=== PATIENT | male | born 1960 | race Caucasian/White ===

== ENCOUNTER 2016-04-30 08:23 | Outpatient (CLI) ==
[2016-01-24 04:55] VITALS: BMI 59.6
== END 2016-04-30 08:24 | disposition home or self-care (01) ==
LOC: WOUND 08:23
PROVIDERS: ATTEND Nurse Practitioner Family
DX: I87.311 Chronic venous hypertension (idiopathic) with ulcer of right lower extremity (principal); L97.812 Non-pressure chronic ulcer of other part of right lower leg with fat layer exposed; I87.312 Chronic venous hypertension (idiopathic) with ulcer of left lower extremity; L97.322 Non-pressure chronic ulcer of left ankle with fat layer exposed; I48.91 Unspecified atrial fibrillation; E11.40 Type 2 diabetes mellitus with diabetic neuropathy, unspecified; I50.9 Heart failure, unspecified; I10 Essential (primary) hypertension
CPT/HCPCS: 11042

== ENCOUNTER 2016-05-07 08:25 | Outpatient (CLI) ==
[2016-01-24 04:55] VITALS: BMI 59.6
== END 2016-05-07 08:26 | disposition home or self-care (01) ==
LOC: WOUND 08:25
PROVIDERS: ATTEND Nurse Practitioner Family
DX: I87.311 Chronic venous hypertension (idiopathic) with ulcer of right lower extremity (principal); L97.812 Non-pressure chronic ulcer of other part of right lower leg with fat layer exposed; I87.312 Chronic venous hypertension (idiopathic) with ulcer of left lower extremity; L97.322 Non-pressure chronic ulcer of left ankle with fat layer exposed; I48.91 Unspecified atrial fibrillation; E11.40 Type 2 diabetes mellitus with diabetic neuropathy, unspecified; I50.9 Heart failure, unspecified; I10 Essential (primary) hypertension
CPT/HCPCS: 11042; 11045; 99214

== ENCOUNTER 2016-05-14 08:29 | Outpatient (CLI) | payer OTHER ==
[2016-01-24 04:55] VITALS: BMI 59.6
== END 2016-05-14 08:30 | disposition home or self-care (01) ==
LOC: WOUND 08:29
PROVIDERS: ATTEND Nurse Practitioner Family
DX: I87.311 Chronic venous hypertension (idiopathic) with ulcer of right lower extremity (principal); L97.812 Non-pressure chronic ulcer of other part of right lower leg with fat layer exposed; I87.312 Chronic venous hypertension (idiopathic) with ulcer of left lower extremity; L97.322 Non-pressure chronic ulcer of left ankle with fat layer exposed; I48.91 Unspecified atrial fibrillation; E11.40 Type 2 diabetes mellitus with diabetic neuropathy, unspecified; I50.9 Heart failure, unspecified; I10 Essential (primary) hypertension
CPT/HCPCS: 11042; 99213

== ENCOUNTER 2016-05-21 08:41 | Outpatient (CLI) | payer OTHER ==
[2016-01-24 04:55] VITALS: BMI 59.6
== END 2016-05-21 08:42 | disposition home or self-care (01) ==
LOC: WOUND 08:41
PROVIDERS: ATTEND Nurse Practitioner Family
DX: I87.311 Chronic venous hypertension (idiopathic) with ulcer of right lower extremity (principal); L97.812 Non-pressure chronic ulcer of other part of right lower leg with fat layer exposed; I87.312 Chronic venous hypertension (idiopathic) with ulcer of left lower extremity; L97.322 Non-pressure chronic ulcer of left ankle with fat layer exposed; I48.91 Unspecified atrial fibrillation; E11.40 Type 2 diabetes mellitus with diabetic neuropathy, unspecified; I50.9 Heart failure, unspecified; I10 Essential (primary) hypertension
CPT/HCPCS: 11042; 11045; 99213

== ENCOUNTER 2016-05-28 08:20 | Outpatient (CLI) ==
[2016-01-24 04:55] VITALS: BMI 59.6
== END 2016-05-28 08:21 | disposition home or self-care (01) ==
LOC: WOUND 08:20
PROVIDERS: ATTEND Nurse Practitioner Family
DX: I87.311 Chronic venous hypertension (idiopathic) with ulcer of right lower extremity (principal); L97.812 Non-pressure chronic ulcer of other part of right lower leg with fat layer exposed; I87.312 Chronic venous hypertension (idiopathic) with ulcer of left lower extremity; L97.322 Non-pressure chronic ulcer of left ankle with fat layer exposed; I48.91 Unspecified atrial fibrillation; E11.40 Type 2 diabetes mellitus with diabetic neuropathy, unspecified; I50.9 Heart failure, unspecified; I10 Essential (primary) hypertension
CPT/HCPCS: 11042; 11045; 99213

== ENCOUNTER 2016-06-04 08:34 | Outpatient (CLI) ==
[2016-01-24 04:55] VITALS: BMI 59.6
== END 2016-06-04 08:35 | disposition home or self-care (01) ==
LOC: WOUND 08:34
PROVIDERS: ATTEND Nurse Practitioner Family
DX: I87.311 Chronic venous hypertension (idiopathic) with ulcer of right lower extremity (principal); L97.812 Non-pressure chronic ulcer of other part of right lower leg with fat layer exposed; I87.312 Chronic venous hypertension (idiopathic) with ulcer of left lower extremity; L97.322 Non-pressure chronic ulcer of left ankle with fat layer exposed; I48.91 Unspecified atrial fibrillation; E11.40 Type 2 diabetes mellitus with diabetic neuropathy, unspecified; I50.9 Heart failure, unspecified; I10 Essential (primary) hypertension
CPT/HCPCS: 11042; 11045; 87070; 87186; 99213

== ENCOUNTER 2016-06-11 08:24 | Outpatient (CLI) ==
[2016-01-24 04:55] VITALS: BMI 59.6
== END 2016-06-11 08:25 | disposition home or self-care (01) ==
LOC: WOUND 08:24
PROVIDERS: ATTEND Nurse Practitioner Family
DX: I87.311 Chronic venous hypertension (idiopathic) with ulcer of right lower extremity (principal); L97.812 Non-pressure chronic ulcer of other part of right lower leg with fat layer exposed; I87.312 Chronic venous hypertension (idiopathic) with ulcer of left lower extremity; L97.322 Non-pressure chronic ulcer of left ankle with fat layer exposed; I48.91 Unspecified atrial fibrillation; E11.40 Type 2 diabetes mellitus with diabetic neuropathy, unspecified; I50.9 Heart failure, unspecified; I10 Essential (primary) hypertension
CPT/HCPCS: 11042; 11045; 99213

== ENCOUNTER 2016-06-18 08:27 | Outpatient (CLI) | payer OTHER ==
[2016-01-24 04:55] VITALS: BMI 59.6
== END 2016-06-18 08:28 | disposition home or self-care (01) ==
LOC: WOUND 08:27
PROVIDERS: ATTEND Nurse Practitioner Family
DX: I87.311 Chronic venous hypertension (idiopathic) with ulcer of right lower extremity (principal); L97.812 Non-pressure chronic ulcer of other part of right lower leg with fat layer exposed; I87.312 Chronic venous hypertension (idiopathic) with ulcer of left lower extremity; L97.322 Non-pressure chronic ulcer of left ankle with fat layer exposed; I48.91 Unspecified atrial fibrillation; E11.40 Type 2 diabetes mellitus with diabetic neuropathy, unspecified; I50.9 Heart failure, unspecified; I10 Essential (primary) hypertension
CPT/HCPCS: 11042; 11045; 99213

== ENCOUNTER 2016-07-02 08:56 | Outpatient (CLI) ==
[2016-01-24 04:55] VITALS: BMI 59.6
== END 2016-07-02 08:57 | disposition home or self-care (01) ==
LOC: WOUND 08:56
PROVIDERS: ATTEND Nurse Practitioner Family
DX: I87.311 Chronic venous hypertension (idiopathic) with ulcer of right lower extremity (principal); L97.812 Non-pressure chronic ulcer of other part of right lower leg with fat layer exposed; I87.312 Chronic venous hypertension (idiopathic) with ulcer of left lower extremity; L97.322 Non-pressure chronic ulcer of left ankle with fat layer exposed; I48.91 Unspecified atrial fibrillation; E11.40 Type 2 diabetes mellitus with diabetic neuropathy, unspecified; I50.9 Heart failure, unspecified; I10 Essential (primary) hypertension
CPT/HCPCS: 11042; 11045; 99213

== ENCOUNTER 2016-07-09 08:26 | Outpatient (CLI) | payer OTHER ==
[2016-01-24 04:55] VITALS: BMI 59.6
== END 2016-07-09 08:27 | disposition home or self-care (01) ==
LOC: WOUND 08:26
PROVIDERS: ATTEND Nurse Practitioner Family
DX: I87.311 Chronic venous hypertension (idiopathic) with ulcer of right lower extremity (principal); L97.812 Non-pressure chronic ulcer of other part of right lower leg with fat layer exposed; I87.312 Chronic venous hypertension (idiopathic) with ulcer of left lower extremity; L97.322 Non-pressure chronic ulcer of left ankle with fat layer exposed; I48.91 Unspecified atrial fibrillation; E11.40 Type 2 diabetes mellitus with diabetic neuropathy, unspecified; I50.9 Heart failure, unspecified; I10 Essential (primary) hypertension
CPT/HCPCS: 11042; 99213

== ENCOUNTER 2016-07-14 05:02 | Emergency (ER) ==
[2016-07-14 05:02] VITALS: BMI 59.6
[2016-07-14 05:30] VITALS: BP 159/90; TEMP 98.2
[2016-07-14 05:40] LABS: BASOPHILS % (AUTO) 0.3 % (0.0-3.0); EOSINOPHILS % (AUTO) 0.6 % (0.0-7.0); HEMATOCRIT 36.8 % (42.0-52.0); HEMOGLOBIN 12.2 g/dl (14.0-18.0); IMMATURE GRANULOCYTE % (AUTO) 0.4 % (0.0-5.0); LYMPHOCYTES # (AUTO) 0.9 K/uL (0.60-3.4); LYMPHOCYTES % (AUTO) 12.7 (10.0-50.0); MEAN CORPUSCULAR HEMOGLOBIN 30.3 pg (27.0-31.0); MEAN CORPUSCULAR HGB CONC 33.2 (31.8-35.4); MEAN CORPUSCULAR VOLUME 91.3 fl (80.0-94.0); MONOCYTES # (AUTO) 0.3 K/uL (0.4-2.0); MONOCYTES % (AUTO) 4.9 (0-10); NEUTROPHILS # (AUTO) 5.6 K/ul (2.0-6.9); NEUTROPHILS % (AUTO) 81.1; PLATELET COUNT 176 10^3/uL (140-440); RED BLOOD COUNT 4.03 10^6/ul (4.70-6.10); WHITE BLOOD COUNT 6.87 K/ul (4.2-10.2)
[2016-07-14 05:42] LABS: BILIRUBIN,URINE Negative (NEGATIVE); KETONES,URINE Trace (NEGATIVE); LEUKOCYTE ESTERASE ,URINE Negative (NEGATIVE); NITRITE,URINE Negative (NEGATIVE); PH,URINE 5.5 (5-9); PROTEIN,URINE 1+ (NEGATIVE); URINE, BLOOD 2+ (NEGATIVE)
[2016-07-14 05:48] LABS: ADD URINE MICROSCOPIC YES
[2016-07-14 05:49] LABS: BACTERIA,URINE TRACE (NOT PRESENT)
[2016-07-14 05:59] LABS: ALBUMIN 4.1 g/dL (3.4-5.0); ALBUMIN/GLOBULIN RATIO 1.05; ANION GAP 16.8; BILIRUBIN,TOTAL 1.15 mg/dL (0.00-1.20); CALCIUM 9.5 mg/dL (8.2-10.2); POTASSIUM 3.8 mmol/L (3.5-5.1)
--- NOTE | 2016-07-14 05:59 | ED.PDOC ---
General ED Provider: Dr. BIPIN MARTÍNEZ-ER Chief Complaint: Urinary Problem Stated Complaint: im having trouble urinating since last night Time Seen by Physician: 05:15 Mode of Arrival: Walk-In Information Source: Patient Exam Limitations: No limitations [facility] Nursing and Triage Documentation Reviewed and Agree: Yes Complaint Exam - Complaint/Exam Onset/Duration: 24hrs Symptoms Are: Resolved Timing: Intermittent Initial Severity: Mild Current Severity: None Location of Pain: Reports: None Character: Reports: Dull Aggravating: Reports: None Alleviating: Reports: None Associated Signs and Symptoms: Reports: Decreased urine output. Denies: Diaphoresis, Back pain, Fever, Hematuria, Dysuria, Constipation, Blood in stool , Rectal pain, Appetite change, Nausea, Vomiting, Penile swelling, Penile discharge, Increased urine frequency, Increased thirst, Decreased activity, Lethargy, Scrotal pain, Scrotal swelling, Abdominal Pain Testicular Torsion Risk Factors: Reports: None Abdominal Findings: Present: None Differential Diagnoses: UTI, Ureteral Calculi Review of Systems - Review Of Systems Constitutional: Reports: No symptoms Eyes: Reports: No symptoms Ears, Nose, Mouth, Throat: Reports: No symptoms Respiratory: Reports: No symptoms Cardiac: Reports: No symptoms GI: Reports: No symptoms : Reports: Other Musculoskeletal: Reports: No symptoms Skin: Reports: No symptoms Neurological: Reports: No symptoms Endocrine: Reports: No symptoms Hematologic/Lymphatic: Reports: No symptoms All Other Systems: Reviewed and Negative Past Medical History - Past Medical History Previously Healthy: No Endocrine: Reports: None Cardiovascular: Reports: CHF, A-Fib Respiratory: Reports: 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) Hematological: Reports: Anemia (hemolytic anemia) Gastrointestinal: Reports: None Genitourinary: Reports: None Neuro/Psych: Reports: None Musculoskeletal: Reports: None Cancer: Reports: None - Surgical History General Surgical History: Reports: None - Family History Family History: Reports: Unknown - Social History Smoking Status: Never smoker Hx Substance Use: No Alcohol Screening: None Lives: With family - Immunizations Tetanus Shot up to Date: Yes Physical Exam - Physical Exam Appearance: Well-appearing, No pain distress, Well-nourished Eyes: JD, EOMI, Conjunctiva clear ENT: Ears normal, Nose normal, Oropharynx normal Neck: Supple Respiratory: Airway patent, Breath sounds clear, Breath sounds equal, Respirations nonlabored Cardiovascular: RRR, Pulses normal, No rub, No murmur GI/: Soft, Nontender, No masses (noted pannus no erythema) Musculoskeletal: Normal strength, ROM intact, No edema, No calf tenderness Skin: Warm, Dry, Normal color Neurological: Sensation intact, Motor intact, Reflexes intact, Cranial nerves intact, Alert, Oriented Psychiatric: Affect appropriate, Mood appropriate Interpretation - Radiology Interpretation Radiology Interpretation By: Radiologist Radiology Results: Negative Exam Interpreted: CT Scan Critical Care Note - Critical Care Note Total Time (mins): 0 Course - Course Hematology/Chemistry: 07/14/16 05:35 07/14/16 05:35 Orders, Labs, Meds: Lab Review 07/14/16 07/14/16 05:30 05:35 WBC 6.87 RBC 4.03 L Hgb 12.2 L Hct 36.8 L MCV 91.3 MCH 30.3 MCHC 33.2 RDW Coeff of Yara 14.6 Plt Count 176 Immature Gran % (Auto) 0.4 Neut % (Auto) 81.1 Lymph % (Auto) 12.7 [place] % (Auto) 4.9 Eos % (Auto) 0.6 Baso % (Auto) 0.3 Immature Gran # (Auto) 0.0 Neut # 5.6 Lymph # 0.9 [place] # 0.3 L Eos # 0.0 Baso # 0.0 Sodium 143 Potassium 3.8 Chloride 107 Carbon Dioxide 23 Anion Gap 16.8 BUN 19 H Creatinine 1.00 Estimated GFR (MDRD) 78.00 BUN/Creatinine Ratio 19.00 Glucose 121 H Calcium 9.5 Total Bilirubin 1.15 AST 18 ALT 16 Alkaline Phosphatase 100 Total Protein 8.0 Albumin 4.1 Globulin 3.9 Albumin/Globulin Ratio 1.05 Urine Color Yellow Urine Clarity Clear Urine pH 5.5 Ur Specific [place] 1.025 Urine Protein 1+ Urine Glucose (UA) Negative Urine Ketones Trace Urine Blood 2+ Urine Nitrite Negative Urine Bilirubin Negative Urine Urobilinogen 0.2 Ur Leukocyte Esterase Negative Urine Microscopic RBC 20-30 Ur Squamous Epith Cells 0-2 Urine Bacteria Trace Orders Category Date Time Status Bladder Scan [ED BLADDER SCAN] .ONCE EMERGENCY 07/14/16 05:30 Inactive CBC W/ AUTO DIFF Stat LAB 07/14/16 05:35 Completed COMPREHENSIVE METABOLIC PANEL Stat LAB 07/14/16 05:35 Completed URINALYSIS C & S IF INDICATED Stat LAB 07/14/16 05:[address] ABDOMEN/PELVIS WO CONTRAST Stat RADS 07/14/16 05:50 Completed Vital Signs: Temp Pulse Resp BP Pulse Ox 07/14/16 05:10 98.2 F 71 20 159/90 H 97 Departure - Departure Time of Disposition: 06:43 Disposition: HOME SELF-CARE Discharge Problem: Incomplete emptying of bladder Instructions: Urinary Retention in Men (ED) Condition: Good Pt referred to PMD for follow-up: Yes Additional Instructions: flomax 0.4mg q daily #30--f/u with pcp Allergies/Adverse Reactions: Allergies No Known Allergies Allergy (Verified 01/24/16 05:10) Home Medications: Ambulatory Orders Folic Acid 1 mg PO DAILY 04/20/13 Furosemide [Lasix] 40 mg PO BID PRN 12/19/13 Metoprolol Succinate 100 mg PO BID 12/19/13 Potassium Chloride 40 meq PO BID 12/19/13 Diltiazem HCl [Cardizem Cd] 120 mg PO BID 03/21/14 Omeprazole [Prilosec] 20 mg PO DAILY 09/29/14 Apixaban [Eliquis] 5 mg PO BID 10/11/14 Aspirin 81 mg PO DAILY 05/07/16 Ibuprofen 800 mg PO BID 07/14/16 Disposition Discussed With: Patient
--- NOTE | 2016-07-14 06:36 | CT ---
Exam: CT of the abdomen and pelvis without contrast History: Urinary retention and lower extremity swelling. Clinical history of hemolytic anemia and chemotherapy Technique: [address] of the abdomen and pelvis without intravascular contrast FINDINGS: The lung bases are clear. There is a 1 cm benign liver cyst. The liver appears normal o therwise. Multiple cholelithiasis without pericholecystic inflammation or abnormal gallbladder dist ension. The pancreas and adrenal glands appear normal. Spleen diameter is 16 x 18 cm. The right ki dney and collecting system appear normal. The left kidney shows a 7 mm nonobstructing calculus. Th ere is no hydronephrosis or hydroureter on either side. The appendix is normal. Scattered alexander colo renato diverticulosis. Bowel loops demonstrate normal caliber. No inflamatory change seen in the mesent moriah or retroperitoneum. Atherosclerotic calcification of the aorta without aneurysm. Colonic diverticulosis of the sigmoid. No inflammation of the pelvic fat. Nondistended urinary michael dder. No acute findings of the skeleton. Impression: 1. No inflammatory process, bowel or urinary obstruction is seen. 2. Nonspecific splenomegaly stable from 11/13/2014. 3. Multiple cholelithiasis without CT evidence of cholecystitis 4. Alexander colonic diverticulosis without evidence of acute diverticulitis. 5. Nonobstructing nephrolithiasis of the left kidney
== END 2016-07-14 06:45 | disposition home or self-care (01) ==
LOC: ED 05:02
DX: R33.9 Retention of urine, unspecified (principal); Z79.899 Other long term (current) drug therapy
CPT/HCPCS: 36415; 80053; 81001; 85025; 99283

== ENCOUNTER 2016-07-23 09:19 | Outpatient (CLI) ==
[2016-07-19 13:17] VITALS: BMI 59.6
== END 2016-07-23 09:20 | disposition home or self-care (01) ==
LOC: WOUND 09:19
PROVIDERS: ATTEND Nurse Practitioner Family
DX: I87.311 Chronic venous hypertension (idiopathic) with ulcer of right lower extremity (principal); L97.812 Non-pressure chronic ulcer of other part of right lower leg with fat layer exposed; I87.312 Chronic venous hypertension (idiopathic) with ulcer of left lower extremity; L97.322 Non-pressure chronic ulcer of left ankle with fat layer exposed; I48.91 Unspecified atrial fibrillation; E11.40 Type 2 diabetes mellitus with diabetic neuropathy, unspecified; I50.9 Heart failure, unspecified; I10 Essential (primary) hypertension
CPT/HCPCS: 97597; 97598; 99214

== ENCOUNTER 2016-07-30 10:25 | Emergency (ER) ==
[2016-07-30 10:34] VITALS: BP 149/107; TEMP 97.4; BMI 58.3
[2016-07-30] MEDS ORDERED: URO-JET MUCOUSMEMB STA (10:35)
--- NOTE | 2016-07-30 10:39 | ED.PDOC ---
General ED Provider: Dr. RIGOBERTO COLBERT JR Chief Complaint: Urinary Problem Stated Complaint: Unable to void. States has been going on x 14 hours. Feels uncomfortable, feels need to void. Has large pendulous abd that pt thinks may be obstructive. Similar incident approx 2 weeks ago, but resolved itself without intervention. Is on flomax.[End] 97.4 92 24 95% 149/107 02/03 Time Seen by Physician: 10:38 Mode of Arrival: Walk-In Information Source: Patient Exam Limitations: No limitations Primary Care Provider: DARRYL DIAL Nursing and Triage Documentation Reviewed and Agree: No Complaint Exam - Complaint/Exam Patient Complains of: Reports: Dysuria Symptoms Are: Still present (intermittent inability to void, patient has large indurated pannus which hwe feels is obstructing his penile outflow"when I move I can occasionally get it to break loose") Review of Systems - Review Of Systems Constitutional: Reports: No symptoms, Malaise Eyes: Reports: No symptoms Ears, Nose, Mouth, Throat: Reports: No symptoms Respiratory: Reports: No symptoms Cardiac: Reports: No symptoms GI: Reports: Abdominal pain : Reports: Dysuria, Other (INABILITY TO VOID) Musculoskeletal: Reports: Muscle pain Skin: Reports: Lesions (THICK HARD PANNUS ACROSS UPPER GROIN AND SCROTUM) Neurological: Reports: No symptoms Endocrine: Reports: No symptoms Hematologic/Lymphatic: Reports: Other All Other Systems: Other Past Medical History - Past Medical History Previously Healthy: No Endocrine: Reports: DM 2 Cardiovascular: Reports: Hypertension, CHF, A-Fib, Other (PVD) Respiratory: Reports: 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) Hematological: Reports: Anemia (hemolytic anemia) Gastrointestinal: Reports: GERD Genitourinary: Reports: None Neuro/Psych: Reports: None Musculoskeletal: Reports: None Cancer: Reports: None Other Pertinent Past Medical History: Chemo pills-(stopped NOW) - Surgical History General Surgical History: Reports: None, Other (WOUND CARE FOR LOWER LEGS) - Family History Family History: Reports: Unknown - Social History Smoking Status: Never smoker Hx Substance Use: No Alcohol Screening: None Physical Exam - Physical Exam Appearance: Well-appearing, Obese Ill-appearing: Mild Pain Distress: Mild Neck: Supple Respiratory: Airway patent GI/: Nontender, Mass (PANNUS) Musculoskeletal: Normal strength, ROM intact, Edema, Calf tenderness (NONFOCAL NOT TENDER WHEN DISTRACTED) Skin: Warm Neurological: Sensation intact, Motor intact, Alert, Oriented Psychiatric: Affect appropriate, Anxious Re-Evaluation - Re-Evaluation Time of Re-Evaluation: 12:06 (CALLED DR Lainez [phone]) Status: Unchanged Physician Notification - Case Discussed Physician Notified: MARCO ANTONIO VELÁZQUEZ [employer] 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 FOR DR JUAREZ, WILL SEE IN [facility] Time of Notification: 12:03 (CALLED FRANNIE FUENTES AT 1200) Physician Notified: DR ELDER ACCEPTS TO [facility] FIFTH FLOOR Time of Notification: 12:30 Critical Care Note - Critical Care Note Total Time (mins): 10 Course - Course Orders, Labs, Meds: Orders Category Date Time Status Bladder Scan [ED BLADDER SCAN] .ONCE EMERGENCY 07/30/16 10:31 Active ED CATHETER INSERTION AND CARE .ONCE EMERGENCY 07/30/16 10:35 Active Lidocaine HCl [Uro-Jet] MEDS 07/30/16 10:35 Discontinued 10 ml MUCOUSMEMB ONCE STA Medications Discontinued Medications Generic Name Dose Route Start Last Admin Trade Name Freq PRN Reason Stop Dose Admin Lidocaine HCl 10 ml 07/30/16 10:35 Uro-Jet MUCOUSMEMB 07/30/16 10:36 ONCE STA Vital Signs: Temp Pulse Resp BP Pulse Ox 07/30/16 10:26 97.4 F L 92 H 24 149/107 H 95 Departure - Departure Time of Disposition: 12:15 Disposition: HOME SELF-CARE Discharge Problem: Urinary symptoms, Bladder outflow obstruction Instructions: Urinary Retention in Men (ED) Condition: Fair Pt referred to PMD for follow-up: No (UROLOGY) Additional Instructions: recommend you follow up at [facility] today as planned If you will not follow up may call your physician and arrange an appointment since you have voided the bladder is not completely obstructed, but you will need urologic care [facility] states your prescription is there Allergies/Adverse Reactions: Allergies No Known Allergies Allergy (Verified 01/24/16 05:10) Home Medications: Ambulatory Orders Folic Acid 1 mg PO DAILY 04/20/13 Furosemide [Lasix] 40 mg PO BID PRN 12/19/13 Metoprolol Succinate 100 mg PO BID 12/19/13 Potassium Chloride 40 meq PO BID 12/19/13 Diltiazem HCl [Cardizem Cd] 120 mg PO BID 03/21/14 Omeprazole [Prilosec] 20 mg PO DAILY 09/29/14 Apixaban [Eliquis] 5 mg PO BID 10/11/14 Aspirin 81 mg PO DAILY 05/07/16 Ibuprofen 800 mg PO BID PRN 07/14/16
== END 2016-07-30 13:23 | disposition home or self-care (01) ==
LOC: ED 10:25
DX: N32.0 Bladder-neck obstruction (principal); E65 Localized adiposity; Z79.899 Other long term (current) drug therapy
CPT/HCPCS: 99282

== ENCOUNTER 2016-08-06 08:19 | Outpatient (CLI) | payer OTHER | END 2016-08-06 08:20 | disposition home or self-care (01) | LOC: WOUND 08:19 | PROVIDERS: ATTEND Nurse Practitioner Family | DX: I87.311 Chronic venous hypertension (idiopathic) with ulcer of right lower extremity (principal); L97.812 Non-pressure chronic ulcer of other part of right lower leg with fat layer exposed; I87.312 Chronic venous hypertension (idiopathic) with ulcer of left lower extremity; L97.322 Non-pressure chronic ulcer of left ankle with fat layer exposed; I48.91 Unspecified atrial fibrillation; E11.40 Type 2 diabetes mellitus with diabetic neuropathy, unspecified; I50.9 Heart failure, unspecified; I10 Essential (primary) hypertension | CPT/HCPCS: 11042; 11045; 87070; 87186; 99213 ==

== ENCOUNTER 2016-08-13 08:19 | Outpatient (CLI) | payer OTHER | END 2016-08-13 08:20 | disposition home or self-care (01) | LOC: WOUND 08:19 | PROVIDERS: ATTEND Nurse Practitioner Family | DX: I87.311 Chronic venous hypertension (idiopathic) with ulcer of right lower extremity (principal); L97.812 Non-pressure chronic ulcer of other part of right lower leg with fat layer exposed; I87.312 Chronic venous hypertension (idiopathic) with ulcer of left lower extremity; L97.322 Non-pressure chronic ulcer of left ankle with fat layer exposed; I48.91 Unspecified atrial fibrillation; E11.40 Type 2 diabetes mellitus with diabetic neuropathy, unspecified; I50.9 Heart failure, unspecified; I10 Essential (primary) hypertension | CPT/HCPCS: 11042; 11045; 99213 ==

== ENCOUNTER 2016-08-20 08:26 | Outpatient (CLI) | END 2016-08-20 08:27 | disposition home or self-care (01) | LOC: WOUND 08:26 | PROVIDERS: ATTEND Nurse Practitioner Family | DX: I87.311 Chronic venous hypertension (idiopathic) with ulcer of right lower extremity (principal); L97.812 Non-pressure chronic ulcer of other part of right lower leg with fat layer exposed; I87.312 Chronic venous hypertension (idiopathic) with ulcer of left lower extremity; L97.322 Non-pressure chronic ulcer of left ankle with fat layer exposed; I48.91 Unspecified atrial fibrillation; E11.40 Type 2 diabetes mellitus with diabetic neuropathy, unspecified; I50.9 Heart failure, unspecified; I10 Essential (primary) hypertension | CPT/HCPCS: 11042; 11045; 99214 ==

== ENCOUNTER 2016-09-03 08:21 | Outpatient (CLI) | END 2016-09-03 08:22 | disposition home or self-care (01) | LOC: WOUND 08:21 | PROVIDERS: ATTEND Nurse Practitioner Family | DX: I87.311 Chronic venous hypertension (idiopathic) with ulcer of right lower extremity (principal); L97.812 Non-pressure chronic ulcer of other part of right lower leg with fat layer exposed; I87.312 Chronic venous hypertension (idiopathic) with ulcer of left lower extremity; L97.322 Non-pressure chronic ulcer of left ankle with fat layer exposed; I48.91 Unspecified atrial fibrillation; E11.40 Type 2 diabetes mellitus with diabetic neuropathy, unspecified; I50.9 Heart failure, unspecified; I10 Essential (primary) hypertension | CPT/HCPCS: 11042; 11045; 99213 ==

== ENCOUNTER 2016-09-10 08:19 | Outpatient (CLI) | payer OTHER | END 2016-09-10 08:20 | disposition home or self-care (01) | LOC: WOUND 08:19 | PROVIDERS: ATTEND Nurse Practitioner Family | DX: I87.311 Chronic venous hypertension (idiopathic) with ulcer of right lower extremity (principal); L97.812 Non-pressure chronic ulcer of other part of right lower leg with fat layer exposed; I87.312 Chronic venous hypertension (idiopathic) with ulcer of left lower extremity; L97.322 Non-pressure chronic ulcer of left ankle with fat layer exposed; I48.91 Unspecified atrial fibrillation; E11.40 Type 2 diabetes mellitus with diabetic neuropathy, unspecified; I50.9 Heart failure, unspecified; I10 Essential (primary) hypertension | CPT/HCPCS: 11042; 11045; 99213 ==

== ENCOUNTER 2016-09-24 08:21 | Outpatient (CLI) | payer OTHER | END 2016-09-24 08:22 | disposition home or self-care (01) | LOC: WOUND 08:21 | PROVIDERS: ATTEND Nurse Practitioner Family | DX: I87.311 Chronic venous hypertension (idiopathic) with ulcer of right lower extremity (principal); L97.812 Non-pressure chronic ulcer of other part of right lower leg with fat layer exposed; I87.312 Chronic venous hypertension (idiopathic) with ulcer of left lower extremity; L97.322 Non-pressure chronic ulcer of left ankle with fat layer exposed; I48.91 Unspecified atrial fibrillation; E11.40 Type 2 diabetes mellitus with diabetic neuropathy, unspecified; I50.9 Heart failure, unspecified; I10 Essential (primary) hypertension | CPT/HCPCS: 11042; 11045; 99213 ==

== ENCOUNTER 2016-10-01 08:35 | Outpatient (CLI) | payer OTHER | END 2016-10-01 08:36 | disposition home or self-care (01) | LOC: WOUND 08:35 | PROVIDERS: ATTEND Nurse Practitioner Family | DX: I87.311 Chronic venous hypertension (idiopathic) with ulcer of right lower extremity (principal); L97.812 Non-pressure chronic ulcer of other part of right lower leg with fat layer exposed; I87.312 Chronic venous hypertension (idiopathic) with ulcer of left lower extremity; L97.322 Non-pressure chronic ulcer of left ankle with fat layer exposed; I48.91 Unspecified atrial fibrillation; E11.40 Type 2 diabetes mellitus with diabetic neuropathy, unspecified; I50.9 Heart failure, unspecified; I10 Essential (primary) hypertension | CPT/HCPCS: 11042; 11045; 99214 ==

== ENCOUNTER 2016-10-08 08:20 | Outpatient (CLI) | payer OTHER | END 2016-10-08 08:21 | disposition home or self-care (01) | LOC: WOUND 08:20 | PROVIDERS: ATTEND Nurse Practitioner Family | DX: I87.311 Chronic venous hypertension (idiopathic) with ulcer of right lower extremity (principal); L97.812 Non-pressure chronic ulcer of other part of right lower leg with fat layer exposed; I87.312 Chronic venous hypertension (idiopathic) with ulcer of left lower extremity; L97.322 Non-pressure chronic ulcer of left ankle with fat layer exposed; I48.91 Unspecified atrial fibrillation; E11.40 Type 2 diabetes mellitus with diabetic neuropathy, unspecified; I50.9 Heart failure, unspecified; I10 Essential (primary) hypertension ==

== ENCOUNTER 2016-10-15 08:29 | Outpatient (CLI) | END 2016-10-15 08:30 | disposition home or self-care (01) | LOC: WOUND 08:29 | PROVIDERS: ATTEND Nurse Practitioner Family | DX: I87.311 Chronic venous hypertension (idiopathic) with ulcer of right lower extremity (principal); L97.812 Non-pressure chronic ulcer of other part of right lower leg with fat layer exposed; I87.312 Chronic venous hypertension (idiopathic) with ulcer of left lower extremity; L97.322 Non-pressure chronic ulcer of left ankle with fat layer exposed; I48.91 Unspecified atrial fibrillation; E11.40 Type 2 diabetes mellitus with diabetic neuropathy, unspecified; I50.9 Heart failure, unspecified; I10 Essential (primary) hypertension ==

== ENCOUNTER 2016-10-22 08:24 | Outpatient (CLI) | END 2016-10-22 08:25 | disposition home or self-care (01) | LOC: WOUND 08:24 | PROVIDERS: ATTEND Nurse Practitioner Family | DX: I87.311 Chronic venous hypertension (idiopathic) with ulcer of right lower extremity (principal); L97.812 Non-pressure chronic ulcer of other part of right lower leg with fat layer exposed; I87.312 Chronic venous hypertension (idiopathic) with ulcer of left lower extremity; L97.322 Non-pressure chronic ulcer of left ankle with fat layer exposed; I48.91 Unspecified atrial fibrillation; E11.40 Type 2 diabetes mellitus with diabetic neuropathy, unspecified; I50.9 Heart failure, unspecified; I10 Essential (primary) hypertension | CPT/HCPCS: 11042; 11045; 99213 ==

== ENCOUNTER 2016-11-05 08:24 | Outpatient (CLI) | payer OTHER | END 2016-11-05 08:25 | disposition home or self-care (01) | LOC: WOUND 08:24 | PROVIDERS: ATTEND Nurse Practitioner Family | DX: I87.311 Chronic venous hypertension (idiopathic) with ulcer of right lower extremity (principal); L97.812 Non-pressure chronic ulcer of other part of right lower leg with fat layer exposed; I87.312 Chronic venous hypertension (idiopathic) with ulcer of left lower extremity; L97.322 Non-pressure chronic ulcer of left ankle with fat layer exposed; I48.91 Unspecified atrial fibrillation; E11.40 Type 2 diabetes mellitus with diabetic neuropathy, unspecified; I50.9 Heart failure, unspecified; I10 Essential (primary) hypertension ==

== ENCOUNTER 2016-11-12 08:27 | Outpatient (CLI) | END 2016-11-12 08:28 | disposition home or self-care (01) | LOC: WOUND 08:27 | PROVIDERS: ATTEND Nurse Practitioner Family | DX: I87.311 Chronic venous hypertension (idiopathic) with ulcer of right lower extremity (principal); L97.812 Non-pressure chronic ulcer of other part of right lower leg with fat layer exposed; I87.312 Chronic venous hypertension (idiopathic) with ulcer of left lower extremity; L97.322 Non-pressure chronic ulcer of left ankle with fat layer exposed; I48.91 Unspecified atrial fibrillation; E11.40 Type 2 diabetes mellitus with diabetic neuropathy, unspecified; I50.9 Heart failure, unspecified; I10 Essential (primary) hypertension | CPT/HCPCS: 87070; 87186 ==

== ENCOUNTER 2016-11-14 17:58 | Outpatient (CLI) | payer OTHER ==
[2016-11-14] MEDS ORDERED: MAXIPIME 2 GM in SODIUM CHLORIDE 100 ML IV STA (18:30)
[2016-11-14 18:34] VITALS: BP 124/81; TEMP 98
== END 2016-11-14 19:45 | disposition home or self-care (01) ==
LOC: OPMED 17:58
PROVIDERS: ATTEND Nurse Practitioner Family
DX: I87.311 Chronic venous hypertension (idiopathic) with ulcer of right lower extremity (principal); L97.812 Non-pressure chronic ulcer of other part of right lower leg with fat layer exposed; I87.312 Chronic venous hypertension (idiopathic) with ulcer of left lower extremity
CPT/HCPCS: 96365; 96366

== ENCOUNTER 2016-11-19 08:21 | Outpatient (CLI) | payer OTHER ==
[2016-11-19 13:34] LABS: BASOPHILS % (AUTO) 0.4 % (0.0-3.0); EOSINOPHILS % (AUTO) 0.5 % (0.0-7.0); HEMATOCRIT 42.4 % (42.0-52.0); IMMATURE GRANULOCYTE % (AUTO) 0.6 % (0.0-5.0); LYMPHOCYTES # (AUTO) 1.1 K/uL (0.60-3.4); MEAN CORPUSCULAR HEMOGLOBIN 30.2 pg (27.0-31.0); MEAN CORPUSCULAR VOLUME 91.4 fl (80.0-94.0); MONOCYTES # (AUTO) 0.3 K/uL (0.4-2.0); NEUTROPHILS # (AUTO) 6.3 K/ul (2.0-6.9); NEUTROPHILS % (AUTO) 80.5; PLATELET COUNT 120 10^3/uL (140-440); RED BLOOD COUNT 4.64 10^6/ul (4.70-6.10); WHITE BLOOD COUNT 7.79 K/ul (4.2-10.2)
[2016-11-19 14:06] LABS: CHOL/HDL RATIO 3.6 (4.5-6.4)
== END 2016-11-19 08:22 | disposition home or self-care (01) ==
LOC: WOUND 08:21
PROVIDERS: ATTEND Nurse Practitioner Family
DX: I87.311 Chronic venous hypertension (idiopathic) with ulcer of right lower extremity (principal); L97.812 Non-pressure chronic ulcer of other part of right lower leg with fat layer exposed; I87.312 Chronic venous hypertension (idiopathic) with ulcer of left lower extremity; I48.91 Unspecified atrial fibrillation; E11.40 Type 2 diabetes mellitus with diabetic neuropathy, unspecified; I50.9 Heart failure, unspecified; I10 Essential (primary) hypertension
CPT/HCPCS: 11042; 36415; 80061; 83036; 84443; 85025; 99213

== ENCOUNTER 2016-11-26 09:23 | Outpatient (CLI) | payer OTHER | END 2016-11-26 09:24 | disposition home or self-care (01) | LOC: WOUND 09:23 | PROVIDERS: ATTEND Nurse Practitioner Family | DX: I87.311 Chronic venous hypertension (idiopathic) with ulcer of right lower extremity (principal); L97.812 Non-pressure chronic ulcer of other part of right lower leg with fat layer exposed; I48.91 Unspecified atrial fibrillation; E11.40 Type 2 diabetes mellitus with diabetic neuropathy, unspecified; I50.9 Heart failure, unspecified; I10 Essential (primary) hypertension ==

== ENCOUNTER 2016-12-03 08:14 | Outpatient (CLI) | END 2016-12-03 08:15 | disposition home or self-care (01) | LOC: WOUND 08:14 | PROVIDERS: ATTEND Nurse Practitioner Family | DX: I87.311 Chronic venous hypertension (idiopathic) with ulcer of right lower extremity (principal); L97.812 Non-pressure chronic ulcer of other part of right lower leg with fat layer exposed; I87.312 Chronic venous hypertension (idiopathic) with ulcer of left lower extremity; L97.322 Non-pressure chronic ulcer of left ankle with fat layer exposed; I48.91 Unspecified atrial fibrillation; E11.40 Type 2 diabetes mellitus with diabetic neuropathy, unspecified; I50.9 Heart failure, unspecified; I10 Essential (primary) hypertension | CPT/HCPCS: 11042; 99213 ==

== ENCOUNTER 2017-01-02 16:14 | Outpatient (CLI) | END 2017-01-02 16:15 | disposition home or self-care (01) | LOC: LAB 16:14 | PROVIDERS: ATTEND Nurse Practitioner Family | DX: L03.116 Cellulitis of left lower limb (principal); L89.899 Pressure ulcer of other site, unspecified stage | CPT/HCPCS: 87070; 87186 ==

== ENCOUNTER 2017-01-07 08:22 | Outpatient (CLI) | END 2017-01-07 08:23 | disposition home or self-care (01) | LOC: WOUND 08:22 | PROVIDERS: ATTEND Nurse Practitioner Family | DX: I87.332 Chronic venous hypertension (idiopathic) with ulcer and inflammation of left lower extremity (principal); L97.822 Non-pressure chronic ulcer of other part of left lower leg with fat layer exposed; L97.322 Non-pressure chronic ulcer of left ankle with fat layer exposed; L97.222 Non-pressure chronic ulcer of left calf with fat layer exposed; E11.9 Type 2 diabetes mellitus without complications; I10 Essential (primary) hypertension; R39.81 Functional urinary incontinence; I48.91 Unspecified atrial fibrillation; I50.9 Heart failure, unspecified ==

== ENCOUNTER 2017-01-14 08:17 | Outpatient (CLI) | END 2017-01-14 08:18 | disposition home or self-care (01) | LOC: WOUND 08:17 | PROVIDERS: ATTEND Nurse Practitioner Family | DX: I87.332 Chronic venous hypertension (idiopathic) with ulcer and inflammation of left lower extremity (principal); L97.822 Non-pressure chronic ulcer of other part of left lower leg with fat layer exposed; L97.322 Non-pressure chronic ulcer of left ankle with fat layer exposed; L97.222 Non-pressure chronic ulcer of left calf with fat layer exposed; E11.9 Type 2 diabetes mellitus without complications; I10 Essential (primary) hypertension; R39.81 Functional urinary incontinence; I48.91 Unspecified atrial fibrillation; I50.9 Heart failure, unspecified ==

== ENCOUNTER 2017-01-21 08:23 | Outpatient (CLI) ==
[2017-01-21 10:46] VITALS: BMI 65.0
== END 2017-01-21 08:24 | disposition home or self-care (01) ==
LOC: WOUND 08:23
PROVIDERS: ATTEND Nurse Practitioner Family
DX: I87.332 Chronic venous hypertension (idiopathic) with ulcer and inflammation of left lower extremity (principal); L97.822 Non-pressure chronic ulcer of other part of left lower leg with fat layer exposed; L97.322 Non-pressure chronic ulcer of left ankle with fat layer exposed; L97.222 Non-pressure chronic ulcer of left calf with fat layer exposed; E11.9 Type 2 diabetes mellitus without complications; I10 Essential (primary) hypertension; R39.81 Functional urinary incontinence; I48.91 Unspecified atrial fibrillation; I50.9 Heart failure, unspecified

== ENCOUNTER 2017-01-21 09:27 | Inpatient (IN) ==
[2017-01-21] MEDS ORDERED: VANCOMYCIN 1 GM in SODIUM CHLORIDE 250 ML IV SCH (10:30)
[2017-01-21 10:46] VITALS: BMI 65.0
[2017-01-21 10:53] LABS: BASOPHILS % (AUTO) 0.4 % (0.0-3.0); EOSINOPHILS # (AUTO) 0.1 K/ul (0.0-0.7); HEMATOCRIT 31.7 % (42.0-52.0); HEMOGLOBIN 10.9 g/dl (14.0-18.0); IMMATURE GRANULOCYTE % (AUTO) 0.8 % (0.0-5.0); LYMPHOCYTES # (AUTO) 0.8 K/uL (0.60-3.4); LYMPHOCYTES % (AUTO) 15.1 (10.0-50.0); MEAN CORPUSCULAR HEMOGLOBIN 31.6 pg (27.0-31.0); MEAN CORPUSCULAR HGB CONC 34.4 (31.8-35.4); MEAN CORPUSCULAR VOLUME 91.9 fl (80.0-94.0); MONOCYTES # (AUTO) 0.4 K/uL (0.4-2.0); MONOCYTES % (AUTO) 8.5 (0-10); NEUTROPHILS # (AUTO) 3.7 K/ul (2.0-6.9); NEUTROPHILS % (AUTO) 73.2; PLATELET COUNT 126 10^3/uL (140-440); RED BLOOD COUNT 3.45 10^6/ul (4.70-6.10); WHITE BLOOD COUNT 5.03 K/ul (4.2-10.2)
[2017-01-21] MEDS: SODIUM CHLORIDE 1,000 ML IV SCH (10:54)
[2017-01-21 11:08] LABS: ALBUMIN 3.2 g/dL (3.4-5.0); ALBUMIN/GLOBULIN RATIO 1.03; ANION GAP 13.4; BILIRUBIN,TOTAL 2.47 mg/dL (0.00-1.20); BUN/CREATININE RATIO 12.19; CALCIUM 8.8 mg/dL (8.2-10.2); CREATININE 0.82 mg/dL (0.60-1.10); POTASSIUM 3.4 mmol/L (3.5-5.1); TOTAL PROTEIN 6.3 g/dL (6.4-8.2)
[2017-01-21] MEDS: ROCEPHIN 1 GM in SODIUM CHLORIDE 50 ML IV SCH (11:44)
[2017-01-21] MEDS: VANCOMYCIN 2 GM in SODIUM CHLORIDE 500 ML IV SCH ×2 (12:52→21:34)
[2017-01-21 13:36] LABS: BILIRUBIN,URINE Negative (NEGATIVE); KETONES,URINE Negative (NEGATIVE); LEUKOCYTE ESTERASE ,URINE Negative (NEGATIVE); NITRITE,URINE Negative (NEGATIVE); PH,URINE 7.5 (5-9); PROTEIN,URINE 1+ (NEGATIVE); URINE, BLOOD 1+ (NEGATIVE)
[2017-01-21 13:49] LABS: ADD URINE MICROSCOPIC YES
[2017-01-21] MEDS: TOPROL XL PO SCH (16:37)
[2017-01-21 17:13] LABS: CREATINE KINASE 115 U/L
[2017-01-21 17:15] LABS: CREATINE KINASE MB 1.1 ng/ml (0.0-3.6)
[2017-01-21] MEDS ORDERED: NON-FORMULARY MEDICATION (Metformin Hcl [Metformin Hcl Er] 1,000 MG) PO SCH ×22 (21:00)
[2017-01-21] MEDS ORDERED: POTASSIUM CHLORIDE 40 MEQ PO SCH (21:00)
[2017-01-21] MEDS ORDERED: GLUCOPHAGE PO SCH (21:00)
[2017-01-21] MEDS ORDERED: DILTIAZEM HCL 120 MG PO SCH (21:00)
[2017-01-21] MEDS ORDERED: NON-FORMULARY MEDICATION (Metoprolol Succinate [Metoprolol Succinate] 100 MG) PO SCH (21:00)
[2017-01-21] MEDS: CARDIZEM CD PO SCH (21:35)
[2017-01-21] MEDS: ELIQUIS PO SCH (21:35)
[2017-01-21] MEDS: NEURONTIN PO SCH (21:36)
[2017-01-21] MEDS: K-DUR PO SCH (21:36)
[2017-01-22 01:22] LABS: ALBUMIN 2.8 g/dL (3.4-5.0); ALBUMIN/GLOBULIN RATIO 1.04; ANION GAP 12.4; BILIRUBIN,TOTAL 2.07 mg/dL (0.00-1.20); BUN/CREATININE RATIO 8.43; CALCIUM 8.2 mg/dL (8.2-10.2); CREATININE 0.83 mg/dL (0.60-1.10); POTASSIUM 3.4 mmol/L (3.5-5.1); TOTAL PROTEIN 5.5 g/dL (6.4-8.2)
[2017-01-22 01:26] LABS: EOSINOPHILS # (AUTO) 0.1 K/ul (0.0-0.7); EOSINOPHILS % (AUTO) 2.5 % (0.0-7.0); HEMATOCRIT 29.2 % (42.0-52.0); IMMATURE GRANULOCYTE % (AUTO) 1.5 % (0.0-5.0); LYMPHOCYTES # (AUTO) 1.2 K/uL (0.60-3.4); MEAN CORPUSCULAR HEMOGLOBIN 31.5 pg (27.0-31.0); MEAN CORPUSCULAR HGB CONC 34.2 (31.8-35.4); MEAN CORPUSCULAR VOLUME 92.1 fl (80.0-94.0); MONOCYTES # (AUTO) 0.5 K/uL (0.4-2.0); MONOCYTES % (AUTO) 11.3 (0-10); NEUTROPHILS # (AUTO) 2.2 K/ul (2.0-6.9); NEUTROPHILS % (AUTO) 54.7; PLATELET COUNT 122 10^3/uL (140-440); RED BLOOD COUNT 3.17 10^6/ul (4.70-6.10); WHITE BLOOD COUNT 3.97 K/ul (4.2-10.2)
[2017-01-22 01:38] LABS: TROPONIN I 0.017 ng/ml (0.0000-0.4000)
[2017-01-22 01:39] LABS: CREATINE KINASE MB 0.9 ng/ml (0.0-3.6)
[2017-01-22] MEDS: TYLENOL PO PRN ×2 (02:25→19:41)
[2017-01-22] MEDS: VANCOMYCIN 2 GM in SODIUM CHLORIDE 500 ML IV SCH ×3 (04:03→20:28)
[2017-01-22] MEDS: PRILOSEC PO SCH (05:31)
[2017-01-22] MEDS: LASIX TAB PO SCH (05:31)
[2017-01-22] MEDS ORDERED: MORPHINE 2 MG/ML SYRINGE IVP PRN (08:24)
[2017-01-22] MEDS: TOPROL XL PO SCH ×2 (10:02→16:54)
[2017-01-22] MEDS: ELIQUIS PO SCH ×2 (10:02→20:28)
[2017-01-22] MEDS: ASPIRIN EC PO SCH (10:02)
[2017-01-22] MEDS: K-DUR PO SCH ×2 (10:02→20:28)
[2017-01-22] MEDS: LIPITOR PO SCH (10:03)
[2017-01-22] MEDS: GLUCOPHAGE PO SCH ×2 (10:03→16:53)
[2017-01-22] MEDS: FLOMAX PO SCH (10:03)
[2017-01-22] MEDS: NEURONTIN PO SCH ×2 (10:03→20:28)
[2017-01-22] MEDS: FOLIC ACID PO SCH (10:03)
[2017-01-22] MEDS: CARDIZEM CD PO SCH ×2 (10:03→20:28)
[2017-01-22] MEDS: ROCEPHIN 1 GM in SODIUM CHLORIDE 50 ML IV SCH (10:48)
[2017-01-22] MEDS: SODIUM CHLORIDE 1,000 ML IV SCH (17:00)
[2017-01-23] MEDS: PRILOSEC PO SCH (05:39)
[2017-01-23] MEDS: LASIX TAB PO SCH (05:39)
[2017-01-23] MEDS: VANCOMYCIN 2 GM in SODIUM CHLORIDE 500 ML IV SCH (05:40)
[2017-01-23 06:34] LABS: BASOPHILS % (AUTO) 0.7 % (0.0-3.0); EOSINOPHILS # (AUTO) 0.2 K/ul (0.0-0.7); EOSINOPHILS % (AUTO) 3.7 % (0.0-7.0); HEMATOCRIT 29.5 % (42.0-52.0); HEMOGLOBIN 9.8 g/dl (14.0-18.0); IMMATURE GRANULOCYTE % (AUTO) 0.5 % (0.0-5.0); LYMPHOCYTES # (AUTO) 1.2 K/uL (0.60-3.4); LYMPHOCYTES % (AUTO) 29.6 (10.0-50.0); MEAN CORPUSCULAR HEMOGLOBIN 31.3 pg (27.0-31.0); MEAN CORPUSCULAR HGB CONC 33.2 (31.8-35.4); MEAN CORPUSCULAR VOLUME 94.2 fl (80.0-94.0); MONOCYTES # (AUTO) 0.4 K/uL (0.4-2.0); MONOCYTES % (AUTO) 9.1 (0-10); NEUTROPHILS # (AUTO) 2.3 K/ul (2.0-6.9); NEUTROPHILS % (AUTO) 56.4; PLATELET COUNT 128 10^3/uL (140-440); RED BLOOD COUNT 3.13 10^6/ul (4.70-6.10); WHITE BLOOD COUNT 4.05 K/ul (4.2-10.2)
[2017-01-23 06:45] LABS: ALBUMIN 2.8 g/dL (3.4-5.0); ALBUMIN/GLOBULIN RATIO 1.04; ANION GAP 12.6; BILIRUBIN,TOTAL 1.48 mg/dL (0.00-1.20); BUN/CREATININE RATIO 9.75; CALCIUM 7.9 mg/dL (8.2-10.2); CREATININE 0.82 mg/dL (0.60-1.10); POTASSIUM 3.6 mmol/L (3.5-5.1); TOTAL PROTEIN 5.5 g/dL (6.4-8.2)
[2017-01-23] MEDS: GLUCOPHAGE PO SCH ×2 (08:50→17:00)
[2017-01-23] MEDS: TOPROL XL PO SCH ×2 (08:50→17:00)
[2017-01-23] MEDS: FLOMAX PO SCH (09:44)
[2017-01-23] MEDS: ASPIRIN EC PO SCH (09:45)
[2017-01-23] MEDS: ROCEPHIN 1 GM in SODIUM CHLORIDE 50 ML IV SCH (09:45)
[2017-01-23] MEDS: LIPITOR PO SCH (09:45)
[2017-01-23] MEDS: NEURONTIN PO SCH ×2 (09:45→20:23)
[2017-01-23] MEDS: FOLIC ACID PO SCH (09:46)
[2017-01-23] MEDS: ELIQUIS PO SCH ×2 (09:46→20:23)
[2017-01-23] MEDS: K-DUR PO SCH ×2 (09:46→20:23)
[2017-01-23] MEDS: CARDIZEM CD PO SCH ×2 (09:46→20:23)
[2017-01-23] MEDS: VANCOMYCIN 1 GM in SODIUM CHLORIDE 250 ML IV SCH ×2 (12:42→20:24)
[2017-01-23] MEDS: SODIUM CHLORIDE 1,000 ML IV SCH (13:26)
--- NOTE | 2017-01-23 15:14 | US ---
EXAM: Limited abdominal ultrasound. History: Elevated bilirubin Comparison: CT abdomen pelvis 07/14/2016 Technique: Multiple sonographic images through the abdomen were obtained. Color duplex Doppler was used to interrogate vascular flow. Findings: The liver measures mildly enlarged. There is antegrade flow within the main portal vein. No focal liver lesions identified sonographically. The periportal echoes within the liver are maint ained. No abdominal ascites. Limited visualization of the right kidney demonstrates no evidence for hydronephrosis. Cholelithiasis and gallbladder sludge. No gallbladder wall thickening. Common sahra e duct measures 0.4 cm in caliber. Pancreas is not well visualized due to obscuration by bowel gas. Impression: Cholelithiasis and gallbladder sludge. No gallbladder wall thickening. Mild hepatomegaly
[2017-01-24] MEDS: TYLENOL PO PRN ×2 (03:34→16:47)
[2017-01-24] MEDS: VANCOMYCIN 1 GM in SODIUM CHLORIDE 250 ML IV SCH ×3 (05:37→20:06)
[2017-01-24] MEDS: LASIX TAB PO SCH (05:38)
[2017-01-24] MEDS: PRILOSEC PO SCH (05:38)
[2017-01-24 05:46] LABS: BASOPHILS % (AUTO) 0.7 % (0.0-3.0); EOSINOPHILS # (AUTO) 0.2 K/ul (0.0-0.7); EOSINOPHILS % (AUTO) 3.3 % (0.0-7.0); HEMATOCRIT 29.9 % (42.0-52.0); HEMOGLOBIN 9.9 g/dl (14.0-18.0); IMMATURE GRANULOCYTE % (AUTO) 0.2 % (0.0-5.0); LYMPHOCYTES # (AUTO) 1.2 K/uL (0.60-3.4); LYMPHOCYTES % (AUTO) 26.7 (10.0-50.0); MEAN CORPUSCULAR HEMOGLOBIN 30.9 pg (27.0-31.0); MEAN CORPUSCULAR HGB CONC 33.1 (31.8-35.4); MEAN CORPUSCULAR VOLUME 93.4 fl (80.0-94.0); MONOCYTES # (AUTO) 0.4 K/uL (0.4-2.0); NEUTROPHILS # (AUTO) 2.8 K/ul (2.0-6.9); NEUTROPHILS % (AUTO) 61.1; PLATELET COUNT 115 10^3/uL (140-440)
[2017-01-24 06:33] LABS: ALBUMIN 2.8 g/dL (3.4-5.0); ANION GAP 11.9; BILIRUBIN,TOTAL 1.25 mg/dL (0.00-1.20); BUN/CREATININE RATIO 10.84; CALCIUM 8.3 mg/dL (8.2-10.2); CREATININE 0.83 mg/dL (0.60-1.10); POTASSIUM 3.9 mmol/L (3.5-5.1); TOTAL PROTEIN 5.6 g/dL (6.4-8.2)
[2017-01-24] MEDS: SODIUM CHLORIDE 1,000 ML IV SCH (07:45)
[2017-01-24] MEDS: ROCEPHIN 1 GM in SODIUM CHLORIDE 50 ML IV SCH (08:49)
[2017-01-24] MEDS: CARDIZEM CD PO SCH ×2 (08:50→20:07)
[2017-01-24] MEDS: FOLIC ACID PO SCH (08:50)
[2017-01-24] MEDS: LIPITOR PO SCH (08:50)
[2017-01-24] MEDS: GLUCOPHAGE PO SCH ×2 (08:50→16:42)
[2017-01-24] MEDS: TOPROL XL PO SCH ×2 (08:50→16:42)
[2017-01-24] MEDS: ASPIRIN EC PO SCH (08:50)
[2017-01-24] MEDS: K-DUR PO SCH ×2 (08:50→20:06)
[2017-01-24] MEDS: ELIQUIS PO SCH ×2 (08:51→20:06)
[2017-01-24] MEDS: FLOMAX PO SCH (08:51)
[2017-01-24] MEDS: NEURONTIN PO SCH ×2 (08:51→20:07)
[2017-01-25 04:55] LABS: BASOPHILS % (AUTO) 0.8 % (0.0-3.0); EOSINOPHILS # (AUTO) 0.2 K/ul (0.0-0.7); EOSINOPHILS % (AUTO) 3.8 % (0.0-7.0); HEMATOCRIT 32.7 % (42.0-52.0); HEMOGLOBIN 10.9 g/dl (14.0-18.0); IMMATURE GRANULOCYTE % (AUTO) 0.8 % (0.0-5.0); LYMPHOCYTES # (AUTO) 1.1 K/uL (0.60-3.4); LYMPHOCYTES % (AUTO) 28.2 (10.0-50.0); MEAN CORPUSCULAR HEMOGLOBIN 30.6 pg (27.0-31.0); MEAN CORPUSCULAR HGB CONC 33.3 (31.8-35.4); MEAN CORPUSCULAR VOLUME 91.9 fl (80.0-94.0); MONOCYTES # (AUTO) 0.3 K/uL (0.4-2.0); MONOCYTES % (AUTO) 7.3 (0-10); NEUTROPHILS # (AUTO) 2.4 K/ul (2.0-6.9); NEUTROPHILS % (AUTO) 59.1; PLATELET COUNT 161 10^3/uL (140-440); RED BLOOD COUNT 3.56 10^6/ul (4.70-6.10); WHITE BLOOD COUNT 3.97 K/ul (4.2-10.2)
[2017-01-25] MEDS: VANCOMYCIN 1 GM in SODIUM CHLORIDE 250 ML IV SCH ×2 (04:56→20:18)
[2017-01-25 05:25] LABS: ALBUMIN/GLOBULIN RATIO 0.97; ANION GAP 15.8; BILIRUBIN,TOTAL 1.21 mg/dL (0.00-1.20); BUN/CREATININE RATIO 10.97; CALCIUM 8.7 mg/dL (8.2-10.2); CREATININE 0.82 mg/dL (0.60-1.10); POTASSIUM 3.8 mmol/L (3.5-5.1); TOTAL PROTEIN 6.1 g/dL (6.4-8.2)
[2017-01-25] MEDS: PRILOSEC PO SCH (05:37)
[2017-01-25] MEDS: LASIX TAB PO SCH (05:37)
[2017-01-25] MEDS: K-DUR PO SCH ×2 (09:03→20:19)
[2017-01-25] MEDS: ROCEPHIN 1 GM in SODIUM CHLORIDE 50 ML IV SCH (09:03)
[2017-01-25] MEDS: GLUCOPHAGE PO SCH ×2 (09:03→16:33)
[2017-01-25] MEDS: LIPITOR PO SCH (09:03)
[2017-01-25] MEDS: TOPROL XL PO SCH ×2 (09:03→16:33)
[2017-01-25] MEDS: FOLIC ACID PO SCH (09:04)
[2017-01-25] MEDS: ASPIRIN EC PO SCH (09:04)
[2017-01-25] MEDS: CARDIZEM CD PO SCH ×2 (09:04→20:19)
[2017-01-25] MEDS: FLOMAX PO SCH (09:04)
[2017-01-25] MEDS: NEURONTIN PO SCH ×2 (09:04→20:19)
[2017-01-25] MEDS: ELIQUIS PO SCH ×2 (09:04→20:19)
[2017-01-25] MEDS: SODIUM CHLORIDE 1,000 ML IV SCH ×2 (14:54→14:55)
[2017-01-25] MEDS: TYLENOL PO PRN (23:05)
[2017-01-26 04:49] LABS: BASOPHILS % (AUTO) 1.1 % (0.0-3.0); EOSINOPHILS # (AUTO) 0.2 K/ul (0.0-0.7); EOSINOPHILS % (AUTO) 4.8 % (0.0-7.0); HEMATOCRIT 29.7 % (42.0-52.0); IMMATURE GRANULOCYTE % (AUTO) 0.8 % (0.0-5.0); LYMPHOCYTES # (AUTO) 1.1 K/uL (0.60-3.4); LYMPHOCYTES % (AUTO) 28.4 (10.0-50.0); MEAN CORPUSCULAR HEMOGLOBIN 31.3 pg (27.0-31.0); MEAN CORPUSCULAR HGB CONC 33.7 (31.8-35.4); MEAN CORPUSCULAR VOLUME 92.8 fl (80.0-94.0); MONOCYTES # (AUTO) 0.3 K/uL (0.4-2.0); MONOCYTES % (AUTO) 7.4 (0-10); NEUTROPHILS # (AUTO) 2.2 K/ul (2.0-6.9); NEUTROPHILS % (AUTO) 57.5; PLATELET COUNT 134 10^3/uL (140-440); WHITE BLOOD COUNT 3.77 K/ul (4.2-10.2)
[2017-01-26 05:09] LABS: ALBUMIN 2.7 g/dL (3.4-5.0); ANION GAP 11.9; BILIRUBIN,TOTAL 0.91 mg/dL (0.00-1.20); BUN/CREATININE RATIO 11.25; CALCIUM 8.5 mg/dL (8.2-10.2); CREATININE 0.8 mg/dL (0.60-1.10); POTASSIUM 3.9 mmol/L (3.5-5.1); TOTAL PROTEIN 5.4 g/dL (6.4-8.2)
[2017-01-26] MEDS: LASIX TAB PO SCH (05:33)
[2017-01-26] MEDS: PRILOSEC PO SCH (05:33)
--- NOTE | 2017-01-26 08:34 | HP ---
DATE OF SERVICE: 01/21/17 CHIEF COMPLAINT: Left leg open wound and cellulitis HISTORY OF PRESENT ILLNESS: This is a 56 year old white with history of the lower extremity multiple wounds and history of diabetes. He had been having the left leg swelling, redness and open area which is being treated as outpatient with oral antibiotics but the day on the the patient was seen and evaluated in the Wound Care by the Charito Allred and the redness and swelling and oozing and the pain in the left lower extremity was worse so at the time the patient was admitted directly for the IV antibiotics and the treatment of the left lower extremity ulcer and the cellulitis of the lower extremity. REVIEW OF SYSTEMS: CONSTITUTIONAL: No fever, no chills. Weakness and tiredness. HEENT: Normal. ENDOCRINE: No weight gain; no weight loss. CVS: No chest pain. No PND, no orthopnea. Shortness of breath with exertion. No PND, no orthopnea. RESPIRATORY: No cough, no congestion. No hemoptysis. GI: No nausea, no vomiting. No abdominal pain. No melena. : No hematuria. No polyuria. EXTREMITY: Bilateral lower extremity swelling and redness. Left lower extremity has an open area lateral side which has been draining clear to yellow puss. MUSCULOSKELETAL: No joint swelling. Aches and pain are present. PSYCHIATRIC: Not anxious. No depression. No suicidal thoughts. No homicidal thoughts. SKIN: Intact, no open lesions. PAST MEDICAL HISTORY/PAST SURGICAL HISTORY: Coronary artery disease Congestive heart failure Atrial fibrillation on Eliquis History of hemolytic anemia Diabetes Mellitus which is secondary to the patient's use of steroids Morbid obesity Hypertension Dyslipidemia BPH Peripheral neuropathy Dependant edema Obstructive Sleep apnea History of hydronephrosis and seeing the Neurologist PERSONAL HISTORY: Family history is significant for the lung cancer MEDICATIONS: Folic Acid Lasix Metoprolol Diltazem Omeprazole Apixaban 5mg twice a daily Flomax Atorvastatin Metformin Potassium Gabapentin Ciprofloxacin Aspirin ALLERGIES: No known allergies. PHYSICAL EXAMINATION: V/S: Blood pressure 120/74, respiratory rate 22, heart rate 88, temperature 98.1 with saturation 94% on the room air. GENERAL: Morbidly obese person lying in a bad and not in any distress. HEENT: Atraumatic, normocephalic. No scleral icterus. Pallor positive. Mucosa dry. NECK: Supple. No JVD, no bruit. No lymphadenopathy. No thyromegaly. HEART: S1, S2 normal. No murmur. No cyanosis or clubbing. No ascites. LUNGS: Clear to auscultation. No rales or rhonchi. ABDOMEN: Soft, nontender. Bowel sounds are active. No CVA tenderness. No rigidity or guarding. EXTREMITIES: No cyanosis, clubbing or pedal edema. Bilateral lower extremity edema is present up to the knee. Left lower extremity just above the lateral malleolus open area 4x5cm red, tender and draining clear to yellow, tender to touch, circumferential redness and swelling below the knee. MUSCULOSKELETAL: Normal joints, no swelling. NEUROLOGIC: The patient is SKIN: Intact; no open lesions. LYMPHATIC: No lymph nodes palpable. LABS: WBC 5.03, hgb 10.9, hct 31.7, plt count 126, sodium 142, potassium 3.4, chloride 103, bicarb 29, BUN 10, creatinine 0.82, glucose 103, total bilirubin 2.47. ASSESSMENT: 1. Left lower extremity ulcer with the circumferential cellulitis of the left leg below knee. 2. History of outpatient failure for the treatment, on oral antibiotics 3. Diabetes 4. Peripheral neuropathy 5. Atrial fibrillation on anticoagulation 6. Morbid obesity 7. History of Hemolytic anemia 8. Congestive heart failure PLAN: 1. Admit patient to the regular floor 2. CBC and CMP today and daily 3. Cardiac enzymes and Troponin 4. Accu-checks with coverage 5. ADA diet 6. No anticoagulation as patient is already on the Eliquis 7. Rocephin and Vancomycin 8. Keep the legs elevated 9. Wet to dry dressing 10.Morphine for the pain TIME SPENT: MORE THAN 70 minutes MTDD
[2017-01-26] MEDS: LIPITOR PO SCH (08:40)
[2017-01-26] MEDS: CARDIZEM CD PO SCH ×2 (08:40→20:47)
[2017-01-26] MEDS: TOPROL XL PO SCH ×2 (08:40→16:45)
[2017-01-26] MEDS: GLUCOPHAGE PO SCH ×2 (08:40→16:44)
[2017-01-26] MEDS: K-DUR PO SCH ×2 (08:40→20:47)
[2017-01-26] MEDS: ELIQUIS PO SCH ×2 (08:41→20:46)
[2017-01-26] MEDS: FOLIC ACID PO SCH (08:41)
[2017-01-26] MEDS: NEURONTIN PO SCH ×2 (08:41→20:47)
[2017-01-26] MEDS: FLOMAX PO SCH (08:41)
[2017-01-26] MEDS: ASPIRIN EC PO SCH (08:41)
[2017-01-26] MEDS: ROCEPHIN 1 GM in SODIUM CHLORIDE 50 ML IV SCH (08:41)
--- NOTE | 2017-01-26 09:02 | PN ---
DATE OF SERVICE: 01/22/17 SUBJECTIVE: The patient was admitted with the Wound Care with the left lower extremity ulcer and circumferential cellulitis. Still swelling and oozing is present but no fever or chills since admission. The patient gets short of breath with minimal exertion which is not pretty normal for the patient. REVIEW OF SYSTEMS: CONSTITUTIONAL: No fever, no chills. HEENT: Normal. ENDOCRINE: No weight gain, no weight loss. CVS: No angina symptoms. No CHF symptoms. No palpitations. No atypical chest pain for CAD. No shortness of breath. No PND, no orthopnea. RESPIRATORY: No cough, no hemoptysis. GI: No nausea, no vomiting. No abdominal pain. : No hematuria. No polyuria. MUSCULOSKELETAL:. No joint swelling. PSYCHIATRIC: Not anxious. No depression. No suicidal thoughts. No homicidal thoughts. SKIN: Intact. No rash. PHYSICAL EXAMINATION: V/S: Blood pressure 127/70, respiratory rate 24, heart rate 84, temperature 97.0 with saturation 97%. HEENT: Normocephalic, atraumatic. Mucosa dry. pallor positive, No icterus. NECK: Supple. No JVD, no carotid bruit. No lymphadenopathy. LUNGS: Decreased and clear with basilar crackles. No rales or rhonchi. HEART: S1, S2 normal. No S3. No murmur, gallop or regurgitation. ABDOMEN: Soft, nontender. Bowel sounds active. No rigidity. No rebound or guarding. No CVA tenderness. EXTREMITIES: No clubbing, cyanosis or pedal edema. Bilateral lower extremity edema up to knees. Left lower leg circumferential redness, warmness, tender to touch and oozing the yellow to clear liquid. MUSCULOSKELETAL: No joint swelling. NEUROLOGIC: Awake, alert, oriented times three. No focal deficit. LYMPHATIC: No lymph nodes palpable. SKIN: Intact. LABS: Sodium 141, potassium 3.4, chloride 107, Bicarb 25, BUN 7, creatinine 0.83, total bilirubin 2.07, hgb 10.0, hct 29.2, plt count 122, WBC 3.97. ASSESSMENT: 1. Left lower extremity diffused cellulitis circumferential below knee 2. Left lower extremity open wound 3. Failure treatment as outpatient 4. History of Hemolytic anemia 5. Elevate Bilirubin will evaluate for the congestive heart failure 6. Atrial fibrillation 7. Morbid obesity 8. Sleep apnea 9. BPH PLAN: 1. Keep the legs elevated when resting. 2. Rocephin and Vancomycin 3. Tight fitting socks 4. Daily I&O's 5. Accu-checks with the coverage TIME SPENT: More than 35 minutes MTDD
--- NOTE | 2017-01-26 09:28 | PN ---
DATE OF SERVICE: 01/23/17 SUBJECTIVE: The patient was admitted with the left lower extremity cellulitis and ulcer and failure treatment as outpatient. The patient is being getting wet to dry dressing and tight fitting socks. The swelling is a little better. Culture did grow Staph aureus which is sensitive to the Vancomycin. REVIEW OF SYSTEMS: CONSTITUTIONAL: No fever, no chills. HEENT: Normal. ENDOCRINE: No weight gain, no weight loss. CVS: No angina symptoms. No CHF symptoms. No palpitations. No atypical chest pain for CAD. No shortness of breath. No PND, no orthopnea. RESPIRATORY: No cough, no hemoptysis. GI: No nausea, no vomiting. No abdominal pain. : No hematuria. No polyuria. MUSCULOSKELETAL:. No joint swelling. PSYCHIATRIC: Not anxious. No depression. No suicidal thoughts. No homicidal thoughts. SKIN: Intact. No rash. PHYSICAL EXAMINATION: V/S: Blood pressure 96/58, respiratory rate 20, heart rate 87 with saturation 93 on the room air with temperature 96.6. HEENT: Normocephalic, atraumatic. Mucosa dry. pallor positive. No icterus. NECK: Supple. No JVD, no carotid bruit. No lymphadenopathy. LUNGS: Bilateral entry is decreased and clear. No rales or rhonchi. HEART: S1, S2 normal. No S3. No murmur, gallop or regurgitation. ABDOMEN: Soft, nontender. Bowel sounds active. No rigidity. No rebound or guarding. No CVA tenderness. Morbid obesity EXTREMITIES: No clubbing, cyanosis or pedal edema. Left lower extremity swelling , redness is present. Still oozing yellow the clear liquid. MUSCULOSKELETAL: No joint swelling. NEUROLOGIC: Awake, alert, oriented times three. No focal deficit. LYMPHATIC: No lymph nodes palpable. SKIN: Intact. LABS: WBC 4.05, hgb 9.8, hct 29.5, plt count 128, sodium 143, potassium 3.6, chloride 108, bibcarb 26, BUN 8, creatinine 0.82 ASSESSMENT: 1. Left lower extremity defused circumferential cellulitis below knee. 2. Left lower extremity open wound 3. Hemolytic anemia 4. Hypertension 5. Coronary artery disease 6. Congestive heart failure 7. Atrial fibrillation 8. Morbid obesity 9. Sleep apnea 10.BPH PLAN: 1. Continue the Vancomycin and Rocephin 2. Keep the legs elevated 3. Continue the Eliquis TIME SPENT: More than 35 minutes MTDD
[2017-01-26] MEDS: VANCOMYCIN 1 GM in SODIUM CHLORIDE 250 ML IV SCH ×2 (09:58→20:47)
--- NOTE | 2017-01-26 13:26 | PN ---
DATE OF SERVICE: 01/24/17 SUBJECTIVE: The patient was admitted with the bilateral lower extremity cellulitis, left worse then the right. Been getting the antibiotics. The wound grew the Staph Aureus, MRSA and been getting the Vancomycin. Wound is getting dry. The patient is ambulatory a little but not much. REVIEW OF SYSTEMS: CONSTITUTIONAL: No fever, no chills. HEENT: Normal. ENDOCRINE: No weight gain, no weight loss. CVS: No angina symptoms. No CHF symptoms. No palpitations. No atypical chest pain for CAD. No shortness of breath. No PND, no orthopnea. RESPIRATORY: No cough, no hemoptysis. GI: No nausea, no vomiting. No abdominal pain. : No hematuria. No polyuria. MUSCULOSKELETAL:. No joint swelling. PSYCHIATRIC: Not anxious. No depression. No suicidal thoughts. No homicidal thoughts. SKIN: Intact. No rash. PHYSICAL EXAMINATION: V/S: blood pressure 98/56, respiratory rate 18, heart rate 78, temperature 97.0. HEENT: Normocephalic, atraumatic. Mucosa dry. Pallor positive. No icterus. NECK: Supple. No JVD, no carotid bruit. No lymphadenopathy. LUNGS: Decreased and clear to auscultation. No rales or rhonchi. HEART: S1, S2 normal. No S3. No murmur, gallop or regurgitation. ABDOMEN: Soft, nontender. Bowel sounds active. No rigidity. No rebound or guarding. No CVA tenderness. EXTREMITIES: No clubbing, cyanosis. 2+ pitting edema Bilaterally. Left leg has an open wound lateral side which is dry at this time but having a lot of clear to yellow serous looking drainage and warm to touch and tender to touch. MUSCULOSKELETAL: No joint swelling. NEUROLOGIC: Awake, alert, oriented times three. No focal deficit. LYMPHATIC: No lymph nodes palpable. SKIN: Intact. LABS: WBC 4.50, hgb 9.9, hct 29.9, plt count 115, sodium 142, potassium 3.9, chloride 108, bicarb 26, BUN 9, creatinine 0.83 ASSESSMENT: 1. Left lower extremity cellulitis, defused and circumferential below the knee 2. Left lower extremity open wound, MRSA positive 3. History of Hemolytic anemia 4. Diabetes secondary to the steroid use 5. Morbid obesity 6. Hypertension 7. Atrial fibrillation on Eliquis PLAN: 1. Continue the Vancomycin 2. Wound dressing 3. Accu-checks with coverage 4. Out of bed to chair without help 5. Morphine 2mg Q 6 or PRN TIME SPENT: More than 35 minutes MTDD
--- NOTE | 2017-01-26 13:33 | PN ---
DATE OF SERVICE: 01/25/17 SUBJECTIVE: The patient was admitted with left lower extremity cellulitis and open wound. MRSA is positive. he has been getting antibiotics. Nurse Danyelle has changed the wound dressing today. The wound was dry today, this was the first time ever since he was admitted that the wound was dry. Still has some pain. Ambulatory some. REVIEW OF SYSTEMS: CONSTITUTIONAL: No fever, no chills. HEENT: Normal. ENDOCRINE: No weight gain, no weight loss. CVS: No angina symptoms. No CHF symptoms. No palpitations. No atypical chest pain for CAD. No shortness of breath. No PND, no orthopnea. RESPIRATORY: No cough, no hemoptysis. GI: No nausea, no vomiting. No abdominal pain. : No hematuria. No polyuria. MUSCULOSKELETAL:. No joint swelling. PSYCHIATRIC: Not anxious. No depression. No suicidal thoughts. No homicidal thoughts. SKIN: Intact. No rash. PHYSICAL EXAMINATION: V/S: Blood pressure 121/78,respiratory rate 18, heart rate 83, temperature 98.1. HEENT: Normocephalic, atraumatic. NECK: Supple. No JVD, no carotid bruit. No lymphadenopathy. LUNGS: Clear to auscultation. No rales or rhonchi. HEART: S1, S2 normal. No S3. No murmur, gallop or regurgitation. ABDOMEN: Soft, nontender. Bowel sounds active. No rigidity. No rebound or guarding. No CVA tenderness. EXTREMITIES: No clubbing, cyanosis or pedal edema. Left lower extremity swelling and redness is present, warm to touch present. Open Wound 5x6cm oval shaped with red granulation tissue in the margin. MUSCULOSKELETAL: No joint swelling. NEUROLOGIC: Awake, alert, oriented times three. No focal deficit. LYMPHATIC: No lymph nodes palpable. SKIN: Intact. LABS: Sodium 141, potassium 3.8, chloride 107, bicarb 22, BUN 9, creatinine 0.82, WBC 3.97, hgb 10.9, hct 32.7, plt count 161. ASSESSMENT: 1. Left lower extremity cellulitis, defused and circumferential below the knee 2. Left lower extremity open wound, MRSA positive 3. History of Hemolytic anemia 4. Diabetes secondary to the steroid use 5. Morbid obesity 6. Hypertension 7. Atrial fibrillation on Eliquis PLAN: 1. Continue the Vancomycin 2. Keep the legs elevated when resting 3. Wet to dry dressing Will follow the patient in daily rounds. TIME SPENT: More than 35 minutes MTDD
[2017-01-26] MEDS: TYLENOL PO PRN (21:13)
[2017-01-27 05:27] LABS: EOSINOPHILS # (AUTO) 0.2 K/ul (0.0-0.7); EOSINOPHILS % (AUTO) 4.4 % (0.0-7.0); HEMATOCRIT 31.5 % (42.0-52.0); HEMOGLOBIN 10.4 g/dl (14.0-18.0); LYMPHOCYTES # (AUTO) 1.2 K/uL (0.60-3.4); LYMPHOCYTES % (AUTO) 28.9 (10.0-50.0); MEAN CORPUSCULAR HEMOGLOBIN 30.8 pg (27.0-31.0); MEAN CORPUSCULAR VOLUME 93.2 fl (80.0-94.0); MONOCYTES # (AUTO) 0.3 K/uL (0.4-2.0); MONOCYTES % (AUTO) 6.6 (0-10); NEUTROPHILS # (AUTO) 2.4 K/ul (2.0-6.9); NEUTROPHILS % (AUTO) 58.1; PLATELET COUNT 153 10^3/uL (140-440); RED BLOOD COUNT 3.38 10^6/ul (4.70-6.10); WHITE BLOOD COUNT 4.12 K/ul (4.2-10.2)
[2017-01-27 05:49] LABS: ALBUMIN 2.9 g/dL (3.4-5.0); ALBUMIN/GLOBULIN RATIO 1.07; ANION GAP 11.9; BILIRUBIN,TOTAL 0.95 mg/dL (0.00-1.20); BUN/CREATININE RATIO 10.97; CALCIUM 8.6 mg/dL (8.2-10.2); CREATININE 0.82 mg/dL (0.60-1.10); POTASSIUM 3.9 mmol/L (3.5-5.1); TOTAL PROTEIN 5.6 g/dL (6.4-8.2)
[2017-01-27] MEDS: LASIX TAB PO SCH (06:05)
[2017-01-27] MEDS: PRILOSEC PO SCH (06:05)
[2017-01-27] MEDS: GLUCOPHAGE PO SCH (08:38)
[2017-01-27] MEDS: CARDIZEM CD PO SCH (08:38)
[2017-01-27] MEDS: LIPITOR PO SCH (08:38)
[2017-01-27] MEDS: K-DUR PO SCH (08:38)
[2017-01-27] MEDS: FLOMAX PO SCH (08:38)
[2017-01-27] MEDS: ROCEPHIN 1 GM in SODIUM CHLORIDE 50 ML IV SCH (08:38)
[2017-01-27] MEDS: NEURONTIN PO SCH (08:38)
[2017-01-27] MEDS: TOPROL XL PO SCH (08:38)
[2017-01-27] MEDS: ELIQUIS PO SCH (08:39)
[2017-01-27] MEDS: FOLIC ACID PO SCH (08:39)
[2017-01-27] MEDS: ASPIRIN EC PO SCH (08:39)
[2017-01-27] MEDS ORDERED: ZYVOX PO ONE (09:58)
[2017-01-27] MEDS: VANCOMYCIN 1 GM in SODIUM CHLORIDE 250 ML IV SCH (09:58)
[2017-01-27 11:58] VITALS: BP 102/58; TEMP 97
--- NOTE | 2017-01-27 15:02 | PN ---
DATE OF SERVICE: 01/26/17 SUBJECTIVE: The patient was admitted with the left lower extremity cellulitis and open ulcer. The patient is getting IV antibiotics. The wound has grown MRSA and sensitive to the Vancomycin. No fever or chills. Still has drainage clear to yellow and some pain in the left lower extremity. REVIEW OF SYSTEMS: CONSTITUTIONAL: No fever, no chills. HEENT: Normal. ENDOCRINE: No weight gain, no weight loss. CVS: No angina symptoms. No CHF symptoms. No palpitations. No atypical chest pain for CAD. No shortness of breath. No PND, no orthopnea. RESPIRATORY: No cough, no hemoptysis. GI: No nausea, no vomiting. No abdominal pain. : No hematuria. No polyuria. MUSCULOSKELETAL:. No joint swelling. PSYCHIATRIC: Not anxious. No depression. No suicidal thoughts. No homicidal thoughts. SKIN: Intact. No rash. PHYSICAL EXAMINATION: V/S: Blood pressure 102/67, respiratory rate 20, heart rate 76, temperature 97.0 with saturation 98%. HEENT: Normocephalic, atraumatic. Mucosa dry. Pallor positive. No icterus. NECK: Supple. No JVD, no carotid bruit. No lymphadenopathy. LUNGS: Decreased and clear to auscultation. No rales or rhonchi. HEART: S1, S2 normal. No S3. No murmur, gallop or regurgitation. ABDOMEN: Soft, nontender. Bowel sounds active. No rigidity. No rebound or guarding. No CVA tenderness. EXTREMITIES: No clubbing, cyanosis or pedal edema. Left lower extremity warmness and tenderness in the calf is present. ulcer is red with the healthy granulation tissue. Oozing clear to yellow stuff. MUSCULOSKELETAL: No joint swelling. NEUROLOGIC: Awake, alert, oriented times three. No focal deficit. LYMPHATIC: No lymph nodes palpable. SKIN: Intact. LABS: WBC 3.77, hgb 10.0, hct 29.7, plt count 134, sodium 140, potassium 3.9, chloride 107, bicarb 27, BUN 9, creatinine 0.80, glucose 94 ASSESSMENT: 1. Left lower extremity diffused cellulitis from below knee to ankle 2. Open wound MRSA positive 3. Diabetes 4. Hemolithic anemia 5. Morbid obesity 6. Sleep apnea 7. Atrial fibrillation on Eliquis PLAN: 1. Continue the Vancomycin 2. Morphine 3. Lasix 4. Wet to dry dressing 5. Apixaban 6. Activity as tolerated Will follow the patient in daily rounds TIME SPENT: More than 35 minutes MTDD
--- NOTE | 2017-02-23 09:41 | DS ---
DATE OF SERVICE: 01/27/17 FINAL DIAGNOSIS: 1. Left lower extremity defused cellulitis with open wound, left lateral side 2. Diabetes type 2 3. Hypertension 4. Dyslipidemia 5. Congestive heart failure 6. Atrial fibrillation on Eliquis 7. Sleep apnea on CPAP 8. GERD 9. Hemolytic anemia 10.manager long term care steroid use 11.BPH DISCHARGE INSTRUCTIONS: Discharge the patient home. Followup with Wound Care as scheduled. Continue the medication as listed in the nursing discharge. Keep appointment with [facility]. Appointment with Dr. Romero on January 30. Home health care to resume activity. MEDICATIONS AT DISCHARGE: Eliquis 5mg twice a day Aspirin 81mg PO daily Lipitor 20mg PO daily Cardizem 120mg PO twice a day Folic acid Lasix Neurontin Metformin Metoprolol Prilosec Potassium Prednisone 10mg PO twice a day Flomax NEW PRESCRIPTIONS: Linezolid 600mg PO twice a day for seven days. DIET INSTRUCTIONS: Consistent Carbohydrates ACTIVITY: Resume as tolerated. Keep the legs elevated. SMOKING: Never smoker DISEASE SPECIFIC EDUCATION: Lower extremity cellulitis and open wound and risk of osteomyelitis Risk of amputation been discussed and verbalized understanding HOSPITAL COURSE: Gustavo Cabrales who is a 56 year old with a history of diabetes and chronic lower extremity wounds was seen and evaluated in the wound care by Charito Allred and there was a new opening area on the left lateral side of the leg which was almost 5cm semicircular area, red, weeping, hot to touch, circumferential swelling at that time. She called me for the possible admission and went and saw the patient. Definitely agreed with the Charito Allred that patient was needing IV antibiotics and the admission. The patient was admitted to the hospital and started on the IV antibiotics, Vancomycin. Wet to dry dressing was done to the wounds, legs were elevated. Accu-checks were done with coverage given with regular insulin. Rocephin was also given. Gradually the wound was getting dry. The circumferential redness and the hot warmness was decreasing and then the patient started gradually started on small on the right lower extremity. Meanwhile the wound culture came positive for the Staph aureus, MRSA sensitive to the Vancomycin. As patient was getting better oral antibiotics, Zyvox was started and the patient being evaluated for the outpatient therapy. The wound size was gradually decreasing. I wanted to put the patient with the Wound Care in the [facility] but the patient preferred to keep going to the [facility]. As the patient was up and about the redness and swelling and wound size was decreasing in the left lower extremity the patient is being discharged home. TIME SPENT: MORE THAN 55-60 MINUTES ARABELLA
== END 2017-01-27 14:55 | disposition home or self-care (01) | DRG 603 ==
LOC: MEDSURG A 09:27
PROVIDERS: ADMIT Emergency Medicine; ATTEND Emergency Medicine
DX: L03.116 Cellulitis of left lower limb (principal); L97.822 Non-pressure chronic ulcer of other part of left lower leg with fat layer exposed; L97.322 Non-pressure chronic ulcer of left ankle with fat layer exposed; L97.222 Non-pressure chronic ulcer of left calf with fat layer exposed; D58.9 Hereditary hemolytic anemia, unspecified; B95.62 Methicillin resistant Staphylococcus aureus infection as the cause of diseases classified elsewhere; I10 Essential (primary) hypertension; I48.91 Unspecified atrial fibrillation; E09.9 Drug or chemical induced diabetes mellitus without complications; I50.9 Heart failure, unspecified; E80.7 Disorder of bilirubin metabolism, unspecified; N40.0 Benign prostatic hyperplasia without lower urinary tract symptoms; E78.5 Hyperlipidemia, unspecified; G47.30 Sleep apnea, unspecified; K21.9 Gastro-esophageal reflux disease without esophagitis; T38.0X5A Adverse effect of glucocorticoids and synthetic analogues, initial encounter; E66.01 Morbid (severe) obesity due to excess calories; Z79.01 Long term (current) use of anticoagulants; Z79.84 Long term (current) use of oral hypoglycemic drugs; Z79.2 Long term (current) use of antibiotics; Z16.11 Resistance to penicillins; Z99.89 Dependence on other enabling machines and devices; R39.81 Functional urinary incontinence
CPT/HCPCS: 11042; 11045; 36415; 80053; 80202; 81001; 82550; 82553; 82962; 84484; 85025; 87070; 87186; 93005; 93010; 99212

== ENCOUNTER 2017-01-28 09:47 | Outpatient (CLI) | END 2017-01-28 09:48 | disposition home or self-care (01) | LOC: WOUND 09:47 | PROVIDERS: ATTEND Nurse Practitioner Family | DX: I87.332 Chronic venous hypertension (idiopathic) with ulcer and inflammation of left lower extremity (principal); L97.822 Non-pressure chronic ulcer of other part of left lower leg with fat layer exposed; L97.322 Non-pressure chronic ulcer of left ankle with fat layer exposed; L97.222 Non-pressure chronic ulcer of left calf with fat layer exposed; E11.9 Type 2 diabetes mellitus without complications; I10 Essential (primary) hypertension; R39.81 Functional urinary incontinence; I48.91 Unspecified atrial fibrillation; I50.9 Heart failure, unspecified | CPT/HCPCS: 11042; 11045; 99213 ==

== ENCOUNTER 2017-02-04 08:10 | Outpatient (CLI) | payer OTHER | END 2017-02-04 08:11 | disposition home or self-care (01) | LOC: WOUND 08:10 | PROVIDERS: ATTEND Nurse Practitioner Family | DX: I87.332 Chronic venous hypertension (idiopathic) with ulcer and inflammation of left lower extremity (principal); L97.822 Non-pressure chronic ulcer of other part of left lower leg with fat layer exposed; E11.9 Type 2 diabetes mellitus without complications; I10 Essential (primary) hypertension; R39.81 Functional urinary incontinence; I48.91 Unspecified atrial fibrillation; I50.9 Heart failure, unspecified | CPT/HCPCS: 87070 ==

== ENCOUNTER 2017-02-18 08:21 | Outpatient (CLI) | payer OTHER | END 2017-02-18 08:22 | disposition home or self-care (01) | LOC: WOUND 08:21 | PROVIDERS: ATTEND Nurse Practitioner Family | DX: I87.332 Chronic venous hypertension (idiopathic) with ulcer and inflammation of left lower extremity (principal); L97.822 Non-pressure chronic ulcer of other part of left lower leg with fat layer exposed; E11.9 Type 2 diabetes mellitus without complications; I10 Essential (primary) hypertension; R39.81 Functional urinary incontinence; I48.91 Unspecified atrial fibrillation; I50.9 Heart failure, unspecified ==

== ENCOUNTER 2017-03-04 08:44 | Outpatient (CLI) | END 2017-03-04 08:45 | disposition home or self-care (01) | LOC: WOUND 08:44 | PROVIDERS: ATTEND Nurse Practitioner Family | DX: I87.332 Chronic venous hypertension (idiopathic) with ulcer and inflammation of left lower extremity (principal); L97.822 Non-pressure chronic ulcer of other part of left lower leg with fat layer exposed; E11.9 Type 2 diabetes mellitus without complications; I10 Essential (primary) hypertension; R39.81 Functional urinary incontinence; I48.91 Unspecified atrial fibrillation; I50.9 Heart failure, unspecified; I87.311 Chronic venous hypertension (idiopathic) with ulcer of right lower extremity; L97.812 Non-pressure chronic ulcer of other part of right lower leg with fat layer exposed | CPT/HCPCS: 11042; 11045; 87070; 87186; 99212 ==

== ENCOUNTER 2017-03-11 08:53 | Outpatient (CLI) | END 2017-03-11 08:54 | disposition home or self-care (01) | LOC: WOUND 08:53 | PROVIDERS: ATTEND Nurse Practitioner Family | DX: I87.332 Chronic venous hypertension (idiopathic) with ulcer and inflammation of left lower extremity (principal); L97.822 Non-pressure chronic ulcer of other part of left lower leg with fat layer exposed; E11.9 Type 2 diabetes mellitus without complications; I10 Essential (primary) hypertension; R39.81 Functional urinary incontinence; I48.91 Unspecified atrial fibrillation; I50.9 Heart failure, unspecified; I87.311 Chronic venous hypertension (idiopathic) with ulcer of right lower extremity; L97.812 Non-pressure chronic ulcer of other part of right lower leg with fat layer exposed | CPT/HCPCS: 11042; 11045; 99213 ==

== ENCOUNTER 2017-03-18 08:31 | Outpatient (CLI) | END 2017-03-18 08:32 | disposition home or self-care (01) | LOC: WOUND 08:31 | PROVIDERS: ATTEND Nurse Practitioner Family | DX: I87.332 Chronic venous hypertension (idiopathic) with ulcer and inflammation of left lower extremity (principal); L97.822 Non-pressure chronic ulcer of other part of left lower leg with fat layer exposed; E11.9 Type 2 diabetes mellitus without complications; I10 Essential (primary) hypertension; R39.81 Functional urinary incontinence; I48.91 Unspecified atrial fibrillation; I50.9 Heart failure, unspecified; I87.311 Chronic venous hypertension (idiopathic) with ulcer of right lower extremity; L97.812 Non-pressure chronic ulcer of other part of right lower leg with fat layer exposed | CPT/HCPCS: 11042; 11045 ==

== ENCOUNTER 2017-03-25 08:19 | Outpatient (CLI) | END 2017-03-25 08:20 | disposition home or self-care (01) | LOC: WOUND 08:19 | PROVIDERS: ATTEND Nurse Practitioner Family | DX: I87.332 Chronic venous hypertension (idiopathic) with ulcer and inflammation of left lower extremity (principal); L97.822 Non-pressure chronic ulcer of other part of left lower leg with fat layer exposed; I87.311 Chronic venous hypertension (idiopathic) with ulcer of right lower extremity; L97.812 Non-pressure chronic ulcer of other part of right lower leg with fat layer exposed; E11.9 Type 2 diabetes mellitus without complications; I10 Essential (primary) hypertension; R39.81 Functional urinary incontinence; I48.91 Unspecified atrial fibrillation; I50.9 Heart failure, unspecified | CPT/HCPCS: 87070; 87186 ==

== ENCOUNTER 2017-04-01 08:12 | Outpatient (CLI) | END 2017-04-01 08:13 | disposition home or self-care (01) | LOC: WOUND 08:12 | PROVIDERS: ATTEND Nurse Practitioner Family | DX: I87.332 Chronic venous hypertension (idiopathic) with ulcer and inflammation of left lower extremity (principal); L97.822 Non-pressure chronic ulcer of other part of left lower leg with fat layer exposed; I87.311 Chronic venous hypertension (idiopathic) with ulcer of right lower extremity; L97.812 Non-pressure chronic ulcer of other part of right lower leg with fat layer exposed; E11.9 Type 2 diabetes mellitus without complications; I10 Essential (primary) hypertension; R39.81 Functional urinary incontinence; I48.91 Unspecified atrial fibrillation; I50.9 Heart failure, unspecified | CPT/HCPCS: 11042; 11045 ==

== ENCOUNTER 2017-04-08 08:16 | Outpatient (CLI) | END 2017-04-08 08:17 | disposition home or self-care (01) | LOC: WOUND 08:16 | PROVIDERS: ATTEND Nurse Practitioner Family | DX: I87.332 Chronic venous hypertension (idiopathic) with ulcer and inflammation of left lower extremity (principal); L97.822 Non-pressure chronic ulcer of other part of left lower leg with fat layer exposed; I87.311 Chronic venous hypertension (idiopathic) with ulcer of right lower extremity; L97.812 Non-pressure chronic ulcer of other part of right lower leg with fat layer exposed; E11.9 Type 2 diabetes mellitus without complications; I10 Essential (primary) hypertension; R39.81 Functional urinary incontinence; I48.91 Unspecified atrial fibrillation; I50.9 Heart failure, unspecified | CPT/HCPCS: 11042; 11045; 99213 ==

== ENCOUNTER 2017-04-15 08:17 | Outpatient (CLI) | payer OTHER | END 2017-04-15 08:18 | disposition home or self-care (01) | LOC: WOUND 08:17 | PROVIDERS: ATTEND Nurse Practitioner Family | DX: I87.332 Chronic venous hypertension (idiopathic) with ulcer and inflammation of left lower extremity (principal); L97.822 Non-pressure chronic ulcer of other part of left lower leg with fat layer exposed; I87.311 Chronic venous hypertension (idiopathic) with ulcer of right lower extremity; L97.812 Non-pressure chronic ulcer of other part of right lower leg with fat layer exposed; E11.9 Type 2 diabetes mellitus without complications; I10 Essential (primary) hypertension; R39.81 Functional urinary incontinence; I48.91 Unspecified atrial fibrillation; I50.9 Heart failure, unspecified ==

== ENCOUNTER 2017-04-22 08:14 | Outpatient (CLI) | END 2017-04-22 08:15 | disposition home or self-care (01) | LOC: WOUND 08:14 | PROVIDERS: ATTEND Nurse Practitioner Family | DX: I87.332 Chronic venous hypertension (idiopathic) with ulcer and inflammation of left lower extremity (principal); L97.822 Non-pressure chronic ulcer of other part of left lower leg with fat layer exposed; I87.311 Chronic venous hypertension (idiopathic) with ulcer of right lower extremity; L97.812 Non-pressure chronic ulcer of other part of right lower leg with fat layer exposed; E11.9 Type 2 diabetes mellitus without complications; I10 Essential (primary) hypertension; R39.81 Functional urinary incontinence; I48.91 Unspecified atrial fibrillation; I50.9 Heart failure, unspecified ==

== ENCOUNTER 2017-04-29 08:20 | Outpatient (CLI) | END 2017-04-29 08:21 | disposition home or self-care (01) | LOC: WOUND 08:20 | PROVIDERS: ATTEND Nurse Practitioner Family | DX: I87.332 Chronic venous hypertension (idiopathic) with ulcer and inflammation of left lower extremity (principal); L97.822 Non-pressure chronic ulcer of other part of left lower leg with fat layer exposed; I87.311 Chronic venous hypertension (idiopathic) with ulcer of right lower extremity; L97.812 Non-pressure chronic ulcer of other part of right lower leg with fat layer exposed; E11.9 Type 2 diabetes mellitus without complications; I10 Essential (primary) hypertension; R39.81 Functional urinary incontinence; I48.91 Unspecified atrial fibrillation; I50.9 Heart failure, unspecified | CPT/HCPCS: 11042 ==

== ENCOUNTER 2017-05-02 09:45 | Emergency (ER) ==
[2017-05-02 09:54] VITALS: BP 158/76; TEMP 97.6; BMI 67.0
--- NOTE | 2017-05-02 10:15 | ED.PDOC ---
General ED Provider: Dr. JULIUS KEY Chief Complaint: Urinary Problem Stated Complaint: patient is a 56 year old male who states that for 4-5 days he has been having problems urinating states that he just dribbles. He denies burning when he urinates. Time Seen by Physician: 10:05 Mode of Arrival: Walk-In Information Source: Patient Exam Limitations: No limitations [facility] Nursing and Triage Documentation Reviewed and Agree: Yes Reviewed sepsis parameters & appropriate labs ordered?: Yes System Inflammatory Response Syndrome: Not Applicable Sepsis Protocol: For patient's 13 years and over: Temp is 96.8 and below OR 101 and greater Pulse >90 BPM Resp >20/minute Acutely Altered Mental Status Are patient's symptoms suggestive of a new infection, such as: -Pneumonia -Skin, Soft Tissue -Endocarditis -UTI -Bone, Joint Infection -Implantable Device -Acute Abdominal Infection -Wound Infection -Meningitis -Blood Stream Catheter Infection -Unknown System Inflammatory Response Syndrome: Not Applicable Review of Systems - Review Of Systems Constitutional: Reports: No symptoms Eyes: Reports: No symptoms Ears, Nose, Mouth, Throat: Reports: No symptoms Respiratory: Reports: No symptoms Cardiac: Reports: No symptoms GI: Reports: No symptoms : Reports: Incontinence, Urgency Musculoskeletal: Reports: No symptoms Skin: Reports: No symptoms Neurological: Reports: Anxiety Endocrine: Reports: No symptoms Hematologic/Lymphatic: Reports: No symptoms All Other Systems: Reviewed and Negative Past Medical History - Past Medical History Previously Healthy: No Endocrine: Reports: DM 2 Cardiovascular: Reports: Hypertension, CHF, A-Fib, Other (PVD) Respiratory: Reports: 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) Hematological: Reports: Anemia (hemolytic anemia) Gastrointestinal: Reports: GERD Genitourinary: Reports: None Neuro/Psych: Reports: None Musculoskeletal: Reports: None Cancer: Reports: None Other Pertinent Past Medical History: Chemo pills-(stopped NOW) - Surgical History General Surgical History: Reports: None, Other (WOUND CARE FOR LOWER LEGS) - Family History Family History: Reports: Unknown - Social History Smoking Status: Never smoker Hx Substance Use: No Alcohol Screening: None Physical Exam - Physical Exam Appearance: Well-appearing, Obese Ill-appearing: None Pain Distress: None Neck: Supple Respiratory: Airway patent, Breath sounds clear, Breath sounds equal, Respirations nonlabored Cardiovascular: RRR, Pulses normal, No rub, No murmur Musculoskeletal: Normal strength, ROM intact Skin: Warm Neurological: Alert, Oriented Psychiatric: Anxious Critical Care Note - Critical Care Note Total Time (mins): 0 Comments: unable to Do a bladder scan due to large pannus. Patient decline to have Martines catheter placed due to previous difficult only wants medications Course - Course Vital Signs: Temp Pulse Resp BP Pulse Ox 05/02/17 09:46 97.6 F 96 H 16 158/76 H 95 Departure - Departure Time of Disposition: 10:14 Disposition: HOME SELF-CARE Discharge Problem: Prostatitis, chronic Instructions: Prostatitis (ED) Condition: Stable Pt referred to PMD for follow-up: Yes Additional Instructions: Your Flomax will be increased to 0.8mg daily from 0.4mg Follow up with your urologist next week. Prescriptions: Tamsulosin HCl [Flomax] 0.8 mg PO DAILY #30 cap.er.24h Allergies/Adverse Reactions: Allergies No Known Allergies Allergy (Verified 05/02/17 09:49) Home Medications: Ambulatory Orders Folic Acid 1 mg PO DAILY 04/20/13 Furosemide [Lasix] 40 mg PO DAILY 12/19/13 Metoprolol Succinate 100 mg PO BID 12/19/13 Diltiazem HCl [Cardizem Cd] 120 mg PO BID 03/21/14 Omeprazole [Prilosec] 20 mg PO DAILY 09/29/14 Apixaban [Eliquis] 5 mg PO BID 10/11/14 Tamsulosin HCl [Flomax] 0.4 mg PO DAILY 09/24/16 Aspirin [Aspir-Low] 81 mg PO DAILY 01/21/17 Tamsulosin HCl [Flomax] 0.8 mg PO DAILY #30 cap.er.24h 05/02/17 Disposition Discussed With: Patient
== END 2017-05-02 11:02 | disposition home or self-care (01) ==
LOC: ED 09:45
DX: N41.1 Chronic prostatitis (principal)
CPT/HCPCS: 99282

== ENCOUNTER 2017-05-20 08:13 | Outpatient (CLI) | END 2017-05-20 08:14 | disposition home or self-care (01) | LOC: WOUND 08:13 | PROVIDERS: ATTEND Nurse Practitioner Family | DX: I87.332 Chronic venous hypertension (idiopathic) with ulcer and inflammation of left lower extremity (principal); L97.822 Non-pressure chronic ulcer of other part of left lower leg with fat layer exposed; E11.9 Type 2 diabetes mellitus without complications; I10 Essential (primary) hypertension; R39.81 Functional urinary incontinence; I48.91 Unspecified atrial fibrillation; I50.9 Heart failure, unspecified ==

== ENCOUNTER 2017-05-27 08:21 | Outpatient (CLI) | END 2017-05-27 08:22 | disposition home or self-care (01) | LOC: WOUND 08:21 | PROVIDERS: ATTEND Nurse Practitioner Family | DX: I87.332 Chronic venous hypertension (idiopathic) with ulcer and inflammation of left lower extremity (principal); L97.822 Non-pressure chronic ulcer of other part of left lower leg with fat layer exposed; E11.9 Type 2 diabetes mellitus without complications; I10 Essential (primary) hypertension; R39.81 Functional urinary incontinence; I48.91 Unspecified atrial fibrillation; I50.9 Heart failure, unspecified | CPT/HCPCS: 87070; 87186 ==

== ENCOUNTER 2017-06-03 08:17 | Outpatient (CLI) | END 2017-06-03 08:18 | disposition home or self-care (01) | LOC: AMBL 08:17 | PROVIDERS: ATTEND Nurse Practitioner Family | DX: I87.332 Chronic venous hypertension (idiopathic) with ulcer and inflammation of left lower extremity (principal); L97.822 Non-pressure chronic ulcer of other part of left lower leg with fat layer exposed; E11.9 Type 2 diabetes mellitus without complications; I10 Essential (primary) hypertension; R39.81 Functional urinary incontinence; I48.91 Unspecified atrial fibrillation; I50.9 Heart failure, unspecified ==

== ENCOUNTER 2017-06-10 07:49 | Day surgery (SDC) ==
[2017-06-10 08:27] VITALS: TEMP 97.6
[2017-06-10] MEDS ORDERED: VERSED ONE (09:25)
[2017-06-10] MEDS ORDERED: LIDOCAINE 1% 20 ML MDV ID STA (09:30)
[2017-06-10] MEDS ORDERED: NEOSPORIN OINT 0.9 GM PACKET TP STA (09:50)
[2017-06-10 11:25] VITALS: BP 110/68
--- NOTE | 2017-06-12 14:51 | OP ---
PREOPERATIVE DIAGNOSIS: CANCER OF NOSE, LESION OF STERNUM POSTOPERATIVE DIAGNOSIS: CANCER OF NOSE, LESION OF STERNUM OPERATION: 1. EXCISION BASAL CELL NOSE 2. EXCISION LESION OF STERNUM PROCEDURE: The patient was taken to surgery, placed on the table and general anesthesia was administered. 1% Xylocaine to 100,000 Epinephrine was injected to the tip of the nose then using cold knife, the incision was cut out. Bleeding was then controlled with cauterization. A lesion on his sternum, which was approximately 3 cm x 4 cm was injected with 1% Xylocaine with Epinephrine then using a cutting Bovie as well as a cold knife the lesion was removed. Bleeding was controlled with cauterization. Edges of the lesion were brought together using 5-0 Vicryl. Antibiotic ointment was placed on the area and the patient was taken back to the recovery room in satisfactory condition. ARABELLA
== END 2017-06-10 09:51 | disposition home or self-care (01) ==
LOC: SURG 07:49
PROVIDERS: ATTEND Otolaryngology
DX: C44.311 Basal cell carcinoma of skin of nose (principal); C44.519 Basal cell carcinoma of skin of other part of trunk; L57.8 Other skin changes due to chronic exposure to nonionizing radiation; I48.91 Unspecified atrial fibrillation; I50.9 Heart failure, unspecified; E11.9 Type 2 diabetes mellitus without complications; I87.332 Chronic venous hypertension (idiopathic) with ulcer and inflammation of left lower extremity; L97.822 Non-pressure chronic ulcer of other part of left lower leg with fat layer exposed; I10 Essential (primary) hypertension; R39.81 Functional urinary incontinence
CPT/HCPCS: 11042; 11604; 11641; 36415; 80053; 80061; 83036; 84443; 85025; 99212

== ENCOUNTER 2017-06-10 10:40 | Outpatient (CLI) | payer OTHER | END 2017-06-10 10:41 | disposition home or self-care (01) | LOC: WOUND 10:40 | PROVIDERS: ATTEND Nurse Practitioner Family | DX: I87.332 Chronic venous hypertension (idiopathic) with ulcer and inflammation of left lower extremity (principal); L97.822 Non-pressure chronic ulcer of other part of left lower leg with fat layer exposed; E11.9 Type 2 diabetes mellitus without complications; I10 Essential (primary) hypertension; R39.81 Functional urinary incontinence; I48.91 Unspecified atrial fibrillation; I50.9 Heart failure, unspecified | CPT/HCPCS: 11042; 99212 ==

== ENCOUNTER 2017-06-17 08:17 | Outpatient (CLI) | END 2017-06-17 08:18 | disposition home or self-care (01) | LOC: WOUND 08:17 | PROVIDERS: ATTEND Nurse Practitioner Family | DX: I87.332 Chronic venous hypertension (idiopathic) with ulcer and inflammation of left lower extremity (principal); L97.822 Non-pressure chronic ulcer of other part of left lower leg with fat layer exposed; E11.9 Type 2 diabetes mellitus without complications; I10 Essential (primary) hypertension; R39.81 Functional urinary incontinence; I48.91 Unspecified atrial fibrillation; I50.9 Heart failure, unspecified | CPT/HCPCS: 11042; 99213 ==

== ENCOUNTER 2017-06-24 08:19 | Outpatient (CLI) | END 2017-06-24 08:20 | disposition home or self-care (01) | LOC: WOUND 08:19 | PROVIDERS: ATTEND Nurse Practitioner Family | DX: I87.332 Chronic venous hypertension (idiopathic) with ulcer and inflammation of left lower extremity (principal); L97.822 Non-pressure chronic ulcer of other part of left lower leg with fat layer exposed; E11.9 Type 2 diabetes mellitus without complications; I10 Essential (primary) hypertension; R39.81 Functional urinary incontinence; I48.91 Unspecified atrial fibrillation; I50.9 Heart failure, unspecified | CPT/HCPCS: 11042; 99212 ==

== ENCOUNTER 2017-07-01 08:14 | Outpatient (CLI) | END 2017-07-01 08:15 | disposition home or self-care (01) | LOC: WOUND 08:14 | PROVIDERS: ATTEND Nurse Practitioner Family | DX: E11.621 Type 2 diabetes mellitus with foot ulcer (principal); L97.512 Non-pressure chronic ulcer of other part of right foot with fat layer exposed; I10 Essential (primary) hypertension; E03.9 Hypothyroidism, unspecified ==

== ENCOUNTER 2017-07-08 08:20 | Outpatient (CLI) | END 2017-07-08 08:21 | disposition home or self-care (01) | LOC: WOUND 08:20 | PROVIDERS: ATTEND Nurse Practitioner Family | DX: I87.332 Chronic venous hypertension (idiopathic) with ulcer and inflammation of left lower extremity (principal); L97.822 Non-pressure chronic ulcer of other part of left lower leg with fat layer exposed; E11.9 Type 2 diabetes mellitus without complications; I10 Essential (primary) hypertension; R39.81 Functional urinary incontinence; I48.91 Unspecified atrial fibrillation; I50.9 Heart failure, unspecified; T81.31XA Disruption of external operation (surgical) wound, not elsewhere classified, initial encounter ==

== ENCOUNTER 2017-07-15 08:18 | Outpatient (CLI) ==
[2017-07-15 15:54] VITALS: BMI 69.1
== END 2017-07-15 08:19 | disposition home or self-care (01) ==
LOC: WOUND 08:18
PROVIDERS: ATTEND Nurse Practitioner Family
DX: I87.332 Chronic venous hypertension (idiopathic) with ulcer and inflammation of left lower extremity (principal); L97.822 Non-pressure chronic ulcer of other part of left lower leg with fat layer exposed; E11.9 Type 2 diabetes mellitus without complications; I10 Essential (primary) hypertension; R39.81 Functional urinary incontinence; I48.91 Unspecified atrial fibrillation; I50.9 Heart failure, unspecified; T81.31XA Disruption of external operation (surgical) wound, not elsewhere classified, initial encounter
CPT/HCPCS: 11042; 99213; 99214

== ENCOUNTER 2017-07-15 10:12 | Inpatient (IN) | payer OTHER ==
--- NOTE | 2017-07-15 12:31 | DI ---
EXAM: Chest one view, frontal view only. HISTORY: Shortness of breath. COMPARISON: 03/16/2015. FINDINGS: The cardiomediastinal silhouette is enlarged but stable. There is no pulmonary vascular c ongestion. The lungs are clear although evaluation of the left bases is limited by portable techniqu e. No pleural effusion or pneumothorax is seen. No acute osseous abnormality is identified. Since the prior study, there has been no significant interval change. IMPRESSION: No acute cardiopulmonary process.
--- NOTE | 2017-07-15 13:08 | ED.PDOC ---
General ED Provider: Dr. BIPIN GIRALDO MD Chief Complaint: Respiratory Complaint Stated Complaint: mild SOB, i have Hemolytic anemia and i am bein gadmitted Time Seen by Physician: 10:35 Mode of Arrival: Walk-In Information Source: Patient Exam Limitations: Clinical condition (morbid obesity), Other (morbid obesity) [facility] Referred to ED by: PCP Nursing and Triage Documentation Reviewed and Agree: Yes Reviewed sepsis parameters & appropriate labs ordered?: Yes System Inflammatory Response Syndrome: Not Applicable Sepsis Protocol: For patient's 13 years and over: Temp is 96.8 and below OR 101 and greater Pulse >90 BPM Resp >20/minute Acutely Altered Mental Status Are patient's symptoms suggestive of a new infection, such as: -Pneumonia -Skin, Soft Tissue -Endocarditis -UTI -Bone, Joint Infection -Implantable Device -Acute Abdominal Infection -Wound Infection -Meningitis -Blood Stream Catheter Infection -Unknown Hematological Complaint Exam - Sickle Cell Crisis Complaint/Exam Patient Complains of: Reports: Unknown (Known Hemolytic anemia) Symptoms Are: Still present Timing: Constant Initial Severity: Mild Current Severity: Mild Aggravating: Reports: None Alleviating: Reports: None Associated Signs and Symptoms: Reports: Short of air Review of Systems - Review Of Systems Constitutional: Reports: Other (mild SOB) Eyes: Reports: No symptoms Ears, Nose, Mouth, Throat: Reports: No symptoms Respiratory: Reports: Short of air Cardiac: Reports: No symptoms GI: Reports: No symptoms : Reports: No symptoms, Other (+ suprapubid ye) Musculoskeletal: Reports: No symptoms Skin: Reports: No symptoms, Lesions (B/L venous stasi sulcers bilaterally, just seen at the wound clinic) Neurological: Reports: No symptoms Endocrine: Reports: No symptoms Hematologic/Lymphatic: Reports: No symptoms All Other Systems: Reviewed and Negative Past Medical History - Past Medical History Previously Healthy: No Endocrine: Reports: DM 2 Cardiovascular: Reports: Hypertension, CHF, A-Fib, Other (PVD) Respiratory: Reports: 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) Hematological: Reports: Anemia (hemolytic anemia) Gastrointestinal: Reports: GERD Genitourinary: Reports: None Neuro/Psych: Reports: None Musculoskeletal: Reports: None Cancer: Reports: None Other Pertinent Past Medical History: Chemo pills-(stopped NOW) - Surgical History General Surgical History: Reports: None, Other (WOUND CARE FOR LOWER LEGS) - Family History Family History: Reports: Unknown - Social History Smoking Status: Never smoker Hx Substance Use: No Alcohol Screening: None Physical Exam - Physical Exam Appearance: Ill-appearing, Obese Ill-appearing: Mild Pain Distress: None Eyes: JD, EOMI, Conjunctiva clear ENT: Ears normal, Nose normal, Oropharynx normal Neck: Supple Respiratory: Airway patent, Breath sounds clear, Breath sounds equal, Respirations nonlabored Cardiovascular: RRR, Pulses normal, No rub, No murmur GI/: Soft, Nontender, No masses, Bowel sounds normal, No Organomegaly Musculoskeletal: Normal strength, ROM intact, No edema, No calf tenderness Skin: Warm, Dry, Normal color Neurological: Sensation intact, Motor intact, Reflexes intact, Cranial nerves intact, Alert, Oriented Psychiatric: Affect appropriate, Mood appropriate Critical Care Note - Critical Care Note Total Time (mins): 0 Course - Course Hematology/Chemistry: 07/20/17 04:30 07/20/17 04:30 Orders, Labs, Meds: Lab Review 07/15/17 07/15/17 07/15/17 11:00 11:00 11:00 WBC 4.91 RBC 3.55 L Hgb 11.7 L Hct 33.4 L MCV 94.1 H MCH 33.0 H MCHC 35.0 RDW Coeff of Yara 15.1 H Plt Count 118 L Immature Gran % (Auto) 1.0 Neut % (Auto) 70.0 Lymph % (Auto) 19.1 [place] % (Auto) 6.9 Eos % (Auto) 2.6 Baso % (Auto) 0.4 Immature Gran # (Auto) 0.1 Neut # (Auto) 3.4 Lymph # (Auto) 0.9 [place] # (Auto) 0.3 L Eos # (Auto) 0.1 Baso # (Auto) 0.0 PT 10.3 INR 1.03 Sodium 142 Potassium 3.0 L Chloride 100 Carbon Dioxide 31 Anion Gap 14.0 BUN 6 L Creatinine 0.82 Estimated GFR (MDRD) 98.00 BUN/Creatinine Ratio 7.31 Glucose 100 Calcium 8.5 Total Bilirubin 2.3 H AST 12 L ALT 23 Alkaline Phosphatase 71 B-Natriuretic Peptide Total Protein 5.9 L Albumin 3.3 L Globulin 2.6 Albumin/Globulin Ratio 1.27 07/15/17 11:00 WBC RBC Hgb Hct MCV MCH MCHC RDW Coeff of Yara Plt Count Immature Gran % (Auto) Neut % (Auto) Lymph % (Auto) [place] % (Auto) Eos % (Auto) Baso % (Auto) Immature Gran # (Auto) Neut # (Auto) Lymph # (Auto) [place] # (Auto) Eos # (Auto) Baso # (Auto) PT INR Sodium Potassium Chloride Carbon Dioxide Anion Gap BUN Creatinine Estimated GFR (MDRD) BUN/Creatinine Ratio Glucose Calcium Total Bilirubin AST ALT Alkaline Phosphatase B-Natriuretic Peptide 25 Total Protein Albumin Globulin Albumin/Globulin Ratio Orders Category Date Time Status CBC W/ AUTO DIFF Routine LAB 07/15/17 11:00 Completed COMPREHENSIVE METABOLIC PANEL Routine LAB 07/15/17 11:00 Completed PT WITH INR Routine LAB 07/15/17 11:00 Completed CHEST, 1V AP ONLY Stat RADS 07/15/17 12:08 Completed Medications Discontinued Medications Generic Name Dose Route Start Last Admin Trade Name Freq PRN Reason Stop Dose Admin Apixaban 5 mg 07/15/17 21:00 07/20/17 08:45 Eliquis PO 5 mg BID FLORA Administration Ascorbic Acid 1,000 mg 07/16/17 09:00 07/20/17 08:44 Vitamin C PO 1,000 mg DAILY FLORA Administration Aspirin 81 mg 07/16/17 08:00 07/20/17 08:44 Aspirin Ec PO 81 mg DAILYWM FLORA Administration Atorvastatin Calcium 40 mg 07/16/17 09:00 07/20/17 08:45 Lipitor PO 40 mg DAILY FLORA Administration Diltiazem HCl 120 mg 07/15/17 21:00 07/20/17 08:45 Cardizem Cd PO 120 mg BID FLORA Administration Folic Acid 1 mg 07/16/17 09:00 07/20/17 08:45 Folic Acid PO 1 mg DAILY FLORA Administration Gabapentin 300 mg 07/15/17 21:00 07/20/17 08:45 Neurontin PO 300 mg BID FLORA Administration Ceftriaxone Sodium 1 gm/ 50 mls @ 75 mls/hr 07/15/17 13:30 07/20/17 08:44 Sodium Chloride IV 75 mls/hr DAILY FLORA Administration Sodium Chloride 1,000 mls @ 50 mls/hr 07/15/17 13:30 07/20/17 15:30 Sodium Chloride IV Not Given .Q20H FLORA Potassium Chloride 20 meq/ 200 mls @ 100 mls/hr 07/16/17 08:38 07/16/17 09:40 Sterile Water IV 07/16/17 10:37 100 mls/hr ONCE STA Administration Vancomycin HCl 1 gm/ Sodium 250 mls @ 125 mls/hr 07/18/17 21:00 07/18/17 21: 25 Chloride IV 125 mls/hr Q12HR FLORA Administration Vancomycin HCl 1.5 gm/ Sodium 500 mls @ 200 mls/hr 07/19/17 07:30 07/20/17 12 :12 Chloride IV 200 mls/hr Q8HR FLORA Administration Metformin HCl 500 mg 07/15/17 17:30 07/20/17 08:45 Glucophage PO 500 mg BIDWM FLORA Administration Metoprolol Succinate 100 mg 07/15/17 17:30 07/20/17 08:44 Toprol Xl PO 100 mg BIDWM FLORA Administration Omeprazole 20 mg 07/16/17 06:30 07/20/17 05:56 Prilosec PO 20 mg QDAC FLORA Administration Potassium Chloride 40 meq 07/15/17 17:30 07/20/17 08:44 K-Dur PO 40 meq BIDWM FLORA Administration Potassium Chloride 40 meq 07/17/17 08:15 07/17/17 09:00 K-Dur PO 07/17/17 08:16 40 meq ONCE STA Administration Tamsulosin HCl 0.4 mg 07/16/17 09:00 07/20/17 08:45 Flomax PO 0.4 mg DAILY FLORA Administration Vital Signs: Temp Pulse Resp BP Pulse Ox 07/15/17 10:21 97.4 F L 90 24 140/97 H 97 Departure - Departure Time of Disposition: 13:00 Disposition: ADMITTED INPATIENT Discharge Problem: Shortness of breath Condition: Stable Pt referred to PMD for follow-up: Yes IPMP verified?: No Allergies/Adverse Reactions: Allergies No Known Allergies Allergy (Verified 07/15/17 10:29) Home Medications: Ambulatory Orders Folic Acid 1 mg PO DAILY 04/20/13 Furosemide [Lasix] 40 mg PO BID PRN 12/19/13 Metoprolol Succinate 100 mg PO BID 12/19/13 Diltiazem HCl [Cardizem Cd] 120 mg PO BID 03/21/14 Omeprazole [Prilosec] 20 mg PO DAILY 06/05/15 Apixaban [Eliquis] 5 mg PO BID 10/11/14 Tamsulosin HCl [Flomax] 0.4 mg PO DAILY 09/24/16 Aspirin [Aspir-Low] 81 mg PO DAILY 01/21/17 Ascorbic Acid [Vitamin C] 1,000 mg PO DAILY 06/10/17 Sulfamethoxazole/Trimethoprim [Bactrim Ds 800/160 mg] 1 tab PO Q12HR #10 tablet 07/20/17
[2017-07-15] MEDS: SODIUM CHLORIDE 1,000 ML IV SCH (15:27)
[2017-07-15] MEDS: ROCEPHIN 1 GM in SODIUM CHLORIDE 50 ML IV SCH (15:27)
[2017-07-15 15:54] VITALS: BMI 69.1
[2017-07-15] MEDS: TOPROL XL PO SCH (17:04)
[2017-07-15] MEDS: K-DUR PO SCH (17:05)
[2017-07-15] MEDS: GLUCOPHAGE PO SCH (17:05)
[2017-07-15] MEDS: NEURONTIN PO SCH (20:06)
[2017-07-15] MEDS: CARDIZEM CD PO SCH (20:06)
[2017-07-15] MEDS: ELIQUIS PO SCH (20:06)
[2017-07-15] MEDS ORDERED: POTASSIUM CHLORIDE 40 MEQ PO SCH (21:00)
[2017-07-15] MEDS ORDERED: DILTIAZEM HCL 120 MG PO SCH (21:00)
[2017-07-15] MEDS ORDERED: NON-FORMULARY MEDICATION (Metoprolol Succinate [Metoprolol Succinate] 100 MG) PO SCH (21:00)
[2017-07-16] MEDS: PRILOSEC PO SCH (05:53)
[2017-07-16] MEDS ORDERED: POTASSIUM CHLORIDE PREMIX RUN 20 MEQ in PREMIX 100 ML WATER 2 BAG IV STA (08:38)
[2017-07-16] MEDS: ROCEPHIN 1 GM in SODIUM CHLORIDE 50 ML IV SCH (08:51)
[2017-07-16] MEDS: VITAMIN C PO SCH (08:53)
[2017-07-16] MEDS: NEURONTIN PO SCH ×2 (08:53→20:49)
[2017-07-16] MEDS: LIPITOR PO SCH (08:53)
[2017-07-16] MEDS: CARDIZEM CD PO SCH ×2 (08:53→20:49)
[2017-07-16] MEDS: FLOMAX PO SCH (08:53)
[2017-07-16] MEDS: K-DUR PO SCH ×2 (08:54→19:44)
[2017-07-16] MEDS: ASPIRIN EC PO SCH (08:54)
[2017-07-16] MEDS: TOPROL XL PO SCH ×2 (08:54→19:43)
[2017-07-16] MEDS: FOLIC ACID PO SCH (08:54)
[2017-07-16] MEDS: GLUCOPHAGE PO SCH ×2 (08:54→19:44)
[2017-07-16] MEDS: ELIQUIS PO SCH ×2 (08:57→20:49)
[2017-07-16] MEDS ORDERED: NON-FORMULARY MEDICATION (Ascorbic Acid [Vitamin C] 1,000 MG) PO SCH (09:00)
[2017-07-16] MEDS ORDERED: NON-FORMULARY MEDICATION (Atorvastatin Calcium [Atorvastatin Calcium] 40 MG) PO SCH (09:00)
[2017-07-16] MEDS: SODIUM CHLORIDE 1,000 ML IV SCH (22:27)
[2017-07-17] MEDS: PRILOSEC PO SCH (05:45)
[2017-07-17] MEDS ORDERED: K-DUR PO STA (08:15)
[2017-07-17] MEDS: ROCEPHIN 1 GM in SODIUM CHLORIDE 50 ML IV SCH (08:57)
[2017-07-17] MEDS: ASPIRIN EC PO SCH (08:59)
[2017-07-17] MEDS: K-DUR PO SCH ×2 (09:00→17:16)
[2017-07-17] MEDS: CARDIZEM CD PO SCH ×2 (09:00→21:22)
[2017-07-17] MEDS: FLOMAX PO SCH (09:00)
[2017-07-17] MEDS: VITAMIN C PO SCH (09:01)
[2017-07-17] MEDS: TOPROL XL PO SCH ×2 (09:01→17:15)
[2017-07-17] MEDS: NEURONTIN PO SCH ×2 (09:01→21:22)
[2017-07-17] MEDS: GLUCOPHAGE PO SCH ×2 (09:01→17:16)
[2017-07-17] MEDS: LIPITOR PO SCH (09:01)
[2017-07-17] MEDS: FOLIC ACID PO SCH (09:02)
[2017-07-17] MEDS: ELIQUIS PO SCH ×2 (09:02→21:22)
[2017-07-17] MEDS: SODIUM CHLORIDE 1,000 ML IV SCH (21:21)
[2017-07-18] MEDS: PRILOSEC PO SCH (05:46)
[2017-07-18] MEDS: ROCEPHIN 1 GM in SODIUM CHLORIDE 50 ML IV SCH (10:34)
[2017-07-18] MEDS: ASPIRIN EC PO SCH (10:35)
[2017-07-18] MEDS: K-DUR PO SCH ×2 (10:36→17:34)
[2017-07-18] MEDS: LIPITOR PO SCH (10:36)
[2017-07-18] MEDS: NEURONTIN PO SCH ×2 (10:36→21:32)
[2017-07-18] MEDS: FOLIC ACID PO SCH (10:37)
[2017-07-18] MEDS: TOPROL XL PO SCH ×2 (10:37→17:33)
[2017-07-18] MEDS: VITAMIN C PO SCH (10:37)
[2017-07-18] MEDS: GLUCOPHAGE PO SCH ×2 (10:38→17:34)
[2017-07-18] MEDS: CARDIZEM CD PO SCH ×2 (10:38→21:31)
[2017-07-18] MEDS: ELIQUIS PO SCH ×2 (10:39→21:27)
[2017-07-18] MEDS: FLOMAX PO SCH (10:39)
[2017-07-18] MEDS: SODIUM CHLORIDE 1,000 ML IV SCH (17:35)
[2017-07-18] MEDS ORDERED: VANCOMYCIN ONE (20:56)
[2017-07-18] MEDS ORDERED: VANCOMYCIN 1 GM in SODIUM CHLORIDE 250 ML IV SCH (21:00)
[2017-07-19] MEDS: PRILOSEC PO SCH (05:54)
[2017-07-19] MEDS ORDERED: K-DUR PO STA (07:48)
[2017-07-19] MEDS: ASPIRIN EC PO SCH (09:28)
[2017-07-19] MEDS: CARDIZEM CD PO SCH ×2 (09:29→20:54)
[2017-07-19] MEDS: FOLIC ACID PO SCH (09:29)
[2017-07-19] MEDS: FLOMAX PO SCH (09:29)
[2017-07-19] MEDS: LIPITOR PO SCH (09:30)
[2017-07-19] MEDS: GLUCOPHAGE PO SCH ×2 (09:30→17:35)
[2017-07-19] MEDS: K-DUR PO SCH ×2 (09:30→17:35)
[2017-07-19] MEDS: TOPROL XL PO SCH ×2 (09:31→17:36)
[2017-07-19] MEDS: VITAMIN C PO SCH (09:31)
[2017-07-19] MEDS: NEURONTIN PO SCH ×2 (09:31→20:54)
[2017-07-19] MEDS: VANCOMYCIN 1.5 GM in SODIUM CHLORIDE 500 ML IV SCH ×3 (09:32→20:52)
[2017-07-19] MEDS: ELIQUIS PO SCH ×2 (09:34→20:52)
[2017-07-19] MEDS: SODIUM CHLORIDE 1,000 ML IV SCH (09:49)
[2017-07-19] MEDS: ROCEPHIN 1 GM in SODIUM CHLORIDE 50 ML IV SCH (12:40)
[2017-07-20] MEDS: VANCOMYCIN 1.5 GM in SODIUM CHLORIDE 500 ML IV SCH ×2 (04:20→12:12)
[2017-07-20] MEDS: PRILOSEC PO SCH (05:56)
[2017-07-20 06:09] VITALS: TEMP 97.8
[2017-07-20] MEDS: VITAMIN C PO SCH (08:44)
[2017-07-20] MEDS: K-DUR PO SCH (08:44)
[2017-07-20] MEDS: ROCEPHIN 1 GM in SODIUM CHLORIDE 50 ML IV SCH (08:44)
[2017-07-20] MEDS: TOPROL XL PO SCH (08:44)
[2017-07-20] MEDS: ASPIRIN EC PO SCH (08:44)
[2017-07-20] MEDS: NEURONTIN PO SCH (08:45)
[2017-07-20] MEDS: ELIQUIS PO SCH (08:45)
[2017-07-20] MEDS: FOLIC ACID PO SCH (08:45)
[2017-07-20] MEDS: LIPITOR PO SCH (08:45)
[2017-07-20] MEDS: GLUCOPHAGE PO SCH (08:45)
[2017-07-20] MEDS: CARDIZEM CD PO SCH (08:45)
[2017-07-20] MEDS: FLOMAX PO SCH (08:45)
[2017-07-20 09:58] VITALS: BP 142/94
[2017-07-20] MEDS: SODIUM CHLORIDE 1,000 ML IV SCH (15:30)
--- NOTE | 2017-07-21 15:01 | PN ---
DATE OF SERVICE: 07/17/17 SUBJECTIVE: The patient was admitted with urinary tract infection and lower extremity wound infection. The patient has to go to [facility] Emergency Room yesterday as his suprapubic catheter is dislodged but Dr. Simpson the urologist say the patient and he thought it was not necessary as the patient started urinating and he told us to observe and make sure he is having constant amount of urine being passed. Otherwise shortness of breath is better and urinating good. REVIEW OF SYSTEMS: CONSTITUTIONAL: No fever, no chills. HEENT: Normal. ENDOCRINE: No weight gain, no weight loss. CVS: No angina symptoms. No CHF symptoms. No palpitations. No atypical chest pain for CAD. No shortness of breath. No PND, no orthopnea. RESPIRATORY: No cough, no hemoptysis. GI: No nausea, no vomiting. No abdominal pain. : No hematuria. No polyuria. MUSCULOSKELETAL: No joint swelling. PSYCHIATRIC: Not anxious. No depression. No suicidal thoughts. No homicidal thoughts. SKIN: Intact. No rash. PHYSICAL EXAMINATION: V/S: Blood pressure 99/54, respiratory rate 20, heart rate 82, temperature 97.7 with saturation 93 on room air. GENERAL: Morbidly obese patient laying in the bed and not in any distress. HEENT: Normocephalic, atraumatic. Mucosa dry. Pallor positive. No icterus. NECK: Supple. No JVD, no carotid bruit. No lymphadenopathy. LUNGS: Clear to auscultation. No rales or rhonchi. HEART: S1, S2 normal. No S3. No murmur, gallop or regurgitation. ABDOMEN: Soft, nontender. Bowel sounds active. No rigidity. No rebound or guarding. No CVA tenderness. Obese. Suprapubic catheter site looks healthy, granulation tissue. EXTREMITIES: 1-2+ edema. No clubbing or cyanosis. Bilateral lower extremity swelling. Red superficial skin, warm to touch. The wounds are being covered with the dressing. MUSCULOSKELETAL: No joint swelling. NEUROLOGIC: Awake, alert, oriented times three. No focal deficit. LYMPHATIC: No lymph nodes palpable. SKIN: Intact. LABS: WBC 4.61, hgb 10.9, hct 32.3, plt count 145, sodium 142, potassium 3.2, chloride 105, bicarb 24, BUN 7, creatinine 0.78, glucose 102. ASSESSMENT: 1. Bilateral lower extremity cellulitis 2. Recurrent UTI 3 UTI 4. Anemia 5. Hypokalemia 6. Coronary artery disease 7. Congestive heart failure 8. Atrial fibrillation 9. Hemolytic anemia PLAN: 1. Continue Rocephin 1 gram daily 2. IV fluids 3. Breathing treatments 4. Daily I&O's TIME SPENT: More than 25 minutes MTDD
--- NOTE | 2017-07-24 08:19 | DS ---
DATE OF SERVICE: 07/20/17 FINAL DIAGNOSIS: 1. Bilateral lower extremity defused multiple wounds with MRSA positive, Bactrim sensitive 2. Urinary retention with the suprapubic catheter but it was dislodged and the patient seen Dr. Simpson, does not need anymore 3. UTI, recurrent and chronic 4. Upper respiratory infection, which is improved 5. Congestive heart failure 6. Coronary artery disease 7. Diabetes 8. Morbid obesity 9. Atrial fibrillation, on Xarelto 10.History of Hemolytic anemia. 11. Sleep apnea on CPAP DISCHARGE INSTRUCTIONS: Discharge the patient home. Bactrim twice a day for 7 days. Increase hydration. Continue home medications. MEDICATIONS AT DISCHARGE: Eliquis Vitamin C Aspirin Atorvastatin Cardizem Folic acid Lasix Neurontin Metformin Metoprolol Omeprazole Potassium Flomax DIET INSTRUCTIONS: 2,000 ADA diet ACTIVITY: As much as tolerated DISEASE SPECIFIC EDUCATION: Bilateral chronic lower extremity wounds Antibiotic use and diarrhea been discussed and verbalized understanding. HOSPITAL COURSE: Gustavo Cabrales who was a 56 year old male went to the Wound Care where he was seen by Charito Allred, Nurse Practitioner, after seeing the wounds both lower extremity wounds were swollen, red, tender with almost 1-2-+ pitting edema. At that time she expected the patient was needing IV antibiotics meanwhile the patient was just seen by Dr. Simpson for the urinary tract infection and he did not take any oral antibiotics, shortness of breath and upper respiratory infection. The patient was admitted for all these reason. Started on the IV antibiotics Rocephin and Vancomycin and breathing treatments. With the given treatment the patient started feeling some better but the patient had problem with his suprapubic catheter got dislodged so we had to transfer the patient to the [facility] Emergency Room where he was evaluated by Dr. Simpson he decided as the patient started urinating regularly he does not need any. He suggested us to clearly monitor how much he was urinating and any signs of urinary obstruction. Continued hospital admission and meanwhile we did do the wet to dry dressing and PolyMem was put on the lower extremity wounds. Potassium was 2.9 and was replaced to 3.4 and 3.2 and 3.5. Did not have any problem. Hgb was steady 10.9. As patient was doing good up and about walking at the time the patient being discharged home. TIME SPENT: MORE THAN 65 MINUTES MTDD
--- NOTE | 2017-07-31 13:13 | PN ---
DATE OF SERVICE: 07/18/17 SUBJECTIVE: The patient was admitted with lower extremity cellulitis. The wound culture has shown the MRSA. We will be starting the Vancomycin today. He has been getting Rocephin for the Urinary tract infection. He is urinating fine without any suprapubic catheter. Up and about walking less short of breath. REVIEW OF SYSTEMS: CONSTITUTIONAL: No fever, no chills. HEENT: Normal. ENDOCRINE: No weight gain, no weight loss. CVS: No angina symptoms. No CHF symptoms. No palpitations. No atypical chest pain for CAD. No shortness of breath. No PND, no orthopnea. RESPIRATORY: No cough, no hemoptysis. GI: No nausea, no vomiting. No abdominal pain. : No hematuria. No polyuria. MUSCULOSKELETAL: No joint swelling. PSYCHIATRIC: Not anxious. No depression. No suicidal thoughts. No homicidal thoughts. SKIN: Intact. No rash. PHYSICAL EXAMINATION: V/S: Blood pressure 115/59, respiratory rate 20, heart rate 78, temperature 97.4 , saturation 92. HEENT: Normocephalic, atraumatic. Mucosa dry. Pallor positive. No icterus. NECK: Supple. No JVD, no carotid bruit. No lymphadenopathy. LUNGS: Decreased and clear to auscultation. No rales or rhonchi. HEART: S1, S2 normal. No S3. No murmur, gallop or regurgitation. ABDOMEN: Soft, nontender. Bowel sounds active. No rigidity. No rebound or guarding. No CVA tenderness. Suprapubic catheter site is normal. EXTREMITIES: No pedal edema. No clubbing or cyanosis MUSCULOSKELETAL: No joint swelling. NEUROLOGIC: Awake, alert, oriented times three. No focal deficit. LYMPHATIC: No lymph nodes palpable. SKIN: Intact and dry except in the lower extremities where the open wounds are present. Redness and warm to touch. Rest of the wounds are covered the band-aid LABS: WBC 4.61, hgb 10.9, hct 32.2, plt count 145, sodium 142, potassium 4.2, chloride 105, bicarb 24, BUN 7, creatinine 0.78, glucose 102. ASSESSMENT: 1. Bilateral lower extremity chronic wounds with acute infection from the MRSA , Vancomycin was started today 2. Recurrent and chronic UTI, Rocephin 3. Displaced suprapubic catheter, seen by Dr. Simpson. Does not need any more suprapubic catheter 4. History of congestive heart failure 5. Atrial fibrillation on Eliquis 6. Hemolytic anemia 7. Morbid obesity PLAN: 1. Continue the Rocephin, Vancomycin, DUO NEBS 2. Daily I&O's 3. IV fluids TIME SPENT: More than 35 minutes MTDD
--- NOTE | 2017-07-31 13:26 | PN ---
DATE OF SERVICE: 07/19/17 SUBJECTIVE: The patient was admitted with the bilateral lower extremity cellulitis and multiple open wounds. They did grow the MRSA. Vancomycin was started yesterday. The patient is able to urinate without the suprapubic catheter. No urinary obstruction at this time. REVIEW OF SYSTEMS: CONSTITUTIONAL: No fever, no chills. HEENT: Normal. ENDOCRINE: No weight gain, no weight loss. CVS: No angina symptoms. No CHF symptoms. No palpitations. No atypical chest pain for CAD. Shortness of breath on exertion. No PND, no orthopnea. RESPIRATORY: No cough, no hemoptysis. GI: No nausea, no vomiting. No abdominal pain. : No hematuria. No polyuria. MUSCULOSKELETAL: No joint swelling. PSYCHIATRIC: Not anxious. No depression. No suicidal thoughts. No homicidal thoughts. SKIN: Intact. No rash. PHYSICAL EXAMINATION: V/S: Blood pressure 106/61, respiratory rate 20, heart rate 56, temperature 98.0 and saturation 96 on the CPAP. HEENT: Normocephalic, atraumatic. Mucosa dry. Pallor positive. no icterus. NECK: Supple. No JVD, no carotid bruit. No lymphadenopathy. LUNGS: Decreased and clear to auscultation. No rales or rhonchi. HEART: S1, S2 normal. No S3. No murmur, gallop or regurgitation. ABDOMEN: Soft, nontender. Morbidly obese. Bowel sounds active. No rigidity. No rebound or guarding. No CVA tenderness. EXTREMITIES: 1+ edema up to the knees. Redness and very warm to touch. No clubbing or cyanosis. Bilateral lower extremity swelling and pain is present. Multiple open wounds, right extremity has more wounds then the left extremity. MUSCULOSKELETAL: No joint swelling. NEUROLOGIC: Awake, alert, oriented times three. No focal deficit. LYMPHATIC: No lymph nodes palpable. SKIN: Intact. LABS: WBC 4.61, hgb 10.9, hct 32.2, plt count 145, sodium 142, potassium 3.2, chloride 105, bicarb 24, BUN 7, creatinine 0.78, glucose 102. ASSESSMENT: 1. Bilateral lower extremity multiple open wounds with positive MRSA 2. Suprapubic catheter which was dislodged and does not need it anymore, seen by Dr. Simpson at the [facility] Emergency Room 3. Upper respiratory infection 4. Coronary artery disease 5. Congestive heart failure 6. Atrial fibrillation 7. Hemolytic anemia 8. Morbid obesity 9. Sleep apnea. PLAN: 1. Continue the Rocephin and Vancomycin 2. Accu-checks with the coverage TIME SPENT: More than 35 minutes MTDD
--- NOTE | 2017-08-05 11:58 | HP ---
DATE OF SERVICE: 07/15/17 CHIEF COMPLAINT: Shortness of breath and UTI. HISTORY OF PRESENT ILLNESS: This is a 56-year-old male who recently had bilateral ureteric stent placed. He had been diagnosed with a UTI but still having some feverish feeling. He started having shortness of breath, cough and congestion. The patient does have chronic leg wounds for which he went to Wound Care. Right lower extremity wound did look more red and tender to touch. At that time, the patient was sent to the emergency room for evaluation for admission. Initial blood work showed white count normal. Hemoglobin 11.7, potassium 3.0. Total bilirubin 2.3, albumin 3.3. At that time, he was admitted to the hospital for IV antibiotics for the recurrent UTI, upper respiratory infection and right lower extremity wound infection. REVIEW OF SYSTEMS: CONSTITUTIONAL: Weakness, tiredness. No fever, no chills. HEENT: Normal. ENDOCRINE: Weight gain. CVS: Positive for shortness of breath. No chest pain. No PND, no orthopnea. No PND, no orthopnea. RESPIRATORY: Cough and congestion. Shortness of breath. No hemoptysis. GI: No nausea, no vomiting. No abdominal pain. No melena. : Burning and frequency of urination recently seen at [facility] with diagnosis of UTI. MUSCULOSKELETAL: Right leg pain and swelling, redness. PSYCHIATRIC: Not anxious. No depression. No suicidal thoughts. No homicidal thoughts. SKIN: Intact, no open lesions. PAST MEDICAL HISTORY: CAD CHF Atrial fibrillation Hemolytic anemia Morbid obesity Diabetes COPD Bilateral hydronephrosis Sleep apnea on CPAP PAST SURGICAL HISTORY: Suprapubic catheter PERSONAL HISTORY: Former smoker, quit 15 years ago. No alcohol use. No drug use. FAMILY HISTORY: Lung cancer positive. MEDICATIONS: (HOME) Folic Acid Lasix Metoprolol Cardizem Prilosec Apixaban Flomax Potassium Aspirin Neurontin Ascorbic Acid Metformin Atorvastatin ALLERGIES: NKDA PHYSICAL EXAMINATION: V/S: BP 140/97, respiratory rate 24, heart rate 90, temperature 97.4, saturation 97. GENERAL: Morbidly obese male sitting in bed not in any distress. HEENT: Atraumatic, normocephalic. No scleral icterus. Pallor positive. Mucosa dry. NECK: Supple. No JVD, no bruit. No lymphadenopathy. No thyromegaly. HEART: S1, S2 normal. No murmur. No cyanosis or clubbing. No ascites. LUNGS: Decreased basilar crackles. Clear to auscultation. No rales or rhonchi. ABDOMEN: Suprapubic catheter area is healthy with healthy granulation tissue. Soft, nontender. Bowel sounds are active. No CVA tenderness. No rigidity or guarding. EXTREMITIES: No pedal edema. No cyanosis or clubbing. Multiple open wounds in the right lower extremity, redness and warm to touch. MUSCULOSKELETAL: Normal joints, no swelling. NEUROLOGIC: The patient is SKIN: Intact; no open lesions. LYMPHATIC: No lymph nodes palpable. LABS: Sodium 142, potassium 3.0, chloride 100, bicarb 31, BUN 6, creatinine 0.82. White count 4.91, hemoglobin 11.7, hematocrit 33.4, platelet count 118. ASSESSMENT: 1. NATION CATHETER INDUCED UTI, RECURRENT 2. UPPER RESPIRATORY INFECTION 3. SHORTNESS OF BREATH SECONDARY TO UPPER RESPIRATORY INFECTION 4. RIGHT LOWER EXTREMITY CELLULITIS WITH MULTIPLE WOUNDS 5. DIABETES 6. HEMOLYTIC ANEMIA 7. MORBID OBESITY 8. CAD 9. CHF 10. ATRIAL FIBRILLATION ON ELIQUIS PLAN: 1. Admit patient to regular floor 2. CBC, CMP today and daily 3. Cardiac enzymes and troponin 4. UA with culture and sensitivity 5. Will start the patient on Rocephin 1 gm daily 6. IV fluids 50 mL/hr 7. Metformin 8. Accu-cheks with coverage TIME SPENT: MORE THAN 65 MINUTES MTDD
--- NOTE | 2017-08-06 13:10 | PN ---
DATE OF SERVICE: 07/16/17 SUBJECTIVE: The patient was admitted with lower extremity cellulitis, shortness of breath and urinary tract infection. The patient has a suprapubic catheter for urinary obstruction. PHYSICAL EXAMINATION: V/S: BP 126/65, respiratory rate 20, heart rate 80, temperature 97.9, saturation 96. HEENT: Normocephalic, atraumatic. Mucosa dry. NECK: Supple. No JVD, no carotid bruit. No lymphadenopathy. LUNGS: Decreased entry. Clear to auscultation. No rales or rhonchi. HEART: S1, S2 normal. No S3. No murmur, gallop or regurgitation. ABDOMEN: Obese. Suprapubic catheter site looks healthy with the granulation tissue. Soft, nontender. Bowel sounds active. No rigidity. No rebound or guarding. No CVA tenderness. EXTREMITIES: Right lower extremity swollen, redness and warm to touch. Wounds are covered with dressing. Left lower extremity wounds are covered with dressing. Swollen leg, warm to touch and redness. No pedal edema. No clubbing or cyanosis MUSCULOSKELETAL: No joint swelling. NEUROLOGIC: Awake, alert, oriented times three. No focal deficit. LYMPHATIC: No lymph nodes palpable. SKIN: Intact. LABS: Sodium 141, potassium 2.9, chloride 102, bicarb 27, BUN 7, creatinine 0.79. White count 4.42, hemoglobin 10.6, hematocrit 30.8, platelet count 142. ASSESSMENT: 1. RECURRENT UTI WITH SUPRAPUBIC CATHETER 2. URINARY OBSTRUCTION 3. LOWER EXTREMITY - MULTIPLE OPEN WOUNDS WITH CELLULITIS 4. DIABETES 5. ATRIAL FIBRILLATION 6. HEMOLYTIC ANEMIA 7. CAD 8. CHF 9. MORBID OBESITY 10. SLEEP APNEA ON CPAP PLAN: 1. Continue Rocephin 1 gm daily 2. Will add Vancomycin 1 gm daily 3. Martines catheter care 4. Daily I & O 5. Duonebs TIME SPENT: More than 35 minutes MTDD
== END 2017-07-20 16:30 | disposition home or self-care (01) | DRG 603 ==
LOC: ED 10:12 → MEDSURG A 12:31
PROVIDERS: ADMIT Emergency Medicine; ATTEND Emergency Medicine
DX: L03.116 Cellulitis of left lower limb (principal); L03.115 Cellulitis of right lower limb; I87.332 Chronic venous hypertension (idiopathic) with ulcer and inflammation of left lower extremity; L97.822 Non-pressure chronic ulcer of other part of left lower leg with fat layer exposed; N39.0 Urinary tract infection, site not specified; D58.9 Hereditary hemolytic anemia, unspecified; T81.31XA Disruption of external operation (surgical) wound, not elsewhere classified, initial encounter; B95.62 Methicillin resistant Staphylococcus aureus infection as the cause of diseases classified elsewhere; N13.9 Obstructive and reflux uropathy, unspecified; R06.02 Shortness of breath; I48.91 Unspecified atrial fibrillation; R39.81 Functional urinary incontinence; E11.9 Type 2 diabetes mellitus without complications; I10 Essential (primary) hypertension; I50.9 Heart failure, unspecified; E87.6 Hypokalemia; E66.01 Morbid (severe) obesity due to excess calories; I25.10 Atherosclerotic heart disease of native coronary artery without angina pectoris; J06.9 Acute upper respiratory infection, unspecified; G47.30 Sleep apnea, unspecified; Z79.01 Long term (current) use of anticoagulants; Z79.84 Long term (current) use of oral hypoglycemic drugs; Z79.899 Other long term (current) drug therapy; Z96.0 Presence of urogenital implants; Z16.11 Resistance to penicillins
CPT/HCPCS: 11042; 36415; 80053; 81001; 82550; 82803; 82962; 83880; 84132; 84484; 85025; 85610; 87070; 87081; 87086; 87186; 93005; 93010; 99213; 99214; 99284

== ENCOUNTER 2017-07-16 15:20 | Outpatient (CLI) ==
[2017-07-15 15:54] VITALS: BMI 69.1
== END 2017-07-16 15:21 | disposition critical access hospital (66) ==
LOC: AMBL 15:20
PROVIDERS: ATTEND Emergency Medicine
DX: T83.028A Displacement of other urinary catheter, initial encounter (principal); N39.0 Urinary tract infection, site not specified; L03.90 Cellulitis, unspecified

== ENCOUNTER 2017-08-09 23:51 | Outpatient (CLI) | END 2017-08-09 23:52 | disposition short-term general hospital (02) | LOC: AMBL 23:51 | PROVIDERS: ATTEND Family Medicine | DX: R33.9 Retention of urine, unspecified (principal); R10.30 Lower abdominal pain, unspecified ==

== ENCOUNTER 2017-08-10 14:12 | Outpatient (CLI) | END 2017-08-10 14:13 | disposition short-term general hospital (02) | LOC: AMBL 14:12 | PROVIDERS: ATTEND Internal Medicine | DX: R33.9 Retention of urine, unspecified (principal); R32 Unspecified urinary incontinence ==

== ENCOUNTER 2017-08-18 13:42 | Inpatient (IN) | payer OTHER ==
[2017-08-18 13:50] VITALS: BMI 67.1
--- NOTE | 2017-08-18 14:49 | ED.PDOC ---
General ED Provider: Dr. BIPIN PARISH Chief Complaint: Fever Stated Complaint: Complains of pain at site of a suprapubic catheter insertion site. Had cath inserted by a urologist in [facility] recently and now site is reddened and painful. Called urologist who advised him to go to the ER. Also has experiened coughing. Time Seen by Physician: 14:20 Mode of Arrival: Walk-In Information Source: Patient Exam Limitations: No limitations [facility] and Triage Documentation Reviewed and Agree: Yes Reviewed sepsis parameters & appropriate labs ordered?: Yes System Inflammatory Response Syndrome: Not Applicable Sepsis Protocol: For patient's 13 years and over: Temp is 96.8 and below OR 101 and greater Pulse >90 BPM Resp >20/minute Acutely Altered Mental Status Are patient's symptoms suggestive of a new infection, such as: -Pneumonia -Skin, Soft Tissue -Endocarditis -UTI -Bone, Joint Infection -Implantable Device -Acute Abdominal Infection -Wound Infection -Meningitis -Blood Stream Catheter Infection -Unknown System Inflammatory Response Syndrome: Not Applicable Review of Systems - Review Of Systems Constitutional: Reports: Chills, Malaise, Weakness Eyes: Reports: No symptoms Ears, Nose, Mouth, Throat: Reports: No symptoms Respiratory: Reports: Cough, Short of air, Wheezing Cardiac: Reports: No symptoms GI: Reports: No symptoms : Reports: No symptoms, Other (Reddness and swelling at umbilicus) Musculoskeletal: Reports: Back pain Skin: Reports: No symptoms Neurological: Reports: No symptoms Endocrine: Reports: No symptoms Hematologic/Lymphatic: Reports: No symptoms All Other Systems: Reviewed and Negative Past Medical History - Past Medical History Previously Healthy: No Endocrine: Reports: DM 2 Cardiovascular: Reports: Hypertension, CHF, A-Fib, Other (PVD) Respiratory: Reports: 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) Hematological: Reports: Anemia (hemolytic anemia) Gastrointestinal: Reports: GERD Genitourinary: Reports: None Neuro/Psych: Reports: None Musculoskeletal: Reports: None Cancer: Reports: None Other Pertinent Past Medical History: Chemo pills-(stopped NOW) - Surgical History General Surgical History: Reports: None, Other (WOUND CARE FOR LOWER LEGS) - Family History Family History: Reports: Unknown - Social History Smoking Status: Never smoker Hx Substance Use: No Alcohol Screening: None Physical Exam - Physical Exam Appearance: Ill-appearing, Obese Ill-appearing: Moderate Pain Distress: Moderate Eyes: JD, EOMI, Conjunctiva clear, Right pupil size, Left pupil size (equal and reactive) Neck: Supple Respiratory: Airway patent, Breath sounds clear, Breath sounds diminished, Wheezes Cardiovascular: RRR, Pulses normal, No rub, No murmur GI/: Soft, Bowel sounds normal (fluctuance periumbilial region Superior aspect with induration /tender), Tender Musculoskeletal: Normal strength Skin: Warm Neurological: Sensation intact, Motor intact Interpretation - Radiology Interpretation Radiology Interpretation By: Radiologist Exam Interpreted: CXR, CT Scan Xray Comments: LLL Pneumonia Critical Care Note - Critical Care Note Total Time (mins): 90 Course - Course Hematology/Chemistry: 08/20/17 04:30 08/20/17 04:30 Orders, Labs, Meds: Lab Review 08/18/17 08/18/17 08/18/17 14:49 15:09 15:09 WBC 4.29 RBC 3.49 L Hgb 10.7 L Hct 33.5 L MCV 96.0 H MCH 30.7 MCHC 31.9 RDW Coeff of Yara 14.1 Plt Count 92 L Immature Gran % (Auto) 0.2 Neut % (Auto) 82.3 Lymph % (Auto) 7.9 L Coleman % (Auto) 7.7 Eos % (Auto) 1.4 Baso % (Auto) 0.5 Immature Gran # (Auto) 0.0 Neut # (Auto) 3.5 Lymph # (Auto) 0.3 L Coleman # (Auto) 0.3 L Eos # (Auto) 0.1 Baso # (Auto) 0.0 Puncture Site Rrad O2 Saturation 95.0 ABG pH 7.499 H ABG pCO2 36.8 ABG pO2 70.0 L ABG HCO3 28.7 H ABG Total CO2 30 H ABG Base Excess 5 H Tariq Test + FiO2 % 21.0 Sodium Potassium Chloride Carbon Dioxide Anion Gap BUN Creatinine Estimated GFR (MDRD) BUN/Creatinine Ratio Glucose Lactic Acid Calcium Total Bilirubin AST ALT Alkaline Phosphatase Total Protein Albumin Globulin Albumin/Globulin Ratio Procalcitonin 0.12 Urine Color Urine Clarity Urine pH Ur Specific Axis Urine Protein Urine Glucose (UA) Urine Ketones Urine Blood Urine Nitrite Urine Bilirubin Urine Urobilinogen Ur Leukocyte Esterase Urine Microscopic RBC Urine Microscopic WBC Ur Squamous Epith Cells Urine Bacteria 0408/18/17 08/18/17 15:09 15:09 15:10 WBC RBC Hgb Hct MCV MCH MCHC RDW Coeff of Yara Plt Count Immature Gran % (Auto) Neut % (Auto) Lymph % (Auto) Coleman % (Auto) Eos % (Auto) Baso % (Auto) Immature Gran # (Auto) Neut # (Auto) Lymph # (Auto) Coleman # (Auto) Eos # (Auto) Baso # (Auto) Puncture Site O2 Saturation ABG pH ABG pCO2 ABG pO2 ABG HCO3 ABG Total CO2 ABG Base Excess Tariq Test FiO2 % Sodium 139 Potassium 3.8 Chloride 101 Carbon Dioxide 26 Anion Gap 15.8 BUN 10 Creatinine 0.86 Estimated GFR (MDRD) 93.00 BUN/Creatinine Ratio 11.62 Glucose 108 H Lactic Acid 13.2 Calcium 8.6 Total Bilirubin 1.5 H AST 12 L ALT 10 L Alkaline Phosphatase 56 Total Protein 6.3 L Albumin 3.2 L Globulin 3.1 Albumin/Globulin Ratio 1.03 Procalcitonin Urine Color Yellow Urine Clarity Clear Urine pH 7.0 Ur Specific Axis 1.015 Urine Protein Negative Urine Glucose (UA) Negative Urine Ketones Negative Urine Blood 2+ Urine Nitrite Negative Urine Bilirubin Negative Urine Urobilinogen 0.2 Ur Leukocyte Esterase Trace Urine Microscopic RBC 0-2 Urine Microscopic WBC 10-20 Ur Squamous Epith Cells Not present Urine Bacteria Trace Orders Category Date Time Status ABG DRAW REQUEST Stat CARDIO 08/18/17 14:55 Completed NEBULIZER TREATMENT Routine CARDIO 08/18/17 16:49 Active OXYGEN Routine CARDIO 08/18/17 16:51 Active ACTIVITY .Early Mobilization for VTE Prevention CARE 08/18/17 16:50 Completed BLOOD GLUCOSE MONITORING 0630,1100,1700,2100 CARE 08/18/17 16:51 Active INTAKE & OUTPUT Q8HR CARE 08/18/17 16:50 Completed VITAL SIGNS Q4HR CARE 08/18/17 16:50 Completed CARDIAC DIET DIETARY 08/18/17 Dinner Ordered IV [ED IV/MEDIPORT/POWERPORT] .ONCE EMERGENCY 08/18/17 14:53 Active ABG Stat LAB 08/18/17 14:49 Completed BLOOD CULTURE (ED ONLY) Stat LAB 08/18/17 15:09 Results CBC W/ AUTO DIFF DAILY@0600 LAB 08/19/17 07:00 Completed CBC W/ AUTO DIFF DAILY@0600 LAB 08/20/17 04:30 Completed CBC W/ AUTO DIFF Stat LAB 08/18/17 15:09 Completed CMP [COMPREHENSIVE METABOLIC PANEL] Stat LAB 08/18/17 15:09 Completed COMPREHENSIVE METABOLIC PANEL DAILY@0600 LAB 08/19/17 07:00 Completed COMPREHENSIVE METABOLIC PANEL DAILY@0600 LAB 08/20/17 04:30 Completed CREATINE KINASE Q8H LAB 08/18/17 22:36 Completed LACTIC ACID Stat LAB 08/18/17 15:09 Completed PROCALCITONIN Stat LAB 08/18/17 15:09 Completed SPUTUM CULTURE Stat LAB 08/18/17 15:35 Completed TROPONIN I Q8H LAB 08/18/17 22:36 Completed UA [URINALYSIS C & S IF INDICATED] Stat LAB 08/18/17 15:10 Completed URINE CULTURE Stat LAB 08/18/17 15:25 Completed WOUND CULTURE Stat LAB 08/18/17 15:10 Completed 0.9 % Sodium Chloride [Saline Flush] MEDS 08/18/17 14:54 Active 1 syr IVF PRN PRN Apixaban [Eliquis] MEDS 08/18/17 21:00 Active 5 mg PO BID Aspirin [Aspirin EC] MEDS 08/19/17 08:00 Active 81 mg PO DAILYWM Ceftriaxone Sodium [Rocephin] 1 gm MEDS 08/18/17 16:48 Discontinued 0.9 % Sodium Chloride [Sodium Chloride] 50 ml IV ONCE Diltiazem HCl [Cardizem Cd] MEDS 08/18/17 21:00 Discontinued 120 mg PO BID Folic Acid MEDS 08/19/17 09:00 Active 1 mg PO DAILY Gabapentin [Neurontin] MEDS 08/18/17 21:00 Active 300 mg PO BID Ipratropium/Albuterol Neb [Duoneb] MEDS 08/18/17 18:00 Discontinued 1 vial NEB RTQ6H Levofloxacin/D5w [Levaquin] 150 ml MEDS 08/18/17 16:41 Discontinued IV .STK-MED Levofloxacin/D5w [Levaquin] 750 mg MEDS 08/18/17 16:37 Discontinued Premix 150 ml D5w 1 bag IV ONCE Metformin HCl [Glucophage] MEDS 08/18/17 17:30 Active 500 mg PO BIDWM Metoprolol Succinate [Metoprolol Succinate] MEDS 08/18/17 21:00 Discontinued 100 mg PO BID Omeprazole [Prilosec] MEDS 08/19/17 06:30 Active 20 mg PO QDAC Sodium Chloride 0.9% [Sodium Chloride] 1,000 ml MEDS 08/18/17 17:00 Active IV 50 mls/hr Tamsulosin HCl [Flomax] MEDS 08/19/17 09:00 Active 0.4 mg PO DAILY Vancomycin HCl [Vancomycin] 1 gm MEDS 08/18/17 16:40 Discontinued 0.9 % Sodium Chloride [Sodium Chloride] 250 ml IV ONCE Vancomycin HCl [Vancomycin] 1.5 gm MEDS 08/19/17 09:00 Active Sodium Chloride 0.9% [Sodium Chloride] 500 ml IV Q8HR RESUSCITATION STATUS Routine OTHERS 08/18/17 16:50 Ordered CHEST, 2 VIEWS PA & LAT Stat RADS 08/18/17 14:50 Completed Medications Generic Name Dose Route Start Last Admin Trade Name Freq PRN Reason Stop Dose Admin Albuterol/Ipratropium 1 vial 08/18/17 20:00 08/20/17 14:11 Duoneb NEB 1 vial RTQID FLORA Administration Apixaban 5 mg 08/18/17 21:00 08/20/17 08:14 Eliquis PO 5 mg BID FLORA Administration Ascorbic Acid 1,000 mg 08/19/17 09:00 08/20/17 08:13 Vitamin C PO 1,000 mg DAILY FLORA Administration Aspirin 81 mg 08/19/17 08:00 08/20/17 08:13 Aspirin Ec PO 81 mg DAILYWM FLORA Administration Atorvastatin Calcium 40 mg 08/19/17 09:00 08/20/17 08:12 Lipitor PO 40 mg DAILY FLORA Administration Diltiazem HCl 120 mg 08/19/17 11:00 08/20/17 08:13 Cardizem PO 120 mg BID FLORA Administration Folic Acid 1 mg 08/19/17 09:00 08/20/17 08:13 Folic Acid PO 1 mg DAILY FLORA Administration Gabapentin 300 mg 08/18/17 21:00 08/20/17 08:13 Neurontin PO 300 mg BID FLORA Administration Guaifenesin/Dextromethorphan 5 ml 08/19/17 01:17 08/19/17 21:12 Robitussin Dm Syrup PO 5 ml Q4H PRN Administration Cough Vancomycin HCl 1.5 gm/ Sodium 500 mls @ 200 mls/hr 08/19/17 09:00 08/20/17 12 :20 Chloride IV 200 mls/hr Q8HR FLORA Administration Sodium Chloride 1,000 mls @ 50 mls/hr 08/18/17 17:00 08/19/17 18:12 Sodium Chloride IV 50 mls/hr .Q20H FLORA Administration Metformin HCl 500 mg 08/18/17 17:30 08/20/17 08:13 Glucophage PO 500 mg BIDWM FLORA Administration Metoprolol Tartrate 100 mg 08/19/17 11:00 08/20/17 08:12 Lopressor PO 100 mg BID FLORA Administration Omeprazole 20 mg 08/19/17 06:30 08/20/17 05:42 Prilosec PO 20 mg QDAC FLORA Administration Potassium Chloride 40 meq 08/18/17 21:00 08/20/17 08:12 K-Dur PO 40 meq BID FLORA Administration Sodium Chloride 1 syr 08/18/17 14:54 Saline Flush IVF PRN PRN To flush IV Tamsulosin HCl 0.4 mg 08/19/17 09:00 08/20/17 08:13 Flomax PO 0.4 mg DAILY FLORA Administration Discontinued Medications Generic Name Dose Route Start Last Admin Trade Name Freq PRN Reason Stop Dose Admin Albuterol/Ipratropium 1 vial 08/18/17 18:00 08/18/17 18:30 Duoneb NEB Not Given RTQ6H FLORA Levofloxacin/Dextrose 750 mg/ 150 mls @ 100 mls/hr 08/18/17 16:37 08/18/17 16 :46 Dextrose IV 08/18/17 18:06 100 mls/hr ONCE STA Administration Vancomycin HCl 1 gm/ Sodium 250 mls @ 250 mls/hr 08/18/17 16:40 08/18/17 18: 49 Chloride IV 08/18/17 17:39 Not Given ONCE STA Ceftriaxone Sodium 1 gm/ 50 mls @ 75 mls/hr 08/18/17 16:48 08/18/17 18:57 Sodium Chloride IV 08/18/17 17:27 75 mls/hr ONCE STA Administration Non-Formulary Medication 100 mg 08/18/17 21:00 08/19/17 14:02 Metoprolol Succinate [Metoprolol Succinate] PO Not Given BID FLORA Non-Formulary Medication 120 mg 08/18/17 21:00 08/19/17 14:01 Diltiazem Hcl [Cardizem Cd] PO Not Given BID [facility] Vital Signs: Temp Pulse Resp BP Pulse Ox 08/18/17 13:43 98.9 F 96 H 24 148/115 H 92 L Departure - Departure Time of Disposition: 17:36 Disposition: ADMITTED INPATIENT Discharge Problem: Pneumonia, Suprapubic pain, Cellulitis, abdominal wall Condition: Fair Pt referred to PMD for follow-up: Yes (Dr Romero) IPMP verified?: No Allergies/Adverse Reactions: Allergies No Known Allergies Allergy (Verified 08/18/17 13:52) Home Medications: Ambulatory Orders Folic Acid 1 mg PO DAILY 04/20/13 Furosemide [Lasix] 40 mg PO BID PRN 12/19/13 Omeprazole [Prilosec] 20 mg PO DAILY 09/29/14 Apixaban [Eliquis] 5 mg PO BID 10/11/14 Tamsulosin HCl [Flomax] 0.4 mg PO DAILY 09/24/16 Aspirin [Aspir-Low] 81 mg PO DAILY 01/21/17 Ascorbic Acid [Vitamin C] 1,000 mg PO DAILY 06/10/17 Diltiazem HCl [Cardizem] 120 mg PO BID 08/19/17 Metoprolol Tartrate [Lopressor] 100 mg PO BID 08/19/17 Disposition Discussed With: Patient, Family (Discussed with Dr Romero who agreed to admission for additional evaluation and treatment) Skin Complaint Exam - Skin/Soft Tissue Complaint/Exam Onset/Duration: 2 days Symptoms Are: Still present Timing: Constant Initial Severity: Severe Current Severity: Moderate Location: supra and periumbilial Character: Reports: Redness, Swelling Aggravating: Reports: Touch Alleviating: Reports: Unknown Associated Signs and Symptoms: Reports: Drainage, Tenderness Related History: Denies: Similar episode Related Surgical History: Reports: In-Dwelling Med. Device Recent Exposure to Others w/Similar Symptoms: No Skin Findings: Present: Erythema, Induration (regions superior and surrounding umbilicus) Differential Diagnoses: Cellulitis, Infection
--- NOTE | 2017-08-18 15:32 | DI ---
EXAM: Chest two view, frontal and lateral views. HISTORY: Cough, dyspnea. COMPARISON: 07/15/2017. FINDINGS: Heart size is at the upper limits of normal. There is no vascular congestion. There is c onsolidation in the left lower lobe. There is stable chronic blunting of the right costophrenic angl e. Right lung is otherwise clear. No pneumothorax identified. No acute osseous abnormality is seen . IMPRESSION: Left lower lobe consolidation likely representing pneumonia.
[2017-08-18] MEDS ORDERED: LEVAQUIN 750 MG in PREMIX 150 ML D5W 1 BAG IV STA (16:37)
[2017-08-18] MEDS ORDERED: VANCOMYCIN 1 GM in SODIUM CHLORIDE 250 ML IV STA (16:40)
[2017-08-18] MEDS ORDERED: LEVAQUIN 150 ML IV ONE (16:41)
[2017-08-18] MEDS ORDERED: ROCEPHIN 1 GM in SODIUM CHLORIDE 50 ML IV STA (16:48)
[2017-08-18] MEDS ORDERED: DUONEB NEB SCH (18:00)
[2017-08-18] MEDS: SODIUM CHLORIDE 1,000 ML IV SCH (18:51)
[2017-08-18] MEDS: GLUCOPHAGE PO SCH (19:10)
[2017-08-18] MEDS: DUONEB NEB SCH (20:22)
[2017-08-18] MEDS ORDERED: LOPRESSOR ONE (20:39)
[2017-08-18] MEDS ORDERED: CARDIZEM CD ONE (20:40)
[2017-08-18] MEDS: DILTIAZEM HCL 120 MG PO SCH (20:44)
[2017-08-18] MEDS: NEURONTIN PO SCH (20:45)
[2017-08-18] MEDS: K-DUR PO SCH (20:45)
[2017-08-18] MEDS: ELIQUIS PO SCH (20:45)
[2017-08-18] MEDS: NON-FORMULARY MEDICATION (Metoprolol Succinate [Metoprolol Succinate] 100 MG) PO SCH (20:45)
[2017-08-18] MEDS ORDERED: POTASSIUM CHLORIDE 40 MEQ PO SCH (21:00)
[2017-08-19] MEDS: ROBITUSSIN DM SYRUP PO PRN ×2 (01:26→21:12)
[2017-08-19] MEDS: DUONEB NEB SCH ×4 (04:54→20:35)
[2017-08-19] MEDS: PRILOSEC PO SCH (05:47)
[2017-08-19] MEDS ORDERED: NON-FORMULARY MEDICATION (Ascorbic Acid [Vitamin C] 1,000 MG) PO SCH (09:00)
[2017-08-19] MEDS ORDERED: NON-FORMULARY MEDICATION (Atorvastatin Calcium [Atorvastatin Calcium] 40 MG) PO SCH (09:00)
--- NOTE | 2017-08-19 10:28 | HP ---
DATE OF SERVICE: 08/18/17 CHIEF COMPLAINT: Fever HISTORY OF PRESENT ILLNESS: This is a 56 year old male came to the emergency room with cough and congestion getting yellow/green phlegm and the patient has insertion of suprapubic catheter, it became infected, red, raw with the drainage. Called Dr. Lopez and Dr. Lopez wanted him to go to the emergency room and start the antibiotics. Came the emergency room and was seen by Dr. Gamble in the emergency room. Temperature 98.9, saturation 92 on the nasal cannula. Hgb 10.7. ABG showed the pH 7.499, pCo2 36.8 and pO2 70. Chest x-ray showed the bibasilar pneumonia. At that time the patient is admitted to the hospital for IV antibiotics and breathing treatments. REVIEW OF SYSTEMS: CONSTITUTIONAL: No fever, no chills. Weakness and tiredness. HEENT: Normal. ENDOCRINE: No weight gain; no weight loss. CVS: No chest pain. No PND, no orthopnea. No shortness of breath. No PND, no orthopnea. RESPIRATORY: Cough, Congestion. No hemoptysis. GI: No nausea, no vomiting. No abdominal pain. No melena. : No hematuria. No polyuria. MUSCULOSKELETAL: No joint swelling. Suprapubic tenderness from the catheter site. Lower leg edema and lower extremity chronic wounds. PSYCHIATRIC: Not anxious. No depression. No suicidal thoughts. No homicidal thoughts. SKIN: Intact, no open lesions. PAST MEDICAL HISTORY: CAD CHF Atrial fibrillation Hypertension Peripheral neuropathy Sleep apnea on CPAP Morbid obesity Diabetes Dyslipidemia Auto immune hemolytic anemia History of blood transfusion PAST SURGICAL HISTORY: Enlarged prostate Suprapubic catheter insertion PERSONAL HISTORY: The patient does not smoke or drink. Independent of ADL's. Family history is significant for the lung cancer. MEDICATIONS: Folic acid Lasix Metoprolol Cardizem Prilosec Eliquis Flomax Potassium Chloride Aspirin Ascorbic acid Metformin Atorvastatin Neurontin ALLERGIES: No known allergies PHYSICAL EXAMINATION: V/S:Blood pressure 148/115, respiratory rate 24, heart rate 96, temperature 98.9 with saturation 92% on 2 liters. GENERAL: Morbidly obese man laying in the bed not in any distress. HEENT: Atraumatic, normocephalic. No scleral icterus. Mucosa dry. NECK: Supple. No JVD, no bruit. No lymphadenopathy. No thyromegaly. HEART: S1, S2 normal. No murmur. No cyanosis or clubbing. No ascites. LUNGS: Decreased and basilar crackles. Clear to auscultation. No rales or rhonchi. ABDOMEN: Soft, Suprapubic catheter site tender to touch. No drainage. Bowel sounds are active. No CVA tenderness. No rigidity or guarding. EXTREMITIES: No pedal edema. No cyanosis or clubbing MUSCULOSKELETAL: Normal joints, no swelling. NEUROLOGIC: The patient is SKIN: Intact; no open lesions. LYMPHATIC: No lymph nodes palpable. LABS: Sodium 139, potassium 3.8, chloride 101, bicarb 26, BUN 10, creatinine 0.86 and glucose 108. WBC 4.29, hgb 10.7. hct 33.5, plt count 92. ASSESSMENT: 1. Suprapubic catheter site infection 2. Bibasilar community acquired pneumonia 3. COPD exacerbation secondary to pneumonia 4. CAD 5. Hypertension 6. CHF 7. Atrial fibrillation 8. Diabetes Mellitus 9. Hemolytic anemia 10.Chronic lower extremity wounds. PLAN: 1. Admit patient to the regular floor 2. CBC and CMP today and daily 3. Cardiac enzymes and troponin 4. Accu-checks with coverage 5. Rocephin 1 gram daily 6. DUO NEBS 7. Vancomycin 8. Daily I&O's TIME SPENT: MORE THAN 70 minutes MTDD
[2017-08-19] MEDS ORDERED: NON-FORMULARY MEDICATION (Metoprolol Tartrate [Lopressor] 100 MG) PO SCH (11:00)
[2017-08-19] MEDS ORDERED: NON-FORMULARY MEDICATION (Diltiazem Hcl [Cardizem] 120 MG) PO SCH (11:00)
[2017-08-19] MEDS: ASPIRIN EC PO SCH (11:05)
[2017-08-19] MEDS: CARDIZEM PO SCH ×2 (11:06→21:04)
[2017-08-19] MEDS: FLOMAX PO SCH (11:06)
[2017-08-19] MEDS: FOLIC ACID PO SCH (11:07)
[2017-08-19] MEDS: GLUCOPHAGE PO SCH ×2 (11:07→17:10)
[2017-08-19] MEDS: K-DUR PO SCH ×2 (11:07→21:05)
[2017-08-19] MEDS: LOPRESSOR PO SCH ×2 (11:08→21:04)
[2017-08-19] MEDS: LIPITOR PO SCH (11:08)
[2017-08-19] MEDS: NEURONTIN PO SCH ×2 (11:08→21:04)
[2017-08-19] MEDS: VITAMIN C PO SCH (11:09)
[2017-08-19] MEDS: ELIQUIS PO SCH ×2 (11:09→21:04)
[2017-08-19] MEDS: VANCOMYCIN 1.5 GM in SODIUM CHLORIDE 500 ML IV SCH ×3 (11:09→21:04)
[2017-08-19] MEDS: DILTIAZEM HCL 120 MG PO SCH (14:01)
[2017-08-19] MEDS: NON-FORMULARY MEDICATION (Metoprolol Succinate [Metoprolol Succinate] 100 MG) PO SCH (14:02)
--- NOTE | 2017-08-19 15:07 | US ---
EXAM: Limited abdominal ultrasound. History: Pain at the catheter insertion site. Technique: Multiple sonographic images through the abdomen were obtained. Color duplex Doppler was used to interrogate vascular flow. Findings: No masses or discrete fluid collections identified. There is subcutaneous edema with hype remia in the soft tissues surrounding the catheter site. Impression: Cellulitis or phlegmonous change surrounding the catheter site. No discrete drainable f luid collections identified.
[2017-08-19] MEDS: SODIUM CHLORIDE 1,000 ML IV SCH (18:12)
[2017-08-20] MEDS: VANCOMYCIN 1.5 GM in SODIUM CHLORIDE 500 ML IV SCH ×4 (04:02→21:49)
[2017-08-20] MEDS: DUONEB NEB SCH ×4 (05:06→21:38)
[2017-08-20] MEDS: PRILOSEC PO SCH (05:42)
[2017-08-20] MEDS: LOPRESSOR PO SCH ×2 (08:12→21:49)
[2017-08-20] MEDS: K-DUR PO SCH ×2 (08:12→21:49)
[2017-08-20] MEDS: LIPITOR PO SCH (08:12)
[2017-08-20] MEDS: VITAMIN C PO SCH (08:13)
[2017-08-20] MEDS: NEURONTIN PO SCH ×2 (08:13→21:49)
[2017-08-20] MEDS: FOLIC ACID PO SCH (08:13)
[2017-08-20] MEDS: FLOMAX PO SCH (08:13)
[2017-08-20] MEDS: ASPIRIN EC PO SCH (08:13)
[2017-08-20] MEDS: GLUCOPHAGE PO SCH ×2 (08:13→17:40)
[2017-08-20] MEDS: CARDIZEM PO SCH ×2 (08:13→21:49)
[2017-08-20] MEDS: ELIQUIS PO SCH ×2 (08:14→21:50)
[2017-08-20] MEDS ORDERED: SOLU-MEDROL 125 MG IVP SCH (21:00)
[2017-08-20] MEDS ORDERED: ROCEPHIN 1 GM in SODIUM CHLORIDE 50 ML IV SCH (21:00)
[2017-08-20] MEDS ORDERED: ROCEPHIN ONE (22:23)
[2017-08-21] MEDS: DUONEB NEB SCH ×4 (05:14→20:28)
[2017-08-21] MEDS: VANCOMYCIN 1.5 GM in SODIUM CHLORIDE 500 ML IV SCH (05:20)
[2017-08-21] MEDS: SODIUM CHLORIDE 1,000 ML IV SCH ×2 (05:21)
[2017-08-21] MEDS: PRILOSEC PO SCH (05:30)
[2017-08-21] MEDS: K-DUR PO SCH ×2 (08:50→20:39)
[2017-08-21] MEDS: ELIQUIS PO SCH ×2 (08:50→20:37)
[2017-08-21] MEDS: FLOMAX PO SCH (08:50)
[2017-08-21] MEDS: VITAMIN C PO SCH (08:50)
[2017-08-21] MEDS: LIPITOR PO SCH (08:51)
[2017-08-21] MEDS: GLUCOPHAGE PO SCH ×2 (08:51→16:37)
[2017-08-21] MEDS: FOLIC ACID PO SCH (08:51)
[2017-08-21] MEDS: ASPIRIN EC PO SCH (08:51)
[2017-08-21] MEDS: NEURONTIN PO SCH ×2 (08:51→20:40)
[2017-08-21] MEDS: CARDIZEM PO SCH ×2 (08:51→20:40)
[2017-08-21] MEDS: LOPRESSOR PO SCH ×2 (08:51→20:40)
[2017-08-21] MEDS: PREDNISONE PO SCH ×2 (09:22→16:37)
[2017-08-21] MEDS: VANCOMYCIN 1 GM in SODIUM CHLORIDE 250 ML IV SCH ×2 (13:10→22:13)
--- NOTE | 2017-08-21 13:31 | PN ---
DATE OF SERVICE: 08/19/17 SUBJECTIVE: The patient was admitted with left sided pneumonia and anterior abdominal wall abscess at the site of the suprapubic catheter. Still coughing and congested with some shortness of breath. The wound on the anterior abdominal wall is still draining some puss and the blood. No fever or chills. REVIEW OF SYSTEMS: CONSTITUTIONAL: No fever, no chills. HEENT: Normal. ENDOCRINE: No weight gain, no weight loss. CVS: No angina symptoms. No CHF symptoms. No palpitations. No atypical chest pain for CAD. Shortness of breath. No PND, no orthopnea. RESPIRATORY: Cough, no hemoptysis. GI: No nausea, no vomiting. No abdominal pain. : No hematuria. No polyuria. MUSCULOSKELETAL: No joint swelling. PSYCHIATRIC: Not anxious. No depression. No suicidal thoughts. No homicidal thoughts. SKIN: Intact. No rash. PHYSICAL EXAMINATION: V/S: Blood pressure 118/65, respiratory rate 20, heart rate 100 and temperature 98.1 with saturation 92 on room air. HEENT: Normocephalic, atraumatic. Mucosa dry. Pallor positive. No icterus. NECK: Supple. No JVD, no carotid bruit. No lymphadenopathy. LUNGS: Decreased and basilar crackles. Clear to auscultation. No rales or rhonchi. HEART: S1, S2 normal. No S3. No murmur, gallop or regurgitation. ABDOMEN: Soft, nontender. Bowel sounds active. No rigidity. No rebound or guarding. No CVA tenderness. Suprapubic catheter can be seen abscess with blood and puss is coming out from the wound. Soft, tender mass is palpable. No puss is coming out. EXTREMITIES: 1+ edema. No clubbing or cyanosis. Multiple lower extremity wounds are present. MUSCULOSKELETAL: No joint swelling. NEUROLOGIC: Awake, alert, oriented times three. No focal deficit. LYMPHATIC: No lymph nodes palpable. SKIN: Intact. LABS: WBC 3.30, hgb 10.2, hct 31.3, plt count 97, Sodium 140, potassium 3.6, chloride 104, bicarb 27, BUN 9, creatinine 0.81 and glucose 100. ASSESSMENT: 1. Bibasilar pneumonia 2. Anterior abdominal wall abscess at the suprapubic catheter site. 3. Urinary output obstruction with the suprapubic catheter 4. Hemolytic anemia 5. Thrombocytopenia 6. Diabetes Mellitus 7. Morbid obesity 8. Congestive heart failure 9. Atrial fibrillation, boot maker anticoagulation 10.Sleep apnea on CPAP 11.Lower extremity multi open wounds PLAN: 1. Continue Eliquis 2. DUO NEBS 3. Accu-checks with coverage 4. Vancomycin TIME SPENT: More than 35 minutes MTDD
--- NOTE | 2017-08-21 13:38 | PN ---
DATE OF SERVICE: 08/20/17 SUBJECTIVE: Ultrasound of the anterior abdominal wall showed the phlegmonous mass, no abscess still draining red to yellow color drainage from the wound. Nurse Sangeetha is going to change the dress now. REVIEW OF SYSTEMS: CONSTITUTIONAL: No fever, no chills. HEENT: Normal. ENDOCRINE: No weight gain, no weight loss. CVS: No angina symptoms. No CHF symptoms. No palpitations. No atypical chest pain for CAD. No shortness of breath. No PND, no orthopnea. RESPIRATORY: Cough, no hemoptysis. GI: No nausea, no vomiting. No abdominal pain. : No hematuria. No polyuria. MUSCULOSKELETAL: No joint swelling. PSYCHIATRIC: Not anxious. No depression. No suicidal thoughts. No homicidal thoughts. SKIN: Intact. No rash. PHYSICAL EXAMINATION: V/S: Blood pressure 113/65, respiratory rate 20, heart rate 74, temperature 98.4 with saturation 92%. GENERAL: Morbidly obese patient laying in the bed. HEENT: Normocephalic, atraumatic. Mucosa dry. Pallor positive. no icterus. NECK: Supple. No JVD, no carotid bruit. No lymphadenopathy. LUNGS: Decreased and basilar crackles. Clear to auscultation. No rales or rhonchi. HEART: S1, S2 normal. No S3. No murmur, gallop or regurgitation. ABDOMEN: Soft, nontender. Bowel sounds active. No rigidity. No rebound or guarding. No CVA tenderness. Suprapubic wound draining puss to yellow stuff both blood and puss. EXTREMITIES: 1+ edema. No clubbing or cyanosis MUSCULOSKELETAL: No joint swelling. NEUROLOGIC: Awake, alert, oriented times three. No focal deficit. LYMPHATIC: No lymph nodes palpable. SKIN: Intact. LABS: Sodium 139, potassium 4.1, chloride 111, bicarb 23, BUN 9, creatinine 0.78 and glucose 86.WBC 3.10, hgb 10.3, hct 33.6, plt count 199 ASSESSMENT: 1. Left lower lobe pneumonia with pleural effusion 2. Anterior abdominal wall abscess where the suprapubic catheter is 3. Multiple lower extremity wounds 4. Atrial fibrillation 5. CHF 6. Sleep apnea on CPAP 7. Morbid obesity 8. Diabetes PLAN: 1. Continue the Vancomycin 2. Will add Rocephin 1 gram daily 3. DUO NEBS 4. Daily I&O's 5. Will add Solu-Medrol 80mg today TIME SPENT: More than 35 minutes MTDD
[2017-08-21] MEDS: ROCEPHIN 1 GM in SODIUM CHLORIDE 50 ML IV SCH (20:37)
[2017-08-22] MEDS: VANCOMYCIN 1 GM in SODIUM CHLORIDE 250 ML IV SCH ×3 (04:29→21:47)
[2017-08-22] MEDS: PRILOSEC PO SCH (05:44)
[2017-08-22] MEDS: DUONEB NEB SCH ×4 (05:44→20:00)
[2017-08-22] MEDS: K-DUR PO SCH ×2 (08:37→20:18)
[2017-08-22] MEDS: FOLIC ACID PO SCH (08:37)
[2017-08-22] MEDS: LIPITOR PO SCH (08:38)
[2017-08-22] MEDS: ASPIRIN EC PO SCH (08:38)
[2017-08-22] MEDS: NEURONTIN PO SCH ×2 (08:39→20:18)
[2017-08-22] MEDS: FLOMAX PO SCH (08:39)
[2017-08-22] MEDS: LOPRESSOR PO SCH ×2 (08:39→20:18)
[2017-08-22] MEDS: VITAMIN C PO SCH (08:40)
[2017-08-22] MEDS: GLUCOPHAGE PO SCH ×2 (08:40→17:04)
[2017-08-22] MEDS: PREDNISONE PO SCH ×2 (08:41→17:04)
[2017-08-22] MEDS: CARDIZEM PO SCH ×2 (08:41→20:19)
[2017-08-22] MEDS: ELIQUIS PO SCH ×2 (08:42→20:18)
[2017-08-22] MEDS: SODIUM CHLORIDE 1,000 ML IV SCH ×2 (13:39)
[2017-08-22] MEDS: ROCEPHIN 1 GM in SODIUM CHLORIDE 50 ML IV SCH (20:17)
[2017-08-23] MEDS: VANCOMYCIN 1 GM in SODIUM CHLORIDE 250 ML IV SCH ×3 (04:27→21:31)
[2017-08-23] MEDS: DUONEB NEB SCH ×4 (04:34→19:30)
[2017-08-23] MEDS: PRILOSEC PO SCH (05:40)
[2017-08-23] MEDS: FLOMAX PO SCH (09:15)
[2017-08-23] MEDS: FOLIC ACID PO SCH (09:15)
[2017-08-23] MEDS: NEURONTIN PO SCH ×2 (09:15→20:15)
[2017-08-23] MEDS: ASPIRIN EC PO SCH (09:15)
[2017-08-23] MEDS: CARDIZEM PO SCH ×2 (09:15→20:16)
[2017-08-23] MEDS: LOPRESSOR PO SCH ×2 (09:16→20:15)
[2017-08-23] MEDS: PREDNISONE PO SCH ×2 (09:16→17:12)
[2017-08-23] MEDS: GLUCOPHAGE PO SCH ×2 (09:16→17:12)
[2017-08-23] MEDS: LIPITOR PO SCH (09:16)
[2017-08-23] MEDS: VITAMIN C PO SCH (09:16)
[2017-08-23] MEDS: K-DUR PO SCH ×2 (09:16→20:16)
[2017-08-23] MEDS: ELIQUIS PO SCH ×2 (09:17→20:16)
[2017-08-23] MEDS: SODIUM CHLORIDE 1,000 ML IV SCH (11:50)
[2017-08-23] MEDS: ROCEPHIN 1 GM in SODIUM CHLORIDE 50 ML IV SCH (20:17)
[2017-08-24] MEDS: VANCOMYCIN 1 GM in SODIUM CHLORIDE 250 ML IV SCH ×3 (04:15→20:00)
[2017-08-24] MEDS: DUONEB NEB SCH ×4 (04:45→19:40)
[2017-08-24] MEDS: PRILOSEC PO SCH (05:45)
[2017-08-24] MEDS: FLOMAX PO SCH (09:47)
[2017-08-24] MEDS: VITAMIN C PO SCH (09:48)
[2017-08-24] MEDS: NEURONTIN PO SCH ×2 (09:48→20:00)
[2017-08-24] MEDS: GLUCOPHAGE PO SCH ×2 (09:48→17:28)
[2017-08-24] MEDS: LOPRESSOR PO SCH ×2 (09:49→20:02)
[2017-08-24] MEDS: PREDNISONE PO SCH ×2 (09:49→17:29)
[2017-08-24] MEDS: LIPITOR PO SCH (09:50)
[2017-08-24] MEDS: K-DUR PO SCH ×2 (09:50→20:00)
[2017-08-24] MEDS: ASPIRIN EC PO SCH (09:51)
[2017-08-24] MEDS: CARDIZEM PO SCH ×2 (09:51→20:01)
[2017-08-24] MEDS: FOLIC ACID PO SCH (09:51)
[2017-08-24] MEDS: ELIQUIS PO SCH ×2 (09:52→20:01)
--- NOTE | 2017-08-24 11:24 | DI ---
EXAM: Chest two view, frontal and lateral views. HISTORY: Pneumonia follow-up. COMPARISON: 08/18/2017, 07/15/2017, 03/16/2015. FINDINGS: Heart is enlarged. Right diaphragm is elevated with chronic blunting of the right costoph renic angle. Left lower lobe consolidation may be improve. Small left pleural effusion not excluded . No pneumothorax identified. Osseous structures are intact. IMPRESSION: Possible mild improvement in left lower lobe consolidation. Continued follow-up is recommended.
[2017-08-24] MEDS: ROCEPHIN 1 GM in SODIUM CHLORIDE 50 ML IV SCH (22:37)
[2017-08-25] MEDS: DUONEB NEB SCH ×2 (05:12→10:17)
[2017-08-25] MEDS: VANCOMYCIN 1 GM in SODIUM CHLORIDE 250 ML IV SCH ×2 (05:22→14:02)
[2017-08-25] MEDS: PRILOSEC PO SCH (05:30)
[2017-08-25] MEDS: CARDIZEM PO SCH (08:53)
[2017-08-25] MEDS: FLOMAX PO SCH (08:53)
[2017-08-25] MEDS: ASPIRIN EC PO SCH (08:53)
[2017-08-25] MEDS: GLUCOPHAGE PO SCH (08:54)
[2017-08-25] MEDS: K-DUR PO SCH (08:54)
[2017-08-25] MEDS: FOLIC ACID PO SCH (08:54)
[2017-08-25] MEDS: LOPRESSOR PO SCH (08:55)
[2017-08-25] MEDS: PREDNISONE PO SCH (08:55)
[2017-08-25] MEDS: LIPITOR PO SCH (08:55)
[2017-08-25] MEDS: VITAMIN C PO SCH (08:56)
[2017-08-25] MEDS: NEURONTIN PO SCH (08:57)
[2017-08-25] MEDS: ELIQUIS PO SCH (08:57)
--- NOTE | 2017-08-25 11:36 | PN ---
DATE OF SERVICE: 08/21/17 SUBJECTIVE: The patient was admitted with the anterior abdominal wall abscess and pneumonia , left lower lobe. Abdominal wall suprapubic catheter site still draining clear to yellow puss. REVIEW OF SYSTEMS: CONSTITUTIONAL: No fever, no chills. HEENT: Normal. ENDOCRINE: No weight gain, no weight loss. CVS: No angina symptoms. No CHF symptoms. No palpitations. No atypical chest pain for CAD. Shortness of breath with minimal exertion. No PND, no orthopnea. RESPIRATORY: Cough and congestion, no hemoptysis. GI: No nausea, no vomiting. No abdominal pain. : No hematuria. No polyuria. MUSCULOSKELETAL: No joint swelling. PSYCHIATRIC: Not anxious. No depression. No suicidal thoughts. No homicidal thoughts. SKIN: Intact. No rash. PHYSICAL EXAMINATION: V/S: Blood pressure 122/76, respiratory rate 12, heart rate 84, temperature 99.6 and saturation is 92 on monika CPAP. HEENT: Normocephalic, atraumatic. Mucosa dry. Pallor positive. no icterus. NECK: Supple. No JVD, no carotid bruit. No lymphadenopathy. LUNGS: Decreased and basilar crackles. Clear to auscultation. No rales or rhonchi. HEART: S1, S2 normal. No S3. No murmur, gallop or regurgitation. ABDOMEN: Suprapubic catheter site redness and tenderness is present. Wound is draining blood. Bowel sounds active. No rigidity. No rebound or guarding. No CVA tenderness. EXTREMITIES:1+ edema. No clubbing or cyanosis. Wounds in the right lower extremity. MUSCULOSKELETAL: No joint swelling. NEUROLOGIC: Awake, alert, oriented times three. No focal deficit. LYMPHATIC: No lymph nodes palpable. SKIN: Intact. LABS: WBC 3.10, hgb 10.3, hct 33.6, plt count 99, sodium 139, potassium 4.1, chloride 107, bicarb 23, BUN 9, creatinine 0.78, glucose 86. ASSESSMENT: 1. Bibasilar pneumonia 2. Anterior abdominal wall wound which is positive for the MRSA 3. CAD 4. CHF 5. COPD on CPAP 6. Dyslipidemia 7. Atrial fibrillation 8. Hemolytic anemia 9. Pancytopenia possibly from the medications. PLAN: 1. Continue the Vancomycin 2. Rocephin 3. DUO NEBS 4. Daily I&O's 5. Out of bed to chair activity as tolerated. TIME SPENT: More than 35 minutes MTDD
[2017-08-25 12:15] VITALS: BP 136/82; TEMP 97.5
--- NOTE | 2017-08-25 12:48 | PN ---
DATE OF SERVICE: 08/24/17 SUBJECTIVE: The patient is laying in a bed. The patient's attendant is in the room, feeling somewhat better but exertional shortness of breath is present. Wound is closing up good. Urine has been draining and no complications from the suprapubic Martines catheter at this time. REVIEW OF SYSTEMS: CONSTITUTIONAL: No fever, no chills. HEENT: Normal. ENDOCRINE: No weight gain, no weight loss. CVS: No angina symptoms. No CHF symptoms. No palpitations. No atypical chest pain for CAD. No shortness of breath. No PND, no orthopnea. RESPIRATORY: No cough, no hemoptysis. GI: No nausea, no vomiting. No abdominal pain. : No hematuria. No polyuria. MUSCULOSKELETAL: No joint swelling. PSYCHIATRIC: Not anxious. No depression. No suicidal thoughts. No homicidal thoughts. SKIN: Intact. No rash. PHYSICAL EXAMINATION: V/S: Blood pressure 114/69, respiratory rate 20, heart rate 54, temperature 97.5 with saturation is 95%. HEENT: Normocephalic, atraumatic. Mucosa dry. Pallor positive. No icterus. NECK: Supple. No JVD, no carotid bruit. No lymphadenopathy. LUNGS: Decreased and clear to auscultation. No rales or rhonchi. HEART: S1, S2 normal. No S3. No murmur, gallop or regurgitation. ABDOMEN: Suprapubic catheter site wound is health wound. Some tenderness on palpation. Bowel sounds active. No rigidity. No rebound or guarding. No CVA tenderness. EXTREMITIES: Lower extremity 1+ edema. No clubbing or cyanosis MUSCULOSKELETAL: No joint swelling. NEUROLOGIC: Awake, alert, oriented times three. No focal deficit. LYMPHATIC: No lymph nodes palpable. SKIN: Intact. Dry except for the anterior abdominal wall and the right lower extremity. LABS: Sodium 140, potassium 3.7, chloride 108, bicarb 21, BUN 13, creatinine 0.77, glucose 140, WBC 4.0, hgb 10.8, hct 34.4, plt count 141. ASSESSMENT: 1. Left lower lobe pneumonia 2. Anterior abdominal wall abscess, MRSA positive 3. COPD 4. CHF 5. Atrial fibrillation 6. Morbid obesity 7. Sleep apnea on CPAP 8. Suprapubic catheter for the urinary outflow obstruction from the BPH, Dr. Simpson is her physician 9. Hemolytic anemia PLAN: 1. Rocephin 2. Vancomycin 3. Out of bed to chair 4. Will get repeat chest x-ray 5. Daily I&O's Will follow the patient in daily rounds. TIME SPENT: More than 30 minutes MTDD
--- NOTE | 2017-09-01 11:42 | PN ---
DATE OF SERVICE: 08/22/17 SUBJECTIVE: The patient was admitted with suprapubic catheter area abscess and cellulitis and bilateral pneumonia. He was up and about walking. The wound drainage is better. No fever or chills. REVIEW OF SYSTEMS: CONSTITUTIONAL: No fever, no chills. HEENT: Normal. ENDOCRINE: No weight gain, no weight loss. CVS: No angina symptoms. No CHF symptoms. No palpitations. No atypical chest pain for CAD. No shortness of breath. No PND, no orthopnea. RESPIRATORY: No cough, no hemoptysis. GI: No nausea, no vomiting. No abdominal pain. : No hematuria. No polyuria. MUSCULOSKELETAL: No joint swelling. PSYCHIATRIC: Not anxious. No depression. No suicidal thoughts. No homicidal thoughts. SKIN: Intact. No rash. PHYSICAL EXAMINATION: V/S: Blood pressure 129/66, respiratory rate 20, heart rate 72, temperature 97.89, saturation 95 on 2 liters. HEENT: Normocephalic, atraumatic. Mucosa dry. Pallor positive. No icterus. NECK: Supple. No JVD, no carotid bruit. No lymphadenopathy. LUNGS: Decreased and basilar crackles. No rales or rhonchi. HEART: S1, S2 normal. No S3. No murmur, gallop or regurgitation. ABDOMEN: Soft, nontender. Suprapubic catheter, the wound looks clean and healthy. Some tenderness present. Bowel sounds active. No rigidity. No rebound or guarding. No CVA tenderness. EXTREMITIES: Multiple open wounds. 1+ edema. No clubbing or cyanosis MUSCULOSKELETAL: No joint swelling. NEUROLOGIC: Awake, alert, oriented times three. No focal deficit. LYMPHATIC: No lymph nodes palpable. SKIN: Intact. Morbidly obese patient. LABS: White count 2.72, hemoglobin 10.6, hematocrit 32.6, platelet count 112, sodium 138, potassium 4.6, chloride 108, bicarb 21, BUN 11, creatinine 0.73, glucose 184. ASSESSMENT: 1. BIBASILAR PNEUMONIA WITH PLEURAL EFFUSION 2. ANTERIOR ABDOMINAL WALL ABSCESS WITH PHLEGMONOUS CHANGES AT THE SUPRAPUBIC CATHETER SITE 3. PANCYTOPENIA MOST LIKELY FROM THE ANTIBIOTIC VANCOMYCIN 4. HEMOLYTIC ANEMIA 5. CORONARY ARTERY DISEASE 6. CONGESTIVE HEART FAILURE 7. ATRIAL FIBRILLATION 8. OBSTRUCTIVE SLEEP APNEA ON C-PAP 9. MORBIDLY OBESE PATIENT 10. MULTIPLE WOUNDS ON THE LOWER EXTREMITIES WITH 1 TO 2+ LEG EDEMA PLAN: 1. Continue Vancomycin and Rocephin. 2. DuoNebs. 3. Will stop the IV fluids. 4. Up and about walking. 5. The patient is on Eliquis. No anticoagulation at this time. TIME SPENT: More than 35 minutes MTDD
--- NOTE | 2017-09-01 11:54 | PN ---
DATE OF SERVICE: 08/23/17 SUBJECTIVE: The patient was admitted with pneumonia and abdominal wall abscess, which did grow positive MRSA. The wound drainage is better. He is up and about walking. He has some shortness of breath. REVIEW OF SYSTEMS: CONSTITUTIONAL: No fever, no chills. HEENT: Normal. ENDOCRINE: No weight gain, no weight loss. CVS: No angina symptoms. No CHF symptoms. No palpitations. No atypical chest pain for CAD. Shortness of breath. No PND, no orthopnea. RESPIRATORY: No cough, no hemoptysis. GI: No nausea, no vomiting. No abdominal pain. : No hematuria. No polyuria. MUSCULOSKELETAL: No joint swelling. PSYCHIATRIC: Not anxious. No depression. No suicidal thoughts. No homicidal thoughts. SKIN: Intact. No rash. PHYSICAL EXAMINATION: V/S: Blood pressure is 114/69, respiratory rate 20, heart rate 54, temperature 97.8, saturation 92 on room air. HEENT: Normocephalic, atraumatic. Mucosa dry. NECK: Supple. No JVD, no carotid bruit. No lymphadenopathy. LUNGS: Decreased and basilar crackles. No rales or rhonchi. HEART: S1, S2 normal. No S3. No murmur, gallop or regurgitation. ABDOMEN: Abdominal wall wound at the suprapubic catheter site looks healthy. Tender to touch. No draining fluid seen or abscess seen at this time. Soft, nontender. Bowel sounds active. No rigidity. No rebound or guarding. No CVA tenderness. EXTREMITIES: 1+ edema with open sores, which are all wrapped. No clubbing or cyanosis MUSCULOSKELETAL: No joint swelling. NEUROLOGIC: Awake, alert, oriented times three. No focal deficit. LYMPHATIC: No lymph nodes palpable. SKIN: Intact. LABS: Sodium 138, potassium 5.0, chloride 110, bicarb 18, BUN 12, creatinine 0.77, glucose 150, white count 2.49, hemoglobin 10.7, hematocrit 36.2, platelet count 109. ASSESSMENT: 1. BIBASILAR PNEUMONIA 2. ANTERIOR ABDOMINAL WALL WOUND WITH MRSA POSITIVE 3. PANCYTOPENIA MOST LIKELY FROM THE ANTIBIOTICS 4. HISTORY OF HEMOLYTIC ANEMIA 5. MORBID OBESITY 6. CORONARY ARTERY DISEASE 7. CONGESTIVE HEART FAILURE 8. ATRIAL FIBRILLATION 9. LEG EDEMA PLAN: 1. Continue the Rocephin and Vancomycin. 2. DuoNebs. 3. Continue the C-PAP. 4. Daily I & O's. 5. Accuchecks with the coverage. TIME SPENT: More than 35 minutes MTDD
--- NOTE | 2017-10-15 13:40 | DS ---
DATE OF SERVICE: 08/25/17 FINAL DIAGNOSIS: 1. LEFT LOWER LOBE PNEUMONIA, COMMUNITY ACQUIRED 2. SUPRAPUBIC CATHETER ABSCESS 3. ANTERIOR ABDOMINAL WALL ABSCESS, MRSA POSITIVE 4. COPD 5. CHF 6. ATRIAL FIBRILLATION 7. MORBID OBESITY 8. HEMOLYTIC ANEMIA 9. SLEEP APNEA ON CPAP 10. SUPRAPUBIC CATHETER FOR URINARY RETENTION 11. BILATERAL LOWER EXTREMITY MULTIPLE WOUNDS 12. DIABETES 13. ATRIAL FIBRILLATION ON ELIQUIS DISCHARGE INSTRUCTIONS: Followup appointment at the [facility] in 5 to 7 days. Continue Wound Care. Continue with [facility] for [facility]. MEDICATIONS AT DISCHARGE: Atorvastatin Neurontin Lisinopril Metformin Potassium Apixaban Aspirin Cardizem Folic Acid Lasix Lopressor Vitamin D3 Prilosec Flomax NEW PRESCRIPTIONS: Zyvox 600 mg twice a day for 7 days, prescription has been sent to [facility]. DIET INSTRUCTIONS: Cardiac and Healthy ACTIVITY: As much as tolerated SMOKING: N/A DISEASE SPECIFIC EDUCATION: Community acquired pneumonia Pneumonia vaccination Suprapubic catheter and abscess Antibiotic use and diarrhea discussed HOSPITAL COURSE: 56-year-old gentleman with multiple medical problems, morbid obesity who recently had a suprapubic catheter placed for urinary obstruction. The patient was initially seen at [facility] for complications. They thought the patient did not have an infection and sent him home. However, the patient was not feeling well, cough, congestion, shortness of breath and drainage from the wound. He came to the emergency room at [facility] [place] and was seen by Dr. Gamble. Suprapubic wound was draining pus. Cultures were obtained. Chest x-ray showed left lower lobe pneumonia. At that time, the patient was admitted to the hospital, started on antibiotics Vancomycin, Solu-Medrol 80 q.8hr, Duonebs, Accu -Checks with coverage, Rocephin 1 gm daily. Culture of the wound was obtained and was growing Staph, MRSA. Gradually the wound drainage and wound abscess site was looking better. Ultrasound was done for any free fluid collection. Cellulitis and phlegmonous changes are seen at the catheter. Gradually drainage is slowly drying up. The patient was up and about walking. He was using his CPAP that he uses at home. Hospital course was uneventful, was doing fine, did not have any problems. The patient was discharged home. TIME SPENT: MORE THAN 65 MINUTES MTDD
== END 2017-08-25 13:40 | disposition home or self-care (01) | DRG 194 ==
LOC: ED 13:42 → MEDSURG A 17:00
PROVIDERS: ADMIT Emergency Medicine; ATTEND Emergency Medicine
DX: J18.9 Pneumonia, unspecified organism (principal); L03.311 Cellulitis of abdominal wall; L02.211 Cutaneous abscess of abdominal wall; R10.9 Unspecified abdominal pain; R50.9 Fever, unspecified; R05 Cough; R53.81 Other malaise; R06.02 Shortness of breath; R06.2 Wheezing; M54.9 Dorsalgia, unspecified; E11.9 Type 2 diabetes mellitus without complications; Z79.84 Long term (current) use of oral hypoglycemic drugs; I10 Essential (primary) hypertension; I50.9 Heart failure, unspecified; I48.91 Unspecified atrial fibrillation; Z79.01 Long term (current) use of anticoagulants; J44.9 Chronic obstructive pulmonary disease, unspecified; D64.89 Other specified anemias; K21.9 Gastro-esophageal reflux disease without esophagitis; B95.62 Methicillin resistant Staphylococcus aureus infection as the cause of diseases classified elsewhere; Z16.24 Resistance to multiple antibiotics; E66.01 Morbid (severe) obesity due to excess calories; G47.30 Sleep apnea, unspecified; R33.9 Retention of urine, unspecified; S80.922A Unspecified superficial injury of left lower leg, initial encounter; S80.921A Unspecified superficial injury of right lower leg, initial encounter
CPT/HCPCS: 36415; 80053; 80202; 81001; 82550; 82803; 82962; 83605; 84145; 84484; 85025; 87040; 87070; 87086; 87186; 94640; 96365; 99223; 99232; 99233; 99239; 99284

== ENCOUNTER 2017-08-26 08:16 | Outpatient (CLI) | payer OTHER | END 2017-08-26 08:17 | disposition home or self-care (01) | LOC: WOUND 08:16 | PROVIDERS: ATTEND Nurse Practitioner Family | DX: I87.311 Chronic venous hypertension (idiopathic) with ulcer of right lower extremity (principal); L97.812 Non-pressure chronic ulcer of other part of right lower leg with fat layer exposed; I87.332 Chronic venous hypertension (idiopathic) with ulcer and inflammation of left lower extremity; L97.822 Non-pressure chronic ulcer of other part of left lower leg with fat layer exposed; E11.9 Type 2 diabetes mellitus without complications; I10 Essential (primary) hypertension; R39.81 Functional urinary incontinence; I48.91 Unspecified atrial fibrillation; I50.9 Heart failure, unspecified; T81.31XA Disruption of external operation (surgical) wound, not elsewhere classified, initial encounter ==

== ENCOUNTER 2017-09-02 08:10 | Outpatient (CLI) | END 2017-09-02 08:11 | disposition home or self-care (01) | LOC: WOUND 08:10 | PROVIDERS: ATTEND Nurse Practitioner Family | DX: I87.311 Chronic venous hypertension (idiopathic) with ulcer of right lower extremity (principal); L97.812 Non-pressure chronic ulcer of other part of right lower leg with fat layer exposed; E11.9 Type 2 diabetes mellitus without complications; I10 Essential (primary) hypertension; R39.81 Functional urinary incontinence; I48.91 Unspecified atrial fibrillation; I50.9 Heart failure, unspecified ==

== ENCOUNTER 2017-09-09 08:16 | Outpatient (CLI) | END 2017-09-09 08:17 | disposition home or self-care (01) | LOC: WOUND 08:16 | PROVIDERS: ATTEND Nurse Practitioner Family | DX: I87.311 Chronic venous hypertension (idiopathic) with ulcer of right lower extremity (principal); L97.812 Non-pressure chronic ulcer of other part of right lower leg with fat layer exposed; E11.9 Type 2 diabetes mellitus without complications; I10 Essential (primary) hypertension; R39.81 Functional urinary incontinence; I48.91 Unspecified atrial fibrillation; I50.9 Heart failure, unspecified ==

== ENCOUNTER 2017-09-16 08:12 | Outpatient (CLI) | payer OTHER | END 2017-09-16 08:13 | disposition home or self-care (01) | LOC: WOUND 08:12 | PROVIDERS: ATTEND Nurse Practitioner Family | DX: I87.311 Chronic venous hypertension (idiopathic) with ulcer of right lower extremity (principal); L97.812 Non-pressure chronic ulcer of other part of right lower leg with fat layer exposed; E11.9 Type 2 diabetes mellitus without complications; I10 Essential (primary) hypertension; R39.81 Functional urinary incontinence; I48.91 Unspecified atrial fibrillation; I50.9 Heart failure, unspecified | CPT/HCPCS: 11042 ==

== ENCOUNTER 2017-09-16 10:05 | Inpatient (IN) | payer OTHER ==
[2017-09-16 10:54] VITALS: BMI 65.9
[2017-09-16] MEDS ORDERED: TYLENOL PO PRN (11:04)
[2017-09-16] MEDS: SODIUM CHLORIDE 1,000 ML IV SCH (11:53)
[2017-09-16] MEDS: MAXIPIME 1 GM in SODIUM CHLORIDE 50 ML IV SCH ×2 (11:53→20:20)
[2017-09-16] MEDS: GLUCOPHAGE PO SCH (17:03)
[2017-09-16] MEDS: K-DUR PO SCH (17:04)
[2017-09-16] MEDS: ELIQUIS PO SCH (20:20)
[2017-09-16] MEDS: NEURONTIN PO SCH (20:20)
[2017-09-16] MEDS ORDERED: LOPRESSOR PO SCH (21:00)
[2017-09-16] MEDS ORDERED: POTASSIUM CHLORIDE 40 MEQ PO SCH (21:00)
[2017-09-16] MEDS ORDERED: NON-FORMULARY MEDICATION (Metoprolol Tartrate [Lopressor] 100 MG) PO SCH (21:00)
[2017-09-16] MEDS ORDERED: CARDIZEM PO SCH (21:00)
[2017-09-16] MEDS ORDERED: NON-FORMULARY MEDICATION (Diltiazem Hcl [Cardizem] 120 MG) PO SCH (21:00)
[2017-09-17] MEDS: PRILOSEC PO SCH (05:29)
--- NOTE | 2017-09-17 08:51 | HP ---
DATE OF SERVICE: 09/16/17 CHIEF COMPLAINT: Hypertension and urinary tract infection HISTORY OF PRESENT ILLNESS: This is a 56 year old gentleman who went to the wound care center today by Charito Allred where did check the blood pressure. Blood pressure was 86 systolic. The patient been having the more frequency of urination. The patient has suprapubic tenderness and complains about the tenderness in the belly. At that time the patient was directly admitted to the hospital because of his chronic recurrent urinary tract infection with the suprapubic catheter. REVIEW OF SYSTEMS: CONSTITUTIONAL: No fever, no chills. Weakness and tiredness. HEENT: Normal. ENDOCRINE: No weight gain; no weight loss. CVS: No chest pain. No PND, no orthopnea. Shortness of breath. No PND, no orthopnea.Light headedness. RESPIRATORY: No cough, no congestion. No hemoptysis. GI: No nausea, no vomiting. No abdominal pain. No melena. : No hematuria. No polyuria. MUSCULOSKELETAL: No joint swelling. Suprapubic pain. PSYCHIATRIC: Not anxious. No depression. No suicidal thoughts. No homicidal thoughts. SKIN: Intact, no open lesions. 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 FAMILY HISTORY: Lung cancer MEDICATIONS: Folic acid Lasix Prilosec Eliquis Flomax Aspirin Metformin Atorvastatin Neurontin Lopressor Cardizem Potassium Lisinopril Multivitamin tablets. ALLERGIES: No known drug allergies PHYSICAL EXAMINATION: V/S: Blood pressure 98/40, respiratory rate 18, heart rate 74, temperature 98.0 , saturation 97%. HEENT: Atraumatic, normocephalic. No scleral icterus. Pallor positive. Mucosa dry. NECK: Supple. No JVD, no bruit. No lymphadenopathy. No thyromegaly. HEART: S1, S2 normal. Irregular heart rate. No murmur. No cyanosis or clubbing. No ascites. LUNGS: Decreased and basilar crackles. Clear to auscultation. No rales or rhonchi. ABDOMEN: Soft, Mild tenderness and discomfort around the area. No drainable abscess or mass. Suprapubic catheter is in place. Bowel sounds are active. No CVA tenderness. No rigidity or guarding. EXTREMITIES: No pedal edema. No cyanosis or clubbing MUSCULOSKELETAL: Normal joints, no swelling. NEUROLOGIC: The patient is SKIN: Intact; no open lesions. LYMPHATIC: No lymph nodes palpable. LABS: WBC 5.04, hgb 9.4, hct 28.6, plt count 128, sodium 139, potassium 4.6, chloride 104, bicarb 22, BUN 28, creatinine 1.64, glucose 94. ASSESSMENT: 1. UTI 2. Suprapubic catheter 3. Acute renal failure 4. Dehydration 5. Diabetes 6. Hypertension 7. Dyslipidemia 8. Osteoarthritis 9. DJD spine PLAN: 1. Admit patient to the regular floor 2. Start the patient on the Cefepime 1 gram Q 12 hours. TIME SPENT: MORE THAN 70 minutes MTDD
[2017-09-17] MEDS ORDERED: NON-FORMULARY MEDICATION (Atorvastatin Calcium [Atorvastatin Calcium] 40 MG) PO SCH (09:00)
[2017-09-17] MEDS ORDERED: ZESTRIL PO SCH (09:00)
[2017-09-17] MEDS: CARDIZEM PO SCH ×2 (10:07→21:34)
[2017-09-17] MEDS: ASPIRIN EC PO SCH (10:07)
[2017-09-17] MEDS: FOLIC ACID PO SCH (10:08)
[2017-09-17] MEDS: FLOMAX PO SCH (10:08)
[2017-09-17] MEDS: GLUCOPHAGE PO SCH ×2 (10:08→17:06)
[2017-09-17] MEDS: K-DUR PO SCH ×2 (10:09→17:06)
[2017-09-17] MEDS: LIPITOR PO SCH (10:09)
[2017-09-17] MEDS: NEURONTIN PO SCH ×2 (10:10→21:34)
[2017-09-17] MEDS: MULTIVITAMIN TABLET PO SCH (10:10)
[2017-09-17] MEDS: ELIQUIS PO SCH ×2 (10:11→21:34)
[2017-09-17] MEDS: MAXIPIME 1 GM in SODIUM CHLORIDE 50 ML IV SCH ×2 (10:12→21:32)
[2017-09-17] MEDS: SODIUM CHLORIDE 1,000 ML IV SCH (13:04)
[2017-09-17] MEDS: DIFLUCAN PO SCH ×2 (13:04→21:34)
[2017-09-18] MEDS: PRILOSEC PO SCH (05:33)
[2017-09-18] MEDS: MAXIPIME 1 GM in SODIUM CHLORIDE 50 ML IV SCH ×2 (09:36→20:27)
[2017-09-18] MEDS: DIFLUCAN PO SCH ×2 (09:37→20:28)
[2017-09-18] MEDS: GLUCOPHAGE PO SCH ×2 (09:37→17:05)
[2017-09-18] MEDS: K-DUR PO SCH ×2 (09:37→17:06)
[2017-09-18] MEDS: MULTIVITAMIN TABLET PO SCH (09:38)
[2017-09-18] MEDS: CARDIZEM PO SCH ×2 (09:38→20:28)
[2017-09-18] MEDS: ASPIRIN EC PO SCH (09:38)
[2017-09-18] MEDS: FOLIC ACID PO SCH (09:38)
[2017-09-18] MEDS: LIPITOR PO SCH (09:38)
[2017-09-18] MEDS: NEURONTIN PO SCH ×2 (09:38→20:28)
[2017-09-18] MEDS: FLOMAX PO SCH (09:38)
[2017-09-18] MEDS: ELIQUIS PO SCH ×2 (09:39→20:28)
[2017-09-18] MEDS: SODIUM CHLORIDE 1,000 ML IV SCH (13:34)
--- NOTE | 2017-09-18 14:37 | PN ---
DATE OF SERVICE: 09/17/17 SUBJECTIVE: The patient was admitted with the urinary tract infection, hypotension. The patient's blood pressure is still low. We hold the blood pressure medication today. REVIEW OF SYSTEMS: CONSTITUTIONAL: No fever, no chills. HEENT: Normal. ENDOCRINE: No weight gain, no weight loss. CVS: No angina symptoms. No CHF symptoms. No palpitations. No atypical chest pain for CAD. No shortness of breath. No PND, no orthopnea. RESPIRATORY: No cough, no hemoptysis. GI: No nausea, no vomiting. No abdominal pain. : No hematuria. No polyuria. MUSCULOSKELETAL: No joint swelling. PSYCHIATRIC: Not anxious. No depression. No suicidal thoughts. No homicidal thoughts. SKIN: Intact. No rash. PHYSICAL EXAMINATION: V/S: Blood pressure 109/60, respiratory rate 16, heart rate 87, temperature 97.6 and saturation 94%. HEENT: Normocephalic, atraumatic. Mucosa dry. NECK: Supple. No JVD, no carotid bruit. No lymphadenopathy. LUNGS: Decreased and clear to auscultation. No rales or rhonchi. HEART: S1, S2 normal. No S3. No murmur, gallop or regurgitation. ABDOMEN: Soft, nontender. Bowel sounds active. No rigidity. No rebound or guarding. No CVA tenderness. Suprapubic catheter site is healthy and clean. EXTREMITIES: No cyanosis, clubbing or pedal edema. Superficial wounds are present. Not warm to touch and no drainage. MUSCULOSKELETAL: No joint swelling. NEUROLOGIC: Awake, alert, oriented times three. No focal deficit. LYMPHATIC: No lymph nodes palpable. SKIN: Intact. LABS: WBC 3.7, hgb 9.3, hct 28.2, plt count 136, sodium 138, potassium 4.6, chloride 107, bicarb 21, BUN 23, creatinine 1.92 and glucose 98%. ASSESSMENT: 1. Urinary tract infection 2. Hypotension, will cut down on the medication 3. Atrial fibrillation 4. CAD 5. CHF 6. Diabetes 7. Sleep apnea 8. Multiple lower extremity wounds PLAN: 1. Continue the Cefepime 2. Hold the Cardizem 3. Daily I&O's 4. Accu-checks with coverage TIME SPENT: More than 35 minutes MTDD
[2017-09-19] MEDS: PRILOSEC PO SCH (05:44)
[2017-09-19] MEDS: MAXIPIME 1 GM in SODIUM CHLORIDE 50 ML IV SCH (08:35)
[2017-09-19] MEDS: K-DUR PO SCH ×2 (08:36→16:37)
[2017-09-19] MEDS: DIFLUCAN PO SCH ×2 (08:36→20:15)
[2017-09-19] MEDS: LIPITOR PO SCH (08:37)
[2017-09-19] MEDS: NEURONTIN PO SCH ×2 (08:38→20:16)
[2017-09-19] MEDS: MULTIVITAMIN TABLET PO SCH (08:39)
[2017-09-19] MEDS: FOLIC ACID PO SCH (08:39)
[2017-09-19] MEDS: CARDIZEM PO SCH ×2 (08:40→20:16)
[2017-09-19] MEDS: FLOMAX PO SCH (08:40)
[2017-09-19] MEDS: GLUCOPHAGE PO SCH ×2 (08:40→16:37)
[2017-09-19] MEDS: ASPIRIN EC PO SCH (08:40)
[2017-09-19] MEDS: ELIQUIS PO SCH ×2 (08:41→20:16)
[2017-09-19] MEDS: SODIUM CHLORIDE 1,000 ML IV SCH (14:15)
[2017-09-19] MEDS: OMNICEF PO SCH (20:16)
[2017-09-20] MEDS: PRILOSEC PO SCH (05:43)
[2017-09-20] MEDS: DIFLUCAN PO SCH ×2 (08:00→20:06)
[2017-09-20] MEDS: K-DUR PO SCH ×2 (08:00→16:41)
[2017-09-20] MEDS: ASPIRIN EC PO SCH (08:00)
[2017-09-20] MEDS: CARDIZEM PO SCH ×2 (08:00→20:05)
[2017-09-20] MEDS: FLOMAX PO SCH (08:01)
[2017-09-20] MEDS: LIPITOR PO SCH (08:01)
[2017-09-20] MEDS: NEURONTIN PO SCH ×2 (08:01→20:06)
[2017-09-20] MEDS: GLUCOPHAGE PO SCH ×2 (08:01→16:41)
[2017-09-20] MEDS: FOLIC ACID PO SCH (08:02)
[2017-09-20] MEDS: ELIQUIS PO SCH ×2 (08:02→20:05)
[2017-09-20] MEDS: MULTIVITAMIN TABLET PO SCH (08:02)
[2017-09-20] MEDS: OMNICEF PO SCH ×2 (08:52→20:06)
[2017-09-20] MEDS: SODIUM CHLORIDE 1,000 ML IV SCH (14:03)
[2017-09-21] MEDS: PRILOSEC PO SCH (05:50)
[2017-09-21] MEDS: OMNICEF PO SCH (08:03)
[2017-09-21] MEDS: CARDIZEM PO SCH (08:03)
[2017-09-21] MEDS: DIFLUCAN PO SCH (08:03)
[2017-09-21] MEDS: FOLIC ACID PO SCH (08:03)
[2017-09-21] MEDS: NEURONTIN PO SCH (08:03)
[2017-09-21] MEDS: FLOMAX PO SCH (08:03)
[2017-09-21] MEDS: LIPITOR PO SCH (08:03)
[2017-09-21] MEDS: GLUCOPHAGE PO SCH (08:04)
[2017-09-21] MEDS: MULTIVITAMIN TABLET PO SCH (08:04)
[2017-09-21] MEDS: ELIQUIS PO SCH (08:04)
[2017-09-21] MEDS: K-DUR PO SCH (08:04)
[2017-09-21] MEDS: ASPIRIN EC PO SCH (08:04)
[2017-09-21 10:30] VITALS: BP 114/69; TEMP 97.8
--- NOTE | 2017-09-23 10:38 | DS ---
DATE OF SERVICE: 09/21/17 FINAL DIAGNOSIS: 1. UTI WITH ORGANISM YEAST 2. SUPRAPUBIC CATHETER 3. SENIOR LIVING AND RECURRENT URINARY TRACT INFECTION 4. OUTFLOW OBSTRUCTION 5. DIABETES MELLITUS 6. HYPERTENSION 7. CAD 8. CHF 9. ATRIAL FIBRILLATION ON ELIQUIS 10. HEMOLYTIC ANEMIA 11. OBSTRUCTIVE SLEEP APNEA 12. LOWER EXTREMITY WOUNDS DISCHARGE INSTRUCTIONS: Discharge home. Call clinic or return to ER for fever, decreased urine output. Followup appointment ib 09/24/17. Followup with Wound Care. MEDICATIONS AT DISCHARGE: Folic Acid Lasix Prilosec Eliquis Flomax Aspirin Metformin Atorvastatin Neurontin Lopressor Cardizem Potassium Chloride Lisinopril Multivitamin NEW PRESCRIPTIONS: Diflucan 200 mg p.o. b.i.d. times five days Keflex 500 mg twice a day times five days DIET INSTRUCTIONS: Diabetic diet, Cardiac and Healthy ACTIVITY: Gradually resume usual activities as much as tolerated. SMOKING: N/A DISEASE SPECIFIC EDUCATION: Antibiotic use and diarrhea discussed, verbalized understanding. HOSPITAL COURSE: This is a 56-year-old male who has been going to urologist lately with suprapubic catheter and outflow obstruction had urinary tract infection. He went to Wound Care for chronic wounds. Charito Allred saw the patient. Blood pressure was 86 and recheck was 92. The patient was feeling some light- headedness. In view of recurrent urinary tract infections, sent to the floor. Direct admission was done. The patient was started on Rocephin, changed to Cefepime. Urine was growing yeast. At that time, antibiotic was changed to Diflucan 200 mg twice a day. All the blood pressure medications were initially on hold. IV fluids were given. Gradually the blood pressure was going up. Blood pressure medication resumed. The patient was up to chair. Activity as tolerated , up and about walking. As the patient was doing well, not having any complications, the patient was discharged home. TIME SPENT: MORE THAN 65 MINUTES MTDD
--- NOTE | 2017-09-23 11:07 | PN ---
DATE OF SERVICE: 09/20/17 SUBJECTIVE: The patient was admitted with urinary tract infection. Urine did grow yeast. The patient is getting Diflucan 200 mg twice a day, feeling better. Urine is getting clearer. REVIEW OF SYSTEMS: CONSTITUTIONAL: No fever, no chills. HEENT: Normal. ENDOCRINE: No weight gain, no weight loss. CVS: No angina symptoms. No CHF symptoms. No palpitations. No atypical chest pain for CAD. No shortness of breath. No PND, no orthopnea. RESPIRATORY: No cough, no hemoptysis. GI: No nausea, no vomiting. No abdominal pain. : Suprapubic catheter is in place. Urine is clearer. No hematuria. No polyuria. MUSCULOSKELETAL: No joint swelling. PSYCHIATRIC: Not anxious. No depression. No suicidal thoughts. No homicidal thoughts. SKIN: Intact. No rash. PHYSICAL EXAMINATION: V/S: BP 110/69, respiratory rate 18, heart rate 80, temperature 97.8, saturation 96. GENERAL: Morbidly obese male. HEENT: Normocephalic, atraumatic. Pallor positive. NECK: Supple. No JVD, no carotid bruit. No lymphadenopathy. LUNGS: Basilar crackles. No rales or rhonchi. HEART: S1, S2 normal. No S3. No murmur, gallop or regurgitation. ABDOMEN: Soft, nontender. Suprapubic catheter is in place. Bowel sounds active. No rigidity. No rebound or guarding. No CVA tenderness. EXTREMITIES: 1+ edema. No cyanosis, clubbing. MUSCULOSKELETAL: No joint swelling. NEUROLOGIC: Awake, alert, oriented times three. No focal deficit. LYMPHATIC: No lymph nodes palpable. SKIN: Intact. LABS: White count 4.02, hemoglobin 9.6, hematocrit 29.4, platelet count 149. Sodium 140, potassium 4.6, chloride 108, bicarb 21, BUN 14, creatinine 1.14, glucose 95. ASSESSMENT: 1. UTI, YEAST IS GROWING 2. ANEMIA 3. ATRIAL FIBRILLATION, ON ANTICOAGULATION ELIQUIS 4. OBSTRUCTIVE SLEEP APNEA ON CPAP 5. BILATERAL LOWER EXTREMITY WOUNDS 6. HEMOLYTIC ANEMIA PLAN: 1. Continue Diflucan 2. Keflex p.o. antibiotic 3. Daily I & O's 4. Duonebs TIME SPENT: More than 75 minutes MTDD
== END 2017-09-21 13:24 | disposition home or self-care (01) | DRG 728 ==
LOC: MEDSURG A 10:05
PROVIDERS: ADMIT Emergency Medicine; ATTEND Emergency Medicine
DX: B37.49 Other urogenital candidiasis (principal); D58.9 Hereditary hemolytic anemia, unspecified; I95.9 Hypotension, unspecified; R42 Dizziness and giddiness; N13.9 Obstructive and reflux uropathy, unspecified; R10.819 Abdominal tenderness, unspecified site; E11.9 Type 2 diabetes mellitus without complications; I10 Essential (primary) hypertension; I25.10 Atherosclerotic heart disease of native coronary artery without angina pectoris; I50.9 Heart failure, unspecified; I48.91 Unspecified atrial fibrillation; G47.33 Obstructive sleep apnea (adult) (pediatric); S80.921A Unspecified superficial injury of right lower leg, initial encounter; Z96.0 Presence of urogenital implants; Z79.01 Long term (current) use of anticoagulants; Z79.84 Long term (current) use of oral hypoglycemic drugs
CPT/HCPCS: 36415; 80053; 81001; 82550; 82962; 84484; 85025; 87081; 87086

== ENCOUNTER 2017-09-23 08:15 | Outpatient (CLI) | END 2017-09-23 08:16 | disposition home or self-care (01) | LOC: WOUND 08:15 | PROVIDERS: ATTEND Nurse Practitioner Family | DX: I87.311 Chronic venous hypertension (idiopathic) with ulcer of right lower extremity (principal); L97.812 Non-pressure chronic ulcer of other part of right lower leg with fat layer exposed; E11.9 Type 2 diabetes mellitus without complications; I10 Essential (primary) hypertension; R39.81 Functional urinary incontinence; I48.91 Unspecified atrial fibrillation; I50.9 Heart failure, unspecified | CPT/HCPCS: 11042 ==

== ENCOUNTER 2017-09-30 08:11 | Outpatient (CLI) | payer OTHER | END 2017-09-30 08:12 | disposition home or self-care (01) | LOC: WOUND 08:11 | PROVIDERS: ATTEND Nurse Practitioner Family | DX: I87.311 Chronic venous hypertension (idiopathic) with ulcer of right lower extremity (principal); L97.812 Non-pressure chronic ulcer of other part of right lower leg with fat layer exposed; E11.9 Type 2 diabetes mellitus without complications; I10 Essential (primary) hypertension; R39.81 Functional urinary incontinence; I48.91 Unspecified atrial fibrillation; I50.9 Heart failure, unspecified | CPT/HCPCS: 11042 ==

== ENCOUNTER 2017-10-07 08:21 | Outpatient (CLI) | END 2017-10-07 08:22 | disposition home or self-care (01) | LOC: WOUND 08:21 | PROVIDERS: ATTEND Nurse Practitioner Family | DX: I87.311 Chronic venous hypertension (idiopathic) with ulcer of right lower extremity (principal); L97.812 Non-pressure chronic ulcer of other part of right lower leg with fat layer exposed; E11.9 Type 2 diabetes mellitus without complications; I10 Essential (primary) hypertension; R39.81 Functional urinary incontinence; I48.91 Unspecified atrial fibrillation; I50.9 Heart failure, unspecified | CPT/HCPCS: 11042 ==

== ENCOUNTER 2017-10-14 08:14 | Outpatient (CLI) | END 2017-10-14 08:15 | disposition home or self-care (01) | LOC: WOUND 08:14 | PROVIDERS: ATTEND Nurse Practitioner Family | DX: I87.311 Chronic venous hypertension (idiopathic) with ulcer of right lower extremity (principal); L97.812 Non-pressure chronic ulcer of other part of right lower leg with fat layer exposed; E11.9 Type 2 diabetes mellitus without complications; I10 Essential (primary) hypertension; R39.81 Functional urinary incontinence; I48.91 Unspecified atrial fibrillation; I50.9 Heart failure, unspecified ==

== ENCOUNTER 2017-10-21 08:15 | Outpatient (CLI) | END 2017-10-21 08:16 | disposition home or self-care (01) | LOC: WOUND 08:15 | PROVIDERS: ATTEND Nurse Practitioner Family | DX: I87.311 Chronic venous hypertension (idiopathic) with ulcer of right lower extremity (principal); L97.812 Non-pressure chronic ulcer of other part of right lower leg with fat layer exposed; E11.9 Type 2 diabetes mellitus without complications; I10 Essential (primary) hypertension; R39.81 Functional urinary incontinence; I48.91 Unspecified atrial fibrillation; I50.9 Heart failure, unspecified | CPT/HCPCS: 11042 ==

== ENCOUNTER 2017-11-04 08:27 | Outpatient (CLI) | payer OTHER | END 2017-11-04 08:28 | disposition home or self-care (01) | LOC: WOUND 08:27 | PROVIDERS: ATTEND Nurse Practitioner Family | DX: I87.311 Chronic venous hypertension (idiopathic) with ulcer of right lower extremity (principal); L97.812 Non-pressure chronic ulcer of other part of right lower leg with fat layer exposed; E11.9 Type 2 diabetes mellitus without complications; I10 Essential (primary) hypertension; R39.81 Functional urinary incontinence; I48.91 Unspecified atrial fibrillation; I50.9 Heart failure, unspecified; L97.822 Non-pressure chronic ulcer of other part of left lower leg with fat layer exposed | CPT/HCPCS: 11042 ==

== ENCOUNTER 2017-11-18 08:22 | Outpatient (CLI) | END 2017-11-18 08:23 | disposition home or self-care (01) | LOC: WOUND 08:22 | PROVIDERS: ATTEND Nurse Practitioner Family | DX: I87.311 Chronic venous hypertension (idiopathic) with ulcer of right lower extremity (principal); L97.812 Non-pressure chronic ulcer of other part of right lower leg with fat layer exposed; L97.822 Non-pressure chronic ulcer of other part of left lower leg with fat layer exposed; E11.9 Type 2 diabetes mellitus without complications; I10 Essential (primary) hypertension; R39.81 Functional urinary incontinence; I48.91 Unspecified atrial fibrillation; I50.9 Heart failure, unspecified; L97.322 Non-pressure chronic ulcer of left ankle with fat layer exposed | CPT/HCPCS: 11042; 87070; 87186; 99213 ==

== ENCOUNTER 2017-11-25 08:20 | Outpatient (CLI) | END 2017-11-25 08:21 | disposition home or self-care (01) | LOC: WOUND 08:20 | PROVIDERS: ATTEND Nurse Practitioner Family | DX: I87.311 Chronic venous hypertension (idiopathic) with ulcer of right lower extremity (principal); L97.812 Non-pressure chronic ulcer of other part of right lower leg with fat layer exposed; L97.822 Non-pressure chronic ulcer of other part of left lower leg with fat layer exposed; L97.322 Non-pressure chronic ulcer of left ankle with fat layer exposed; E11.9 Type 2 diabetes mellitus without complications; I10 Essential (primary) hypertension; R39.81 Functional urinary incontinence; I48.91 Unspecified atrial fibrillation; I50.9 Heart failure, unspecified | CPT/HCPCS: 11042 ==

== ENCOUNTER 2017-12-09 08:22 | Outpatient (CLI) | payer OTHER | END 2017-12-09 08:23 | disposition home or self-care (01) | LOC: WOUND 08:22 | PROVIDERS: ATTEND Nurse Practitioner Family | DX: I87.313 Chronic venous hypertension (idiopathic) with ulcer of bilateral lower extremity (principal); L97.812 Non-pressure chronic ulcer of other part of right lower leg with fat layer exposed; L97.822 Non-pressure chronic ulcer of other part of left lower leg with fat layer exposed; L97.322 Non-pressure chronic ulcer of left ankle with fat layer exposed; E11.9 Type 2 diabetes mellitus without complications; I10 Essential (primary) hypertension; R39.81 Functional urinary incontinence; I48.91 Unspecified atrial fibrillation; I50.9 Heart failure, unspecified ==

== ENCOUNTER 2017-12-16 08:22 | Outpatient (CLI) | END 2017-12-16 08:23 | disposition home or self-care (01) | LOC: WOUND 08:22 | PROVIDERS: ATTEND Nurse Practitioner Family | DX: I87.313 Chronic venous hypertension (idiopathic) with ulcer of bilateral lower extremity (principal); L97.812 Non-pressure chronic ulcer of other part of right lower leg with fat layer exposed; L97.822 Non-pressure chronic ulcer of other part of left lower leg with fat layer exposed; L97.322 Non-pressure chronic ulcer of left ankle with fat layer exposed; E11.9 Type 2 diabetes mellitus without complications; I10 Essential (primary) hypertension; R39.81 Functional urinary incontinence; I48.91 Unspecified atrial fibrillation; I50.9 Heart failure, unspecified ==

== ENCOUNTER 2017-12-23 08:20 | Outpatient (CLI) | END 2017-12-23 08:21 | disposition home or self-care (01) | LOC: WOUND 08:20 | PROVIDERS: ATTEND Nurse Practitioner Family | DX: I87.313 Chronic venous hypertension (idiopathic) with ulcer of bilateral lower extremity (principal); L97.812 Non-pressure chronic ulcer of other part of right lower leg with fat layer exposed; L97.322 Non-pressure chronic ulcer of left ankle with fat layer exposed; E11.9 Type 2 diabetes mellitus without complications; I10 Essential (primary) hypertension; R39.81 Functional urinary incontinence; I48.91 Unspecified atrial fibrillation; I50.9 Heart failure, unspecified ==

== ENCOUNTER 2018-01-06 08:29 | Outpatient (CLI) | payer OTHER | END 2018-01-06 08:30 | disposition home or self-care (01) | LOC: WOUND 08:29 | PROVIDERS: ATTEND Nurse Practitioner Family | DX: I87.313 Chronic venous hypertension (idiopathic) with ulcer of bilateral lower extremity (principal); L97.812 Non-pressure chronic ulcer of other part of right lower leg with fat layer exposed; L97.322 Non-pressure chronic ulcer of left ankle with fat layer exposed; E11.9 Type 2 diabetes mellitus without complications; I10 Essential (primary) hypertension; R39.81 Functional urinary incontinence; I48.91 Unspecified atrial fibrillation; I50.9 Heart failure, unspecified | CPT/HCPCS: 11042; 87070; 87186 ==

== ENCOUNTER 2018-01-13 08:17 | Outpatient (CLI) ==
--- NOTE | 2018-01-13 09:47 | DI ---
EXAM: Three views of the left ankle. History: Left ankle ulcer. Findings: No acute fracture or dislocation. Diffuse soft tissue swelling. Extensive coarse soft ti ssue calcification. There is subtle lucency within the medial malleolus. Atherosclerotic vascular ca lcifications Impression: 1. Subtle lucency in the medial malleolus. Early osteomyelitis cannot be excluded. Consider correl ation with nuclear medicine study or MRI.
== END 2018-01-13 08:18 | disposition home or self-care (01) ==
LOC: WOUND 08:17
PROVIDERS: ATTEND Nurse Practitioner Family
DX: I87.313 Chronic venous hypertension (idiopathic) with ulcer of bilateral lower extremity (principal); L97.812 Non-pressure chronic ulcer of other part of right lower leg with fat layer exposed; L97.322 Non-pressure chronic ulcer of left ankle with fat layer exposed; E11.9 Type 2 diabetes mellitus without complications; I10 Essential (primary) hypertension; R39.81 Functional urinary incontinence; I48.91 Unspecified atrial fibrillation; I50.9 Heart failure, unspecified
CPT/HCPCS: 11042

== ENCOUNTER 2018-01-14 09:27 | Outpatient (CLI) | END 2018-01-14 09:28 | disposition home or self-care (01) | LOC: LAB 09:27 | PROVIDERS: ATTEND Nurse Practitioner Family | DX: L97.322 Non-pressure chronic ulcer of left ankle with fat layer exposed (principal); I87.313 Chronic venous hypertension (idiopathic) with ulcer of bilateral lower extremity | CPT/HCPCS: 36415; 82565 ==

== ENCOUNTER 2018-01-20 08:13 | Outpatient (CLI) | payer OTHER | END 2018-01-20 08:14 | disposition home or self-care (01) | LOC: WOUND 08:13 | PROVIDERS: ATTEND Nurse Practitioner Family | DX: I87.313 Chronic venous hypertension (idiopathic) with ulcer of bilateral lower extremity (principal); L97.812 Non-pressure chronic ulcer of other part of right lower leg with fat layer exposed; L97.322 Non-pressure chronic ulcer of left ankle with fat layer exposed; E11.9 Type 2 diabetes mellitus without complications; I10 Essential (primary) hypertension; R39.81 Functional urinary incontinence; I48.91 Unspecified atrial fibrillation; I50.9 Heart failure, unspecified | CPT/HCPCS: 11042 ==

== ENCOUNTER 2018-01-27 08:20 | Outpatient (CLI) | payer OTHER | END 2018-01-27 08:21 | disposition home or self-care (01) | LOC: WOUND 08:20 | PROVIDERS: ATTEND Nurse Practitioner Family | DX: I87.313 Chronic venous hypertension (idiopathic) with ulcer of bilateral lower extremity (principal); L97.812 Non-pressure chronic ulcer of other part of right lower leg with fat layer exposed; L97.322 Non-pressure chronic ulcer of left ankle with fat layer exposed; E11.9 Type 2 diabetes mellitus without complications; I10 Essential (primary) hypertension; R39.81 Functional urinary incontinence; I48.91 Unspecified atrial fibrillation; I50.9 Heart failure, unspecified ==

== ENCOUNTER 2018-01-30 14:49 | Emergency (ER) ==
[2018-01-30 15:02] VITALS: BP 157/85; BMI 66.4
[2018-01-30] MEDS ORDERED: CLEOCIN 900 MG in SODIUM CHLORIDE 50 ML IV STA (15:06)
[2018-01-30] MEDS ORDERED: SODIUM CHLORIDE 1,000 ML IV STA (15:51)
[2018-01-30] MEDS ORDERED: CLEOCIN ONE (15:54)
[2018-01-30 17:03] VITALS: TEMP 97.7
--- NOTE | 2018-01-30 17:05 | ED.PDOC ---
General ED Provider: Dr. BIPIN MARTÍNEZ-ER Chief Complaint: Extremity Swelling/Pain Stated Complaint: i think im getting an infection Time Seen by Physician: 14:55 Mode of Arrival: Walk-In Information Source: Patient Exam Limitations: No limitations Primary Care Provider: DARRYL DIAL Nursing and Triage Documentation Reviewed and Agree: Yes Does patient meet sepsis criteria?: No System Inflammatory Response Syndrome: Not Applicable Sepsis Protocol: For patient's 13 years and over: Temp is 96.8 and below OR 101 and greater Pulse >90 BPM Resp >20/minute Acutely Altered Mental Status Are patient's symptoms suggestive of a new infection, such as: -Pneumonia -Skin, Soft Tissue -Endocarditis -UTI -Bone, Joint Infection -Implantable Device -Acute Abdominal Infection -Wound Infection -Meningitis -Blood Stream Catheter Infection -Unknown Skin Complaint Exam - Skin/Soft Tissue Complaint/Exam Onset/Duration: 2 days Symptoms Are: Still present Timing: Constant Initial Severity: Mild Current Severity: Mild Location: legs Character: Reports: Redness, Swelling Aggravating: Reports: None Alleviating: Reports: None Associated Signs and Symptoms: Reports: Fever, Drainage 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 Surgical History: Reports: None Recent Exposure to Others w/Similar Symptoms: No Skin Findings: Present: Erythema, Wet ulceration Joint Tenderness Present: No Differential Diagnoses: Cellulitis, Infection Review of Systems - Review Of Systems Constitutional: Reports: Fever Eyes: Reports: No symptoms Ears, Nose, Mouth, Throat: Reports: No symptoms Respiratory: Reports: No symptoms Cardiac: Reports: No symptoms GI: Reports: No symptoms : Reports: No symptoms Musculoskeletal: Reports: No symptoms Skin: Reports: Rash Neurological: Reports: No symptoms Endocrine: Reports: No symptoms Hematologic/Lymphatic: Reports: No symptoms All Other Systems: Reviewed and Negative Past Medical History - Past Medical History Previously Healthy: No Endocrine: Reports: DM 2 Cardiovascular: Reports: Hypertension, CHF, A-Fib, Other (PVD) Respiratory: Reports: 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) Hematological: Reports: Anemia (hemolytic anemia) Gastrointestinal: Reports: GERD Genitourinary: Reports: None Neuro/Psych: Reports: None Musculoskeletal: Reports: None Cancer: Reports: None Other Pertinent Past Medical History: Chemo pills-(stopped NOW) - Surgical History General Surgical History: Reports: None, Other (WOUND CARE FOR LOWER LEGS) - Family History Family History: Reports: Unknown - Social History Smoking Status: Never smoker Hx Substance Use: No Alcohol Screening: None Physical Exam - Physical Exam Appearance: Well-appearing, No pain distress, Well-nourished Eyes: JD, EOMI, Conjunctiva clear ENT: Ears normal, Nose normal, Oropharynx normal Neck: Supple Respiratory: Airway patent, Breath sounds clear, Breath sounds equal, Respirations nonlabored Cardiovascular: RRR, Pulses normal, No rub, No murmur GI/: Soft, Nontender, No masses, Bowel sounds normal, No Organomegaly Musculoskeletal: Normal strength, ROM intact, No edema, No calf tenderness Skin: Warm, Dry, Normal color Neurological: Sensation intact Psychiatric: Affect appropriate, Mood appropriate Re-Evaluation - Re-Evaluation Time of Re-Evaluation: 17:04 Status: Improved (temp 97.7) Vital Signs Stable: Yes Pain Level: 0 Appearance: NAD Lungs: Clear Skin: Warm and Dry Neuro: Alert and Oriented X3 CV: RRR Critical Care Note - Critical Care Note Total Time (mins): 0 Course - Course Hematology/Chemistry: 01/30/18 15:25 01/30/18 15:25 Orders, Labs, Meds: Lab Review 01/30/18 01/30/18 01/30/18 15:25 15:25 15:25 WBC 6.46 RBC 3.33 L Hgb 9.7 L Hct 30.4 L MCV 91.3 MCH 29.1 MCHC 31.9 RDW Coeff of Yara 15.6 H Plt Count 116 L Immature Gran % (Auto) 0.2 Neut % (Auto) 72.7 Lymph % (Auto) 16.1 [place] % (Auto) 5.6 Eos % (Auto) 4.8 Baso % (Auto) 0.6 Immature Gran # (Auto) 0.0 Neut # (Auto) 4.7 Lymph # (Auto) 1.0 [place] # (Auto) 0.4 Eos # (Auto) 0.3 Baso # (Auto) 0.0 Sodium 139.6 Potassium 4.50 Chloride 101.3 Carbon Dioxide 29.7 Anion Gap 13.10 BUN 17.9 Creatinine 1.24 H Estimated GFR (MDRD) 61.00 BUN/Creatinine Ratio 14.43 Glucose 117.0 H Lactic Acid 1.35 Calcium 8.24 L Total Bilirubin 1.54 H AST 20.1 ALT 11.3 Alkaline Phosphatase 72.2 Total Protein 7.30 Albumin 3.88 Globulin 3.42 Albumin/Globulin Ratio 1.13 Procalcitonin 01/30/18 15:25 WBC RBC Hgb Hct MCV MCH MCHC RDW Coeff of Yara Plt Count Immature Gran % (Auto) Neut % (Auto) Lymph % (Auto) [place] % (Auto) Eos % (Auto) Baso % (Auto) Immature Gran # (Auto) Neut # (Auto) Lymph # (Auto) [place] # (Auto) Eos # (Auto) Baso # (Auto) Sodium Potassium Chloride Carbon Dioxide Anion Gap BUN Creatinine Estimated GFR (MDRD) BUN/Creatinine Ratio Glucose Lactic Acid Calcium Total Bilirubin AST ALT Alkaline Phosphatase Total Protein Albumin Globulin Albumin/Globulin Ratio Procalcitonin 0.05 Orders Category Date Time Status ED IV/MEDIPORT/POWERPORT .ONCE EMERGENCY 01/30/18 15:06 Active BLOOD CULTURE (ED ONLY) Stat LAB 01/30/18 15:25 Received CBC W/ AUTO DIFF Stat LAB 01/30/18 15:25 Completed COMPREHENSIVE METABOLIC PANEL Stat LAB 01/30/18 15:25 Completed LACTIC ACID Stat LAB 01/30/18 15:25 Completed PROCALCITONIN Stat LAB 01/30/18 15:25 Completed WOUND CULTURE Stat LAB 01/30/18 15:22 Results 0.9 % Sodium Chloride [Saline Flush] MEDS 01/30/18 15:06 Discontinued 1 syr IVF PRN PRN Clindamycin Phosphate Inj [Cleocin] MEDS 01/30/18 15:54 Discontinued 300 mg .ROUTE .STK-MED ONE Clindamycin Phosphate Inj [Cleocin] 900 mg MEDS 01/30/18 15:06 Discontinued 0.9 % Sodium Chloride [Sodium Chloride] 50 ml IV ONCE Sodium Chloride 0.9% [Sodium Chloride] 1,000 ml MEDS 01/30/18 15:51 Discontinued IV 30 mls/hr Medications Discontinued Medications Generic Name Dose Route Start Last Admin Trade Name Freq PRN Reason Stop Dose Admin Clindamycin Phosphate 900 mg/ 56 mls @ 50 mls/hr 01/30/18 15:06 01/30/18 16: 11 Sodium Chloride IV 01/30/18 16:13 50 mls/hr ONCE STA Administration Sodium Chloride 1,000 mls @ 30 mls/hr 01/30/18 15:51 01/30/18 16:13 Sodium Chloride IV 02/01/18 01:10 30 mls/hr .[id number] STA Administration Sodium Chloride 1 syr 01/30/18 15:06 Saline Flush IVF PRN PRN To flush IV Vital Signs: Temp Pulse Resp BP Pulse Ox 01/30/18 17:03 97.7 F 01/30/18 14:51 100.4 F H 80 20 157/85 H 91 L Departure - Departure Time of Disposition: 17:05 Disposition: HOME SELF-CARE Discharge Problem: Cellulitis Qualifiers: Site of cellulitis: extremity Site of cellulitis of extremity: lower extremity Laterality: unspecified laterality Qualified Code(s): L03.119 - Cellulitis of unspecified part of limb Instructions: Cellulitis (ED) Condition: Fair Pt referred to PMD for follow-up: Yes IPMP verified?: No Additional Instructions: continue wound care---clindamycin 300mg tid x 7 days---if temp goes over 101 return to the ED and fullow up with clinic next week Allergies/Adverse Reactions: Allergies No Known Allergies Allergy (Verified 01/30/18 14:59) Home Medications: Ambulatory Orders Folic Acid 1 mg PO DAILY 04/20/13 Furosemide [Lasix] 40 mg PO BID PRN 12/19/13 Omeprazole [Prilosec] 20 mg PO DAILY 09/29/14 Apixaban [Eliquis] 5 mg PO BID 10/11/14 Tamsulosin HCl [Flomax] 0.4 mg PO DAILY 09/24/16 Aspirin [Aspir-Low] 81 mg PO DAILY 01/21/17 Diltiazem HCl [Cardizem] 120 mg PO BID 08/19/17 Metoprolol Tartrate [Lopressor] 100 mg PO BID 08/19/17 Multivitamin [Multi-Vitamin Daily] 1 each PO DAILY 09/16/17 Disposition Discussed With: Patient, Other (health client care consultant)
== END 2018-01-30 17:28 | disposition home or self-care (01) ==
LOC: ED 14:49
DX: L03.119 Cellulitis of unspecified part of limb (principal); E11.9 Type 2 diabetes mellitus without complications; I10 Essential (primary) hypertension; D58.9 Hereditary hemolytic anemia, unspecified; Z79.899 Other long term (current) drug therapy
CPT/HCPCS: 36415; 80053; 83605; 84145; 85025; 87040; 87070; 96365; 99283

== ENCOUNTER 2018-02-03 08:14 | Outpatient (CLI) | payer OTHER | END 2018-02-03 08:15 | disposition home or self-care (01) | LOC: WOUND 08:14 | PROVIDERS: ATTEND Nurse Practitioner Family | DX: I87.313 Chronic venous hypertension (idiopathic) with ulcer of bilateral lower extremity (principal); L97.812 Non-pressure chronic ulcer of other part of right lower leg with fat layer exposed; L97.322 Non-pressure chronic ulcer of left ankle with fat layer exposed; E11.9 Type 2 diabetes mellitus without complications; I10 Essential (primary) hypertension; R39.81 Functional urinary incontinence; I48.91 Unspecified atrial fibrillation; I50.9 Heart failure, unspecified | CPT/HCPCS: 11042 ==

== ENCOUNTER 2018-02-10 08:20 | Outpatient (CLI) | payer OTHER | END 2018-02-10 08:21 | disposition home or self-care (01) | LOC: WOUND 08:20 | PROVIDERS: ATTEND Nurse Practitioner Family | DX: I87.313 Chronic venous hypertension (idiopathic) with ulcer of bilateral lower extremity (principal); L97.812 Non-pressure chronic ulcer of other part of right lower leg with fat layer exposed; L97.322 Non-pressure chronic ulcer of left ankle with fat layer exposed; E11.9 Type 2 diabetes mellitus without complications; I10 Essential (primary) hypertension; R39.81 Functional urinary incontinence; I48.91 Unspecified atrial fibrillation; I50.9 Heart failure, unspecified | CPT/HCPCS: 11042; 87070; 87186 ==

== ENCOUNTER 2018-02-17 08:13 | Outpatient (CLI) | payer OTHER | END 2018-02-17 08:14 | disposition home or self-care (01) | LOC: WOUND 08:13 | PROVIDERS: ATTEND Nurse Practitioner Family | DX: I87.313 Chronic venous hypertension (idiopathic) with ulcer of bilateral lower extremity (principal); L97.812 Non-pressure chronic ulcer of other part of right lower leg with fat layer exposed; L97.322 Non-pressure chronic ulcer of left ankle with fat layer exposed; E11.9 Type 2 diabetes mellitus without complications; I10 Essential (primary) hypertension; R39.81 Functional urinary incontinence; I48.91 Unspecified atrial fibrillation; I50.9 Heart failure, unspecified ==

== ENCOUNTER 2018-02-24 08:22 | Outpatient (CLI) | END 2018-02-24 08:23 | disposition home or self-care (01) | LOC: WOUND 08:22 | PROVIDERS: ATTEND Nurse Practitioner Family | DX: I87.313 Chronic venous hypertension (idiopathic) with ulcer of bilateral lower extremity (principal); L97.812 Non-pressure chronic ulcer of other part of right lower leg with fat layer exposed; L97.322 Non-pressure chronic ulcer of left ankle with fat layer exposed; E11.9 Type 2 diabetes mellitus without complications; I10 Essential (primary) hypertension; R39.81 Functional urinary incontinence; I48.91 Unspecified atrial fibrillation; I50.9 Heart failure, unspecified | CPT/HCPCS: 11042; 99213 ==

== ENCOUNTER 2018-03-03 08:26 | Outpatient (CLI) | END 2018-03-03 08:27 | disposition home or self-care (01) | LOC: WOUND 08:26 | PROVIDERS: ATTEND Nurse Practitioner Family | DX: I87.313 Chronic venous hypertension (idiopathic) with ulcer of bilateral lower extremity (principal); L97.812 Non-pressure chronic ulcer of other part of right lower leg with fat layer exposed; L97.322 Non-pressure chronic ulcer of left ankle with fat layer exposed; E11.9 Type 2 diabetes mellitus without complications; I10 Essential (primary) hypertension; R39.81 Functional urinary incontinence; I48.91 Unspecified atrial fibrillation; I50.9 Heart failure, unspecified | CPT/HCPCS: 11042 ==

== ENCOUNTER 2018-03-17 08:14 | Outpatient (CLI) | payer OTHER | END 2018-03-17 08:15 | disposition home or self-care (01) | LOC: WOUND 08:14 | PROVIDERS: ATTEND Nurse Practitioner Family | DX: I87.313 Chronic venous hypertension (idiopathic) with ulcer of bilateral lower extremity (principal); L97.812 Non-pressure chronic ulcer of other part of right lower leg with fat layer exposed; L97.322 Non-pressure chronic ulcer of left ankle with fat layer exposed; E11.9 Type 2 diabetes mellitus without complications; I10 Essential (primary) hypertension; R39.81 Functional urinary incontinence; I48.91 Unspecified atrial fibrillation; I50.9 Heart failure, unspecified ==

== ENCOUNTER 2018-04-28 08:11 | Outpatient (CLI) | END 2018-04-28 08:12 | disposition home or self-care (01) | LOC: WOUND 08:11 | PROVIDERS: ATTEND Nurse Practitioner Family | DX: I87.313 Chronic venous hypertension (idiopathic) with ulcer of bilateral lower extremity (principal); L97.812 Non-pressure chronic ulcer of other part of right lower leg with fat layer exposed; L97.322 Non-pressure chronic ulcer of left ankle with fat layer exposed; E11.9 Type 2 diabetes mellitus without complications; I10 Essential (primary) hypertension; R39.81 Functional urinary incontinence; I48.91 Unspecified atrial fibrillation; I50.9 Heart failure, unspecified | CPT/HCPCS: 11042; 97597 ==

== ENCOUNTER 2018-05-12 08:22 | Outpatient (CLI) | END 2018-05-12 08:23 | disposition home or self-care (01) | LOC: WOUND 08:22 | PROVIDERS: ATTEND Nurse Practitioner Family | DX: I87.313 Chronic venous hypertension (idiopathic) with ulcer of bilateral lower extremity (principal); L97.322 Non-pressure chronic ulcer of left ankle with fat layer exposed; E11.9 Type 2 diabetes mellitus without complications; I10 Essential (primary) hypertension; R39.81 Functional urinary incontinence; I48.91 Unspecified atrial fibrillation; I50.9 Heart failure, unspecified | CPT/HCPCS: 11042 ==

== ENCOUNTER 2018-05-19 08:26 | Outpatient (CLI) | payer OTHER | END 2018-05-19 08:27 | disposition home or self-care (01) | LOC: WOUND 08:26 | PROVIDERS: ATTEND Nurse Practitioner Family | DX: I87.313 Chronic venous hypertension (idiopathic) with ulcer of bilateral lower extremity (principal); L97.322 Non-pressure chronic ulcer of left ankle with fat layer exposed; E11.9 Type 2 diabetes mellitus without complications; I10 Essential (primary) hypertension; R39.81 Functional urinary incontinence; I48.91 Unspecified atrial fibrillation; I50.9 Heart failure, unspecified; Z12.5 Encounter for screening for malignant neoplasm of prostate; E78.5 Hyperlipidemia, unspecified | CPT/HCPCS: 11042; 36415; 80053; 80061; 83036; 87070; 87186 ==

== ENCOUNTER 2018-06-02 08:17 | Outpatient (CLI) | payer OTHER | END 2018-06-02 08:18 | disposition home or self-care (01) | LOC: WOUND 08:17 | PROVIDERS: ATTEND Nurse Practitioner Family | DX: I87.313 Chronic venous hypertension (idiopathic) with ulcer of bilateral lower extremity (principal); L97.322 Non-pressure chronic ulcer of left ankle with fat layer exposed; E11.9 Type 2 diabetes mellitus without complications; I10 Essential (primary) hypertension; R39.81 Functional urinary incontinence; I48.91 Unspecified atrial fibrillation; I50.9 Heart failure, unspecified | CPT/HCPCS: 11042 ==

== ENCOUNTER 2018-06-16 08:20 | Outpatient (CLI) | END 2018-06-16 08:21 | disposition home or self-care (01) | LOC: WOUND 08:20 | PROVIDERS: ATTEND Nurse Practitioner Family | DX: I87.313 Chronic venous hypertension (idiopathic) with ulcer of bilateral lower extremity (principal); L97.322 Non-pressure chronic ulcer of left ankle with fat layer exposed; E11.9 Type 2 diabetes mellitus without complications; I10 Essential (primary) hypertension; R39.81 Functional urinary incontinence; I48.91 Unspecified atrial fibrillation; I50.9 Heart failure, unspecified | CPT/HCPCS: 11042 ==

== ENCOUNTER 2018-06-23 08:07 | Outpatient (CLI) | END 2018-06-23 08:08 | disposition home or self-care (01) | LOC: WOUND 08:07 | PROVIDERS: ATTEND Nurse Practitioner Family | DX: I87.313 Chronic venous hypertension (idiopathic) with ulcer of bilateral lower extremity (principal); L97.322 Non-pressure chronic ulcer of left ankle with fat layer exposed; E11.9 Type 2 diabetes mellitus without complications; I10 Essential (primary) hypertension; R39.81 Functional urinary incontinence; I48.91 Unspecified atrial fibrillation; I50.9 Heart failure, unspecified ==

== ENCOUNTER 2018-06-30 08:02 | Outpatient (CLI) | payer OTHER | END 2018-06-30 08:03 | disposition home or self-care (01) | LOC: WOUND 08:02 | PROVIDERS: ATTEND Nurse Practitioner Family | DX: I87.313 Chronic venous hypertension (idiopathic) with ulcer of bilateral lower extremity (principal); L97.322 Non-pressure chronic ulcer of left ankle with fat layer exposed; E11.9 Type 2 diabetes mellitus without complications; I10 Essential (primary) hypertension; R39.81 Functional urinary incontinence; I48.91 Unspecified atrial fibrillation; I50.9 Heart failure, unspecified ==

== ENCOUNTER 2018-07-07 08:19 | Outpatient (CLI) | payer OTHER | END 2018-07-07 08:20 | disposition home or self-care (01) | LOC: WOUND 08:19 | PROVIDERS: ATTEND Nurse Practitioner Family | DX: I87.313 Chronic venous hypertension (idiopathic) with ulcer of bilateral lower extremity (principal); L97.322 Non-pressure chronic ulcer of left ankle with fat layer exposed; E11.9 Type 2 diabetes mellitus without complications; I10 Essential (primary) hypertension; R39.81 Functional urinary incontinence; I48.91 Unspecified atrial fibrillation; I50.9 Heart failure, unspecified | CPT/HCPCS: 87070 ==

== ENCOUNTER 2018-07-14 08:10 | Outpatient (CLI) | payer OTHER | END 2018-07-14 08:11 | disposition home or self-care (01) | LOC: WOUND 08:10 | PROVIDERS: ATTEND Nurse Practitioner Family | DX: I87.313 Chronic venous hypertension (idiopathic) with ulcer of bilateral lower extremity (principal); L97.322 Non-pressure chronic ulcer of left ankle with fat layer exposed; E11.9 Type 2 diabetes mellitus without complications; I10 Essential (primary) hypertension; R39.81 Functional urinary incontinence; I48.91 Unspecified atrial fibrillation; I50.9 Heart failure, unspecified | CPT/HCPCS: 11042 ==

== ENCOUNTER 2018-07-20 08:28 | Outpatient (CLI) | END 2018-07-20 08:29 | disposition home or self-care (01) | LOC: WOUND 08:28 | PROVIDERS: ATTEND Nurse Practitioner Family | DX: I87.313 Chronic venous hypertension (idiopathic) with ulcer of bilateral lower extremity (principal); L97.322 Non-pressure chronic ulcer of left ankle with fat layer exposed; E11.9 Type 2 diabetes mellitus without complications; I10 Essential (primary) hypertension; R39.81 Functional urinary incontinence; I48.91 Unspecified atrial fibrillation; I50.9 Heart failure, unspecified ==

== ENCOUNTER 2018-07-29 09:08 | Outpatient (CLI) ==
--- NOTE | 2018-07-29 11:34 | DI ---
EXAM: Right ankle. Three-view HISTORY: Peripheral vascular disease, unspecified COMPARISON: None TECHNIQUE: Three views right ankle were performed FINDINGS: No fracture or dislocation. Mild to moderate osteoarthritis about the ankle with osteophy te formation. Small plantar calcaneal spur. Mild osteoarthritis midfoot with dorsal spurring. Athe rosclerotic vascular calcification. Sheet-like calcifications in the calf. Mild soft tissue swellin g about the ankle. IMPRESSION: 1. No fracture or dislocation. 2. Mild to moderate osteoarthritis. 3. Small plantar calcaneal spur. 4. Mild soft tissue swelling about the ankle. 5. Sheet-like calcifications in the calf, nonspecific, though could relate to changes from venous st asis.
--- NOTE | 2018-07-29 11:35 | DI ---
EXAM: Left ankle. Three-view HISTORY: Peripheral vascular disease, unspecified COMPARISON: 01/13/2018 FINDINGS: No fracture or dislocation. Mild to moderate osteoarthritis about the ankle with osteophy te formation. Small plantar calcaneal spur. Mild osteoarthritis midfoot with dorsal spurring. Athe rosclerotic vascular calcification. Additionally, there are extensive coarse sheet-like calcificatio ns calcifications in the calf that are nonspecific, though may relate to changes of venous stasis. S oft tissue swelling about the ankle. IMPERSSION: 1. No fracture or dislocation. 2. Mild to moderate osteoarthritis. 3. Small plantar calcaneal spur. 4. Extensive coarse sheet-like calcifications) calcifications in the calf that are nonspecific, thou gh may relate to changes of venous stasis. 5. Soft tissue swelling about the ankle.
--- NOTE | 2018-07-29 12:01 | DI ---
EXAM: Right foot three view HISTORY: Peripheral vascular disease, unspecified COMPARISON: None FINDINGS: No fracture or dislocation. No cortical destruction identified. Mild scattered osteoarth ritic change throughout the foot. Small plantar calcaneal spur. Atherosclerotic vascular calcificat ion. No focal soft tissue abnormality. IMPERSSION: 1. No fracture or dislocation. 2. Mild osteoarthritis. 3. Small calcaneal spur. 4. Atherosclerosis.
--- NOTE | 2018-07-29 12:04 | DI ---
EXAM: Left foot three view HISTORY: Peripheral vascular disease, unspecified COMPARISON: None FINDINGS: No fracture or dislocation. No cortical destruction identified. Mild scattered osteophyt ic change throughout the foot. Small plantar calcaneal spur. Atherosclerotic vascular calcification . No focal soft tissue abnormality. IMPERSSION: 1. No fracture or dislocation. 2. Mild osteoarthritis. 3. Small calcaneal spur. 4. Atherosclerosis
== END 2018-07-29 09:09 | disposition home or self-care (01) ==
LOC: RAD 09:08
PROVIDERS: ATTEND Nurse Practitioner Family
DX: I73.9 Peripheral vascular disease, unspecified (principal); S81.809A Unspecified open wound, unspecified lower leg, initial encounter

== ENCOUNTER 2018-07-30 13:52 | Outpatient (CLI) | END 2018-07-30 13:53 | disposition home or self-care (01) | LOC: LAB 13:52 | PROVIDERS: ATTEND Nurse Practitioner Family | DX: S81.809A Unspecified open wound, unspecified lower leg, initial encounter (principal); E11.9 Type 2 diabetes mellitus without complications; I50.9 Heart failure, unspecified | CPT/HCPCS: 36415; 80053; 83036; 84145; 85025; 87040; 87070; 87186 ==

== ENCOUNTER 2018-08-02 09:29 | Outpatient (CLI) | END 2018-08-02 09:35 | disposition critical access hospital (66) | LOC: AMBL 09:29 | PROVIDERS: ATTEND Internal Medicine | DX: R06.02 Shortness of breath (principal); R42 Dizziness and giddiness; R05 Cough; I48.91 Unspecified atrial fibrillation; R60.0 Localized edema ==

== ENCOUNTER 2018-08-02 09:51 | Emergency (ER) ==
[2018-08-02 09:45] VITALS: BP 109/48; TEMP 98.3; BMI 67.3
[~2018-08-02 09:51] MED LIST: SODIUM CHLORIDE IV STA; VANCOMYCIN IV STA
[2018-08-02] MEDS ORDERED: VANCOMYCIN 2 GM in SODIUM CHLORIDE 500 ML IV STA (10:03)
--- NOTE | 2018-08-02 10:55 | US ---
EXAM: Left lower extremity venous Doppler History: Left lower extremity pain and edema. Technique: Multiple sonographic images through the left lower extremity were obtained. Color duplex Doppler was used to interrogate vascular flow. Findings: Could not visualize the left common femoral, greater saphenous, profunda and proximal left superficial femoral veins due to patient body habitus and large pannus. The left popliteal, peronea l, posterior tibial and anterior tibial veins demonstrate spontaneous flow with normal compression an d normal augmentation. There is left lower extremity subcutaneous edema. Impression: No sonographic evidence for deep venous thrombosis within the visualized veins. Limited evaluation.
--- NOTE | 2018-08-02 12:40 | ED.PDOC ---
General ED Provider: Dr. CHRISTINE ANDRADE Chief Complaint: Shortness of Air Stated Complaint: flu like symptoms Time Seen by Physician: 10:00 Mode of Arrival: Ambulance Information Source: Patient, EMT Exam Limitations: No limitations Primary Care Provider: DARRYL DIAL Nursing and Triage Documentation Reviewed and Agree: Yes Does patient meet sepsis criteria?: No System Inflammatory Response Syndrome: Not Applicable Sepsis Protocol: For patient's 13 years and over: Temp is 96.8 and below OR 101 and greater Pulse >90 BPM Resp >20/minute Acutely Altered Mental Status Are patient's symptoms suggestive of a new infection, such as: -Pneumonia -Skin, Soft Tissue -Endocarditis -UTI -Bone, Joint Infection -Implantable Device -Acute Abdominal Infection -Wound Infection -Meningitis -Blood Stream Catheter Infection -Unknown Respiratory Complaint Exam - Respiratory Complaint/Exam Symptoms Are: Still present Initial Severity: Mild Current Severity: Mild Location: Chest Character: Reports: Non-productive cough Aggravating: Reports: None Alleviating: Reports: None Associated Signs and Symptoms: Reports: URI. Denies: Rapid breathing, Dyspnea, Fever, Chills, Chest pain, Pleuritic chest pain, Wheezing, Hemoptysis, Dizziness , Calf pain, Calf swelling, Edema, Nasal congestion, Hoarseness, Sinus discomfort, Vomiting, Sore throat, Weight loss, Decreased oral intake, Increased thirst, Increased appetite, Increased urination Related History: Reports: Similar episode History of Healthcare-Acquired Pneumonia: No Related Surgical History: Reports: None Pulmonary Embolism Risk Factors: None Cardiac Risk Factors: Reports: Diabetes, Hypertension Tuberculosis Risk Factors: Reports: None Status Asthmaticus Risk Factors: Reports: None Home Oxygen Use: Yes Recent Stress Test: No Recent Echo/LV Function: No Current Antibiotic Use: No Current Asthma Medication Use: No Respiratory Distress: None Inadequate Respiratory Effort: No Dysphagia Present: No Stridor Present: No JVD Present: No Accessory Muscle Use: No Retractions: Not Present Sinus Tenderness: None Grunting Respirations: No Kussmaul Respirations: No Differential Diagnoses: Asthma, CHF, COPD Exacerbation, Pneumonia, Bronchitis Review of Systems - Review Of Systems Constitutional: Reports: Chills, Malaise, Loss of appetite Eyes: Reports: No symptoms Ears, Nose, Mouth, Throat: Reports: No symptoms Respiratory: Reports: Cough Cardiac: Reports: No symptoms GI: Reports: No symptoms : Reports: No symptoms Musculoskeletal: Reports: No symptoms Skin: Reports: Other (wound see photos) Neurological: Reports: No symptoms Endocrine: Reports: No symptoms Hematologic/Lymphatic: Reports: No symptoms All Other Systems: Reviewed and Negative Past Medical History - Past Medical History Previously Healthy: No Endocrine: Reports: DM 2 Cardiovascular: Reports: Hypertension, CHF, A-Fib, Other (PVD) Respiratory: Reports: 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) Hematological: Reports: Anemia (hemolytic anemia) Gastrointestinal: Reports: GERD Genitourinary: Reports: None Neuro/Psych: Reports: None Musculoskeletal: Reports: None Cancer: Reports: None Other Pertinent Past Medical History: Chemo pills-(stopped NOW) - Surgical History General Surgical History: Reports: None, Other (WOUND CARE FOR LOWER LEGS) - Family History Family History: Reports: Unknown - Social History Smoking Status: Never smoker Hx Substance Use: No Alcohol Screening: None Physical Exam - Physical Exam Appearance: Well-appearing, No pain distress, Well-nourished Eyes: JD, EOMI, Conjunctiva clear ENT: Ears normal, Nose normal, Oropharynx normal Respiratory: Airway patent, Breath sounds clear, Breath sounds equal, Respirations nonlabored Cardiovascular: RRR, Pulses normal, No rub, No murmur GI/: Soft, Nontender, No masses, Bowel sounds normal, No Organomegaly Musculoskeletal: Normal strength, ROM intact, No edema, No calf tenderness Skin: Warm, Dry (wound left lower leg see photos) Neurological: Sensation intact, Motor intact, Reflexes intact, Cranial nerves intact, Alert, Oriented Psychiatric: Affect appropriate, Mood appropriate Interpretation - Radiology Interpretation Radiology Results: Negative Exam Interpreted: CXR - Draw Operator Rate: Normal Rhythm: Sinus Ectopy: None - EKG Interpretation Rate: Normal Rhythm: Sinus Critical Care Note - Critical Care Note Total Time (mins): 0 Course - Course Hematology/Chemistry: 08/02/18 10:05 08/02/18 10:05 Orders, Labs, Meds: Lab Review 08/02/18 08/02/18 08/02/18 10:05 10:05 10:05 WBC 10.88 H RBC 3.32 L Hgb 9.7 L Hct 30.9 L MCV 93.1 MCH 29.2 MCHC 31.4 L RDW Coeff of Yara 15.9 H Plt Count 119 L Immature Gran % (Auto) 0.6 Neut % (Auto) 91.0 Lymph % (Auto) 4.5 L [place] % (Auto) 3.1 Eos % (Auto) 0.6 Baso % (Auto) 0.2 Immature Gran # (Auto) 0.1 Neut # (Auto) 9.9 H Lymph # (Auto) 0.5 L [place] # (Auto) 0.3 L Eos # (Auto) 0.1 Baso # (Auto) 0.0 PT 10.9 INR 1.09 APTT 27.5 Puncture Site O2 Saturation ABG pH ABG pCO2 ABG pO2 ABG HCO3 ABG Total CO2 ABG Base Excess Tariq Test FiO2 % Sodium 138.5 Potassium 4.14 Chloride 100.6 Carbon Dioxide 28.4 Anion Gap 13.64 BUN 20.7 H Creatinine 1.29 H Estimated GFR (MDRD) 58.00 BUN/Creatinine Ratio 16.04 Glucose 105.1 Lactic Acid Calcium 8.76 Total Bilirubin 1.51 H AST 19.5 ALT 14.5 Alkaline Phosphatase 92.9 Total Creatine Kinase 80.8 Troponin I 0.047 Total Protein 7.44 Albumin 4.32 Globulin 3.12 Albumin/Globulin Ratio 1.38 Procalcitonin Influ A Molecular Assay Influ B Molecular Assay 08/02/18 08/02/18 08/02/18 10:05 10:05 10:08 WBC RBC Hgb Hct MCV MCH MCHC RDW Coeff of Yara Plt Count Immature Gran % (Auto) Neut % (Auto) Lymph % (Auto) [place] % (Auto) Eos % (Auto) Baso % (Auto) Immature Gran # (Auto) Neut # (Auto) Lymph # (Auto) [place] # (Auto) Eos # (Auto) Baso # (Auto) PT INR APTT Puncture Site O2 Saturation ABG pH ABG pCO2 ABG pO2 ABG HCO3 ABG Total CO2 ABG Base Excess Tariq Test FiO2 % Sodium Potassium Chloride Carbon Dioxide Anion Gap BUN Creatinine Estimated GFR (MDRD) BUN/Creatinine Ratio Glucose Lactic Acid 1.57 Calcium Total Bilirubin AST ALT Alkaline Phosphatase Total Creatine Kinase Troponin I Total Protein Albumin Globulin Albumin/Globulin Ratio Procalcitonin 2.83 Influ A Molecular Assay Negative by naat Influ B Molecular Assay Negative by naat 08/02/18 10:15 WBC RBC Hgb Hct MCV MCH MCHC RDW Coeff of Yara Plt Count Immature Gran % (Auto) Neut % (Auto) Lymph % (Auto) [place] % (Auto) Eos % (Auto) Baso % (Auto) Immature Gran # (Auto) Neut # (Auto) Lymph # (Auto) [place] # (Auto) Eos # (Auto) Baso # (Auto) PT INR APTT Puncture Site R brach O2 Saturation 96.0 ABG pH 7.469 H ABG pCO2 34.3 L ABG pO2 79.0 L ABG HCO3 24.9 ABG Total CO2 26 ABG Base Excess 1 Tariq Test + FiO2 % 21.0 Sodium Potassium Chloride Carbon Dioxide Anion Gap BUN Creatinine Estimated GFR (MDRD) BUN/Creatinine Ratio Glucose Lactic Acid Calcium Total Bilirubin AST ALT Alkaline Phosphatase Total Creatine Kinase Troponin I Total Protein Albumin Globulin Albumin/Globulin Ratio Procalcitonin Influ A Molecular Assay Influ B Molecular Assay Orders Category Date Time Status ABG DRAW REQUEST Stat CARDIO 08/02/18 09:50 Completed EKG-(ED ONLY) Stat CARDIO 08/02/18 09:49 Completed NPO REMINDER: IMAGING ONCE CARE 08/02/18 09:51 Completed ED IV/MEDIPORT/POWERPORT .ONCE EMERGENCY 08/02/18 09:49 Active ABG Stat LAB 08/02/18 10:15 Completed BLOOD CULTURE Stat LAB 08/02/18 10:40 Received CBC W/ AUTO DIFF Stat LAB 08/02/18 10:05 Completed COMPREHENSIVE METABOLIC PANEL Stat LAB 08/02/18 10:05 Completed CREATINE KINASE Stat LAB 08/02/18 10:05 Completed FLU A/B MOLECULAR Stat LAB 08/02/18 10:08 Completed LACTIC ACID Stat LAB 08/02/18 10:05 Completed MOLECULAR GROUP A STREP Stat LAB 08/02/18 10:08 Completed PARTIAL THROMBOPLASTIN TIME Stat LAB 08/02/18 10:05 Completed PROCALCITONIN Stat LAB 08/02/18 10:05 Completed PT WITH INR Stat LAB 08/02/18 10:05 Completed TROPONIN I Stat LAB 08/02/18 10:05 Completed 0.9 % Sodium Chloride [Saline Flush] MEDS 08/02/18 09:49 Active 1 syr IVF PRN PRN Vancomycin HCl [Vancomycin] 2 gm MEDS 08/02/18 10:03 Discontinued Sodium Chloride 0.9% [Sodium Chloride] 500 ml IV ONCE CHEST, 1V AP ONLY Stat RADS 08/02/18 12:12 Taken U/S VENOUS SCAN LT LEG Stat RADS 08/02/18 09:55 Completed Medications Generic Name Dose Route Start Last Admin Trade Name Freq PRN Reason Stop Dose Admin Sodium Chloride 1 syr 08/02/18 09:49 08/02/18 11:11 Saline Flush IVF 1 syr PRN PRN Administration To flush IV Discontinued Medications Generic Name Dose Route Start Last Admin Trade Name Glenq PRN Reason Stop Dose Admin Vancomycin HCl 2 gm/ Sodium 500 mls @ 200 mls/hr 08/02/18 10:03 08/02/18 11: 06 Chloride IV 08/02/18 12:32 200 mls/hr ONCE STA Administration Vital Signs: Temp Pulse Resp BP Pulse Ox 08/02/18 09:41 98.3 F 81 24 109/48 L 93 L Departure - Departure Time of Disposition: 12:40 Disposition: HOME SELF-CARE Discharge Problem: Cellulitis of left lower leg Instructions: Cellulitis (ED) Condition: Good Pt referred to PMD for follow-up: Yes IPMP verified?: No Additional Instructions: Please call your Family Physician as soon as possible to schedule a follow-up appointment. Allergies/Adverse Reactions: Allergies No Known Allergies Allergy (Verified 08/02/18 09:45) Home Medications: Ambulatory Orders Folic Acid 1 mg PO DAILY 04/20/13 Furosemide [Lasix] 40 mg PO BID PRN 12/19/13 Omeprazole [Prilosec] 20 mg PO DAILY 09/29/14 Apixaban [Eliquis] 5 mg PO BID 10/11/14 Aspirin [Aspir-Low] 81 mg PO DAILY 01/21/17 Diltiazem HCl [Cardizem] 120 mg PO BID 08/19/17 Metoprolol Tartrate [Lopressor] 100 mg PO BID 08/19/17 Multivitamin [Multi-Vitamin Daily] 1 each PO DAILY 09/16/17 Ascorbic Acid [Vitamin C] 500 mg PO DAILY 08/02/18
[2018-08-02] MEDS ORDERED: ZYVOX PO ONE (12:46)
--- NOTE | 2018-08-02 13:18 | DI ---
EXAM: Single view of the chest. History: Cough. Comparison: Chest radiograph 08/24/2017 Findings: Heart is enlarged. No focal consolidation. No appreciable pleural fluid and no pneumotho rax. Elevated right hemidiaphragm again noted. No acute osseous abnormalities. Impression: Cardiomegaly without evidence for pulmonary edema
== END 2018-08-02 14:49 | disposition home or self-care (01) ==
LOC: ED 09:51
DX: R06.02 Shortness of breath (principal); J06.9 Acute upper respiratory infection, unspecified; R05 Cough; R63.0 Anorexia; R53.81 Other malaise; L03.116 Cellulitis of left lower limb; I48.91 Unspecified atrial fibrillation
CPT/HCPCS: 36415; 80053; 82550; 82803; 83605; 84145; 84484; 85025; 85610; 85730; 87040; 87502; 87651; 93005; 93010; 96365; 96366; 99283

== ENCOUNTER 2018-08-04 08:10 | Outpatient (CLI) | END 2018-08-04 08:11 | disposition home or self-care (01) | LOC: WOUND 08:10 | PROVIDERS: ATTEND Nurse Practitioner Family | DX: I87.313 Chronic venous hypertension (idiopathic) with ulcer of bilateral lower extremity (principal); L97.322 Non-pressure chronic ulcer of left ankle with fat layer exposed; E11.9 Type 2 diabetes mellitus without complications; I10 Essential (primary) hypertension; R39.81 Functional urinary incontinence; I48.91 Unspecified atrial fibrillation; I50.9 Heart failure, unspecified | CPT/HCPCS: 11042; 11045 ==

== ENCOUNTER 2018-08-11 08:09 | Outpatient (CLI) | payer OTHER | END 2018-08-11 08:10 | disposition home or self-care (01) | LOC: WOUND 08:09 | PROVIDERS: ATTEND Nurse Practitioner Family | DX: I87.313 Chronic venous hypertension (idiopathic) with ulcer of bilateral lower extremity (principal); L97.322 Non-pressure chronic ulcer of left ankle with fat layer exposed; E11.9 Type 2 diabetes mellitus without complications; I10 Essential (primary) hypertension; R39.81 Functional urinary incontinence; I48.91 Unspecified atrial fibrillation; I50.9 Heart failure, unspecified ==

== ENCOUNTER 2018-08-18 08:16 | Outpatient (CLI) | END 2018-08-18 08:17 | disposition home or self-care (01) | LOC: WOUND 08:16 | PROVIDERS: ATTEND Nurse Practitioner Family | DX: I87.313 Chronic venous hypertension (idiopathic) with ulcer of bilateral lower extremity (principal); L97.322 Non-pressure chronic ulcer of left ankle with fat layer exposed; E11.9 Type 2 diabetes mellitus without complications; I10 Essential (primary) hypertension; R39.81 Functional urinary incontinence; I48.91 Unspecified atrial fibrillation; I50.9 Heart failure, unspecified | CPT/HCPCS: 11042; 11045 ==

== ENCOUNTER 2018-08-25 08:09 | Outpatient (CLI) | payer OTHER | END 2018-08-25 08:10 | disposition home or self-care (01) | LOC: WOUND 08:09 | PROVIDERS: ATTEND Nurse Practitioner Family | DX: I87.313 Chronic venous hypertension (idiopathic) with ulcer of bilateral lower extremity (principal); L97.322 Non-pressure chronic ulcer of left ankle with fat layer exposed; E11.9 Type 2 diabetes mellitus without complications; I10 Essential (primary) hypertension; R39.81 Functional urinary incontinence; I48.91 Unspecified atrial fibrillation; I50.9 Heart failure, unspecified ==

== ENCOUNTER 2018-09-01 08:11 | Outpatient (CLI) | END 2018-09-01 08:12 | disposition home or self-care (01) | LOC: WOUND 08:11 | PROVIDERS: ATTEND Nurse Practitioner Family | DX: I87.313 Chronic venous hypertension (idiopathic) with ulcer of bilateral lower extremity (principal); L97.322 Non-pressure chronic ulcer of left ankle with fat layer exposed; E11.9 Type 2 diabetes mellitus without complications; I10 Essential (primary) hypertension; R39.81 Functional urinary incontinence; I48.91 Unspecified atrial fibrillation; I50.9 Heart failure, unspecified ==

== ENCOUNTER 2018-09-08 08:13 | Outpatient (CLI) | END 2018-09-08 08:14 | disposition home or self-care (01) | LOC: WOUND 08:13 | PROVIDERS: ATTEND Nurse Practitioner Family | DX: I87.313 Chronic venous hypertension (idiopathic) with ulcer of bilateral lower extremity (principal); L97.322 Non-pressure chronic ulcer of left ankle with fat layer exposed; E11.9 Type 2 diabetes mellitus without complications; I10 Essential (primary) hypertension; R39.81 Functional urinary incontinence; I48.91 Unspecified atrial fibrillation; I50.9 Heart failure, unspecified | CPT/HCPCS: 87070; 87186 ==

== ENCOUNTER 2018-09-15 08:16 | Outpatient (CLI) | END 2018-09-15 08:17 | disposition home or self-care (01) | LOC: WOUND 08:16 | PROVIDERS: ATTEND Nurse Practitioner Family | DX: I87.313 Chronic venous hypertension (idiopathic) with ulcer of bilateral lower extremity (principal); L97.322 Non-pressure chronic ulcer of left ankle with fat layer exposed; E11.9 Type 2 diabetes mellitus without complications; I10 Essential (primary) hypertension; R39.81 Functional urinary incontinence; I48.91 Unspecified atrial fibrillation; I50.9 Heart failure, unspecified | CPT/HCPCS: 11042; 97597 ==

== ENCOUNTER 2018-09-22 08:07 | Outpatient (CLI) | END 2018-09-22 08:08 | disposition home or self-care (01) | LOC: WOUND 08:07 | PROVIDERS: ATTEND Nurse Practitioner Family | DX: I87.313 Chronic venous hypertension (idiopathic) with ulcer of bilateral lower extremity (principal); L97.322 Non-pressure chronic ulcer of left ankle with fat layer exposed; E11.9 Type 2 diabetes mellitus without complications; I10 Essential (primary) hypertension; R39.81 Functional urinary incontinence; I48.91 Unspecified atrial fibrillation; I50.9 Heart failure, unspecified ==

== ENCOUNTER 2018-09-26 04:29 | Emergency (ER) | payer OTHER ==
[2018-09-26 04:54] VITALS: BP 147/86; BMI 64.0
[2018-09-26 05:04] VITALS: TEMP 99.3
--- NOTE | 2018-09-26 05:25 | ED.PDOC ---
General ED Provider: Dr. JOSE GUADALUPE CANCHOLA Chief Complaint: Wound Check Stated Complaint: Chronic cellulitis on left lower young after ladder fell on his both lower legs.Wound on the left side appeares less controlled,Cultured 2 weeks ago showed MRSA infection.No systemic signs or symptoms.Patient is grossly obese with fdecreased mobility and Martines cath for outlet obstruction.Draining a clear urine.Afebrile.Dressing change needed. Time Seen by Physician: 04:35 Mode of Arrival: Walk-In Information Source: Patient Exam Limitations: No limitations Primary Care Provider: DARRYL DIAL Nursing and Triage Documentation Reviewed and Agree: Yes Does patient meet sepsis criteria?: No System Inflammatory Response Syndrome: Not Applicable Sepsis Protocol: For patient's 13 years and over: Temp is 96.8 and below OR 101 and greater Pulse >90 BPM Resp >20/minute Acutely Altered Mental Status Are patient's symptoms suggestive of a new infection, such as: -Pneumonia -Skin, Soft Tissue -Endocarditis -UTI -Bone, Joint Infection -Implantable Device -Acute Abdominal Infection -Wound Infection -Meningitis -Blood Stream Catheter Infection -Unknown Musculoskeletal Complaint Exam - Lower Extremity Complaint/Exam Location of Pain: Reports: Left, Leg Mechanism of Injury: Reports: Trauma Onset/Duration: 5 y old trauma to both lower legs resulting in chronic cellulitus.Left wors Symptoms Are: Still present Initial Severity: Mild Current Severity: Mild Location: Reports: Discrete Character: Reports: Burning Alleviating: Reports: OTC meds Aggravating: Reports: Prolonged standing Able to Bear Weight: Yes Associated Signs and Symptoms: Reports: Swelling, Redness DVT Risk Factors: Reports: Recent bedrest Septic Arthritis Risk Factors: Reports: None Related Surgical History: Reports: None Lower Extremity Findings: Present: Erythema NV Bundle Intact Distal to Injury: Yes Differential Diagnoses: Burn, Contusion, Other Review of Systems - Review Of Systems Constitutional: Reports: Malaise, Weakness, Other Eyes: Reports: No symptoms Ears, Nose, Mouth, Throat: Reports: No symptoms Respiratory: Reports: No symptoms Cardiac: Reports: No symptoms GI: Reports: No symptoms : Reports: No symptoms Musculoskeletal: Reports: No symptoms Neurological: Reports: No symptoms Endocrine: Reports: No symptoms Hematologic/Lymphatic: Reports: No symptoms All Other Systems: Reviewed and Negative Past Medical History - Past Medical History Previously Healthy: No Endocrine: Reports: DM 2 Cardiovascular: Reports: Hypertension, CHF, A-Fib, Other (PVD) Respiratory: Reports: 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) Hematological: Reports: Anemia (hemolytic anemia) Gastrointestinal: Reports: GERD Genitourinary: Reports: None Neuro/Psych: Reports: None Musculoskeletal: Reports: None Cancer: Reports: None Other Pertinent Past Medical History: Chemo pills-(stopped NOW) - Surgical History General Surgical History: Reports: None, Other (WOUND CARE FOR LOWER LEGS) - Family History Family History: Reports: Unknown - Social History Smoking Status: Never smoker Hx Substance Use: No Alcohol Screening: None - Immunizations Tetanus Shot up to Date: Yes Physical Exam - Physical Exam Appearance: Ill-appearing Ill-appearing: Mild Pain Distress: None Eyes: JD, EOMI, Conjunctiva clear ENT: Ears normal, Nose normal, Oropharynx normal Respiratory: Airway patent, Breath sounds clear Cardiovascular: RRR, Pulses normal, No rub GI/: Soft, Nontender, No masses, Bowel sounds normal Musculoskeletal: Normal strength, ROM intact Skin: Warm, Dry Neurological: Sensation intact, Alert, Oriented Psychiatric: Affect appropriate Critical Care Note - Critical Care Note Total Time (mins): 0 Course - Course Hematology/Chemistry: 09/26/18 05:55 Orders, Labs, Meds: Lab Review 09/26/18 05:55 WBC 4.46 RBC 3.33 L Hgb 9.7 L Hct 31.0 L MCV 93.1 MCH 29.1 MCHC 31.3 L RDW Coeff of Yara 15.4 H Plt Count 69 L Immature Gran % (Auto) 1.1 Neut % (Auto) 63.2 Lymph % (Auto) 22.2 [place] % (Auto) 7.6 Eos % (Auto) 5.2 Baso % (Auto) 0.7 Immature Gran # (Auto) 0.1 Neut # (Auto) 2.8 Lymph # (Auto) 1.0 [place] # (Auto) 0.3 L Eos # (Auto) 0.2 Baso # (Auto) 0.0 Orders Category Date Time Status EKG-(ED ONLY) Stat CARDIO 09/26/18 06:37 Ordered IV [ED IV/MEDIPORT/POWERPORT] .ONCE EMERGENCY 09/26/18 05:41 Active Wound [ED WOUND CARE] .ONCE EMERGENCY 09/26/18 05:44 Active BLOOD CULTURE (ED ONLY) Stat LAB 09/26/18 05:49 Received CBC W/ AUTO DIFF Stat LAB 09/26/18 05:55 Completed 0.9 % Sodium Chloride [Saline Flush] MEDS 09/26/18 05:41 Active 1 syr IVF PRN PRN Mupirocin [Bactroban Ointment 1 Gram Applicator (ER)] MEDS 09/26/18 05:47 Discontinued 1 gm TP ONCE STA Sodium Chloride 0.9% [Sodium Chloride] 1,000 ml MEDS 09/26/18 05:43 Discontinued IV BOLUS Vancomycin HCl [Vancomycin] 1 gm MEDS 09/26/18 05:45 Discontinued 0.9 % Sodium Chloride [Sodium Chloride] 250 ml IV ONCE Medications Generic Name Dose Route Start Last Admin Trade Name Freq PRN Reason Stop Dose Admin Sodium Chloride 1 syr 09/26/18 05:41 09/26/18 06:21 Saline Flush IVF 1 syr PRN PRN Administration To flush IV Discontinued Medications Generic Name Dose Route Start Last Admin Trade Name Freq PRN Reason Stop Dose Admin Sodium Chloride 1,000 mls @ 1,000 mls/hr 09/26/18 05:43 09/26/18 06:22 Sodium Chloride IV 09/26/18 06:42 1,000 mls/hr BOLUS STA Administration Vancomycin HCl 1 gm/ Sodium 250 mls @ 250 mls/hr 09/26/18 05:45 09/26/18 06: 22 Chloride IV 09/26/18 06:44 250 mls/hr ONCE STA Administration Mupirocin 1 gm 09/26/18 05:47 Bactroban Ointment 1 Gram Applicator (Er) TP 09/26/18 05:48 ONCE STA Vital Signs: Temp Pulse Resp BP Pulse Ox 09/26/18 04:29 99.3 F 90 24 147/86 H 95 Departure - Departure Time of Disposition: 06:57 Disposition: HOME SELF-CARE Discharge Problem: Infection of wound due to methicillin resistant Staphylococcus aureus (MRSA) Instructions: Chronic Wounds (ED) Condition: Poor Pt referred to PMD for follow-up: Yes IPMP verified?: Yes Additional Instructions: follow wiyh an ouypatiewnt iv therapy and PCP for additional IV ABx, Allergies/Adverse Reactions: Allergies levofloxacin [From Levaquin] Adverse Reaction (Verified 09/26/18 04:55) Rash Home Medications: Ambulatory Orders Folic Acid 1 mg PO DAILY 04/20/13 Furosemide [Lasix] 40 mg PO BID PRN 12/19/13 Omeprazole [Prilosec] 20 mg PO DAILY 09/29/14 Apixaban [Eliquis] 5 mg PO BID 10/11/14 Aspirin [Aspir-Low] 81 mg PO DAILY 01/21/17 Diltiazem HCl [Cardizem] 120 mg PO BID 08/19/17 Metoprolol Tartrate [Lopressor] 100 mg PO BID 08/19/17 Multivitamin [Multi-Vitamin Daily] 1 each PO DAILY 09/16/17 Ascorbic Acid [Vitamin C] 500 mg PO DAILY 08/02/18 Disposition Discussed With: Patient
[2018-09-26] MEDS ORDERED: SODIUM CHLORIDE 1,000 ML IV STA (05:43)
[2018-09-26] MEDS ORDERED: VANCOMYCIN 1 GM in SODIUM CHLORIDE 250 ML IV STA (05:45)
[2018-09-26] MEDS ORDERED: BACTROBAN OINTMENT 1 GRAM APPLICATOR (ER) TP STA (05:47)
[2018-09-26] MEDS ORDERED: BACTROBAN OINTMENT 1 GRAM APPLICATOR (ER) ONE (06:56)
== END 2018-09-26 08:00 | disposition home or self-care (01) ==
LOC: ED 04:29
DX: S81.802A Unspecified open wound, left lower leg, initial encounter (principal); B95.62 Methicillin resistant Staphylococcus aureus infection as the cause of diseases classified elsewhere; L03.116 Cellulitis of left lower limb; L03.115 Cellulitis of right lower limb; W20.8XXD Other cause of strike by thrown, projected or falling object, subsequent encounter; E66.9 Obesity, unspecified; E11.9 Type 2 diabetes mellitus without complications; I10 Essential (primary) hypertension; D64.9 Anemia, unspecified; Z79.899 Other long term (current) drug therapy; Z79.01 Long term (current) use of anticoagulants; Z96.0 Presence of urogenital implants
CPT/HCPCS: 36415; 85025; 87040; 93005; 93010; 96361; 96365; 99284

== ENCOUNTER 2018-09-29 08:10 | Outpatient (CLI) | payer OTHER | END 2018-09-29 08:11 | disposition home or self-care (01) | LOC: WOUND 08:10 | PROVIDERS: ATTEND Nurse Practitioner Family | DX: I87.313 Chronic venous hypertension (idiopathic) with ulcer of bilateral lower extremity (principal); L97.322 Non-pressure chronic ulcer of left ankle with fat layer exposed; E11.9 Type 2 diabetes mellitus without complications; I10 Essential (primary) hypertension; R39.81 Functional urinary incontinence; I48.91 Unspecified atrial fibrillation; I50.9 Heart failure, unspecified | CPT/HCPCS: 11042; 97597 ==

== ENCOUNTER 2018-10-06 08:16 | Outpatient (CLI) | END 2018-10-06 08:17 | disposition home or self-care (01) | LOC: WOUND 08:16 | PROVIDERS: ATTEND Nurse Practitioner Family | DX: I87.313 Chronic venous hypertension (idiopathic) with ulcer of bilateral lower extremity (principal); L97.322 Non-pressure chronic ulcer of left ankle with fat layer exposed; E11.9 Type 2 diabetes mellitus without complications; I10 Essential (primary) hypertension; R39.81 Functional urinary incontinence; I48.91 Unspecified atrial fibrillation; I50.9 Heart failure, unspecified ==

== ENCOUNTER 2018-10-13 08:15 | Outpatient (CLI) ==
--- NOTE | 2018-10-13 10:38 | DI ---
EXAM: Three views of the left ankle. History: Left ankle wound. Findings: No acute fracture or dislocation. No ajith cortical destruction identified. Tiny plantar spur. Mild to moderate polyarticular arthritis. Soft tissue swelling is seen at the knee: There a re extensive soft tissue calcifications. Impression: No specific radiographic evidence for osteomyelitis. Other findings as detailed above.
== END 2018-10-13 08:16 | disposition home or self-care (01) ==
LOC: WOUND 08:15 → RAD 08:16
PROVIDERS: ATTEND Nurse Practitioner Family
DX: I87.313 Chronic venous hypertension (idiopathic) with ulcer of bilateral lower extremity (principal); L97.322 Non-pressure chronic ulcer of left ankle with fat layer exposed; E11.9 Type 2 diabetes mellitus without complications; I10 Essential (primary) hypertension; R39.81 Functional urinary incontinence; I48.91 Unspecified atrial fibrillation; I50.9 Heart failure, unspecified
CPT/HCPCS: 87070; 87186

== ENCOUNTER 2018-10-27 09:36 | Observation (INO) ==
[2018-10-27 10:41] VITALS: BMI 9720.9
[2018-10-27] MEDS: NEURONTIN PO SCH ×2 (14:19→19:10)
--- NOTE | 2018-10-27 15:24 | DI ---
EXAM: Chest two views HISTORY: Infection COMPARISON: 08/02/2018 TECHNIQUE: Two views of the chest were performed FINDINGS: No definite consolidation. Chronic blunting right costophrenic angle. No visible pneumot horax. The heart is enlarged, unchanged in size. The mediastinal contour is normal. There are no acute abnormalities of the bones. IMPRESSION: Cardiomegaly. No definite consolidation
--- NOTE | 2018-10-27 15:34 | US ---
Bilateral lower extremity venous Doppler HISTORY: Pain and tenderness Bilateral lower extremity. TECHNIQUE: Color, grayscale and spectral Doppler of Lower Extremity Veins. FINDINGS: Technically inhibited by body habitus limitations, edema and skin thickening. Lower extre mity venous structures examined for spontaneous flow, compression and augmentation. The common femor al vein, and greater saphenous, profunda, femoral, popliteal, peroneal, anterior tibial and posterior tibial veins were examined. Nonvisualization of the bilateral profunda femoral vein, superficial fe moral vein and peroneal veins. Nonvisualization of the left anterior tibial vein. Visualized vessel s are patent to spontaneous flow, compression and augmentation. IMPRESSION: 1.. Moderate to severely inhibited study as described. No evidence of deep venous thrombosis in the visualized structures of the Bilateral lower extremity.
[2018-10-27] MEDS ORDERED: LOTRIMIN TP SCH (20:00)
[2018-10-27] MEDS ORDERED: NON-FORMULARY MEDICATION (Diltiazem Hcl [Cardizem] 120 MG) PO SCH (21:00)
[2018-10-27] MEDS ORDERED: POTASSIUM CHLORIDE 40 MEQ PO SCH (21:00)
[2018-10-27] MEDS ORDERED: NON-FORMULARY MEDICATION (Metoprolol Tartrate [Lopressor] 50 MG) PO SCH (21:00)
[2018-10-27] MEDS ORDERED: ELIQUIS PO SCH (21:00)
[2018-10-27] MEDS ORDERED: LASIX TAB PO SCH (21:00)
[2018-10-28] MEDS: NEURONTIN PO SCH ×5 (01:16→21:07)
[2018-10-28] MEDS: NON-FORMULARY MEDICATION (Atorvastatin Calcium [Atorvastatin Calcium] 40 MG) PO SCH (08:55)
[2018-10-28] MEDS: ZESTRIL PO SCH (08:56)
[2018-10-28] MEDS: POTASSIUM CHLORIDE 40 MEQ PO SCH ×2 (08:57→21:07)
[2018-10-28] MEDS: NON-FORMULARY MEDICATION (Metoprolol Tartrate [Lopressor] 50 MG) PO SCH ×2 (08:58→21:13)
[2018-10-28] MEDS: ELIQUIS PO SCH ×2 (08:59→21:08)
[2018-10-28] MEDS ORDERED: PRILOSEC PO SCH (09:00)
[2018-10-28] MEDS: MULTIVITAMIN TABLET PO SCH (09:01)
[2018-10-28] MEDS: VITAMIN C PO SCH (09:02)
[2018-10-28] MEDS: NON-FORMULARY MEDICATION (Zolpidem Tartrate [Ambien] 10 MG) PO PRN (09:02)
[2018-10-28] MEDS: NON-FORMULARY MEDICATION (Diltiazem Hcl [Cardizem] 120 MG) PO SCH ×2 (09:04→21:02)
[2018-10-28] MEDS: LASIX TAB PO SCH ×2 (09:04→17:11)
[2018-10-28] MEDS: NON-FORMULARY MEDICATION (Esomeprazole Magnesium [Nexium] 20 MG) PO SCH (10:49)
[2018-10-28] MEDS: MAXIPIME 2 GM in SODIUM CHLORIDE 100 ML IV SCH ×2 (13:40→21:06)
[2018-10-28] MEDS: NORCO 5-325 PO PRN (13:44)
[2018-10-28] MEDS: LOPRESSOR PO SCH (21:06)
[2018-10-29] MEDS: NORCO 5-325 PO PRN ×2 (03:35→16:10)
[2018-10-29] MEDS: MAXIPIME 2 GM in SODIUM CHLORIDE 100 ML IV SCH (05:33)
[2018-10-29] MEDS: NON-FORMULARY MEDICATION (Esomeprazole Magnesium [Nexium] 20 MG) PO SCH (05:34)
[2018-10-29] MEDS: LASIX TAB PO SCH (05:34)
[2018-10-29] MEDS: NEURONTIN PO SCH ×2 (08:24→15:17)
[2018-10-29] MEDS: ZESTRIL PO SCH (08:25)
[2018-10-29] MEDS: NON-FORMULARY MEDICATION (Zolpidem Tartrate [Ambien] 10 MG) PO PRN (08:26)
[2018-10-29] MEDS: MULTIVITAMIN TABLET PO SCH (08:26)
[2018-10-29] MEDS: VITAMIN C PO SCH (08:27)
[2018-10-29] MEDS: NON-FORMULARY MEDICATION (Atorvastatin Calcium [Atorvastatin Calcium] 40 MG) PO SCH (08:27)
[2018-10-29] MEDS: POTASSIUM CHLORIDE 40 MEQ PO SCH (08:31)
[2018-10-29] MEDS: ELIQUIS PO SCH (08:32)
[2018-10-29] MEDS ORDERED: NON-FORMULARY MEDICATION (Diltiazem Hcl [Cardizem] 120 MG) PO SCH (09:00)
[2018-10-29 09:59] VITALS: TEMP 97.7
[2018-10-29] MEDS: LOPRESSOR PO SCH (10:01)
[2018-10-29] MEDS ORDERED: RIFAMPIN PO SCH (11:30)
[2018-10-29] MEDS ORDERED: BACTRIM DS 800/160 MG PO SCH (11:30)
[2018-10-29 13:53] VITALS: BP 83/56
--- NOTE | 2018-10-29 14:46 | HP ---
DATE OF SERVICE: 10/27/18 CHIEF COMPLAINT: Left lower extremity pain and worsening appearance and odor of the wound of the left lower extremity. HISTORY OF PRESENT ILLNESS: Mr. Gustavo Cabrales is a pleasant 58-year-old patient of Joya Devries APRN, who was seen at wound care today for his regular wound care followup. At his wound care appointment he complained of increase in pain to his left lower extremity with worsening appearance and some odor to the left lower extremity wound and the wound di appear to look worse and did have a odor. The wound continues to not heal. Dr. Méndez did evaluate the patient at wound care and decision was made between Joya and Dr. Méndez to admit the patient to the hospital for further evaluation, workup and treatment. The wound to the left lateral ankle is a chronic ulcer that is again not healed. It does measure approximately 8.5 cm length x 5.5 cm in width x 1.2 cm depth with an area of 46.75 sq cm and a volume of 56.1 cubic cm. Again he complains of the pain of being approximately 10/10 and describes the pain as throbbing. He normally does not complain of any kind of pain to his lower extremity ulcers. His lower extremities did have an increase in swelling. He had been on Augmentin prescription for lower extremity cellulitis. Initially, the swelling and cellulitis had improved with the Augmentin however over the last few days the pain and swelling has gotten worse. PAST MEDICAL HISTORY: Atrial fibrillation Congestive heart failure Diabetes mellitus Hemolytic anemia Obesity Sleep apnea Chronic lower extremity venous ulcers Suprapubic catheter followed by Dr. Lopez His infectious disease doctor is Dr. Villareal His assistant statistician is Dr. Tamayo Again he follows with Wound Care for lower extremity venous and diabetic ulcers PAST SURGICAL HISTORY: Lesion removed off of nose A cancerous lesion removed off of his chest Lung has been drained He has had a suprapubic catheter placed; he does have that replaced often per Dr. Lopez. FAMILY HISTORY: Lung cancer SOCIAL HISTORY: Never smoker. No alcohol use. Denies any substance abuse. MEDICATIONS: (Current Home) Potassium Chloride 20 mEq daily Ambien 10 mg at bedtime Vitamin C tablet daily Neurontin 300 mg three times a day Atorvastatin 40 mg tablet daily Metformin 500 mg tablet twice a day Lisinopril 5 mg tablet daily Multivitamin one tablet daily Diltiazem 120 mg daily Metoprolol 100 mg tablet twice a day Aspirin 81 mg daily Eliquis 5 mg tablet twice a day Omeprazole 20 mg daily Lasix 40 mg twice a day as needed Folic Acid 1 mg tablet daily ALLERGIES: LEVAQUIN REVIEW OF SYSTEMS: GENERAL: Denies any fever or chills. No nightsweats. He denies any weight changes. HEENT: He denies any complaints of headache. No reports of nasal drainage. No reports of sore throat. CARDIOVASCULAR: He does report a chronic irregular rhythm. He tells me that he has had this shocked multiple times with no success and returned to regular rhythm. He does have chronic atrial fibrillation. He has had an increase in peripheral edema with lower extremity throbbing to the left lower extremity. No reports of orthopnea. LUNGS: No reports of shortness of breath or cough. No reports of congestion. He denies any lung disease. GI: Denies any abdominal pain. No reports of nausea, vomiting, diarrhea, constipation. No reports of blood in stool. : He does have a suprapubic catheter. He reports that this was recently changed by Dr. Lopez. Denies any hematuria or problems with the catheter. MUSCULOSKELETAL: No reports of unusual muscle pain. He does complain of generalized weakness. Denies any joint redness or swelling. NEUROLOGIC: No reports of dizziness. No reports of neurological deficits. No lateral weakness. PSYCHIATRIC: No reports of anxiety, depression or mood changes. ENDOCRINE: There is reports of diabetes mellitus. No reports of thyroid disease. He denies any increase thirst, urination, heat or cold intolerance. INTEGUMENT: He does have multiple open wounds to the lower extremity. He does follow with infectious disease of [facility] as well as wound care. The left lateral ankle has an ulceration that has not healed. He describes the pain as throbbing pain the left lower extremity. The left lower exremitities are edematous and he does have brawny looking lower extremities and they are grossly edematous. He does have open wounds to the right lower extremity as well. PHYSICAL EXAMINATION: GENERAL: He is alert and oriented. He is obese. He is pleasant. No acute distress. VITAL SIGNS: On admission, Temperature 97.5, pulse rate 68, blood pressure 111/ 62, 02 sat 94%, weight 497 lbs, height 6' HEAD: Normocephalic, atraumatic. EYES: Pupils equal/reactive to light. Conjunctivae clear. Mucous membranes are moist. No dentures. Sclerae not icteric. THROAT: No inflammation, tumors or exudate. NECK: Supple. No JVD. No lymphadenopathy. No thyromegaly, no carotid bruits. CARDIOVASCULAR: He has an irregular rhythm, chronic atrial fibrillation, regular rate. Lower extreities are edematous. They are brawny looking in appearance and erythematous. Left is worse than right. LUNGS: Clear. No acute distress. HEART: Audible and regular with good tones. No murmurs. ABDOMEN: Pendulous with a cobblestone looking appearance of the lower abdomen. Bowel sounds are positive. No tenderness. No rebound tenderness. No rigidity. He does have a suprapubic catheter in place to the abdomen. NEUROLOGIC: Cranial nerves 2-12 are grossly intact. No neurological deficit. SKIN: Warm and dry. He does have lower extremity open ulcerations. The lower extremities are brawny in appearance, erythematous and grossly edematous. The first open ulceration is the left lateral ankle. It measures 8.5 cm length x 5.5 cm width x 1.2 cm depth with an area of 46.75 sq cm and a volume of 56.1 cubic cm. Tendon and Adipost are exposed. There is no tunneling has been noted. There is mild odor to this left lower extremity ulcer. There is pain to the left lower extremity ulcer. The right lower extremity has two open venous ulcers. The first one measures 3.2 cm length x 3 cm width x 2 cm depth with an area of 9.2 sq cm and a volume of 1.92 cubic cm. These measurements are noted per wound care documentation. Adipost tissue is exposed of this right lower extremity wound and no tunneling has been noted. The other right lower extremity wound is a chronic full thickness venous ulcer that is not healed. It is 2.4 cm length x 2.2 cm width by 0.2 cm depth with an area of 5.28 sq cm and a volume of 1.056 cubic cm. Adipost tissue is also exposed. Most recent labs and diagnostic testing: Hemoglobin on 09/26/2018 hemoglobin 9.7 , hematocrit 31.0. Chemistry panel on 08/02/18 BUN 20.7, creatinine 1.29 and procalcitonin 2.83. He had an ankle x-ray done on 10/13/18 that showed no specific radiographic evidence for osteomyelitis. ASSESSMENT/PLAN: 1. Left lower extremity cellulitis with non healing ulceration. 2. Increasing left lower extremity pain, rule out DVT or other cause of the increasing pain. 3. History of atrial fibrillation and congestive heart failure. 4. History of diabetes mellitus type 2. 5. History of hemolytic anemia. 6. Obesity. 7. History of sleep apnea. 8. Multiple open wounds of the lower extremities, non healing with ongoing wound care and infectious control following these. 9. Peripheral vascular disease of the lower extremities. 10. Suprapubic catheter. 11. Hyperlipidemia. 12. Hypertension. PLAN: 1. Admit the patient inpatient. 2. Order has been placed in the computer including telemetry monitoring, labs, resuming home medications, EKG, chest x-ray, wound cultures, blood cultures, cardiac markers, B12, thyroid levels, procalcitonin, hemoglobin A1C. 3. We will check an ultrasound of the lower extremities to determine the cause of the increasing pain of the left lower extremity. 4. Further orders and recommendations per Dr. Méndez. TIME SPENT: GREATER THAN 65 MINUTES MTDD
--- NOTE | 2018-11-19 11:25 | DS ---
DATE OF SERVICE: 10/29/18 FINAL DIAGNOSES: 1. CHRONIC LOWER EXTREMITY ULCERS 2. CHRONIC ATRIAL FIBRILLATION 3. CHRONIC HEMOLYTIC AUTOIMMUNE ANEMIA WITH BLOOD COUNT ON DISCHARGE, HEMOGLOBIN OF 8.9. 4. HISTORY OF SLEEP APNEA. 5. HISTORY OF COPD. 6. SUPRAPUBIC CATH FOLLOWED BY UROLOGY HISTORY OF PRESENT ILLNESS/HOSPITAL COURSE: Mr. Cabrales is a pleasant 58-year-old patient of Joya Devries, who presented from wound care with increasing pain to left lower extremity. He presented with a diagnosis of left lower extremity cellulitis and a non healing left lower extremity ulcer. A wound culture was obtained as well as blood culture. His blood cultures were negative after four days. His wound culture grew out Staphylococcus Aureus and E.coli. He was treated inpatient with Gabapentin for pain control and Cefepime. Labs were obtained. Home medications were resumed. Labs on admission white count normal. Procalcitonin negative. TSH normal. Hemoglobin A1C normal at 5.23. Electrolytes normal. GFR normal at 68. Urinalysis negative. Venous ultrasound negative for DVT. It was moderately to severely inhibited study - the venous ultrasound was. Chest x-ray was negative. Discharge medications: He would resume his normal reguloar home medications. Neurontin was changed to 300 mg every 6 hours. His Metoprolol was changed to 50 mg twice a day due to low blood pressure and his Cardizem was changed to 120 mg daily and he was also given a prescription for Rifampin and Bactrim. The Bactrim was one p.o. twice a day for 7 days and the Rifampin was 300 mg twice a day for 7 days. Discharge activity level as tolerated. He would have a followup appointment next week with Joya and further labs and diagnostic testing per recommendations per Dr. Feng and he would also followup with Wound Care next week as instructed. Further orders and recommendations per Dr. Ping Devries. PLAN: 1. The patient was instructed to keep his lower extremity elevated at all times. 2. He is to continue current dressing changes that he has been instructed to do as per wound care. TIME SPENT: GREATER THAN 30 MINUTES MTDD
--- NOTE | 2018-11-19 13:10 | PN ---
DATE OF SERVICE: 10/28/18 Conversation was carried out in the presence of a nurse, Arnav Ingram. I examined the abdominal wall that is markedly pendulous. The skin is cobbled and markedly thick. It is very hard to lift it up so much heavier probably because the fluid. He does have a suprapubic cystotomy and I asked him why and he told me that the urination down below has stopped. I am not certain as to what caused the problem. I asked him how much was his highest weight and he told me 545. He is now 497. I did tell him that I would try to refer him to a medical center. He told me he had been to [facility] some four years ago. I told him if I could get an acceptance from any of the [facility] so that if that happens is he willing to go. At the beginning he did not want to and vacillated. I told him I could not do that. If I have a firm commitment from him that he would go to these places if they would accept him and explore the possibility of resecting the pendulous abdomen. He did not give me a firm committment. I did tell him to think it over since tomorrow is October 28 and there will be no one whom I would be able to talk to with regards to him and transfer him to their facility. I told him that it would probably take several places before we could find one who could accept him. I do believe that if he would be able to withstand the procedure resecting the lower abdominal wall that is hanging that it would probably help with mobility. He does tell me that he still walks in spite of all the normal anatomic configuration. I would ask him again sometime either tomorrow 10/28/18 or Thursday10/29/18. ARABELLA
--- NOTE | 2018-11-19 13:33 | PN ---
DATE OF SERVICE: 10/28/18 SUBJECTIVE: The patient is alert, oriented, not dyspneic or tachypneic. The legs are slightly elevated. We need to elevate further to reduce the edema. I did tell him that I don't think the ulceration would ever heal if his legs are edematous. His legs are edematous and the edema is firm. It had been edematous for a long time. We need to elevate this leg as much as possible. He still hasn' t given me a firm committment with regards to going some place. We talked about his family. His stepfather is a patient of mine. He has a half sister which is between his mother and his stepfather. I asked him about his natural father and he told me that his natural father is more than 200 plus pounds. Electrocardiogram still shows atrial fibrillation. We will start him on Cefepime today 2 gm every 8 hours. It appears that the ulceration has surrounding cellulitis. ARABELLA
== END 2018-10-29 16:44 | disposition home or self-care (01) ==
LOC: MEDSURG B
PROVIDERS: ADMIT General Practice; ATTEND General Practice
DX: E11.9 Type 2 diabetes mellitus without complications; J44.9 Chronic obstructive pulmonary disease, unspecified; E66.9 Obesity, unspecified; R60.0 Localized edema; I73.9 Peripheral vascular disease, unspecified; L97.921 Non-pressure chronic ulcer of unspecified part of left lower leg limited to breakdown of skin; E78.5 Hyperlipidemia, unspecified; M79.662 Pain in left lower leg; I50.9 Heart failure, unspecified; D59.1 Other autoimmune hemolytic anemias; I48.91 Unspecified atrial fibrillation; G47.30 Sleep apnea, unspecified; I10 Essential (primary) hypertension

== ENCOUNTER 2018-12-22 08:15 | Outpatient (CLI) | payer OTHER, MEDICAID ==
[2018-11-03 10:34] VITALS: BMI 63.1
== END 2018-12-22 08:16 | disposition home or self-care (01) ==
LOC: WOUND 08:15
PROVIDERS: ATTEND Nurse Practitioner Family
DX: I87.313 Chronic venous hypertension (idiopathic) with ulcer of bilateral lower extremity (principal); L97.322 Non-pressure chronic ulcer of left ankle with fat layer exposed; E11.9 Type 2 diabetes mellitus without complications; I10 Essential (primary) hypertension; R39.81 Functional urinary incontinence; I48.91 Unspecified atrial fibrillation; I50.9 Heart failure, unspecified

== ENCOUNTER 2018-12-29 07:57 | Outpatient (CLI) | payer OTHER ==
[2018-11-03 10:34] VITALS: BMI 63.1
== END 2018-12-29 07:58 | disposition home or self-care (01) ==
LOC: WOUND 07:57
PROVIDERS: ATTEND Nurse Practitioner Family
DX: I87.313 Chronic venous hypertension (idiopathic) with ulcer of bilateral lower extremity (principal); L97.322 Non-pressure chronic ulcer of left ankle with fat layer exposed; E11.9 Type 2 diabetes mellitus without complications; I10 Essential (primary) hypertension; R39.81 Functional urinary incontinence; I48.91 Unspecified atrial fibrillation; I50.9 Heart failure, unspecified
CPT/HCPCS: 97597

== ENCOUNTER 2019-09-09 09:54 | Inpatient (IN) ==
[2019-09-09] MEDS ORDERED: SODIUM CHLORIDE 1,000 ML IV STA (10:13)
[2019-09-09] MEDS ORDERED: ZOFRAN 4 MG/2 ML IVP STA (10:13)
[2019-09-09] MEDS ORDERED: TYLENOL PO STA (10:13)
--- NOTE | 2019-09-09 10:21 | ED.PDOC ---
General ED Provider: Dr. MARTINEZ HENDERSON MD Chief Complaint: Weakness Stated Complaint: vomiting Time Seen by Physician: 10:17 Mode of Arrival: Walk-In Information Source: Patient Primary Care Provider: DARRYL DIAL APRN, FNP- Nursing and Triage Documentation Reviewed and Agree: Yes Does patient meet sepsis criteria?: No System Inflammatory Response Syndrome: Not Applicable Sepsis Protocol: For patient's 13 years and over: Temp is 96.8 and below OR 101 and greater Pulse >90 BPM Resp >20/minute Acutely Altered Mental Status Are patient's symptoms suggestive of a new infection, such as: -Pneumonia -Skin, Soft Tissue -Endocarditis -UTI -Bone, Joint Infection -Implantable Device -Acute Abdominal Infection -Wound Infection -Meningitis -Blood Stream Catheter Infection -Unknown GI Complaint Exam Vomiting/Diarrhea Complaint/Exam Onset/Duration: this morning Symptoms Are: Still present Episodes of Diarrhea Over Last 24 Hours: 0 Initial Severity: Moderate Current Severity: Moderate Character of Vomiting: Reports Non-bilious Aggravating: Reports None Alleviating: Reports None Associated Signs and Symptoms: Reports Fever Related History: Reports Recent antibiotics [place] Respirations Present: No Review of Systems Review Of Systems Constitutional: Reports Fever All Other Systems: Reviewed and Negative [facility] Medical History Abdominal obesity and metabolic syndrome Atrial fibrillation Chronic pain of left lower extremity Chronic pain of right lower extremity Congestive heart failure Diabetes mellitus Hemolytic anemia Hospital discharge follow-up Multiple open wounds of right lower extremity Non-healing ulcer of multiple sites of lower extremity Pain and swelling of left lower leg Pain and swelling of right lower leg Peripheral vascular disease Receiving intravenous antibiotic treatment as outpatient Sleep apnea Suprapubic catheter Family History FATHER Lung cancer Social History Smoking and tobacco status: Never smoker Second hand smoke exposure: Yes Alcohol intake: former Substance use type: does not use Lolly/mu-ism: Sabianism Special lolly needs: No Agree to transfusion: Yes Adopted: No Caregiver/support person: Yes Foster care: No Household members: none Housing: house Lives independently: Yes Highest education level completed: high school graduate Financial difficulty paying for basics: not applicable service: No Current occupational status: disabled Current occupational exposures/hazards: No 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 Pets and animals: No Leisure activites: reading and other History of recent travel: No Do you think of yourself as: straight/heterosexual Current gender identity: male Seatbelt use: never Helmet use: No Drives intoxicated or rides with intoxicated recycle driver: No Water heater temperature set < 120 degrees: Yes Working smoke detector in home: Yes Fire extinguisher in home: Yes Carbon monoxide detector in home: Yes Firearms in home: No Female Reproductive History Hx Hysterectomy: No Physical Exam Physical Exam Appearance: Reports Obese Ill-appearing: Mild Pain Distress: None Eyes: Reports JD, EOMI and Conjunctiva clear ENT: Reports Ears normal, Nose normal and Oropharynx normal Neck: Supple Respiratory: Reports Airway patent, Breath sounds clear and Breath sounds equal Cardiovascular: Reports RRR, Pulses normal, No rub and No murmur GI/: Reports Soft, Nontender, No masses and Bowel sounds normal Musculoskeletal: Reports Normal strength and ROM intact Skin: Reports Warm and Dry Neurological: Reports Sensation intact, Motor intact, Reflexes intact and Alert Psychiatric: Reports Affect appropriate Critical Care Note Critical Care Note Total Time (mins): 180 Course Course Hematology/Chemistry: 09/09/19 11:20 09/09/19 11:20 Orders, Labs, Meds: Lab Review 09/09/19 09/09/19 09/09/19 11:20 11:20 11:20 WBC 11.37 H RBC 4.16 L Hgb 11.6 L Hct 37.1 L MCV 89.2 MCH 27.9 MCHC 31.3 L RDW Coeff of Yara 16.6 H Plt Count 103 L Immature Gran % (Auto) 0.6 Neut % (Auto) 90.6 H Lymph % (Auto) 6.3 L [place] % (Auto) 2.1 Eos % (Auto) 0.2 Baso % (Auto) 0.2 Neut # (Auto) 10.3 H Lymph # (Auto) 0.7 [place] # (Auto) 0.2 L Eos # (Auto) 0.0 Baso # (Auto) 0.0 Immature Gran # (Auto) 0.1 Sodium 137.5 Potassium 4.37 Chloride 97.2 L Carbon Dioxide 30.1 H Anion Gap 14.57 BUN 30.4 H Creatinine 2.12 H Estimated GFR (MDRD) 32.00 BUN/Creatinine Ratio 14.33 Glucose 110.3 H Lactic Acid 1.93 Calcium 8.93 Total Bilirubin 1.96 H AST 24.9 ALT 17.4 Alkaline Phosphatase 97.8 Troponin I < 0.012 NT-Pro-B Natriuret Pep Total Protein 8.85 H Albumin 4.25 Globulin 4.60 Albumin/Globulin Ratio 0.92 Urine Color Urine Clarity Urine pH Ur Specific [place] Urine Protein Urine Glucose (UA) Urine Ketones Urine Blood Urine Nitrite Urine Bilirubin Urine Urobilinogen Ur Leukocyte Esterase Urine Microscopic RBC Ur Squamous Epith Cells SARS-CoV-2 RNA (RT-PCR) 09/09/19 09/09/19 09/09/19 11:20 11:50 Unknown WBC RBC Hgb Hct MCV MCH MCHC RDW Coeff of Yara Plt Count Immature Gran % (Auto) Neut % (Auto) Lymph % (Auto) [place] % (Auto) Eos % (Auto) Baso % (Auto) Neut # (Auto) Lymph # (Auto) [place] # (Auto) Eos # (Auto) Baso # (Auto) Immature Gran # (Auto) Sodium Potassium Chloride Carbon Dioxide Anion Gap BUN Creatinine Estimated GFR (MDRD) BUN/Creatinine Ratio Glucose Lactic Acid Calcium Total Bilirubin AST ALT Alkaline Phosphatase Troponin I NT-Pro-B Natriuret Pep 3660.000 H Total Protein Albumin Globulin Albumin/Globulin Ratio Urine Color Yellow Urine Clarity Clear Urine pH 5.0 Ur Specific [place] 1.010 Urine Protein Negative Urine Glucose (UA) Negative Urine Ketones Negative Urine Blood Trace-intact H Urine Nitrite Negative Urine Bilirubin Negative Urine Urobilinogen 0.2 Ur Leukocyte Esterase Negative Urine Microscopic RBC 0-2 Ur Squamous Epith Cells Not present SARS-CoV-2 RNA (RT-PCR) Orders Category Date Time Status EKG-(ED ONLY) Stat CARDIO 09/09/19 10:13 Completed BLOOD CULTURE (ED ONLY) Stat LAB 09/09/19 11:20 Received CBC W/ AUTO DIFF Stat LAB 09/09/19 11:20 Completed COMPREHENSIVE METABOLIC PANEL Stat LAB 09/09/19 11:20 Completed COVID19, PCR IDPH Stat LAB 09/09/19 Completed LACTIC ACID Stat LAB 09/09/19 11:20 Completed NT-PROBNP Stat LAB 09/09/19 11:20 Completed TROPONIN I Stat LAB 09/09/19 11:20 Completed URINALYSIS C & S IF INDICATED Stat LAB 09/09/19 11:50 Completed Acetaminophen [Tylenol] MEDS 09/09/19 10:13 Discontinued 650 mg PO ONCE STA Ondansetron HCl/Pf [Zofran 4 mg/2 ml] MEDS 09/09/19 10:13 Discontinued 4 mg IVP ONCE STA Sodium Chloride 0.9% [Sodium Chloride] 1,000 ml MEDS 09/09/19 10:13 Discontinued IV BOLUS CHEST, 1V AP ONLY Stat RADS 09/09/19 10:13 Completed Medications Discontinued Medications Generic Name Dose Route Start Last Admin Trade Name Freq PRN Reason Stop Dose Admin Acetaminophen 650 mg 09/09/19 10:13 09/09/19 11:24 Tylenol PO 09/09/19 10:14 650 mg ONCE STA Administration Sodium Chloride 1,000 mls @ 1,000 mls/hr 09/09/19 10:13 09/09/19 11:36 Sodium Chloride IV 09/09/19 11:12 1,000 mls/hr BOLUS STA Administration Ondansetron HCl 4 mg 09/09/19 10:13 09/09/19 11:36 Zofran 4 Mg/2 Ml IVP 09/09/19 10:14 4 mg ONCE STA Administration Vital Signs: Temp Pulse Resp BP Pulse Ox 09/09/19 13:34 98.9 F 79 20 105/48 L 95 09/09/19 09:57 99.7 F H 69 28 H 128/74 95 Discharge Plan Discharge Patient Disposition: ADMITTED INPATIENT Discharge Problem: Acute kidney injury, Vomiting, CHF (congestive heart failure) Prescriptions: No Action furosemide [Lasix] 40 MG tablet 40 mg PO BID PRN (Reason: Swelling) RF: 0 Eliquis 5 MG tablet 5 mg PO BID RF: 0 lisinopril 5 MG tablet 5 mg PO DAILY Qty: 90 RF: 3 potassium chloride 20 mEq tablet extended release 40 meq PO BID Qty: 180 RF: 0 folic acid 1 MG tablet 1 mg PO DAILY RF: 0 aspirin [Aspir-Low] 81 MG tablet,delayed release (DR/EC) 81 mg PO DAILY RF: 0 esomeprazole magnesium [Nexium] 20 MG capsule,delayed release(DR/EC) 20 mg PO DAILY RF: 0 Metoprolol Tartrate [Lopressor] Tablet 50 mg PO BID Qty: 60 RF: 0 metformin 500 mg tablet 500 mg PO BID RF: 0 zolpidem 10 mg tablet 10 mg PO BEDTIME RF: 0 atorvastatin 40 mg tablet 40 mg PO DAILY RF: 0 gabapentin 600 mg tablet 600 mg PO TID RF: 0 Diltiazem Hcl [Cardizem] 120 mg PO BID RF: 0 multivitamin [Daily Multi-Vitamin] 1 EACH tablet 1 ea PO DAILY RF: 0 ascorbic acid (vitamin C) [Vitamin C] 500 MG tablet 1,000 mg PO DAILY RF: 0 hydrocodone-acetaminophen [[place]] 5-325 mg tablet 1 tab PO BID PRN (Reason: pain) Qty: 30 RF: 0 ED Provider: MARTINEZ HENDERSON Condition: Stable
--- NOTE | 2019-09-09 11:17 | DI ---
EXAM: Single frontal view of the chest HISTORY: Cough. COMPARISON: Chest x-ray 06/01/2019 and multiple priors FINDINGS: Cardiomediastinal silhouette is unchanged. Mildly enlarged. There is no pneumothorax or e ffusion. Lung volumes are diminished. The osseous structures are unremarkable. IMPRESSION: No acute cardiopulmonary process
[2019-09-09 11:30] LABS: HEMATOCRIT 37.1 % (42.0-52.0)
--- NOTE | 2019-09-09 14:42 | PCM ---
Chief Complaint Chief Complaint: Fever, Chills, Weakness, Shaking, Vomiting History of Present Illness History of Present Illness: Pt is a 58 y/o male with a positive outlook given his past history and comorbidities. Pt states that since last night he was occasionally shaking for a few moments and once in a while he would vomit and about 15 minutes later he would feel better. Pt states that he has lost about 70 lbs over the last month or so. When asked about his Lasix he states that he has been taking it daily and once in a while he will take 1/2 tab more than prescribed. He has been feeling weak for a couple days as well. Admits to cough on occasion with fever and chills as well as the shaking and vomiting. Pt denies chest pain, SOB or increased WOB, denies abdominal pain but did say that on occasion (more frequently then over the past 2-3 years) his lower abdomen (bladder) would feel firm/bloated and then he would urinate via his suprapubic catheter and the pressure would go away. States urine has been clear without clots. Denies any diarrhea. Pt has been dealing with ulcers of both lower extremities for a few months now with several rounds of IV antibiotics and various topical Ab and other Tx. Pt states that they are starting to heal up when the above symptoms started. Review of Systems Constitutional: Reports fever, chills and weakness Eyes: Denies blurred vision, double-vision and discharge Nose: Denies congestion Throat: Denies pain and swelling Mouth: Denies pain Respiratory: Reports cough (Occasional); Denies shortness of air and pain with breathing Cardiovascular: Reports edema (but this has improved with his weight loss. ); Denies chest pain and diaphoresis Gastrointestinal: Reports nausea and vomiting; Denies abdominal pain and d iarrhea Genitourinary: Reports other (as noted in the HPI. ) Neurological: Reports weakness; Denies headache, dizziness and seizure Skin: Reports wounds (2 small stage II ulcers outer aspect LLE, 2 larger stage II ulcers outer aspect RLE; states these are healing. ) Immunology: Reports difficulty healing Psychiatric: Denies depression and anxiety Allergies Allergies Allergy/AdvReac Type Severity Reaction Status Date / Time No Known Allergies Allergy Verified 09/09/19 10:12 [facility] Medical History Abdominal obesity and metabolic syndrome Atrial fibrillation Chronic pain of left lower extremity Chronic pain of right lower extremity Congestive heart failure Diabetes mellitus Hemolytic anemia Hospital discharge follow-up Multiple open wounds of right lower extremity Non-healing ulcer of multiple sites of lower extremity Pain and swelling of left lower leg Pain and swelling of right lower leg Peripheral vascular disease Receiving intravenous antibiotic treatment as outpatient Sleep apnea Suprapubic catheter Surgical History History of respiratory system surgery Family History FATHER Lung cancer Social History Smoking and tobacco status: Never smoker Second hand smoke exposure: Yes Alcohol intake: former Substance use type: does not use Lolly/taoism: Jainism Special lolly needs: No Agree to transfusion: Yes Adopted: No Caregiver/support person: Yes Foster care: No Household members: none Housing: house Lives independently: Yes Highest education level completed: high school graduate Financial difficulty paying for basics: not applicable service: No Current occupational status: disabled Current occupational exposures/hazards: No 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 Pets and animals: No Leisure activites: reading and other History of recent travel: No Do you think of yourself as: straight/heterosexual Current gender identity: male Seatbelt use: never Helmet use: No Drives intoxicated or rides with intoxicated cdl 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: No Water heater temperature set < 120 degrees: Yes Working smoke detector in home: Yes Fire extinguisher in home: Yes Carbon monoxide detector in home: Yes Firearms in home: No Body Composition Height: 6 ft Weight: 430 lb Body Mass Index (BMI): 58.3 Vital Signs Temperature: 98.9 F Pulse Rate: 79 Respiratory Rate: 20 Blood Pressure: 105/48 O2 Sat by Pulse Oximetry: 95 Physical Examination Appearance: Reports No pain distress and Obese Ill-appearing: Mild Eyes: Reports JD and Conjunctiva clear ENT: Reports Nose normal Respiratory: Reports Airway patent, Breath sounds clear and Breath sounds equal Cardiovascular: Reports RRR, No rub and No murmur GI/: Reports Soft (Suprapubic catheter in place and insertion site looks clean without drainage or erythema. ), Nontender and Bowel sounds normal Musculoskeletal: Reports Limited ROM (d/t morbid obesity, weakness, and edema. ) and Edema Skin: Reports Warm, Dry and Pale Neurological: Reports Sensation intact, Alert and Oriented Psychiatric: Reports Affect appropriate and Mood appropriate Lab/Tests/Diagnostic Imaging Lab/Tests/Diagnostic Imaging: Lab Review 09/09/19 09/09/19 09/09/19 11:20 11:20 11:20 WBC 11.37 H RBC 4.16 L Hgb 11.6 L Hct 37.1 L MCV 89.2 MCH 27.9 MCHC 31.3 L RDW Coeff of Yara 16.6 H Plt Count 103 L Immature Gran % (Auto) 0.6 Neut % (Auto) 90.6 H Lymph % (Auto) 6.3 L [place] % (Auto) 2.1 Eos % (Auto) 0.2 Baso % (Auto) 0.2 Neut # (Auto) 10.3 H Lymph # (Auto) 0.7 [place] # (Auto) 0.2 L Eos # (Auto) 0.0 Baso # (Auto) 0.0 Immature Gran # (Auto) 0.1 Sodium 137.5 Potassium 4.37 Chloride 97.2 L Carbon Dioxide 30.1 H Anion Gap 14.57 BUN 30.4 H Creatinine 2.12 H Estimated GFR (MDRD) 32.00 BUN/Creatinine Ratio 14.33 Glucose 110.3 H Lactic Acid 1.93 Calcium 8.93 Total Bilirubin 1.96 H AST 24.9 ALT 17.4 Alkaline Phosphatase 97.8 Troponin I < 0.012 NT-Pro-B Natriuret Pep Total Protein 8.85 H Albumin 4.25 Globulin 4.60 Albumin/Globulin Ratio 0.92 Urine Color Urine Clarity Urine pH Ur Specific [place] Urine Protein Urine Glucose (UA) Urine Ketones Urine Blood Urine Nitrite Urine Bilirubin Urine Urobilinogen Ur Leukocyte Esterase Urine Microscopic RBC Ur Squamous Epith Cells SARS-CoV-2 RNA (RT-PCR) 09/09/19 09/09/19 09/09/19 11:20 11:50 Unknown WBC RBC Hgb Hct MCV MCH MCHC RDW Coeff of Yara Plt Count Immature Gran % (Auto) Neut % (Auto) Lymph % (Auto) [place] % (Auto) Eos % (Auto) Baso % (Auto) Neut # (Auto) Lymph # (Auto) [place] # (Auto) Eos # (Auto) Baso # (Auto) Immature Gran # (Auto) Sodium Potassium Chloride Carbon Dioxide Anion Gap BUN Creatinine Estimated GFR (MDRD) BUN/Creatinine Ratio Glucose Lactic Acid Calcium Total Bilirubin AST ALT Alkaline Phosphatase Troponin I NT-Pro-B Natriuret Pep 3660.000 H Total Protein Albumin Globulin Albumin/Globulin Ratio Urine Color Yellow Urine Clarity Clear Urine pH 5.0 Ur Specific [place] 1.010 Urine Protein Negative Urine Glucose (UA) Negative Urine Ketones Negative Urine Blood Trace-intact H Urine Nitrite Negative Urine Bilirubin Negative Urine Urobilinogen 0.2 Ur Leukocyte Esterase Negative Urine Microscopic RBC 0-2 Ur Squamous Epith Cells Not present SARS-CoV-2 RNA (RT-PCR) Orders Category Date Time Status [facility] ADMISSION 09/09/19 14:14 Active EKG-(ED ONLY) Stat CARDIO 09/09/19 10:13 Completed TELEMETRY MONITORING TELE CARE 09/09/19 14:15 Active BLOOD CULTURE (ED ONLY) Stat LAB 09/09/19 11:20 Received CBC W/ AUTO DIFF Stat LAB 09/09/19 11:20 Completed COMPREHENSIVE METABOLIC PANEL Stat LAB 09/09/19 11:20 Completed COVID19, PCR IDPH Stat LAB 09/09/19 Completed LACTIC ACID Stat LAB 09/09/19 11:20 Completed NT-PROBNP Stat LAB 09/09/19 11:20 Completed TROPONIN I Stat LAB 09/09/19 11:20 Completed URINALYSIS C & S IF INDICATED Stat LAB 09/09/19 11:50 Completed Acetaminophen [Tylenol] MEDS 09/09/19 10:13 Discontinued 650 mg PO ONCE STA Ondansetron HCl/Pf [Zofran 4 mg/2 ml] MEDS 09/09/19 10:13 Discontinued 4 mg IVP ONCE STA Sodium Chloride 0.9% [Sodium Chloride] 1,000 ml MEDS 09/09/19 10:13 Discontinued IV BOLUS CHEST, 1V AP ONLY Stat RADS 09/09/19 10:13 Completed Medications Discontinued Medications Generic Name Dose Route Start Last Admin Trade Name Freq PRN Reason Stop Dose Admin Acetaminophen 650 mg 09/09/19 10:13 09/09/19 11:24 Tylenol PO 09/09/19 10:14 650 mg ONCE STA Administration Sodium Chloride 1,000 mls @ 1,000 mls/hr 09/09/19 10:13 09/09/19 11:36 Sodium Chloride IV 09/09/19 11:12 1,000 mls/hr BOLUS STA Administration Ondansetron HCl 4 mg 09/09/19 10:13 09/09/19 11:36 Zofran 4 Mg/2 Ml IVP 09/09/19 10:14 4 mg ONCE STA Administration Assessment (1) Dehydration: Status: Acute Code(s): E86.0 - Dehydration SNOMED Code(s): 62956719 (2) CHF (congestive heart failure): Status: Acute Code(s): I50.9 - Heart failure, unspecified SNOMED Code(s): 11920745 Qualifiers: Heart failure chronicity: chronic Heart failure type: unspecified Qualified Code(s): I50.9 - Heart failure, unspecified (3) Person under investigation for COVID-19: Status: Acute Code(s): Z20.828 - Contact with and (suspected) exposure to other viral communicable diseases SNOMED Code(s): 830368733 (4) Acute kidney injury: Status: Acute Code(s): N17.9 - Acute kidney failure, unspecified SNOMED Code(s): 76910554 (5) Vomiting: Status: Acute Code(s): R11.10 - Vomiting, unspecified SNOMED Code(s): 778154810 Qualifiers: Nausea presence: with nausea Vomiting Intractability: non-intractable Vomiting type: unspecified Qualified Code(s): R11.2 - Nausea with vomiting, unspecified (6) Healing ulcers of both lower extremities: Status: Acute Code(s): L97.919 - Non-pressure chronic ulcer of unspecified part of right lower leg with unspecified severity; L97.929 - Non-pressure chronic ulcer of unspecified part of left lower leg with unspecified severity SNOMED Code(s): 28362479 Plan Plan: 1) Dehydration: NS 125 ml/hr with careful monitoring for fluid overload d/t CHF, Strict I&O 2) Congestive Heart Failure: [place], Monitor for fluid overload, Strict I&O, Daily Weights, Lasix on hold d/t dehydration, Monitor CBC, BMP, Troponin & CK Series, VS Q4H, EKG in AM, HOB 30` 3) Acute Kidney Injury: Hydration with NS 125 ml/hr, monitor renal function, monitor fluid overload d/t CHF, renal diet 4) Vomiting: Pt states he is feeling fine now, Zofran IV 4 mg Q6h PRN 5) Person Under Investigation for COVID-19: Awaiting results of swab, Contact Isolation. 6) Healing Ulcers of Both Lower Extremities: 2 X Stage II Ulcers LLE sizes are: 2 X Stage II Ulcers RLE sizes are: Will measure ulcers in the AM as Pt already had DRSG changed today with Wound Care. Will continue Wound Clinic regimen of Opticell Ag+ daily.
[2019-09-09] MEDS ORDERED: ZOFRAN 4 MG/2 ML IVP PRN (15:02)
[2019-09-09] MEDS ORDERED: NORCO 5-325 PO PRN (15:08)
[2019-09-09 15:23] VITALS: BMI 60.5
[2019-09-09] MEDS: GLUCOPHAGE PO SCH (16:39)
[2019-09-09] MEDS: SODIUM CHLORIDE 1,000 ML IV SCH (16:40)
[2019-09-09] MEDS: TYLENOL PO PRN (18:32)
[2019-09-09] MEDS: AMBIEN PO SCH (20:52)
[2019-09-09] MEDS: NEURONTIN PO SCH (20:52)
[2019-09-09] MEDS: CARDIZEM PO SCH (20:52)
[2019-09-09] MEDS: LOPRESSOR PO SCH (20:52)
[2019-09-09] MEDS: ELIQUIS PO SCH (20:52)
[2019-09-09] MEDS ORDERED: NON-FORMULARY MEDICATION (Metoprolol Tartrate [Lopressor] 50 MG) PO SCH (21:00)
[2019-09-09] MEDS ORDERED: NON-FORMULARY MEDICATION (Diltiazem Hcl [Cardizem] 120 MG) PO SCH (21:00)
[2019-09-10] MEDS: SODIUM CHLORIDE 1,000 ML IV SCH ×4 (02:30→13:17)
[2019-09-10] MEDS: TYLENOL PO PRN ×2 (04:05→19:18)
[2019-09-10] MEDS: PROTONIX PO SCH (05:39)
[2019-09-10 07:06] LABS: HEMATOCRIT 30.9 % (42.0-52.0)
[2019-09-10] MEDS: NEURONTIN PO SCH ×3 (09:06→21:02)
[2019-09-10] MEDS: LOPRESSOR PO SCH ×2 (09:06→21:01)
[2019-09-10] MEDS: FOLIC ACID PO SCH (09:06)
[2019-09-10] MEDS: ASPIRIN EC PO SCH (09:07)
[2019-09-10] MEDS: VITAMIN C PO SCH (09:07)
[2019-09-10] MEDS: CARDIZEM PO SCH ×2 (09:08→21:01)
[2019-09-10] MEDS: ELIQUIS PO SCH ×2 (09:08→21:02)
[2019-09-10] MEDS: MULTIVITAMIN TABLET PO SCH (09:08)
[2019-09-10] MEDS: GLUCOPHAGE PO SCH ×2 (09:08→17:06)
--- NOTE | 2019-09-10 16:55 | PCM.PROG ---
Date Seen by Provider: 09/10/19 Time Seen by Provider: 07:30 Subjective: Pt states that he is feeling better than yesterday. He states he did have an elevated temp this AM but now it is 98.9`F. Pt denies N/V. States he had a good night sleep but his home CPAP mask has a small tear in it and is going to fix it when his family brings him a replacement from home or other item to fix this. Pt denies any bladder issues like he did on admission. Pt denies any or increased WOB, no CP, no diarrhea, no other pain reported. Objective: Vitals: T=98.9 F, P=70, R=16, HG=554/71, SPO2=93 HEENT: no nasal drainage or congestion today Neck: soft, however due to body habitus I am unable to palpate any lymph nodes. Lungs: remain clear in all naylor, no distress CVS: RRR, no murmur, rubs, or clicks, no cardiac dysrhythmias noted or reported by RN Abdomen: soft, non-tender, no pain on palpation Extremities: LE remain soft and without pain (during previous visit Pt's LEs were quite taught with fluid) wounds as noted below in Plan Neurological: A&Ox4, no shaking today or overnight Skin: All 4 sites look good, well granulated, healing, 2 X Stage II Ulcers RLE sizes are: #1 Upper is 9cm X 4 cm, #2 Lower is 6 cm X 2.5 cm; 2 X Stage II Ulcers LLE sizes are:#3 Upper is 2.1 cm X 1.2 cm, #4 lower is 3.8 cm X 1.7 cm. Lab/Tests/Diagnostic Imaging: [] (1) Dehydration: Status: Acute Code(s): E86.0 - Dehydration SNOMED Code(s): 01509347 (2) CHF (congestive heart failure): Status: Acute Code(s): I50.9 - Heart failure, unspecified SNOMED Code(s): 30200181 (3) Person under investigation for COVID-19: Status: Acute Code(s): Z20.828 - Contact with and (suspected) exposure to other viral communicable diseases SNOMED Code(s): 414484703 (4) Acute kidney injury: Status: Acute Code(s): N17.9 - Acute kidney failure, unspecified SNOMED Code(s): 93350773 (5) Vomiting: Status: Acute Code(s): R11.10 - Vomiting, unspecified SNOMED Code(s): 631108509 (6) Healing ulcers of both lower extremities: Status: Acute Code(s): L97.919 - Non-pressure chronic ulcer of unspecified part of right lower leg with unspecified severity; L97.929 - Non-pressure chronic ulcer of unspecified part of left lower leg with unspecified severity SNOMED Code(s): 85661258 Plan: 1) Dehydration: NS 125 ml/hr with careful monitoring for fluid overload d/t CHF, Strict I&O 09/10/2019: Pt is feeling better today, does not look as tired as yesterday, n ot as pale as yesterday, continue with IVF but at a lower rate 50 ml/hr, continue to monitor, continue to hold lasix 2) Congestive Heart Failure: [place], Monitor for fluid overload, Strict I&O, Daily Weights, Lasix on hold d/t dehydration, Monitor CBC, BMP, Troponin & CK Series, VS Q4H, EKG in AM, HOB 30` 09/10/2019: No Cardiac dysrythmias reported or noted on monitor, Lungs remain clear in all naylor, denies chest pain or difficulty breathing. 3) Acute Kidney Injury: Hydration with NS 125 ml/hr, monitor renal function, monitor fluid overload d/t CHF, renal diet 09/10/2019: Continue with IVF but at a slower rate as noted above, renal function is improving, urine in ye continues to appear yellowish/gareth. 4) Vomiting: Pt states he is feeling fine now, Zofran IV 4 mg Q6h PRN 09/10/2019: Pt has been without N/V 5) Person Under Investigation for COVID-19: Awaiting results of swab, Contact Isolation. 09/10/2019: Continue to wait for results. 6) Healing Ulcers of Both Lower Extremities: 2 X Stage II Ulcers LLE sizes are: 2 X Stage II Ulcers RLE sizes are: Will measure ulcers in the AM as Pt already had DRSG changed today with Wound Care. Will continue Wound Clinic regimen of Opticell Ag+ daily. 09/10/2019: All 4 sites look good, well granulated, healing, 2 X Stage II Ulcers RLE sizes are: #1 Upper is 9cm X 4 cm, #2 Lower is 6 cm X 2.5 cm; 2 X Stage II Ulcers LLE sizes are:#3 Upper is 2.1 cm X 1.2 cm, #4 lower is 3.8 cm X 1.7 cm. DC planning: Reduce amount of Lasix Pt has during the day. Pt states he takes this PRN. Pt will continue with outpatient Wound Care, Pt needs to follow up with his PCP.
[2019-09-10] MEDS: AMBIEN PO SCH (21:02)
[2019-09-11 04:25] LABS: HEMATOCRIT 30.4 % (42.0-52.0)
[2019-09-11] MEDS: PROTONIX PO SCH (05:37)
--- NOTE | 2019-09-11 07:34 | PCM.PROG ---
Date Seen by Provider: 09/11/19 Time Seen by Provider: 07:30 Subjective: Pt states he is feeling even better today. Denies any SOB or increased WOB, denies CP as well, denies abdominal issues, states no ye or ye insertion site issues, no pain to LEs. Objective: Vitals: T=98.6 F, P=60, R=16, BP=90/49, SPO2=95 as of 1049 hours BP improved 118/68 with HR 68 and SpO2 97% HEENT: nose remains without drainage or congestion Lungs: Clear all naylor anteriorly and posteriorly CVS: RRR, no rubs, clicks, murmurs Abdomen: morbidly obese, normal bowel sounds, ye insertion site is clean, no tenderness Extremities: non-pitting edema, wound care in place, no pain other than when addressing/assessing wounds Neurological: CN II-XII grossly intact, normal movement with some limitation d/t body habitus Skin: Wounds continue as noted below in Plan. Lab/Tests/Diagnostic Imaging: [] (1) Dehydration: Status: Acute Code(s): E86.0 - Dehydration SNOMED Code(s): 12808455 (2) CHF (congestive heart failure): Status: Acute Code(s): I50.9 - Heart failure, unspecified SNOMED Code(s): 88036392 (3) Person under investigation for COVID-19: Status: Acute Code(s): Z20.828 - Contact with and (suspected) exposure to other viral communicable diseases SNOMED Code(s): 761092102 (4) Acute kidney injury: Status: Acute Code(s): N17.9 - Acute kidney failure, unspecified SNOMED Code(s): 51804649 (5) Vomiting: Status: Acute Code(s): R11.10 - Vomiting, unspecified SNOMED Code(s): 818693586 (6) Healing ulcers of both lower extremities: Status: Acute Code(s): L97.919 - Non-pressure chronic ulcer of unspecified part of right lower leg with unspecified severity; L97.929 - Non-pressure chronic ulcer of unspecified part of left lower leg with unspecified severity SNOMED Code(s): 78252898 Plan: 1) Dehydration: NS 125 ml/hr with careful monitoring for fluid overload d/t CHF, Strict I&O 09/10/2019: Pt is feeling better today, does not look as tired as yesterday, not as pale as yesterday, continue with IVF but at a lower rate 50 ml/hr, continue to monitor, continue to hold lasix 09/11/2019: Pt states that he does feel better, will continue with IVFs with a close eye on overload. 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 09/11/2019: Taking a look back over the last 24 hour period Pt does have a little wide QRS and there were some irregularities, no reported chest pain, Pts home meds have been continued, will monitor for fluid overload since he his getting IVFs for his Dehydration. IVFs changed to 20 mEq K in NS @ 125 ml/hr since K was slightly low this AM, lungs remain clear in all naylor at this time. 3) Acute Kidney Injury: Hydration with NS 125 ml/hr, monitor renal function, monitor fluid overload d/t CHF, renal diet 09/10/2019: Continue with IVF but at a slower rate as noted above, renal function is improving, urine in ye continues to appear yellowish/gareth. 09/11/2019: Now with 20 mEq K in NS @ 125 ml/hr 4) Vomiting: Pt states he is feeling fine now, Zofran IV 4 mg Q6h PRN 09/10/2019: Pt has been without N/V 09/11/2019: Pt has been without N/V throughout the night and into this AM. 5) Person Under Investigation for COVID-19: Awaiting results of swab, Contact Isolation. 09/10/2019: Continue to wait for results. 09/11/2019: Pt is Negative for COVID-19 6) Healing Ulcers of Both Lower Extremities: 2 X Stage II Ulcers LLE sizes are: 2 X Stage II Ulcers RLE sizes are: Will measure ulcers in the AM as Pt already had DRSG changed today with Wound Care. Will continue Wound Clinic regimen of Opticell Ag+ daily. 09/10/2019: All 4 sites look good, well granulated, healing, 2 X Stage II Ulcers RLE sizes are: #1 Upper is 9cm X 4 cm, #2 Lower is 6 cm X 2.5 cm; 2 X Stage II Ulcers LLE sizes are:#3 Upper is 2.1 cm X 1.2 cm, #4 lower is 3.8 cm X 1.7 cm. 09/11/2019: Continue with Tx as noted above. DC planning: Reduce amount of Lasix Pt has during the day. Pt states he takes this PRN. Pt will continue with outpatient Wound Care, Pt needs to follow up with his PCP.
[2019-09-11] MEDS: SODIUM CHLORIDE 0.9%-KCL 20 MEQ 1,000 ML IV SCH ×2 (08:13→22:25)
[2019-09-11] MEDS: FOLIC ACID PO SCH (08:15)
[2019-09-11] MEDS: SODIUM CHLORIDE 1,000 ML IV SCH (08:15)
[2019-09-11] MEDS: GLUCOPHAGE PO SCH ×2 (08:16→16:45)
[2019-09-11] MEDS: ASPIRIN EC PO SCH (08:16)
[2019-09-11] MEDS: LOPRESSOR PO SCH ×2 (08:16→21:04)
[2019-09-11] MEDS: MULTIVITAMIN TABLET PO SCH (08:16)
[2019-09-11] MEDS: CARDIZEM PO SCH ×2 (08:17→21:04)
[2019-09-11] MEDS: VITAMIN C PO SCH (08:17)
[2019-09-11] MEDS: NEURONTIN PO SCH ×3 (08:18→21:04)
[2019-09-11] MEDS: ELIQUIS PO SCH ×2 (08:18→21:04)
[2019-09-11] MEDS: AMBIEN PO SCH (21:03)
[2019-09-12] MEDS: SODIUM CHLORIDE 0.9%-KCL 20 MEQ 1,000 ML IV SCH ×2 (00:30→06:31)
[2019-09-12 05:54] VITALS: BP 124/79; TEMP 97.7
[2019-09-12] MEDS: PROTONIX PO SCH (06:30)
[2019-09-12 08:45] LABS: HEMATOCRIT 29.9 % (42.0-52.0)
[2019-09-12] MEDS: GLUCOPHAGE PO SCH (09:21)
[2019-09-12] MEDS: LOPRESSOR PO SCH (09:21)
[2019-09-12] MEDS: NEURONTIN PO SCH ×2 (09:21→14:39)
[2019-09-12] MEDS: ASPIRIN EC PO SCH (09:21)
[2019-09-12] MEDS: CARDIZEM PO SCH (09:22)
[2019-09-12] MEDS: VITAMIN C PO SCH (09:22)
[2019-09-12] MEDS: MULTIVITAMIN TABLET PO SCH (09:22)
[2019-09-12] MEDS: ELIQUIS PO SCH (09:23)
[2019-09-12] MEDS: FOLIC ACID PO SCH (09:23)
--- NOTE | 2019-09-12 10:35 | PCM.DC ---
Final Diagnosis: Dehydration, CHF, PUI for COVID-19 (Negative), Acute Kidney Injury, Vomiting, Healing ulcers of both lower extremities. (1) Dehydration: Status: Acute Code(s): E86.0 - Dehydration SNOMED Code(s): 81716102 (2) CHF (congestive heart failure): Status: Acute Code(s): I50.9 - Heart failure, unspecified SNOMED Code(s): 47701796 Qualifiers: Heart failure chronicity: chronic Heart failure type: unspecified Qualified Code(s): I50.9 - Heart failure, unspecified (3) Person under investigation for COVID-19: Status: Acute Code(s): Z20.828 - Contact with and (suspected) exposure to other viral communicable diseases SNOMED Code(s): 943355872 (4) Acute kidney injury: Status: Acute Code(s): N17.9 - Acute kidney failure, unspecified SNOMED Code(s): 77098933 (5) Vomiting: Status: Acute Code(s): R11.10 - Vomiting, unspecified SNOMED Code(s): 369329993 Qualifiers: Nausea presence: with nausea Vomiting Intractability: non-intractable Vomiting type: unspecified Qualified Code(s): R11.2 - Nausea with vomiting, uns pecified (6) Healing ulcers of both lower extremities: Status: Acute Code(s): L97.919 - Non-pressure chronic ulcer of unspecified part of right lower leg with unspecified severity; L97.929 - Non-pressure chronic ulcer of unspecified part of left lower leg with unspecified severity SNOMED Code(s): 19736671 Reason for Hospitalization: Feeling run down, shaking with fever and chills, vomiting Prognosis at Discharge: good Condition at Discharge: Stable Medications at Discharge: Ambulatory Orders Medication Instructions Recorded folic acid 1 mg PO DAILY 04/20/13 furosemide [Lasix] 40 mg PO BID PRN 12/19/13 Eliquis 5 mg PO BID 10/11/14 aspirin [Aspir-Low] 81 mg PO DAILY 01/21/17 multivitamin [Daily Multi-Vitamin] 1 ea PO DAILY 09/16/17 ascorbic acid (vitamin C) [Vitamin 1,000 mg PO DAILY 08/02/18 C] esomeprazole magnesium [Nexium] 20 mg PO DAILY 10/28/18 Metoprolol Tartrate [Lopressor] 50 mg PO BID #60 10/29/18 lisinopril 5 mg PO DAILY #90 tab-cap 12/10/18 Diltiazem Hcl [Cardizem] 120 mg PO BID 08/18/19 atorvastatin 40 mg PO DAILY 08/18/19 gabapentin 600 mg PO TID 08/18/19 metformin 500 mg PO BID 08/18/19 zolpidem 10 mg PO BEDTIME 08/18/19 hydrocodone 5 mg-acetaminophen 325 1 tab PO BID PRN #30 tab 08/26/19 mg tablet potassium chloride 20 mEq 40 meq PO BID #180 tab 09/01/19 tablet,extended release Education Provided to Patient and Family: Verbal education on Lasix and not to use it PRN, Dehydration, CHF. 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 Discharge Disposition: Home Hospital Course: Pt has improved well over the last few days. Once fluid replacement was continued for a day Pt stated he was feeling better. This continued until today. 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 Pt is having no fevers, chills, shaking episodes he also denies SOB, CP, Abd Pain, Ye site issues. He even states that at this time his legs do not hurt (until he gets a dressing change). Plan: Continue home medications, will change Lasix to 20 mg daily, Pt to monitor fluid/hydration status by looking at his legs and his urine output in his ye bag. Encouraged him to drink water when he gets home, no caffeine. Follow up with PCP and any specialists he may may have.
== END 2019-09-12 15:30 | disposition home or self-care (01) | DRG 292 ==
LOC: ED 09:54 → SCU 14:15
PROVIDERS: ADMIT Nurse Practitioner Family; ATTEND Nurse Practitioner Family
DX: I50.9 Heart failure, unspecified; R11.10 Vomiting, unspecified; Z96.0 Presence of urogenital implants; L97.911 Non-pressure chronic ulcer of unspecified part of right lower leg limited to breakdown of skin; R60.9 Edema, unspecified; E88.81 Metabolic syndrome and other insulin resistance; E11.9 Type 2 diabetes mellitus without complications; Z79.01 Long term (current) use of anticoagulants; L97.921 Non-pressure chronic ulcer of unspecified part of left lower leg limited to breakdown of skin; E86.0 Dehydration; R50.9 Fever, unspecified; N17.9 Acute kidney failure, unspecified; Z51.81 Encounter for therapeutic drug level monitoring; R05 Cough; R53.1 Weakness; Z79.899 Other long term (current) drug therapy; E66.01 Morbid (severe) obesity due to excess calories; G89.29 Other chronic pain; Z20.828 Contact with and (suspected) exposure to other viral communicable diseases

== ENCOUNTER 2019-12-15 10:27 | Inpatient (IN) ==
[2019-12-15 11:47] LABS: BASOPHILS % (AUTO) 0.5 % (0.0-3.0); EOSINOPHILS # (AUTO) 0.1 K/ul (0.0-0.7); EOSINOPHILS % (AUTO) 2.6 % (0.0-7.0); HEMATOCRIT 30.6 % (42.0-52.0); HEMOGLOBIN 9.7 g/dl (14.0-18.0); IMMATURE GRANULOCYTE % (AUTO) 0.2 % (0.0-5.0); LYMPHOCYTES # (AUTO) 0.9 K/uL (0.60-3.4); LYMPHOCYTES % (AUTO) 21.2 (10.0-50.0); MEAN CORPUSCULAR HEMOGLOBIN 27.7 pg (27.0-31.0); MEAN CORPUSCULAR HGB CONC 31.7 (31.8-35.4); MEAN CORPUSCULAR VOLUME 87.4 fl (80.0-94.0); MONOCYTES # (AUTO) 0.3 K/uL (0.4-2.0); MONOCYTES % (AUTO) 6.5 (0-10); PLATELET COUNT 143 10^3/uL (140-440); RDW COEFFICIENT OF VARIATION 15.2 % (11.6-14.8); WHITE BLOOD COUNT 4.29 K/ul (4.2-10.2)
[2019-12-15 12:00] LABS: ALANINE AMINOTRANSFERASE 11.8 U/L (0-50); ALBUMIN 3.51 g/dL (3.5-5.0); ALKALINE PHOSPHATASE 88.4 U/L (38-126); ASPARTATE AMINO TRANSFERASE 26.6 U/L (17-59); BILIRUBIN,TOTAL 0.4 mg/dL (0.2-1.3); BLOOD UREA NITROGEN 18.8 mg/dL (9-20); CALCIUM 9.2 mg/dL (8.4-10.2); CARBON DIOXIDE 30.1 mmol/L (22-30.0); CHLORIDE 102.7 mmol/L (98-107); CREATININE 1.04 mg/dL (0.60-1.10); GLUCOSE 105.9 mg/dL (74-106); POTASSIUM 4.3 mmol/L (3.5-5.1); SODIUM 136.3 mmol/L (134.5-145); TOTAL PROTEIN 7.94 g/dL (6.3-8.2)
[2019-12-15] MEDS ORDERED: ZOFRAN TAB PO PRN (12:09)
[2019-12-15 12:24] VITALS: BMI 61.0
[2019-12-15] MEDS: FORTAZ IV SCH ×3 (13:09→21:14)
[2019-12-15] MEDS: SODIUM CHLORIDE IV SCH ×3 (13:09→21:14)
[2019-12-15] MEDS: NEURONTIN PO SCH ×2 (15:38→21:16)
[2019-12-15] MEDS: GLUCOPHAGE PO SCH (17:20)
[2019-12-15] MEDS: LASIX TAB PO SCH (17:20)
[2019-12-15] MEDS: LOPRESSOR PO SCH (17:20)
[2019-12-15] MEDS ORDERED: LASIX TAB PO SCH (21:00)
[2019-12-15] MEDS ORDERED: NON-FORMULARY MEDICATION (Diltiazem Hcl [Cardizem] 120 MG) PO SCH (21:00)
[2019-12-15] MEDS: NORCO 7.5-325 PO SCH (21:15)
[2019-12-15] MEDS: CARDIZEM PO SCH (21:15)
[2019-12-15] MEDS: ELIQUIS PO SCH (21:16)
[2019-12-15] MEDS: AMBIEN PO PRN (21:24)
[2019-12-16] MEDS: SODIUM CHLORIDE IV SCH ×3 (05:53→21:32)
[2019-12-16] MEDS: LASIX TAB PO SCH ×2 (05:53→16:55)
[2019-12-16] MEDS: FORTAZ IV SCH ×3 (05:53→21:32)
[2019-12-16] MEDS: PRILOSEC PO SCH (05:53)
[2019-12-16] MEDS ORDERED: NON-FORMULARY MEDICATION (Omeprazole Magnesium [Prilosec Otc] 20 MG) PO SCH (09:00)
[2019-12-16] MEDS: NORCO 7.5-325 PO SCH ×2 (09:01→21:31)
[2019-12-16] MEDS: VITAMIN C PO SCH (09:01)
[2019-12-16] MEDS: MULTIVITAMIN TABLET PO SCH (09:01)
[2019-12-16] MEDS: ZESTRIL PO SCH (09:02)
[2019-12-16] MEDS: FOLIC ACID PO SCH (09:03)
[2019-12-16] MEDS: NEURONTIN PO SCH ×3 (09:04→21:31)
[2019-12-16] MEDS: GLUCOPHAGE PO SCH ×2 (09:04→16:55)
[2019-12-16] MEDS: ELIQUIS PO SCH ×2 (09:04→21:30)
[2019-12-16] MEDS: LIPITOR PO SCH (09:05)
[2019-12-16] MEDS: K-DUR PO SCH (09:05)
[2019-12-16] MEDS: LOPRESSOR PO SCH ×2 (09:05→16:55)
[2019-12-16] MEDS: CARDIZEM PO SCH ×2 (09:05→21:31)
[2019-12-16 10:15] LABS: C-PEPTIDE 6.8 ng/mL (1.1-4.4); INSULIN 24.8 uIU/mL (2.6-24.9)
[2019-12-16] MEDS: AMBIEN PO PRN (21:31)
[2019-12-17] MEDS: SODIUM CHLORIDE IV SCH ×3 (05:51→20:34)
[2019-12-17] MEDS: PRILOSEC PO SCH (05:51)
[2019-12-17] MEDS: FORTAZ IV SCH ×3 (05:51→20:34)
[2019-12-17] MEDS: LASIX TAB PO SCH ×2 (05:52→16:54)
[2019-12-17] MEDS: CARDIZEM PO SCH ×2 (08:36→20:34)
[2019-12-17] MEDS: ELIQUIS PO SCH ×2 (08:37→20:32)
[2019-12-17] MEDS: VITAMIN C PO SCH (08:37)
[2019-12-17] MEDS: LOPRESSOR PO SCH ×2 (08:37→16:55)
[2019-12-17] MEDS: ZESTRIL PO SCH (08:37)
[2019-12-17] MEDS: FOLIC ACID PO SCH (08:37)
[2019-12-17] MEDS: MULTIVITAMIN TABLET PO SCH (08:38)
[2019-12-17] MEDS: K-DUR PO SCH (08:38)
[2019-12-17] MEDS: GLUCOPHAGE PO SCH ×2 (08:38→16:55)
[2019-12-17] MEDS: NORCO 7.5-325 PO SCH ×2 (08:38→20:33)
[2019-12-17] MEDS: LIPITOR PO SCH (08:38)
[2019-12-17] MEDS: NEURONTIN PO SCH ×3 (08:38→20:33)
[2019-12-17] MEDS: AMBIEN PO PRN (20:33)
[2019-12-18] MEDS: LASIX TAB PO SCH ×2 (05:55→17:29)
[2019-12-18] MEDS: FORTAZ IV SCH ×3 (05:55→20:58)
[2019-12-18] MEDS: SODIUM CHLORIDE IV SCH ×3 (05:55→20:58)
[2019-12-18] MEDS: PRILOSEC PO SCH (05:56)
[2019-12-18] MEDS: GLUCOPHAGE PO SCH ×2 (09:16→17:30)
[2019-12-18] MEDS: CARDIZEM PO SCH ×2 (09:16→20:57)
[2019-12-18] MEDS: LIPITOR PO SCH (09:16)
[2019-12-18] MEDS: VITAMIN C PO SCH (09:16)
[2019-12-18] MEDS: FOLIC ACID PO SCH (09:16)
[2019-12-18] MEDS: LOPRESSOR PO SCH ×2 (09:16→17:29)
[2019-12-18] MEDS: MULTIVITAMIN TABLET PO SCH (09:17)
[2019-12-18] MEDS: NORCO 7.5-325 PO SCH ×2 (09:17→20:58)
[2019-12-18] MEDS: K-DUR PO SCH (09:17)
[2019-12-18] MEDS: NEURONTIN PO SCH ×3 (09:17→20:57)
[2019-12-18] MEDS: ZESTRIL PO SCH (09:17)
[2019-12-18] MEDS: ELIQUIS PO SCH ×2 (09:17→20:58)
[2019-12-18] MEDS: AMBIEN PO PRN (20:58)
--- NOTE | 2019-12-18 21:08 | DI ---
EXAM: Chest two views HISTORY: Sepsis COMPARISON: 09/09/2019 TECHNIQUE: Two views of the chest were performed FINDINGS: No definitive consolidation, though this would be difficult to exclude at the lung bases No visible pneumothorax. Chronic blunting right costophrenic angle. The heart is enlarged in size. The mediastinal contour is normal. There are no acute abnormalities of the bones. IMPRESSION: Cardiomegaly. No definite consolidation, though this would be difficult to exclude at t he lung bases
[2019-12-19 05:14] LABS: BASOPHILS % (AUTO) 0.3 % (0.0-3.0); EOSINOPHILS # (AUTO) 0.1 K/ul (0.0-0.7); EOSINOPHILS % (AUTO) 3.2 % (0.0-7.0); HEMATOCRIT 31.7 % (42.0-52.0); HEMOGLOBIN 9.9 g/dl (14.0-18.0); IMMATURE GRANULOCYTE % (AUTO) 0.3 % (0.0-5.0); LYMPHOCYTES # (AUTO) 1.2 K/uL (0.60-3.4); LYMPHOCYTES % (AUTO) 32.4 (10.0-50.0); MEAN CORPUSCULAR HEMOGLOBIN 27.3 pg (27.0-31.0); MEAN CORPUSCULAR HGB CONC 31.2 (31.8-35.4); MEAN CORPUSCULAR VOLUME 87.6 fl (80.0-94.0); MONOCYTES # (AUTO) 0.3 K/uL (0.4-2.0); MONOCYTES % (AUTO) 6.8 (0-10); NEUTROPHILS # (AUTO) 2.2 K/ul (2.0-6.9); PLATELET COUNT 147 10^3/uL (140-440); RDW COEFFICIENT OF VARIATION 15.3 % (11.6-14.8); RED BLOOD COUNT 3.62 10^6/ul (4.70-6.10)
[2019-12-19 05:29] LABS: ALANINE AMINOTRANSFERASE 8.6 U/L (0-50); ALBUMIN 3.47 g/dL (3.5-5.0); ALKALINE PHOSPHATASE 83.6 U/L (38-126); ASPARTATE AMINO TRANSFERASE 19.1 U/L (17-59); BILIRUBIN,TOTAL 0.54 mg/dL (0.2-1.3); CALCIUM 8.9 mg/dL (8.4-10.2); CHLORIDE 100.7 mmol/L (98-107); CREATININE 1.36 mg/dL (0.60-1.10); GLUCOSE 86.8 mg/dL (74-106); POTASSIUM 4.24 mmol/L (3.5-5.1); SODIUM 136.6 mmol/L (134.5-145); TOTAL PROTEIN 8.01 g/dL (6.3-8.2)
[2019-12-19] MEDS: LASIX TAB PO SCH ×2 (05:51→16:50)
[2019-12-19] MEDS: SODIUM CHLORIDE IV SCH ×3 (05:51→21:05)
[2019-12-19] MEDS: PRILOSEC PO SCH (05:51)
[2019-12-19] MEDS: FORTAZ IV SCH ×3 (05:51→21:05)
[2019-12-19] MEDS: NORCO 7.5-325 PO SCH ×2 (08:53→21:05)
[2019-12-19] MEDS: CARDIZEM PO SCH ×2 (08:53→21:05)
[2019-12-19] MEDS: FOLIC ACID PO SCH (08:53)
[2019-12-19] MEDS: NEURONTIN PO SCH ×3 (08:53→21:05)
[2019-12-19] MEDS: LOPRESSOR PO SCH ×2 (08:53→16:40)
[2019-12-19] MEDS: MULTIVITAMIN TABLET PO SCH (08:53)
[2019-12-19] MEDS: LIPITOR PO SCH (08:53)
[2019-12-19] MEDS: ZESTRIL PO SCH (08:54)
[2019-12-19] MEDS: K-DUR PO SCH (08:54)
[2019-12-19] MEDS: VITAMIN C PO SCH (08:54)
[2019-12-19] MEDS: GLUCOPHAGE PO SCH ×2 (08:54→16:39)
[2019-12-19] MEDS: ELIQUIS PO SCH ×2 (08:54→21:05)
[2019-12-20 05:22] VITALS: BP 93/57; TEMP 97.6
[2019-12-20] MEDS: SODIUM CHLORIDE IV SCH (05:23)
[2019-12-20] MEDS: FORTAZ IV SCH (05:23)
[2019-12-20] MEDS: PRILOSEC PO SCH (05:30)
[2019-12-20] MEDS: LASIX TAB PO SCH (05:30)
[2019-12-20] MEDS: NEURONTIN PO SCH (08:37)
[2019-12-20] MEDS: CARDIZEM PO SCH (08:37)
[2019-12-20] MEDS: LOPRESSOR PO SCH (08:38)
[2019-12-20] MEDS: K-DUR PO SCH (08:38)
[2019-12-20] MEDS: LIPITOR PO SCH (08:38)
[2019-12-20] MEDS: ZESTRIL PO SCH (08:38)
[2019-12-20] MEDS: VITAMIN C PO SCH (08:38)
[2019-12-20] MEDS: GLUCOPHAGE PO SCH (08:38)
[2019-12-20] MEDS: NORCO 7.5-325 PO SCH (08:38)
[2019-12-20] MEDS: ELIQUIS PO SCH (08:39)
[2019-12-20] MEDS: FOLIC ACID PO SCH (08:39)
[2019-12-20] MEDS: MULTIVITAMIN TABLET PO SCH (08:39)
--- NOTE | 2019-12-21 08:35 | HP ---
DATE OF SERVICE: 12/15/2019 CHIEF COMPLAINT: Pain in both legs left more than right. Ulcerations both legs left lateral leg larger beginning from the left lateral malar surface extending about 10cm above. The right side is smaller somewhat deeper think probably 7-8cm. HISTORY OF PRESENT ILLNESS: The patient was at Wound Care today and had been going for the ulcerations. He had been at Wound Care for some time. These ulcers had healed previously according to him but did come back. This time the wound culture did grow gram negative bacteria sensitive to Ceftazidime. The PharmD recommended that Ceftazidime be given instead of other medications. Bacteria was Stenotrophomonas maltophilia and sensitive to Ceftazidime and Levofloxacin and intermittent Chloramphenicol. This patient had allergy to Levofloxacin and so the patient is given Ceftazidime and was admitted to the hospital for the intravenous medication which will be given three times a day. PAST PERSONAL HISTORY: The patient was diagnosed to have an acute immune hemolytic anemia, 2010 and was seen by Dr. Sheffield a second baker at [place] until 2013. [place] initially that the hemolytic anemia was due to levofloxacin. The patient had stopped going to Dr. Sheffield since he has moved to [place]. The patient was given Rituximab but did not show any improvement or any good affects. He was given high dose steroids on a tapering dose. He also claimed to have had several blood transfusions during that episode. Also was diagnosed way back with atrial fibrillation and is now taking Eliquis 5mg. He was previous on another direct anticoagulant, Xarelto 20mg daily. He also was admitted with congestive heart failure, markedly elevated BMI now 63.7. He had multiple ulcerations on both lower extremities and had been to Wound Care and also had been seen by infectious disease specialist for the infections. Also has diabetes Mellitus only taking Metformin. His insulin also was slightly elevated and diagnosed to have insulin resistance syndrome also diagnosed with obstructive sleep apnea on CPAP. He does have a very large pendulous abdominal wall that is more or less difficulty to ambulate because it is handing between the legs. I had mentioned to him a referral to a medical center or medical school hospital before but he was not agreeable to explore that idea but this time when I talked to him he though maybe I can explore that. I told him that I needed his commitment to go there because it will be exhaustive discussion with different doctors most likely or departments. Also needs to know from Dr. Vallejo his partner management consultant who follows his atrial fibrillation as to feasibility of that major operation. FAMILY HISTORY: Father had of lung carcinoma. He was adopted by his stepfather and converted his last name to Keron. SOCIAL HISTORY: The patient is single and resides alone and self sufficient. MEDICATIONS: Hydrocodone/APAP 7.5-325mg one twice a day Eliquis 5mg twice a day Vitamin C 1000mg daily Lipitor 40mg daily Cardizem 120mg twice a day Folic Acid 1mg daily Lasix 20mg twice a day Neurontin 600mg three times a day Lisinopril 5mg daily Metformin 500mg twice a day Metoprolol Tartrate 100mg twice a day Multivitamin one daily Omeprazole 20mg daily Zofran 8mg tablet one Q 8 hours PRN for nausea and vomiting Potassium Chloride 20meq daily Ambien 10mg at bedtime ALLERGIES: Levofloxacin On the notes that I have obtained this patient may have the immune hemolytic anemia secondary to Levofloxacin and that had not been proven. It is listed as an allergy. REVIEW OF SYSTEMS: CONSTITUTIONAL: No reports of fever, chills, no significant changes in strength or fatigue. HEALTH SPA MANAGER: Denies any headaches or any seizure activities or syncopal episode. VISUAL: Denies any diplopia, blurred vision or loss of vision. RESPIRATORY: The patient does have some dyspnea on exertion but not at rest. No cough. No hemoptysis. CARDIOVASCULAR: The patient has a history of dyspnea and history of congestive heart failure but did not have any of the symptoms for that problem. GI: The patient's appetite is good. Had some nausea from time to time and was given Zofran. : The patient has a suprapubic catheter and was inserted 2 1/2 years ago. The patient had problems with urination because of the pendulous abdomen. Causing significant amount of irritation. MUSCULOSKELETAL: The patient does not have any significant joint problems. He is ambulating on his own. His ambulation is impaired by the pendulous abdominal wall that is in between his legs and thighs. INTEGUMENT: The patient does have recurrent ulcerations of both lower extremities secondary to ischemia most likely secondary to venous insufficiency. I had advised this patient to elevate his legs most of the time instead of sitting and hanging his legs down. I did tell him that he might need skin graft to heal the ulceration. He told him that the ulcers had healed before with Wound Care at [place]. I did tell him that he needs to elevate his legs to help the healing process. ENDOCRINE: The patient has type two diabetes but well controlled. HEMATOLOGIC: The patient has a history of a autoimmune hemolytic anemia of uncertain etiology. It was felt initially to be due to Levofloxacin but that has not been documented. There was a suggestion of a splenectomy for him but that had not been completed. PSYCHIATRIC: The patient is alert, oriented and cheerful. Affect appears to be normal. PHYSICAL EXAMINATION: GENERAL: We have a 59 year old male admitted to the hospital because of pain in both lower extremities left more than right with ulcerations on both legs. Culture did show gram negative bacteria Stenotrophomonas maltophilia sensitive to Ceftazidime as well as Levofloxacin and Bactrim and Intermediate Chloramphenicol. The patient was admitted for intravenous medications since the infection was significant as well as the pain. VITAL SIGNS: Temperature 97.9, pulse 75, blood pressure 154/80 left, right 148/74, respiratory rate 19, oxygen saturation 98% at room air. 6'0, 450 pounds. He weighed also on the same day at 470 pounds instead of 450. HEAD: Unremarkable FACE: Symmetrical and equal with no facial weakness. No cyanosis EYES: Pupils are equal and reactive to light. Eye balls are slightly proptosed. Pupils are about 3mm in size. Equal and reactive MOUTH: The patient has no dentures. THROAT: NO inflammation NECK: No masses. No bruit CHEST: Essentially symmetrical and equal. Large LUNGS: Breath sounds are heard in both sides. No rales or wheezing. HEART: Audible, regular slightly bradycardiac. This patient is known to have atrial fibrillation. He is on medication for that consisting of Cardizem, Lopressor as well as Eliquis. Heart beat appears to be regular and I did listen for some time. ABDOMEN: Protuberant with suprapubic catheter. The patient has a large pendulous abdominal wall which is hanging between his thighs. It is a problem for ambulation because it is between the legs. LOWER EXTREMITIES: Somewhat firm from edema. It has a nneka color secondary to the Gentian Nneka applied by Wound Care. He does have an ulceration on the lateral leg from the malar surface to about 7-8cm approximately. It's width is about 3cm. On the left side it is longer about 10 or more centimeters from the malar surface. It is also somewhat irregular and wider. Pedal pulses are absent. UPPER EXTREMITIES: Symmetrical and equal ASSESSMENT: 1. Bilateral chronic ulceration, lateral leg left and right 2. Pain bilateral left more than right intensifying 3. History of venous insufficiency 4. History of recurrent ulcerations 5. History of wound infection refer to ID for treatment. Wound Culture for this admission is gram negative Stenotrophomonas maltophilia sensitive to Ceftazidime, Levofloxacin and Bactrim and intermediate to Chloramphenicol. 6. History of diabetes mellitus type 2 7. History of obstructive sleep apnea on CPAP 8. History of Severe obesity, BMI 63+ 9. 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
--- NOTE | 2019-12-21 10:28 | DS ---
DATE OF SERVICE: 12/20/2019 BRIEF HISTORY OF PRESENT ILLNESS/HOSPITAL COURSE: 59 year old male who has chronic recurrent ulcerations of both lower extremities and had been to Wound Care. The patient today has been complaining of more pain on both lower extremities more on the left. The ulcer is wider on the left than the right. The ulcer culture did show gram negative bacteria identified as Stenotrophomonas maltophilia. It is sensitive to Ceftazidime, Levofloxacin and Bactrim. It is intermediate to Chloramphenicol. Because of the pain and the infection this patient was admitted to the hospital for intravenous medication consisting of Ceftazidime 2gram Q 8 hours per recommendation of the PharmD glomerular filtration rate according to the PharmD was normal. The patient while in the hospital was continued on his home medications as well as the Ceftazidime. The pain has decreased in intensity and his temperature had remained normal throughout his hospital stay. His blood pressure was slightly higher at the beginning but much lower during the hospitalization. VITAL SIGNS: Temperature 97.6, pulse 53, blood pressure 93/57, respiratory rate 16, oxygen saturation 96% at room air. He is alert and oriented times four with movement of all extremities. He is no cyanotic and not dyspnea. HEART: Audible and regular most of the time. The electrocardiogram done December 18 showed atrial fibrillation with slow ventricular response, right bundle branch block and abnormal EKG. The patient had some pauses but no 3 second pauses. This patient is being followed by the piping engineer in [place], Dr. Vallejo and would leave the cardiology part to him. He is scheduled to see Dr. Vallejo as well as scheduled to have an echocardiogram. The patient's initial CBC showed moderate anemia with normal WBC and plt count. Blood sugar was normal and his A1c was also normal. CRP was elevated. GFR estimated is 74. A1c 5.22, insulin level 24.8, plasma C-peptide level fasting 6.8. C reactive protein 65 and the rest were unremarkable. Repeat CMP on 12/19/2019 showed increased BUN from 18.8 to 28 and creatinine increased from 1.04 to 1.36 and GFR declined to 54 from 74. This patient at discharged was advised to drink more liquids. His NT PRO BNP was 1,750, elevated. His Procalcitonin on admission was less than 0.05. Chest x-ray showed cardiomegaly not definite consolidation. He has three venous Dopplers that were three months apart showing no venous thrombosis noted. The last one was 08/04/2019. FINAL DIAGNOSIS: 1. Bilateral leg ulceration with infection-cellulitis left Stenotrophomonas maltophilia 2. Diabetes Mellitus type 2, Controlled 3. Moderate to severe anemia 4. History of auto-immune hematolytic anemia on remission 5. Obstructive sleep apnea on CPAP 6. Severe obesity, BMI 63+ 7. Large pendulous abdominal wall 8. Suprapubic catheter for drainage 9. History of atrial fibrillation under the care of piping engineer 10.Recurrent ulcerations both lower extremities probably secondary to venous insufficiency 11.History of congestive heart failure now compensated 12.History of multiple blood transfusion secondary to the auto-immune Hematolytic anemia PROGNOSIS: Guarded to poor PLAN: 1. This patient was advised to followup with Wound Care this coming up . 2. Followup with the piping engineer, Dr. Vallejo. 3. Followup with Joya the primary provider at [facility]. 4. Elevate legs as much as possible 5. Resume all previous medications 6. No further medication given at this time after 5 days of Ceftazidime. Ceftazidime 2grams every 8 hours. TIME SPENT: GREATER THAN 30 MINUTES MTDD
--- NOTE | 2019-12-21 11:36 | PN ---
DATE OF SERVICE: 12/16/2019 SUBJECTIVE: The patient is alert and oriented times four, not dyspneic or tachypneic and no cyanosis. The pain in the legs is less. The dressing was reapplied so I did not try to look at the wound today. LUNGS: Clear HEART: Audible and mostly regular but slightly bradycardic ABDOMEN: Suprapubic catheter but no muscular guarding. LOWER EXTREMITIES: Pain improved. VITALS: Temperature 98, pulse 54, blood pressure 109/60, respiratory rate 18, oxygen saturation 95% at room air. The patient claimed that his appetite is good and the pain is less. MTDD
--- NOTE | 2019-12-21 11:39 | PN ---
DATE OF SERVICE: 12/17/2019 SUBJECTIVE: The patient today is alert and oriented times four. Not dyspneic or tachypneic. He denies any chest pain or abdominal pain. He denies any fever or sensation of being chilly. VITALS: Blood pressure 96/54, temperature 97.9, pulse 55, respiratory rate 16, oxygen saturation 94% at room air. LUNGS: Clear to auscultation although somewhat diminished. This is probably due to the size. HEART: Audible and somewhat bradycardic but seems to be regular LOWER EXTREMITIES: Ulcerations about the same. The pain is less and the patient hasn't asked for anymore pain medications except what he gets regularly twice a day. He is again advised to elevate the legs. ARABELLA
--- NOTE | 2019-12-21 13:01 | PN ---
DATE OF SERVICE: 12/18/2019 SUBJECTIVE: The patient is alert and oriented times four. Not dyspneic or tachypneic with no cyanosis and denies any chest pain or abdominal pain, headaches or visual disturbances. He claims that his appetite is good and has no problems swallowing solids or liquids. VITALS: Temperature 97.9, pulse 57, blood pressure 97/57, respiratory rate 16 and oxygen saturation 94% at room air. LUNGS: Remain clear HEART: Audible and mostly regular but slow. No murmurs LEGS: No remarkable swelling and ulcers are dressed. The patient's CRP was elevated 65 reason undetermined. The patient's A1c was 5.22 and fasting blood sugar 105. He will be kept on the same medications for now. His fasting insulin is in the upper limit of normal 24.8 upper normal is 24.9. Pain improved. MTDD
--- NOTE | 2019-12-21 13:34 | PN ---
DATE OF SERVICE: 12/19/2019 SUBJECTIVE: The patient is alert and oriented times four not dyspneic or tachypneic. FACE: Symmetrical and equal LUNGS: Clear as before HEART: Audible and regular but bradycardic This patient's medications are: Cardizem 100mg twice a day Metoprolol 100mg twice a day. This might have produced the bradycardia but I will leave that to the letterset press set up operator to decide with this medication. He claims that he is feeling better and the pain is much much less. I reminded him again to elevate his legs. VITALS: Temperature 98, pulse 50, blood pressure 95/65, respiratory rate 18, oxygen saturation 94% at room air. CONDITION: Stable and improved. I did advise Mr. Cabrales that I most likely would discharge him tomorrow and that he should follow with Joya Devries and the clinic at [facility] on and the Career Placement Services Counselor. ARABELLA
--- NOTE | 2019-12-21 13:49 | PN ---
DATE OF SERVICE: 12/20/2019 SUBJECTIVE: The wound was opened and kept open and rinsed with saline and cultured both left and right. No further antibiotic is given. The patient's EGFR has decreased but the BUN also had increased. This might be the reason for the decreasing EGFR. Ulcer bed appears to be good granulation tissue. I did tell the patient in front of the nurse that he might need skin graft. He told me that these ulcers has healed before but it did come back. I told him that if he would lower his legs that there will be swelling that the ulcers may come back. This is probably secondary to venous insufficiency. EYES: Pupils about 2mm in size and reactive. Conjunctivae somewhat pale. Sclera not icteric. LUNGS: Clear HEART: Normal sinus rhythm but bradycardic. The electrocardiogram done yesterday showed atrial fibrillation with low ventricular response, right bundle branch block, abnormal EKG. Cardiac pause of 2.1 seconds noted. Ventricular response otherwise were regular. They told me that he is supposed to be scheduled for an echocardiogram by Dr. Vallejo and be followed by him. I told him to keep that appointment. He should call the clinic to make an appointment with Joya Devries. I do believe that his quality of life would improve if the pendulous abdominal wall would be excised. ARABELLA
== END 2019-12-20 14:45 | disposition home health service (06) | DRG 593 ==
LOC: MEDSURG B → OBSVTOIN 10:27
PROVIDERS: ADMIT General Practice; ATTEND General Practice

== ENCOUNTER 2023-04-06 09:26 | Observation (INO) ==
[2023-04-06 10:11] LABS: BASOPHILS % (AUTO) 0.2 % (0.0-3.0); EOSINOPHILS # (AUTO) 0.1 K/ul (0.0-0.7); EOSINOPHILS % (AUTO) 2.9 % (0.0-7.0); HEMATOCRIT 37.9 % (42.0-52.0); IMMATURE GRANULOCYTE % (AUTO) 0.2 % (0.0-5.0); LYMPHOCYTES # (AUTO) 0.8 K/uL (0.60-3.4); LYMPHOCYTES % (AUTO) 20.5 (10.0-50.0); MEAN CORPUSCULAR HEMOGLOBIN 25.5 pg (27.0-31.0); MEAN CORPUSCULAR VOLUME 87.9 fl (80.0-94.0); MONOCYTES # (AUTO) 0.4 K/uL (0.4-2.0); NEUTROPHILS # (AUTO) 2.8 K/ul (2.0-6.9); NEUTROPHILS % (AUTO) 67.2 % (42.2-75.2); PLATELET COUNT 114 10^3/uL (140-440); RDW COEFFICIENT OF VARIATION 15.7 % (11.6-14.8); RED BLOOD COUNT 4.31 10^6/ul (4.70-6.10)
[2023-04-06 10:24] LABS: ALANINE AMINOTRANSFERASE 15.7 U/L (0-50); ALBUMIN 4.14 g/dL (3.5-5.0); ALKALINE PHOSPHATASE 91.9 U/L (56-119); ASPARTATE AMINO TRANSFERASE 27.6 U/L (17-59); BILIRUBIN,TOTAL 0.54 mg/dL (0.2-1.3); BLOOD UREA NITROGEN 18.9 mg/dL (9-20); CARBON DIOXIDE 28.6 mmol/L (22-30.0); CHLORIDE 102.6 mmol/L (98-107); CREATININE 1.18 mg/dL (0.60-1.10); GLUCOSE 115.3 mg/dL (74-106); POTASSIUM 4.49 mmol/L (3.5-5.1); SODIUM 136.9 mmol/L (134.5-145); TOTAL PROTEIN 8.18 g/dL (6.3-8.2)
[2023-04-06 10:28] LABS: ABG O2 HGB 91.8 % (95-100); ABG PH 7.37 (7.35-7.45); BEecf 4.2 (-2.0-3.0); HCO3 29.5 (21-28); MetHb 0.8 (0-1.5); TCO2 31.1 (19-24); sO2 90.2 % (94-98); tHb 11.3 g/dl (11.7-17.4)
[2023-04-06 10:37] LABS: TROPONIN I < 0.012 ng/ml (0.0000-0.120)
[2023-04-06 10:38] LABS: RSV MOLECULAR POSITIVE BY NAAT (NEGATIVE)
[2023-04-06 10:44] LABS: MOLECULAR FLU A NEGATIVE BY NAAT (NEGATIVE); MOLECULAR FLU B NEGATIVE BY NAAT (NEGATIVE); SARS COV-2 RNA RAPID NAAT NEGATIVE (NEGATIVE)
--- NOTE | 2023-04-06 10:46 | ED.PDOC ---
General ED Provider: Dr. ARACELIS RAMIREZ DO Chief Complaint: Cough Stated Complaint: Patient is a 62 yo M here for cough and concner for R sided pneumonia Patient arrives afebrile with hypoxia 91-93% on room air Patient speaking in full senteces Patient denies chest pain or chest pressure PMHX: Afib on eliquis, DM2, RBBB, Morbid obesity, HTN, anemia Patient reports he called PCP, they said they were too busy go to the ER He does not wear hhome oxygen, he does have LIDIA He denies falls or injuires No hemoptysis Patient thinks he had a head cold and its "Going into my chest." He has a Suprapubic urostomy due to frequent UTI Patient stable amenable to CTA/ABG and work up for source of discomfort and hypoxia Patient pleasant to speak with Time Seen by Provider: 04/06/23 10:00 Information Source: Patient Primary Care Provider: JOVITA KEYS PA-C Nursing and Triage Documentation Reviewed and Agree: Yes Review of Systems Review Of Systems Constitutional: Denies Chills, Fever or Sweats Eyes: Denies Blindness or Foreign body sensation Ears, Nose, Mouth, Throat: Denies Ear pain or Nose pain Respiratory: Reports Cough and Shortness of Breath; Denies Wheezing Cardiac: Denies Chest pain or Syncope GI: Denies Abdominal pain, Constipated or Diarrhea : Denies Flank pain or Pain Musculoskeletal: Denies Back pain or Joint pain Skin: Denies Lumps or Cyanosis Neurological: Denies Anxiety or Depressed Endocrine: Reports No symptoms Hematologic/Lymphatic: Reports No symptoms All Other Systems: Reviewed and Negative [facility] Medical History Abdominal obesity and metabolic syndrome E88.81 - Metabolic syndrome (ICD-10) Acute kidney injury N17.9 - Acute kidney failure, unspecified (ICD-10) Atrial fibrillation I48.91 - Unspecified atrial fibrillation (ICD-10) Chronic anticoagulation Z79.01 - MCC (current) use of anticoagulants (ICD-10) Chronic diastolic CHF (congestive heart failure) I50.32 - Chronic diastolic (congestive) heart failure (ICD-10) Chronic pain syndrome G89.4 - Chronic pain syndrome (ICD-10) Cloudy urine R82.90 - Unspecified abnormal findings in urine (ICD-10) COVID U07.1 - COVID-19 (ICD-10) Diabetes mellitus, type 2 E11.9 - Type 2 diabetes mellitus without complications (ICD-10) Dyspnea on exertion R06.00 - Dyspnea, unspecified (ICD-10) E coli infection A49.8 - Other bacterial infections of unspecified site (ICD-10) Encounter for Medicare annual wellness exam Z00.00 - Encounter for general adult medical examination without abnormal findings (ICD-10) GERD (gastroesophageal reflux disease) K21.9 - Gastro-esophageal reflux disease without esophagitis (ICD-10) Gram-negative infection A49.9 - Bacterial infection, unspecified (ICD-10) Hemolytic anemia D58.9 - Hereditary hemolytic anemia, unspecified (ICD-10) Hypoxia R09.02 - Hypoxemia (ICD-10) Infection due to Stenotrophomonas maltophilia A49.8 - Other bacterial infections of unspecified site (ICD-10) Ischemic rest pain of lower extremity M79.606 - Pain in leg, unspecified (ICD-10) I99.8 - Other disorder of circulatory system (ICD-10) Morbid obesity due to excess calories (05/28/18) E66.01 - Morbid (severe) obesity due to excess calories (ICD-10) Morbid obesity with BMI of 60.0-69.9, adult E66.01 - Morbid (severe) obesity due to excess calories (ICD-10) Z68.44 - Body mass index [BMI] 60.0-69.9, adult (ICD-10) MRSA (methicillin resistant Staphylococcus aureus) A49.02 - Methicillin resistant Staphylococcus aureus infection, unspecified site (ICD-10) Non-healing ulcer of multiple sites of lower extremity L97.909 - Non-pressure chronic ulcer of unspecified part of unspecified lower leg with unspecified severity (ICD-10) Peripheral vascular disease I73.9 - Peripheral vascular disease, unspecified (ICD-10) Pneumonia due to COVID-19 virus U07.1 - COVID-19 (ICD-10) J12.82 - Pneumonia due to coronavirus disease 2019 (ICD-10) Pulmonary hypertension I27.20 - Pulmonary hypertension, unspecified (ICD-10) Sleep apnea G47.30 - Sleep apnea, unspecified (ICD-10) Venous stasis ulcer I83.009 - Varicose veins of unspecified lower extremity with ulcer of unspecified site (ICD-10) L97.909 - Non-pressure chronic ulcer of unspecified part of unspecified lower leg with unspecified severity (ICD-10) Family History FATHER Lung cancer Mother No problems noted. 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 Pets and animals: No Leisure activites: reading (I watch TV, I read a little and I like to watch people) History of recent travel: No Do you think of yourself as: straight/heterosexual Current gender identity: male Seatbelt use: never Helmet use: No Drives intoxicated or rides with intoxicated route delivery service driver: No Water heater temperature set < 120 degrees: Yes Working smoke detector in home: Yes Fire extinguisher in home: Yes Carbon monoxide detector in home: Yes Firearms in home: No Surgical History History of respiratory system surgery Z98.890 - Other specified postprocedural states (ICD-10) Physical Exam Physical Exam Appearance: Reports Well-appearing and Obese Ill-appearing: Not Applicable Pain Distress: Not Applicable Eyes: Reports JD and EOMI ENT: Reports Ears normal, Nose normal and Oropharynx normal Neck: Supple Respiratory: Reports Airway patent; Denies Crackles, Rhonchi or Wheezes Cardiovascular: Reports Irregular rhythm and Other (afib rate controlled) GI/: Reports Soft, Nontender and Other (central abdominal obeisty, urostomy in place no guarding or peritonitis) Musculoskeletal: Reports Normal strength, ROM intact and Other (BL LE leg wrappings, no weeping through dressing) Skin: Reports Warm; Denies Diaphoretic Neurological: Reports Sensation intact and Motor intact Psychiatric: Reports Affect appropriate and Mood appropriate Interpretation EKG Interpretation EKG Interpretation By: ED Physician Time of EKG #1: 10:28 Interpretation: afib rate controlled 66 no stemi bifasicular block Critical Care Note Critical Care Note Total Critical Care Time (mins): 0 Course Course 04/06/23 10:06 04/06/23 10:06 Orders, Labs, Meds: Lab Review 04/06/23 04/06/23 04/06/23 10:06 10:10 10:19 WBC 4.10 L RBC 4.31 L Hgb 11.0 L Hct 37.9 L MCV 87.9 MCH 25.5 L MCHC 29.0 L RDW Coeff of Yara 15.7 H Plt Count 114 L Immature Gran % (Auto) 0.2 Neut % (Auto) 67.2 Lymph % (Auto) 20.5 Rice % (Auto) 9.0 Eos % (Auto) 2.9 Baso % (Auto) 0.2 Neut # (Auto) 2.8 Lymph # (Auto) 0.8 Rice # (Auto) 0.4 Eos # (Auto) 0.1 Baso # (Auto) 0.0 Immature Gran # (Auto) 0.0 Puncture Site Rrad Base Excess 4.2 H O2 Saturation 90.2 L ABG pH 7.37 ABG pCO2 51.0 H ABG pO2 61.0 L ABG HCO3 29.5 H ABG Total CO2 31.1 H Tariq Test Pos Hemoglobin 0.8 Oxyhemoglobin 91.8 L Carboxyhemoglobin 2.0 H Total Hemoglobin 11.3 L FiO2 % 21.0 Sodium 136.9 Potassium 4.49 Chloride 102.6 Carbon Dioxide 28.6 Anion Gap 10.19 BUN 18.9 Creatinine 1.18 H Estimated GFR (MDRD) 63.00 BUN/Creatinine Ratio 16.01 Glucose 115.3 H Lactic Acid 0.93 Calcium 8.50 Total Bilirubin 0.54 AST 27.6 ALT 15.7 Alkaline Phosphatase 91.9 Troponin I < 0.012 Total Protein 8.18 Albumin 4.14 Globulin 4.04 Albumin/Globulin Ratio 1.02 Procalcitonin < 0.05 Influ A Molecular Assay Negative by naat Influ B Molecular Assay Negative by naat RSV Antigen Positive by naat H SARS CoV-2 RNA Rapid YANET Negative Orders Category Date Time Status ADMIT OBSERVATION [PLACE PATIENT OBSERVATION] .TO ADMISSION 04/06/23 12:11 Active MEDSURG (MONITORED BED) ABG DRAW REQUEST Stat CARDIO 04/06/23 09:56 Completed EKG-(ED ONLY) Stat CARDIO 04/06/23 09:55 Completed NPO REMINDER: IMAGING ONCE CARE 04/06/23 09:56 Completed TELEMETRY MONITORING TELE CARE 04/06/23 12:11 Active ED APPLY O2 .ONCE EMERGENCY 04/06/23 09:55 Active ED IV/MEDIPORT/POWERPORT .ONCE EMERGENCY 04/06/23 09:55 Active ABG COOX Stat LAB 04/06/23 10:19 Completed BLOOD CULTURE Stat LAB 04/06/23 13:08 Received CBC W/ AUTO DIFF Stat LAB 04/06/23 10:06 Completed COMPREHENSIVE METABOLIC PANEL Stat LAB 04/06/23 10:06 Completed FLU A & B MOLECULAR [FLU A/B MOLECULAR] Stat LAB 04/06/23 10:10 Completed LACTIC ACID Stat LAB 04/06/23 10:06 Completed PROCALCITONIN Stat LAB 04/06/23 10:06 Completed RSV Stat LAB 04/06/23 10:10 Completed SARS COV-2 RNA RAPID YANET Stat LAB 04/06/23 10:10 Completed TROPONIN I Stat LAB 04/06/23 10:06 Completed 0.9 % Sodium Chloride [Saline Flush] Meds 04/06/23 09:55 Active 1 syr IVF PRN PRN Ceftriaxone/D5w 2 gm Premix [Rocephin 2 gm/50 ml D5w] Meds 04/06/23 12:01 Discontinued 2 gm in [address] CHEST W/O CONTRAST Stat RADS 04/06/23 09:55 Completed Medications Generic Name Dose Route Start Last Admin Trade Name Freq PRN Reason Stop Dose Admin Sodium Chloride 1 syr 04/06/23 09:55 0.9% Sodium Chloride 10 Ml Disp.Syrin IVF PRN PRN To flush IV Discontinued Medications Generic Name Dose Route Start Last Admin Trade Name Freq PRN Reason Stop Dose Admin CEFTRIAXONE/D5W 2 GM PREMIX 2 gm in 50 mls @ 100 mls/hr 04/06/23 12:01 Rocephin 2 Gm/50 Ml D5w IV 04/06/23 12:30 ONCE ONE Vital Signs: Temp Pulse Resp BP Pulse Ox 04/06/23 09:31 98.7 F 90 16 161/87 H 93 L MDM: Patient is a 62 yo M here for cough sob and discomfort patient afebrile and stable blood pressure, hypoxia 91% RA, 95% on 2 L NC Exam concerning for obesity hypoventilation syndrome 3+ labs and 2 image results reviewed by me COnsults To hospitalist TAY Meyer Our plan is supportive care for RSV hypoxia, if procal high will initiate BS antibiotics, patient does not meet sepsis criteria WDX: Hypoxia, RSV, cough and discomfort acute high complexity DDX: I considered sepsis, Covid 19, aspiration but these are less likely SDOH: Patient will improve with care I suspect he may need 24 hour home oxygen not just bipap at night Patient amenable to admission All questions answered Initial CT with contrast failed due to IV infiltration x 2 Discharge Plan Discharge Patient Disposition: PLACED OBSERVATION Discharge Problem: Discomfort, Cough, RSV infection, Hypoxia Did you review [place] 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
--- NOTE | 2023-04-06 11:53 | CT ---
EXAM: CT OF THE CHEST HISTORY: Hypoxia TECHNIQUE: Contiguous CT sections are obtained from the neck base through the lung bases. Coronal an d sagittal reformatted images were then obtained. No IV contrast utilized. Automated exposure contr ol was utilized for dose reduction. COMPARISON: 04/21/2013 FINDINGS: Unenhanced mediastinal structures are grossly unremarkable. Pain large-caliber airways. Scattered p atchy tree-in-bud/centrilobular infiltrates noted bilaterally most pronounced in the left lower lobe and suprahilar left upper lobe, most concerning for an infectious or inflammatory process. No pleura l effusion or pneumothorax. No acute osseous abnormalities appreciated. Layering high-density material within the nondilated gallbladder suggests numerous small stones. Oth erwise limited evaluation of the upper most abdomen. IMPRESSION: 1. Abnormal exam. Scattered small bilateral pulmonary infiltrates most suggestive of infectious or i nflammatory process. 2. Cholelithiasis. 3. Limited noncontrast exam as above. All CT scans are performed using dose optimization techniques as appropriate to the performed exam an d include at least one of the following: Automated exposure control, adjustment of the mA and/or kV according t o size, and the use of iterative reconstruction technique.
[2023-04-06] MEDS ORDERED: DOXY-100 100 MG in SODIUM CHLORIDE 100ML 100 ML IV ONE (12:01)
[2023-04-06] MEDS ORDERED: ROCEPHIN 2 GM/50 ML D5W 2 GM/50 ML BAG IV ONE (12:01)
[2023-04-06 13:33] VITALS: BMI 64.9
[2023-04-06] MEDS ORDERED: HUMALOG SUBCUT PRN (14:09)
[2023-04-06] MEDS ORDERED: TYLENOL PO PRN (14:09)
[2023-04-06] MEDS ORDERED: NORCO 10-325 PO PRN (14:12)
[2023-04-06] MEDS ORDERED: GABAPENTIN 800 MG SCH (14:15)
--- NOTE | 2023-04-06 14:16 | PCM ---
Date of Service Date Seen by Provider: 04/06/23 Time Seen by Provider: 13:45 Admit Day/Time Admission Date: 04/06/23 Admission Time: 12:11 Reason for Admission Chief Complaint: HYPOXIA; RSV Hospital Provider Hospital Provider: ZAY ALMEIDA PA-C, [facility] [place] Primary Care Physician Primary Care Physician: JOVITA KEYS PA-C History of Present Illness History of Present Illness: Patient is a 62 year old male with pmhx of hypertension, suprapubic catheter, LIDIA, venous stasis dermatitis bilaterally, hyperlipidemia, DMT2, a fib, and GERD who presents for sob, cough, and overall not feeling well for past 5 days. Patient denies n/v/d, chest pain. Took a couple home covid tests that were negative. In ER he was positive for RSV. CT showed bilateral pneumonia. WBC and procal negative. His O2 was low 90s and was placed on 2L. He has had oxygen in the past but does not require it at baseline currently. PO2 was 61 on ABG. Patient was admitted to [facility]. Patient wears bipap at night and has it with him. Pt has chronic ulcerations of lower ext. Pt wears unna boots and they were just placed this morning by home health. Pt sees wound care at [facility] every Thu and has home health nurses every Thursday and Thursday. Case Discussed With Case Discussed With: Patient's case was discussed with the ER Physicians, Dr. Thurman. [facility] Medical History Encounter for Medicare annual wellness exam Z00.00 - Encounter for general adult medical examination without abnormal findings (ICD-10) Acute kidney injury N17.9 - Acute kidney failure, unspecified (ICD-10) Cloudy urine R82.90 - Unspecified abnormal findings in urine (ICD-10) COVID U07.1 - COVID-19 (ICD-10) Hypoxia R09.02 - Hypoxemia (ICD-10) Pneumonia due to COVID-19 virus U07.1 - COVID-19 (ICD-10) J12.82 - Pneumonia due to coronavirus disease 2019 (ICD-10) Dyspnea on exertion R06.00 - Dyspnea, unspecified (ICD-10) Pulmonary hypertension I27.20 - Pulmonary hypertension, unspecified (ICD-10) Gram-negative infection A49.9 - Bacterial infection, unspecified (ICD-10) 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 (ICD-10) Chronic pain syndrome Followed by [facility] G89.4 - Chronic pain syndrome (ICD-10) Venous stasis ulcer I83.009 - Varicose veins of unspecified lower extremity with ulcer of unspecified site (ICD-10) L97.909 - Non-pressure chronic ulcer of unspecified part of unspecified lower leg with unspecified severity (ICD-10) Morbid obesity with BMI of 60.0-69.9, adult E66.01 - Morbid (severe) obesity due to excess calories (ICD-10) Z68.44 - Body mass index [BMI] 60.0-69.9, adult (ICD-10) Diabetes mellitus, type 2 E11.9 - Type 2 diabetes mellitus without complications (ICD-10) Chronic diastolic CHF (congestive heart failure) NYHA Class II, compensated, EF 58%. AFIB Dr. Tamayo I50.32 - Chronic diastolic (congestive) heart failure (ICD-10) GERD (gastroesophageal reflux disease) K21.9 - Gastro-esophageal reflux disease without esophagitis (ICD-10) Ischemic rest pain of lower extremity both feet. will consider DAYNA, arterial or vascular testing M79.606 - Pain in leg, unspecified (ICD-10) I99.8 - Other disorder of circulatory system (ICD-10) E coli infection A49.8 - Other bacterial infections of unspecified site (ICD-10) Infection due to Stenotrophomonas maltophilia Bactrim DS 4 tablets every 8 hours x 10 days will get CMP level next week awaiting referral to Infectious disease in [place] A49.8 - Other bacterial infections of unspecified site (ICD-10) MRSA (methicillin resistant Staphylococcus aureus) A49.02 - Methicillin resistant Staphylococcus aureus infection, unspecified site (ICD-10) Abdominal obesity and metabolic syndrome E88.81 - Metabolic syndrome (ICD-10) Non-healing ulcer of multiple sites of lower extremity Stage II, 2 larger sites right leg, 2 smaller sites left leg, both are lateral posterior. L97.909 - Non-pressure chronic ulcer of unspecified part of unspecified lower leg with unspecified severity (ICD-10) Peripheral vascular disease I73.9 - Peripheral vascular disease, unspecified (ICD-10) Morbid obesity due to excess calories (05/28/18) E66.01 - Morbid (severe) obesity due to excess calories (ICD-10) Atrial fibrillation I48.91 - Unspecified atrial fibrillation (ICD-10) Sleep apnea G47.30 - Sleep apnea, unspecified (ICD-10) Hemolytic anemia obesity D58.9 - Hereditary hemolytic anemia, unspecified (ICD-10) Surgical History History of respiratory system surgery drained lung Z98.890 - Other specified postprocedural states (ICD-10) Family History FATHER , lung cancer 59 Lung cancer Mother No problems noted. Social History Smoking and tobacco status: Never smoker Passive smoking exposure: No Second hand smoke exposure: No Alcohol intake: former Substance use type: does not use Lolly/temple: [employer] Special lolly needs: No Agree to transfusion: Yes Adopted: No Caregiver/support person: Yes Foster care: No Household members: none Housing: house Lives independently: Yes Highest education level completed: high school graduate Financial difficulty paying for basics: not applicable service: No Current occupational status: disabled Current occupational exposures/hazards: No Previous occupational history: [employer] Pets and animals: No Leisure activites: reading (I watch TV, I read a little and I like to watch people) History of recent travel: No Do you think of yourself as: straight/heterosexual Current gender identity: male Seatbelt use: never Helmet use: No Drives intoxicated or rides with intoxicated tilt tray driver: No Water heater temperature set < 120 degrees: Yes Working smoke detector in home: Yes Fire extinguisher in home: Yes Carbon monoxide detector in home: Yes Firearms in home: No Allergies Allergies Allergy/AdvReac Type Severity Reaction Status Date / Time No Known Allergies Allergy Verified 04/06/23 09:40 Current Medications Home Medications apixaban 5 mg tablet (Eliquis) 5 mg PO BID 10/11/14 [History Confirmed 04/06/23 Last Taken 09/05/19 07:00] multivitamin (Daily Multi-Vitamin tablet) 1 ea PO DAILY 09/16/17 [History Confirmed 04/06/23 Last Taken 09/05/19 07:00] ascorbic acid (vitamin C) 500 mg tablet (Vitamin C) 1,000 mg PO DAILY 08/02/18 [History Confirmed 04/06/23 Last Taken 09/05/19 07:00] acetaminophen 325 mg tablet (Tylenol) 650 mg PO Q4HR PRN Mild Pain (Scale Score 1-4) 07/28/20 [History Confirmed 04/06/23 Last Taken Unknown] folic acid 400 mcg tablet 0.4 mg PO DAILY 07/28/20 [History Confirmed 04/06/23 Last Taken Unknown] aspirin 81 mg tablet,delayed release (Adult Aspirin Regimen) 81 mg PO QDAY 01/15/21 [History Confirmed 04/06/23 Last Taken Unknown] cholecalciferol (vitamin D3) 25 mcg (1,000 unit) capsule 25 mcg PO QDAY 07/10/21 [History Confirmed 04/06/23 Last Taken Unknown] diltiazem HCl 180 mg capsule,extended release 24 hr 180 mg PO QAM 11/15/21 [History Confirmed 04/06/23 Last Taken Unknown] empagliflozin 10 mg tablet (Jardiance) 10 mg PO QAM 11/15/21 [History Confirmed 04/06/23 Last Taken Unknown] hydrocodone 10 mg-acetaminophen 325 mg tablet 1 tab PO Q6H PRN Pain 11/15/21 [History Confirmed 04/06/23 Last Taken Unknown] L.acidophilus-L.plantarum-B.animalis-B.longum 2 billion cell capsule (Probiotic Acidophilus Beads) 1 cap PO DAILY 03/10/22 [History Confirmed 04/06/23 Last Taken Unknown] omeprazole 20 mg capsule,delayed release See Rx Instructions .Route .COMPLEX #90 caps 10/16/22 [Rx Confirmed 04/06/23 Last Taken Unknown] sacubitril 97 mg-valsartan 103 mg tablet (Entresto) 1 tab PO BID 10/29/22 [History Confirmed 04/06/23 Last Taken Unknown] atorvastatin 40 mg tablet See Rx Instructions .Route .COMPLEX #90 tabs 11/14/22 [Rx Confirmed 04/06/23 Last Taken Unknown] gabapentin 800 mg tablet See Rx Instructions .Route .COMPLEX #90 tabs 02/06/23 [Rx Confirmed 04/06/23 Last Taken Unknown] metformin 500 mg tablet See Rx Instructions .Route .COMPLEX #180 tabs 03/09/23 [Rx Confirmed 04/06/23 Last Taken Unknown] zolpidem 10 mg tablet 10 mg PO QHS PRN insomnia #30 tabs 03/16/23 [Rx Confirmed 04/06/23 Last Taken Unknown] furosemide 20 mg tablet 20 mg PO PRN PRN edema 04/06/23 [History Confirmed 04/06/23 Last Taken Unknown] metoprolol tartrate 50 mg tablet 50 mg PO DAILY 04/06/23 [History Confirmed 04/06/23 Last Taken Unknown] potassium chloride 20 mEq tablet,extended release(part/cryst) 20 meq PO PRN PRN lasix use 04/06/23 [History Confirmed 04/06/23 Last Taken Unknown] Home Acetaminophen (Acetaminophen 325 Mg Tablet) 650 mg PO Q4H PRN PRN Reason: Mild Pain Hydrocodone Bitart/Acetaminophen (Hydrocodone Bit/Acetaminophen 10/325 Mg Tablet) 1 tab PO Q6H PRN PRN Reason: MODERATE PAIN Albuterol/Ipratropium (Ipratropium/Albuterol Vial.Neb) 3 ml NEB RTQ6H PRN PRN Reason: Wheezing Apixaban (Apixaban 5 Mg Tab) 5 mg PO BID FLORA Aspirin (Aspirin 81 Mg Tablet.) 81 mg PO DAILYWM2 FLORA Atorvastatin Calcium (Atorvastatin Calcium 20 Mg Tablet) 40 mg PO DAILY FLORA Diltiazem HCl (Diltiazem Hcl 180 Mg Cap.Er.24h) 180 mg PO QAM FLORA Empagliflozin (Empagliflozin 10 Mg Tablet) 10 mg PO QAM [place] Gabapentin (Gabapentin 300 Mg Capsule) 600 mg PO TID FLORA Gabapentin (Gabapentin 100 Mg Capsule) 200 mg PO TID [place]ORA Guaifenesin (Guaifenesin 600 Mg Tablet.Er) 600 mg PO Q12HR FLORA Insulin Human Lispro (Insulin Lispro 100 Unit/Ml (10 Ml) Vial) 0 unit SUBCUT PRN PRN; Protocol PRN Reason: Hyperglycemia Metoprolol Tartrate (Metoprolol Tartrate 50 Mg Tablet) 50 mg PO DAILY FLORA Omeprazole (Omeprazole 20 Mg Capsule.) 20 mg PO QDAC2 FLORA Sacubitril/Valsartan (Sacubitril/Valsartan 1 Each Tablet) 4 each PO BID FLORA Sodium Chloride (0.9% Sodium Chloride 10 Ml Disp.Syrin) 1 syr IVF PRN PRN PRN Reason: To flush IV Zolpidem Tartrate (Zolpidem Tartrate 5 Mg Tablet) 10 mg PO BEDTIME FLORA Discontinued Medications CEFTRIAXONE/D5W 2 GM PREMIX (Rocephin 2 Gm/50 Ml D5w) 2 gm in 50 mls @ 100 mls/hr IV ONCE ONE Stop: 04/06/23 12:30 Last Admin: 04/06/23 13:56 Dose: Not Given Non-Formulary Medication (Gabapentin) 0 mg .ROUTE .COMPLEX FLORA Review of Systems Constitutional: Reports Fatigue; Denies Fever Head: Reports Normocephalic and Atraumatic Ears: Denies Pain Throat: Denies Sore Throat or Difficulty Swallowing Cardiovascular: Denies Chest pain or Chest Pressure Respiratory: Reports Cough and Shortness of air Gastrointestinal: Denies Nausea, Vomiting, Diarrhea, Abdominal pain or Melena Genitourinary: Reports Incontinent Bladder (+chronic suprapubic catheter ); Denies Dysuria or Hematuria Dermatologic: Denies Rashes Neurological: Denies Headache or Dizziness Physical examination Most Recent Vital Signs: Most Recent Vital Signs Temperature 98.2 F 04/06/23 13:18 Temperature Source Oral 04/06/23 13:18 Temperature Source Temporal Artery Scan 04/06/23 09:31 Pulse Rate 75 04/06/23 13:18 Respiratory Rate 14 04/06/23 13:18 Blood Pressure 161/87 H 04/06/23 09:31 Blood Pressure Left Arm 172/91 04/06/23 13:18 Blood Pressure Position Supine 04/06/23 13:18 O2 Sat by Pulse Oximetry 94 L 04/06/23 13:29 Oxygen Delivery Method Nasal Cannula 04/06/23 13:50 Oxygen Flow Rate 2 04/06/23 13:29 Height 6 ft 04/06/23 13:18 Weight 479 lb 04/06/23 13:18 Telemetry Type Bedside Monitor 04/06/23 13:59 Telemetry Monitoring Continues 04/06/23 13:59 Irregular Telemetry Rate (Approximate) 80-90 BPM 04/06/23 13:59 Telemetry Heart Rate 52 L 04/21/21 01:00 Telemetry SPO2 98 04/21/21 07:00 EKG QRS Interval 0.12 H 04/06/23 13:59 Telemetry Strip Reading afib w/ bbb 04/06/23 13:59 Appearance: Positive No Apparent Distress, Alert and Oriented x3 and Obese Skin: Positive [place] and Warm; Negative Rashes HEENT: Positive Normocephalic and Atraumatic Neck: Positive Supple and Midline Trachea Chest/Lungs: Positive Clear to Auscultation Bilaterally; Negative Rales, Rhonci or Wheezes Heart: Positive Irregular Rhythm GI/: Positive Soft, Nontender, Bowel Sounds Normal and No Distention Extremities: Positive Other (+unna boots bilaterally) Neurological: Positive Cranial Nerves Intact, Alert, Oriented and Muscle Strength 5/5 in Upper and Lower Extremities Bilaterally Psychiatric: Positive Oriented x4, Appropriate Mood and Appropriate Affect Labs This Visit Labs This Visit: Labs This Visit 04/06/23 04/06/23 04/06/23 10:06 10:10 10:19 WBC 4.10 L RBC 4.31 L Hgb 11.0 L Hct 37.9 L MCV 87.9 MCH 25.5 L MCHC 29.0 L RDW Coeff of Yara 15.7 H Plt Count 114 L Immature Gran % (Auto) 0.2 Neut % (Auto) 67.2 Lymph % (Auto) 20.5 [place] % (Auto) 9.0 Eos % (Auto) 2.9 Baso % (Auto) 0.2 Neut # (Auto) 2.8 Lymph # (Auto) 0.8 [place] # (Auto) 0.4 Eos # (Auto) 0.1 Baso # (Auto) 0.0 Immature Gran # (Auto) 0.0 Puncture Site [employer] Base Excess 4.2 H O2 Saturation 90.2 L ABG pH 7.37 ABG pCO2 51.0 H ABG pO2 61.0 L ABG HCO3 29.5 H ABG Total CO2 31.1 H Tariq Test Pos Hemoglobin 0.8 Oxyhemoglobin 91.8 L Carboxyhemoglobin 2.0 H Total Hemoglobin 11.3 L FiO2 % 21.0 Sodium 136.9 Potassium 4.49 Chloride 102.6 Carbon Dioxide 28.6 Anion Gap 10.19 BUN 18.9 Creatinine 1.18 H Estimated GFR (MDRD) 63.00 BUN/Creatinine Ratio 16.01 Glucose 115.3 H Lactic Acid 0.93 Calcium 8.50 Total Bilirubin 0.54 AST 27.6 ALT 15.7 Alkaline Phosphatase 91.9 Troponin I < 0.012 Total Protein 8.18 Albumin 4.14 Globulin 4.04 Albumin/Globulin Ratio 1.02 Procalcitonin < 0.05 Influ A Molecular Assay Negative by naat Influ B Molecular Assay Negative by naat RSV Antigen Positive by naat H SARS CoV-2 RNA Rapid YANET Negative Imaging Imaging: EXAM: CT OF THE CHEST HISTORY: Hypoxia TECHNIQUE: Contiguous CT sections are obtained from the neck base through the lung bases. Coronal and sagittal reformatted images were then obtained. No IV contrast utilized. Automated exposure control was utilized for dose reduction. COMPARISON: 04/21/2013 FINDINGS: Unenhanced mediastinal structures are grossly unremarkable. Pain large-caliber airways. Scattered patchy tree-in-bud/centrilobular infiltrates noted bilaterally most pronounced in the left lower lobe and suprahilar left upper lobe, most concerning for an infectious or inflammatory process. No pleural effusion or pneumothorax. No acute osseous abnormalities appreciated. Layering high-density material within the nondilated gallbladder suggests numerous small stones. Otherwise limited evaluation of the upper most abdomen. IMPRESSION: 1. Abnormal exam. Scattered small bilateral pulmonary infiltrates most suggestive of infectious or inflammatory process. 2. Cholelithiasis. 3. Limited noncontrast exam as above. Review Statement Review Statement: I have independently reviewed and interpreted the labs/EKGs/imaging that were ordered by the ER provider. I have reviewed all outside records that are available currently in our EMR including imaging/notes/labs from previous visits. Plan Plan: 1. Acute hypoxic respiratory failure in setting of RSV - PO2 61 on ABG. On 2L. Wean when able. Supportive care - duonebs, tylenol prn, IS, mucinex. 2. Bilateral pneumonia in setting of RSV - Procal undetected, likely viral. Plan as above. Isolation. 3. Hyperlipidemia - Cont atorvastatin 4. A fib - Cont eliquis, cardizem, and metoprolol 5. Hypertension - Cont home meds 6. Systolic heart failure, not in exacerbation - Cont entresto. Lasix is prn, pt appears euvolemic at this time. 7. GERD - Cont omeprazole 8. DMT2 - Diabetic diet, mild humalog ss, hold metformin. Cont jardiance. 9. LIDIA - Pt brought own bipap to wear at night. DVT Prophylaxis: Eliquis Time Spent: Greater than 80 minutes spent with patient, 50% of the time spent with this patient was devoted to counseling and coordination of care. [facility] minutes spent discussing advance care planning. DNI/CPR Admit to: Obs Discussed Plan of Care with Dr. Raya Shipman. Dispo - Possible d/c in AM. Medications Medication Orders: Medications Ordered Category Date Time Status 0.9 % Sodium Chloride [Saline Flush] Meds 04/06/23 09:55 Active 1 syr IVF PRN PRN Acetaminophen [Tylenol] Meds 04/06/23 14:09 Ordered 650 mg PO Q4H PRN Apixaban [Eliquis] Meds 04/06/23 21:00 Ordered 5 mg PO BID Aspirin [Aspirin EC] Meds 04/06/23 14:30 Ordered 81 mg PO QDAY Atorvastatin Calcium [Lipitor] Meds 04/06/23 14:30 Ordered See Dose Instructions PO .COMPLEX Diltiazem HCl [Cardizem Cd] Meds 04/07/23 09:00 Ordered 180 mg PO QAM Empaglifozin [Jardiance] Meds 04/07/23 09:00 Ordered 10 mg PO QAM Hydrocodone Bit/Acetaminophen [[place] 10-325] Meds 04/06/23 14:12 Ordered 1 tab PO Q6H PRN Insulin Lispro [Humalog] Meds 04/06/23 14:09 Ordered See Protocol SUBCUT PRN PRN Ipratropium/Albuterol Neb [Duoneb] Meds 04/06/23 13:42 Active 3 ml NEB RTQ6H PRN Metoprolol Tartrate [Lopressor] Meds 04/07/23 09:00 Ordered 50 mg PO DAILY Omeprazole [Prilosec] Meds 04/06/23 14:30 Ordered See Dose Instructions PO .COMPLEX Zolpidem Tartrate [Ambien] Meds 04/06/23 14:12 Ordered 10 mg PO QHS PRN gabapentin Meds 04/06/23 14:15 Ordered See Dose Instructions .ROUTE .COMPLEX sacubitril-valsartan [Entresto] Meds 04/06/23 21:00 Ordered 1 tab PO BID
[2023-04-06] MEDS: NEURONTIN PO SCH ×4 (15:48→20:53)
[2023-04-06] MEDS: DUONEB NEB PRN ×2 (15:56→20:11)
[2023-04-06] MEDS: MUCINEX PO SCH (20:53)
[2023-04-06] MEDS: ENTRESTO 24 MG-26 MG TABLET PO SCH (20:53)
[2023-04-06] MEDS: ELIQUIS PO SCH (20:54)
[2023-04-06] MEDS ORDERED: AMBIEN PO SCH (21:00)
[2023-04-06] MEDS ORDERED: SACUBITRIL VALSARTAN PO SCH (21:00)
[2023-04-07 05:12] LABS: BASOPHILS % (AUTO) 0.3 % (0.0-3.0); EOSINOPHILS # (AUTO) 0.1 K/ul (0.0-0.7); EOSINOPHILS % (AUTO) 1.8 % (0.0-7.0); HEMATOCRIT 35.8 % (42.0-52.0); HEMOGLOBIN 10.8 g/dl (14.0-18.0); IMMATURE GRANULOCYTE % (AUTO) 0.3 % (0.0-5.0); LYMPHOCYTES # (AUTO) 0.7 K/uL (0.60-3.4); LYMPHOCYTES % (AUTO) 22.6 (10.0-50.0); MEAN CORPUSCULAR HEMOGLOBIN 26.3 pg (27.0-31.0); MEAN CORPUSCULAR HGB CONC 30.2 (31.8-35.4); MEAN CORPUSCULAR VOLUME 87.3 fl (80.0-94.0); MONOCYTES # (AUTO) 0.3 K/uL (0.4-2.0); MONOCYTES % (AUTO) 9.2 (0-10); NEUTROPHILS # (AUTO) 2.2 K/ul (2.0-6.9); NEUTROPHILS % (AUTO) 65.8 % (42.2-75.2); PLATELET COUNT 108 10^3/uL (140-440); WHITE BLOOD COUNT 3.27 K/ul (4.2-10.2)
[2023-04-07] MEDS: DUONEB NEB PRN (05:18)
[2023-04-07 05:20] LABS: ALANINE AMINOTRANSFERASE 13.8 U/L (0-50); ALBUMIN 3.72 g/dL (3.5-5.0); ALKALINE PHOSPHATASE 86.7 U/L (56-119); BILIRUBIN,TOTAL 0.67 mg/dL (0.2-1.3); BLOOD UREA NITROGEN 16.1 mg/dL (9-20); CALCIUM 8.33 mg/dL (8.4-10.2); CARBON DIOXIDE 26.8 mmol/L (22-30.0); CHLORIDE 104.6 mmol/L (98-107); CREATININE 1.2 mg/dL (0.60-1.10); GLUCOSE 105.3 mg/dL (74-106); POTASSIUM 3.99 mmol/L (3.5-5.1); SODIUM 136.4 mmol/L (134.5-145); TOTAL PROTEIN 7.5 g/dL (6.3-8.2)
[2023-04-07 05:22] VITALS: BP 118/70; PULSE 91; RESP 20; TEMP 97.8
[2023-04-07] MEDS ORDERED: PRILOSEC PO SCH (06:00)
[2023-04-07] MEDS ORDERED: ASPIRIN EC PO SCH (07:30)
[2023-04-07] MEDS: ENTRESTO 24 MG-26 MG TABLET PO SCH (08:20)
[2023-04-07] MEDS: NEURONTIN PO SCH ×2 (08:21)
[2023-04-07] MEDS: ELIQUIS PO SCH (08:21)
[2023-04-07] MEDS: MUCINEX PO SCH (08:21)
[2023-04-07] MEDS ORDERED: LIPITOR PO SCH (09:00)
[2023-04-07] MEDS ORDERED: CARDIZEM CD PO SCH (09:00)
[2023-04-07] MEDS ORDERED: JARDIANCE PO SCH (09:00)
[2023-04-07] MEDS ORDERED: LOPRESSOR PO SCH (09:00)
--- NOTE | 2023-04-07 09:13 | DCSUM ---
Admission Date Admission Date: 04/06/23 Discharge Date Discharge Date: 04/07/23 Admission Diagnosis Admission Diagnosis: 1. Acute hypoxic respiratory failure in setting of RSV 2. Bilateral pneumonia in setting of RSV Discharge Diagnosis Discharge Diagnosis: 1. Acute hypoxic respiratory failure in setting of RSV - resolved 2. Bilateral pneumonia in setting of RSV 3. Hyperlipidemia 4. A fib 5. Hypertension 6. Systolic heart failure, not in exacerbation 7. GERD 8. DMT2 9. LIDIA Hospital Provider Hospital Provider: ZAY ALMEIDA [facility]-C, [facility] Primary Care Physician Primary Care Physician: JOVITA KEYS PA-C Summary of History and Physical Summary of History and Physical: Patient is a 62 year old male with pmhx of hypertension, suprapubic catheter, LIDIA, venous stasis dermatitis bilaterally, hyperlipidemia, DMT2, a fib, and GERD who presents for sob, cough, and overall not feeling well for past 5 days. Patient denies n/v/d, chest pain. Took a couple home covid tests that were negative. In ER he was positive for RSV. CT showed bilateral pneumonia. WBC and procal negative. His O2 was low 90s and was placed on 2L. He has had oxygen in the past but does not require it at baseline currently. PO2 was 61 on ABG. Patient was admitted to [facility]. Patient wears bipap at night and has it with him. Pt has chronic ulcerations of lower ext. Pt wears unna boots and they were just placed this morning by home health. Pt sees wound care at [facility] every Thu and has home health nurses every Thursday and Thursday. Hospital Course Subjective: Procal was undected, likely viral pneumonia in setting of RSV. Patient was treated with supportive measures such as O2, mucinex, duonebs, and IS. He is feeling better today. He has been wearing his bipap when asleep, as he does at home. He was weaned to RA at rest. 3 step eval done while ambulating and he did drop to 88-89% and then recovered while sitting down. Portable oxygen set up for him. Will send home with nebulizer and duonebs. Red flags on when to return/signs of bacterial pneumonia discussed. F/u with pcp within this week. Appearance: Pleasant, No Apparent Distress and Alert HEENT: MMM CVS: No Murmur Abdomen: Soft, Non-Tender and No Distention Respiratory: No Accessory Muscle Use Extremities: No Edema Vital Signs: Most Recent Vital Signs Temperature 97.8 F 04/07/23 05:21 Temperature Source Temporal Artery Scan 04/07/23 05:21 Temperature Source Temporal Artery Scan 04/06/23 09:31 Pulse Rate 91 04/07/23 05:21 Respiratory Rate 20 04/07/23 05:21 Blood Pressure 118/70 04/07/23 05:21 Blood Pressure Mean 86 04/07/23 05:21 Blood Pressure Left Arm 172/91 04/06/23 13:18 Blood Pressure Location Left Arm 04/07/23 05:21 Blood Pressure Position Supine 04/07/23 05:21 O2 Sat by Pulse Oximetry 95 04/07/23 05:32 Oxygen Delivery Method Bi-pap 04/07/23 07:20 Oxygen Flow Rate 2 04/07/23 05:32 Height 6 ft 04/06/23 13:18 Weight 479 lb 04/06/23 13:18 Telemetry Type Bedside Monitor 04/07/23 07:00 Telemetry Monitoring Continues 04/07/23 07:00 Irregular Telemetry Rate (Approximate) 80-90 BPM 04/07/23 07:00 Telemetry Heart Rate 52 L 04/21/21 01:00 Telemetry SPO2 93 04/07/23 07:00 EKG QRS Interval 0.13 H 04/07/23 07:00 Telemetry Strip Reading Atrial flutter/fib with BBB 04/07/23 07:00 Imaging: EXAM: CT OF THE CHEST HISTORY: Hypoxia TECHNIQUE: Contiguous CT sections are obtained from the neck base through the lung bases. Coronal and sagittal reformatted images were then obtained. No IV contrast utilized. Automated exposure control was utilized for dose reduction. COMPARISON: 04/21/2013 FINDINGS: Unenhanced mediastinal structures are grossly unremarkable. Pain large-caliber airways. Scattered patchy tree-in-bud/centrilobular infiltrates noted bilaterally most pronounced in the left lower lobe and suprahilar left upper lobe, most concerning for an infectious or inflammatory process. No pleural ef fusion or pneumothorax. No acute osseous abnormalities appreciated. Layering high-density material within the nondilated gallbladder suggests numerous small stones. Otherwise limited evaluation of the upper most abdomen. IMPRESSION: 1. Abnormal exam. Scattered small bilateral pulmonary infiltrates most suggestive of infectious or inflammatory process. 2. Cholelithiasis. 3. Limited noncontrast exam as above. Lab Results Last 24 Hours: 04/07/23 04/06/23 04/06/23 05:01 10:19 10:10 WBC 3.27 L RBC 4.10 L Hgb 10.8 L Hct 35.8 L MCV 87.3 MCH 26.3 L MCHC 30.2 L RDW Coeff of Yara 16.0 H Plt Count 108 L Immature Gran % (Auto) 0.3 Neut % (Auto) 65.8 Lymph % (Auto) 22.6 Pike % (Auto) 9.2 Eos % (Auto) 1.8 Baso % (Auto) 0.3 Neut # (Auto) 2.2 Lymph # (Auto) 0.7 Pike # (Auto) 0.3 L Eos # (Auto) 0.1 Baso # (Auto) 0.0 Immature Gran # (Auto) 0.0 Puncture Site Rrad Base Excess 4.2 H O2 Saturation 90.2 L ABG pH 7.37 ABG pCO2 51.0 H ABG pO2 61.0 L ABG HCO3 29.5 H ABG Total CO2 31.1 H Tariq Test Pos Hemoglobin 0.8 Oxyhemoglobin 91.8 L Carboxyhemoglobin 2.0 H Total Hemoglobin 11.3 L FiO2 % 21.0 Sodium 136.4 Potassium 3.99 Chloride 104.6 Carbon Dioxide 26.8 Anion Gap 8.99 BUN 16.1 Creatinine 1.20 H Estimated GFR (MDRD) 62.00 BUN/Creatinine Ratio 13.41 Glucose 105.3 Lactic Acid Calcium 8.33 L Total Bilirubin 0.67 AST 24.0 ALT 13.8 Alkaline Phosphatase 86.7 Troponin I Total Protein 7.50 Albumin 3.72 Globulin 3.78 Albumin/Globulin Ratio 0.98 Procalcitonin Influ A Molecular Assay Negative by naat Influ B Molecular Assay Negative by naat RSV Antigen Positive by naat H SARS CoV-2 RNA Rapid YANET Negative 04/06/23 10:06 WBC 4.10 L RBC 4.31 L Hgb 11.0 L Hct 37.9 L MCV 87.9 MCH 25.5 L MCHC 29.0 L RDW Coeff of Yara 15.7 H Plt Count 114 L Immature Gran % (Auto) 0.2 Neut % (Auto) 67.2 Lymph % (Auto) 20.5 Pike % (Auto) 9.0 Eos % (Auto) 2.9 Baso % (Auto) 0.2 Neut # (Auto) 2.8 Lymph # (Auto) 0.8 Pike # (Auto) 0.4 Eos # (Auto) 0.1 Baso # (Auto) 0.0 Immature Gran # (Auto) 0.0 Puncture Site Base Excess O2 Saturation ABG pH ABG pCO2 ABG pO2 ABG HCO3 ABG Total CO2 Tariq Test Hemoglobin Oxyhemoglobin Carboxyhemoglobin Total Hemoglobin FiO2 % Sodium 136.9 Potassium 4.49 Chloride 102.6 Carbon Dioxide 28.6 Anion Gap 10.19 BUN 18.9 Creatinine 1.18 H Estimated GFR (MDRD) 63.00 BUN/Creatinine Ratio 16.01 Glucose 115.3 H Lactic Acid 0.93 Calcium 8.50 Total Bilirubin 0.54 AST 27.6 ALT 15.7 Alkaline Phosphatase 91.9 Troponin I < 0.012 Total Protein 8.18 Albumin 4.14 Globulin 4.04 Albumin/Globulin Ratio 1.02 Procalcitonin < 0.05 Influ A Molecular Assay Influ B Molecular Assay RSV Antigen SARS CoV-2 RNA Rapid YANET Discharge Instructions Discharge Planning: Discharge Planning > [address] Raya Shipman. Discharge Medications: Medications at Discharge (Home Meds & RX) apixaban 5 mg tablet (Eliquis) 5 mg PO BID 10/11/14 multivitamin (Daily Multi-Vitamin tablet) 1 ea PO DAILY 09/16/17 ascorbic acid (vitamin C) 500 mg tablet (Vitamin C) 1,000 mg PO DAILY 08/02/18 acetaminophen 325 mg tablet (Tylenol) 650 mg PO Q4HR PRN Mild Pain (Scale Score 1-4) 07/28/20 folic acid 400 mcg tablet 0.4 mg PO DAILY 07/28/20 aspirin 81 mg tablet,delayed release (Adult Aspirin Regimen) 81 mg PO QDAY 01/15/21 cholecalciferol (vitamin D3) 25 mcg (1,000 unit) capsule 25 mcg PO QDAY 07/10/21 diltiazem HCl 180 mg capsule,extended release 24 hr 180 mg PO QAM 11/15/21 empagliflozin 10 mg tablet (Jardiance) 10 mg PO QAM 11/15/21 hydrocodone 10 mg-acetaminophen 325 mg tablet 1 tab PO Q6H PRN Pain 11/15/21 L.acidophilus-L.plantarum-B.animalis-B.longum 2 billion cell capsule (Probiotic Acidophilus Beads) 1 cap PO DAILY 03/10/22 omeprazole 20 mg capsule,delayed release See Rx Instructions .Route .COMPLEX #90 caps 10/16/22 sacubitril 97 mg-valsartan 103 mg tablet (Entresto) 1 tab PO BID 10/29/22 atorvastatin 40 mg tablet See Rx Instructions .Route .COMPLEX #90 tabs 11/14/22 gabapentin 800 mg tablet See Rx Instructions .Route .COMPLEX #90 tabs 02/06/23 metformin 500 mg tablet See Rx Instructions .Route .COMPLEX #180 tabs 03/09/23 zolpidem 10 mg tablet 10 mg PO QHS PRN insomnia #30 tabs 03/16/23 furosemide 20 mg tablet 20 mg PO PRN PRN edema 04/06/23 metoprolol tartrate 50 mg tablet 50 mg PO DAILY 04/06/23 potassium chloride 20 mEq tablet,extended release(part/cryst) 20 meq PO PRN PRN lasix use 04/06/23 ipratropium 0.5 mg-albuterol 3 mg (2.5 mg base)/3 mL nebulization soln 3 ml NEB RTQ6H PRN shortness of breath or wheezing #30 ea 04/07/23 Discharge Plan Discharge Discharge Orders: Discharge Patient (ONCE); Ordered 04/07/23 Ordered By: ZAY ALMEIDA Activity Restrictions/Additional Instructions: DISCHARGE TO HOME F/U WITH PCP THIS WEEK NEBULIZER ORDERED DX: RSV, VIRAL PNEUMONIA YOU COULD STILL BE CONTAGIOUS RETURN WITH WORSENING SYMPTOMS DIET: DIABETIC ACTIVITY: TOLERATED Instructions: RSV (Respiratory Syncytial Virus) (GEN) Care Plan Goals: Problem: Impaired Respiratory Status Goal: Exhibit optimal respiratory function Instructions: Activities as tolerated Apply oxygen as ordered Elevate head of bed Notify MD of increased congestion Patient Disposition: HOME SELF-CARE Prescriptions: New ipratropium-albuterol 0.5 mg-3 mg(2.5 mg base)/3 mL Solution For Nebulization 3 ml NEB RTQ6H PRN (Reason: shortness of breath or wheezing) Qty: 30 0RF Continued Eliquis 5 MG tablet 5 mg PO BID omeprazole 20 mg capsule,delayed release(DR/EC) See Rx Instructions .ROUTE .COMPLEX Qty: 90 1RF Dose Instruction: TAKE ONE CAPSULE DAILY Rx Instructions: TAKE ONE CAPSULE DAILY Entresto 97-103 mg tablet 1 tab PO BID atorvastatin 40 mg tablet See Rx Instructions .ROUTE .COMPLEX Qty: 90 1RF Dose Instruction: TAKE ONE TABLET DAILY GENERIC FOR LIPITOR Rx Instructions: TAKE ONE TABLET DAILY GENERIC FOR LIPITOR gabapentin 800 mg tablet See Rx Instructions .ROUTE .COMPLEX Qty: 90 1RF Dose Instruction: TAKE ONE TABLET THREE TIMES DAILY Rx Instructions: TAKE ONE TABLET THREE TIMES DAILY metformin 500 mg tablet See Rx Instructions .ROUTE .COMPLEX Qty: 180 1RF Dose Instruction: TAKE ONE TABLET TWICE DAILY Rx Instructions: TAKE ONE TABLET TWICE DAILY zolpidem 10 mg tablet 10 mg PO QHS PRN (Reason: insomnia) Qty: 30 0RF furosemide 20 mg tablet 20 mg PO PRN PRN (Reason: edema) metoprolol tartrate 50 mg tablet 50 mg PO DAILY potassium chloride 20 mEq tablet,ER particles/crystals 20 meq PO PRN PRN (Reason: lasix use) multivitamin [Daily Multi-Vitamin] 1 EACH tablet 1 ea PO DAILY ascorbic acid (vitamin C) [Vitamin C] 500 MG tablet 1,000 mg PO DAILY acetaminophen [Tylenol] 325 mg Tablet 650 mg PO Q4HR PRN (Reason: Mild Pain (Scale Score 1-4)) folic acid 400 mcg Tablet 0.4 mg PO DAILY aspirin [Adult Aspirin Regimen] 81 mg tablet,delayed release (DR/EC) 81 mg PO QDAY cholecalciferol (vitamin D3) 25 mcg (1,000 unit) capsule 25 mcg PO QDAY diltiazem HCl 180 mg capsule,extended release 24hr 180 mg PO QAM Rx Instructions: dr.bose Jimenez 10 mg tablet 10 mg PO QAM hydrocodone-acetaminophen 10-325 mg tablet 1 tab PO Q6H PRN (Reason: Pain) Probiotic Acidophilus Beads 2 billion cell capsule 1 cap PO DAILY Did you review [place] [employer] for ALL controlled substances?: Not Applicable Discussed opioids are addictive and Narcan is available by prescription or from pharmacy.: No Condition: Stable
== END 2023-04-07 11:45 | disposition home or self-care (01) ==
LOC: SCU 09:26 → ED 09:26 → SCU 12:57
PROVIDERS: ADMIT Hospitalist; ATTEND Physician Assistant